=== PATIENT | female | born 1950 | race Caucasian/White ===

== ENCOUNTER 2019-08-11 21:23 | Observation (INO) | payer MEDICARE, SELFPAY ==
--- NOTE | ~2019-08-11 | XR_ITS ---
EXAMINATION: XR chest 2V DATE: 08/11/2019 22:23 INDICATION: Anterior chest pain. TECHNIQUE: PA and lateral views of the chest were obtained. COMPARISON: Chest radiograph dated 02/01/2019 FINDINGS: The lungs are clear with no focal airspace opacities, pulmonary edema, pleural effusion or pneumothor ax. Borderline heart size. Median sternotomy wires, ostial markers and mediastinal surgical clips con sistent with prior coronary artery bypass grafting. Atherosclerotic aorta. Moderate thoracic spondylo sis. IMPRESSION: 1. Borderline heart size. No acute cardiopulmonary disease. Reviewed, dictated and finalized at location A.
--- NOTE | ~2019-08-11 | CT_ITS ---
EXAMINATION: CT abdomen pelvis w con DATE: 08/11/2019 22:50 INDICATION: Upper abdominal pain. TECHNIQUE: Computed tomography (CT) of the abdomen and pelvis was performed with 100 mL Omnipaque-350 intravenous contrast. Automated exposure control and iterative reconstruction technique were employe d. The dose-length product was 395.66 mGy-cm. COMPARISON: 10/29/2018 FINDINGS: Mild atelectasis in the right lower lobe. Borderline heart size. No pericardial or pleural effusion. Liver, gallbladder, spleen, pancreas, bilateral adrenal glands and right kidney are normal. 5 mm left renal cyst. There are few scattered colonic diverticula without adjacent inflammatory change to sugg est diverticulitis. No bowel obstruction. The appendix is not visualized. No pericecal inflammatory c hange to suggest acute appendicitis. Bladder, uterus and bilateral adnexa are unremarkable. There is calcified atherosclerosis of the aorta and many of the other arteries. No free intraperitoneal gas or fluid. No pathologically enlarged abdominal or pelvic lymphadenopathy. Severe lumbar spondylosis. IMPRESSION: 1. No acute intra-abdominal/pelvic process. Reviewed, dictated and finalized at location A.
--- NOTE | 2019-08-11 21:26 | ECG_ITS ---
Measurements Intervals [place] Rate: 68 P: 58 UT: 170 QRS: -14 QRSD: 105 T: 63 QT: 420 QTc: 448 Interpretive Statements SINUS RHYTHM INCOMPLETE RIGHT BUNDLE BRANCH BLOCK ANTEROSEPTAL INFARCT, AGE INDETERMINATE BORDERLINE ST-T WAVE ABNORMALITY- HIGH LATERAL LEADS BASELINE ARTIFACT- I, II, V6 ABNORMAL ECG Electronically Signed On 08-12-2019 6:44:20 CDT by Maco Lo D.O.
[2019-08-11 21:27] VITALS: BP 176/70; PULSE 79; RESP 22; TEMP 37.2; O2SAT 99
[2019-08-11 21:34] VITALS: O2SAT 98
[2019-08-11 21:39] LABS: Basophils Percent Auto 0.5 % (0.2-1.2); Eosinophils Absolute Auto 0.2 K/mm3 (0-0.3); Eosinophils Percent Auto 1.8 % (0-4.4); Hemoglobin 14.4 g/dL (12.0-15.0); Immature Granulocyte Absolute 0.02 K/mm3 (0.00-0.031); Immature Granulocyte Percent A 0.2 % (0-0.5); Lymphocytes Absolute Auto 1.55 K/mm3 (0.9-3.2); Lymphocytes Percent Auto 17.9 % (18.3-44.2); Mean Corpuscular Hemoglobin 31.9 pg (26-34); Mean Corpuscular Volume 88.7 fl (80-100); Mean Platelet Volume 9.8 fl (7.4-10.4); Monocytes Absolute Auto 0.7 K/mm3 (0.1-0.6); Monocytes Percent Auto 8.5 % (2.6-8.5); Neutrophils Absolute Auto 6.2 K/mm3 (1.3-6.7); Neutrophils Percent Auto 71.1 % (45.5-73.1); Platelet Count Result 224 k/mm3 (150-375); Red Blood Count 4.51 M/mm3 (4.2-5.4); Red Cell Distribution Width 12.1 % (11.5-14.5); White Blood Count 8.7 K/mm3 (4.5-10.0)
[2019-08-11 21:49] LABS: Prothrombin Time 12.5 Seconds (11.1-14.7)
[2019-08-11 21:50] LABS: Blood Urea Nitrogen 12 mg/dL (7-17); Calcium 9.5 mg/dL (8.4-10.2); Carbon Dioxide 26 mmol/L (22-30); Chloride 94 mmol/L (98-107); Estimated Glomerular Filt Rate > 60; Glucose 130 mg/dL (65-105); Partial Thromboplastin Time 29.4 SECONDS (22.3-36.8); Potassium 4.1 mmol/L (3.4-5.0); Sodium 129 mmol/L (137-145)
[2019-08-11 22:02] LABS: Troponin I < 0.012 ng/mL (0.000-0.034)
--- NOTE | 2019-08-11 22:15 | PC.NURSE ---
Called lab to add on Hepatic panel and Lipase
[2019-08-11 22:24] LABS: Alanine Aminotransferase 20 U/L (4-35); Albumin Level 4.6 g/dL (3.5-5.1); Alkaline Phosphatase 62 U/L (38-126); Aspartate Amino Transferase 35 U/L (14-36); Bilirubin,Total 0.2 mg/dL (0.2-1.3); Lipase 130 U/L (23-300)
--- NOTE | 2019-08-11 22:42 | PC.NURSE ---
pt refusing nitro at this time, reports pain at a 0/10. edp notified.
[2019-08-11 23:01] VITALS: BP 155/59; PULSE 61; RESP 18; O2SAT 100
--- NOTE | 2019-08-11 23:16 | ED.CHESTPAIN ---
HPI - Chest Pain General Chief Complaint: Chest Pain Stated Complaint: chest pain Time Seen by Provider: 08/11/19 21:46 Source: patient Mode of arrival: ambulatory Limitations: no limitations History of Present Illness HPI narrative: This patient is a 68 year old female with history of CABG, aortic valve replacement and hypertension who presents for evaluation of substernal chest pressure. She states just prior to coming she developed substernal pain. She took tums because she initially thought it was heart burn, but she did not get relief. She reports this pain continued and it began radiating to left lower chest . Her pain currently is not as severe. She has associated nausea and shortness of breath. She states her pain does not radiate to her back. She was seen by Dr. Ayala 2 years ago but she was told she did not need to follow up . MD complaint: chest pain Pertinent past history: CABG Timing of current episode: constant Onset: during rest Pain location: substernal Pain radiation: other (left lower chest) Pain scale (0-10): 5 Quality: heaviness Relieving factors: nothing Exacerbating factors: nothing Risk Factors Coronary artery disease risk factors: hyperlipidemia and hypertension Related Data Home Medications Medication Instructions Recorded Confirmed aspirin 325 mg PO DAILY 08/12/19 08/12/19 hydrochlorothiazide 25 mg PO DAILY 08/12/19 08/12/19 metoprolol succinate 50 mg PO DAILY 08/12/19 08/12/19 potassium chloride 10 meq PO BID 08/12/19 08/12/19 rosuvastatin [Crestor] 20 mg PO DAILY 08/12/19 08/12/19 sertraline 50 mg PO DAILY 08/12/19 08/12/19 vitamin B complex 1 tablet PO DAILY 08/12/19 08/12/19 Allergies Allergy/AdvReac Type Severity Reaction Status Date / Time doxycycline Allergy Intermediate RASH Unverified 08/11/19 21:32 Cephalosporins Allergy Unknown Unknown Verified 08/11/19 21:32 tetracycline Allergy Unknown Unknown Verified 08/11/19 21:32 Review of Systems Review of Systems: All systems reviewed & are unremarkable except as noted in HPI and below Constitutional: Constitutional: Denies chills and Denies fever(s) Cardiovascular: Cardiovascular: Reports chest pain, Denies rapid heart rate and Denies radiating jaw, neck or arm pain Respiratory: Respiratory: Denies cough, Reports dyspnea and Denies wheezing Gastrointestinal: Gastrointestinal: Denies abdominal pain, Denies diarrhea, Reports nausea and Denies vomiting Neurologic: Denies dizziness PMFSH Past Medical History Medical History (Updated 08/12/19 @ 06:49 by Grecia Garcia MD) Hyperlipidemia Hypertension Surgical History Surgical History (Updated 08/12/19 @ 06:45 by Grecia Garcia MD) H/O aortic valve replacement S/P CABG x 1 Family History Family History (Updated 08/12/19 @ 00:57 by Linnette Goss RN) Sibling Cancer Aortic valve replaced Heart failure Father Heart attack Daughter No problems noted. Mother Aortic valve replaced Social History Social History Smoking packs per day: 1 Smoking cigarettes per day: 20.0 Years smoked: 50 Smoking pack-years: 50.00 Smoking status: Current every day smoker Alcohol intake: current Drinks per week: 8 Substance use: never Gender identity (if verbalized by the patient): Female Spiritual care concerns: No Exam Narrative: Exam Narrative: GENERAL: Well-appearing, well-nourished, and in no acute distress. HEAD: Normocephalic, atraumatic EYES: PERRLA and EOMI, conjunctiva clear without discharge THROAT:Mucous membranes moist, Oropharynx normal without erythema, exudate, peritonsillar swelling or fluctuance NECK: Supple, without lymphadenopathy or mass RESPIRATORY: No respiratory distress, Airway patent, Respirations non-labored, Clear to auscultation without rales, rhonchi or wheeze HEART: Regular rate and rhythm. No murmur heard. Normal peripheral pulses. ABDOMEN: Soft,epigastric, nondistended, normal active dg
[2019-08-12] VITALS (7 sets, daily range): BP systolic 110–154; BP diastolic 51–98; PULSE 56–82; RESP 14–19; TEMP 36.3–36.7; O2SAT 99–100; BMI 24.5
--- NOTE | 2019-08-12 01:02 | ADMGEN ---
This patient, Yris Guillermo, was admitted to IMU Room 200-01. Patient/family oriented to hospital policies and general routines including ID bracelet, bed and alarms, visiting hours, pain management, procedures, bathroom and other care routines, personal items, smoking policy, room service/diet, and visiting hours. Valuables list has been completed. Information on how to activate the Rapid Response Team has been discussed. Patient/Family are encouraged to report perceived risks to care and to ask questions if they do not understand what they are told or what they should do.
[2019-08-12 01:25] LABS: Troponin I < 0.012 ng/mL (0.000-0.034)
[2019-08-12 03:56] LABS: Troponin I < 0.012 ng/mL (0.000-0.034)
--- NOTE | 2019-08-12 08:14 | PM.IMHP ---
H&P: HPI History of Present Illness Chief complaint: chest pain, sob Narrative: Date of service: 08/12/2019. Yris Guillermo is a 68 year old female with past medical history of chronic tobacco abuse, CABG with KIMBLE to LAD, bovine aortic valve replacement at [facility] 2004, hypertension, Meniere's disease. She came to the hospital chiefly complaining of pain in the epigastric area radiating up to the chest and to the sides that started after eating dinner. She ate toasted rivioli. Pain was persistent and she stated that when the emergency room physician was pushing on the epigastric was very tender. No aggravating or relieving factors. She usually gets such kind of pain but relieved by Tums but however yesterday was not going away. Denies shortness of breath, lower limb edema, orthopnea, paroxysmal nocturnal dyspnea, dizziness, syncope. Apparently she was seeing Dr. Ayala but he informed her that she does not need follow-up and the last time she saw Dr. Ayala was several years ago. Serum creatinine 0.7, sodium 129, troponins x2 negative. Chest x-ray reviewed myself looks unremarkable. EKG reviewed myself shows sinus rhythm, septal Q-waves. Review of Systems Review of Systems: All systems reviewed & are unremarkable except as noted in HPI and below Constitutional: Constitutional: Denies chills, Denies fatigue, Denies fever(s), Denies headache(s) and Denies snoring Eyes: Eyes: Denies eye discharge and Denies loss of vision ENT: Denies dizziness, Denies headache(s), Denies nasal discharge and Denies sore throat Cardiovascular: Cardiovascular: Reports as per HPI, Reports chest pain, Denies syncope, Denies rapid heart rate, Denies leg edema, Denies dyspnea, Denies dyspnea on exertion, Denies orthopnea and Denies paroxysmal nocturnal dyspnea Respiratory: Respiratory: Denies chest congestion, Denies cough, Denies dyspnea, Denies dyspnea on exertion, Denies snoring and Denies wheezing Gastrointestinal: Gastrointestinal: Reports abdominal pain, Denies diarrhea, Denies nausea and Denies vomiting Genitourinary: Genitourinary: Denies hematuria, Denies urinary frequency, Denies dysuria and Denies flank pain Musculoskeletal: Musculoskeletal: Denies myalgias, Denies arthralgias and Denies joint swelling Neurologic: Denies Abnormal speech present, Denies dizziness, Denies syncope, Denies headache(s), Denies focal weakness and Denies loss of vision Psychiatric: Psychiatric: Denies anxiety and Denies depression Endocrine: Endocrine: Denies cold intolerance, Denies fatigue and Denies heat intolerance Hematologic/Lymphatic: Hematologic/Lymphatic: Denies easy bleeding and Denies easy bruising Allergic/Immunologic: Allergic/Immunologic: Denies urticaria and Denies wheezing PMFSH Past Medical History Medical History Hyperlipidemia Hypertension Surgical History Surgical History H/O aortic valve replacement S/P CABG x 1 Family History Family History Sibling Cancer Aortic valve replaced Heart failure Father Heart attack Daughter No problems noted. Mother Aortic valve replaced Social History Social History Smoking packs per day: 1 Smoking cigarettes per day: 20.0 Years smoked: 50 Smoking pack-years: 50.00 Smoking status: Current every day smoker Alcohol intake: current Drinks per week: 8 Substance use: never Gender identity (if verbalized by the patient): Female Spiritual care concerns: No Meds Home Medications and Allergies Home Medications Medication Instructions Recorded Confirmed Type aspirin 325 mg PO DAILY 08/12/19 08/12/19 History hydrochlorothiazide 25 mg PO DAILY 08/12/19 08/12/19 History metoprolol succinate 50 mg PO DAILY 08/12/19 08/12/19 Sc
--- NOTE | 2019-08-12 08:53 | PM.DS ---
DS: Admitting Diagnosis Admitting Diagnosis Admitting Diagnosis: Chest pain, unspecified DS: Discharge Diagnosis Discharge Diagnosis (1) Chest pain: Code(s): R07.9 - Chest pain, unspecified Status: Acute DS: Summary Time Spent with Patient Time attestation: Total time spent providing and/or coordinating discharge services: 29 minutes. Patient was admitted with chest pain. Troponins negative. EKG shows no ischemic changes but septal Q-waves. She wanted to go home and do the stress test and echocardiogram as an outpatient. She was deemed to be stable to be discharged home. Exam Const: General: cooperative, comfortable, no acute distress, alert and awake Nutritional Appearance: well nourished Orientation/consciousness: patient oriented x3 HENMT: Head: normal to inspection, normocephalic and atraumatic Ears: hearing grossly normal bilaterally General nose exam: Normal external nose present, Normal nares present and no nasal discharge noted Face and sinus: normal facial exam and no erythema Mouth: No drooling and No restricted motion Throat: uvula midline Eyes: General: appearance normal, both eyes and all related structures Alignment and Position: position normal Conjunctivae: conjunctivae normal Sclera: sclerae normal Direct Ophthalmoscopy: No photophobia Neck: Neck: normal visual inspection and no JVD Thyroid: thyroid normal Carotids: no bruits Lymphatic: lymphedema not noted Chest: Chest palpation & inspection: normal inspection of the chest and no tenderness Resp: Effort & Inspection: normal respiratory effort and no nasal flaring Auscultation: clear to auscultation bilaterally, no crackles, no rales and no wheezes Cardio: Jugular venous distension: no JVD Rate: regular rate Rhythm: regular rhythm Heart sounds: S1 normal heart sound present, S2 normal heart sound present, no gallops, no murmurs and no rubs GI: Inspection: non-distended GI Palp: No abdominal tenderness and No Soft to palpation Auscultation: normal bowel sounds Rectal Exam: deferred : General: No no CVA tenderness Back/Spine/Pelvis: Back: No no CVA tenderness Cervical Spine: cervical ROM normal Skin: General skin exam: normal color and rashes and/or lesions noted Neuro: General: patient oriented x3 Cranial nerves: No CN's II-XII intact bilaterally Speech: normal speech Motor exam (neuro): no tremors Extrem: General: normal to inspection and pedal edema present Psych: Appearance: grossly normal and well kempt Speech and movement: Normal speech and movement present Affect: normal affect DS: Data Data Completed and Pending Labs on day of discharge: Labs from last 24 hours 08/12/19 08/12/19 08/11/19 03:23 00:52 21:33 WBC RBC Hgb Hct MCV MCH MCHC RDW Plt Count MPV Immature Gran % (Auto) Neut % (Auto) Lymph % (Auto) Tift % (Auto) Eos % (Auto) Baso % (Auto) Lymph # (Auto) Tift # (Auto) Eos # (Auto) Baso # (Auto) Abs Immat Gran (auto) Absolute Neuts (auto) Absolute Nucleated RBC Nucleated RBC % PT INR APTT Sodium Potassium Chloride Carbon Dioxide BUN Creatinine Estim Creat Clear Calc Estimated GFR Glucose Calcium Total Bilirubin 0.2 Direct Bilirubin 0.0 AST 35 ALT 20 Alkaline Phosphatase 62 Troponin I < 0.012 < 0.012 Total Protein 8.0 Albumin 4.6 Lipase 130 08/11/19 08/11/19 08/11/19 21:33 21:33 21:33 WBC 8.7 RBC 4.51 Hgb 14.4 Hct 40.0 MCV 88.7 MCH 31.9 MCHC 36.0 RDW 12.1 Plt Count 224 MPV 9.8 Immature Gran % (Auto) 0.2 Neut % (Auto) 71.1 Lymph % (Auto) 17.9 L Tift % (Auto) 8.5 Eos % (Auto) 1.8 Baso % (Auto) 0.5 Lymph # (Auto) 1.55 Tift # (Auto) 0.7 H Eos # (Auto) 0.2 Baso # (Auto) 0.0 Abs Immat Gran (auto) 0.02 Absolute Neuts (auto) 6.2 Absolute Nucleated RBC
== END 2019-08-12 10:00 | disposition home or self-care (01) ==
LOC: ANHED 21:46 → ANHIMU 08-12 02:28 → ANHCPC 08-12 08:58 → ANHIMU 08-13 14:56
PROVIDERS: Admitting Provider Internal Medicine Cardiovascular Disease; Emergency Provider General Practice; PCP Family Medicine; Visit Provider Internal Medicine Cardiovascular Disease
DX: R07.9 Chest pain, unspecified (principal); E87.1 Hypo-osmolality and hyponatremia; I10 Essential (primary) hypertension; E78.5 Hyperlipidemia, unspecified; F17.210 Nicotine dependence, cigarettes, uncomplicated; Z95.1 Presence of aortocoronary bypass graft; Z95.2 Presence of prosthetic heart valve
CPT/HCPCS: 36415; 71046; 74177; 80048; 80076; 83690; 84484; 85025; 85610; 85730; 93005; 99285; G0378; Q9967

== ENCOUNTER → 2020-03-26 16:48 | Outpatient (CLI) | payer MEDICARE, SELFPAY ==
--- NOTE | ~2020-03-26 | MM_ITS ---
EXAMINATION: MM screening david BI w erin HISTORY: Screening mammogram TECHNIQUE: Craniocaudal and mediolateral oblique 3-D tomosynthesis images were obtained and synthetic 2-D images were generated. CAD analysis was submitted and interpreted. COMPARISON: 05/10/2010 BREAST PARENCHYMAL COMPOSITION: The breasts are heterogeneously dense, which may obscure small masses . FINDINGS: Scattered benign-appearing calcifications are present. There is no evidence of suspicious m ass, calcification, or architectural distortion to suggest malignancy in either breast. There has bee n no suspicious interval change. IMPRESSION: 1. No mammographic evidence of malignancy. 2. Recommend routine screening mammography in one year. BI-RADS Category 2: Benign finding(s). Reviewed, dictated and finalized at location A. CUTTER
== END ==
PROVIDERS: PCP Family Medicine; Visit Provider Family Medicine
DX: Z12.31 Encounter for screening mammogram for malignant neoplasm of breast (principal)
CPT/HCPCS: 77063; 77067

== ENCOUNTER → 2020-06-05 14:35 | Outpatient (CLI) | payer MEDICARE, SELFPAY ==
--- NOTE | ~2020-06-05 | XR_ITS ---
EXAMINATION: XR shoulder LT min 2V DATE: 06/05/2020 15:09 INDICATION: Left shoulder pain. TECHNIQUE: 4 views of left shoulder were obtained. COMPARISON: None. FINDINGS: Bone alignment is normal. No fracture. There is mild osteoarthritis of glenohumeral joint a nd acromioclavicular joint. Median sternotomy wires and mediastinal surgical clips are seen, likely f rom prior coronary artery bypass grafting. IMPRESSION: 1. Mild polyarticular osteoarthritis. Reviewed, dictated and finalized at location A.
== END ==
PROVIDERS: PCP Family Medicine; Visit Provider Family Medicine
DX: M19.012 Primary osteoarthritis, left shoulder (principal)
CPT/HCPCS: 73030

== ENCOUNTER 2020-07-08 12:37 | Outpatient (CLI) | payer MEDICARE, SELFPAY ==
--- NOTE | ~2020-07-08 | US_ITS ---
EXAMINATION: US carotid duplex BI DATE: 07/08/2020 13:49 INDICATION: Carotid bruit. TECHNIQUE: Grayscale, color Doppler, and pulsed Doppler images of the cervical carotid arteries were obtained. The degree of vessel stenosis is placed in one of the following categories: normal, <50%, 5 0-69%, >=70% but less than near-occlusion, near-occlusion, or total occlusion. Note that percent sten osis relative to normal distal artery lumen diameter is indirectly measured from velocity measurement s as described by Wellington, et al. Radiology 2003; [id number]:340-346. COMPARISON: Ultrasound 06/25/2004 FINDINGS: RIGHT: The right common carotid artery (CCA) peak systolic velocity (PSV) is 85 cm/s. The right internal car otid artery (ICA) PSV is 206 cm/s. The right ICA end-diastolic velocity (EDV) is 69 cm/s. The right I CA/CCA PSV ratio is 2.4. Grayscale and color Doppler images yield an estimate of >=50% diameter reduc tion from plaque in the ICA. There is antegrade flow in the right vertebral artery. LEFT: The left CCA PSV is 61 cm/s. The left ICA PSV is 62 cm/s. The left ICA EDV is 28 cm/s. There is a par vus tardus waveform in left ICA. The left ICA/CCA PSV ratio is 1.0. Grayscale and color Doppler image s yield an estimate of >=50% diameter reduction from plaque in the ICA. The distal left ICA is small in caliber. There is antegrade flow in the left vertebral artery. IMPRESSION: 1. 50-69% stenosis in the right internal carotid artery. 2. Near-occlusion stenosis in the left internal carotid artery. Consider neck CTA. Reviewed, dictated and finalized at location A. IMPRESSION: 1. 50-69% stenosis in the right internal carotid artery. 2. Near-occlusion stenosis in the left internal carotid artery. Consider neck C TA.
== END 2020-07-08 12:38 | disposition home or self-care (01) ==
PROVIDERS: PCP Family Medicine; Visit Provider Family Medicine
DX: I65.23 Occlusion and stenosis of bilateral carotid arteries (principal)
CPT/HCPCS: 93880

== ENCOUNTER → 2020-07-13 15:21 | Outpatient (CLI) | payer MEDICARE, SELFPAY ==
--- NOTE | ~2020-07-13 | CT_ITS ---
EXAMINATION: CTA neck DATE: 07/13/2020 16:10 INDICATION: Near occlusion of left carotid artery. TECHNIQUE: Computed tomographic angiography (CTA) of the neck was performed with 100 mL Omnipaque-350 intravenous contrast. Automated exposure control and iterative reconstruction technique were employe d. The dose-length product was 493.71 mGy-cm. Maximum intensity projection 3D-reconstructions were cr eated by the technologist on a separate workstation. COMPARISON: Ultrasound 07/08/2020 FINDINGS: There are no pathologically enlarged lymph nodes. There is mild stenosis of right common ca rotid artery. There is plaque in the proximal right internal carotid artery. There is 56% stenosis of the proximal right internal carotid artery relative to normal distal artery lumen diameter (NASCET c riteria). There is mild stenosis of left common carotid artery. There is total occlusion of cervical left internal carotid artery. There is moderate stenosis of origin of left external carotid artery. Left vertebral artery has a separate origin from the aortic arch. Left vertebral artery is dominant. There is mild stenosis of left subclavian artery. There is severe cervical spondylosis. IMPRESSION: 1. 56% stenosis of the proximal right internal carotid artery relative to normal distal artery lumen diameter (NASCET criteria). 2. Total occlusion of cervical left internal carotid artery. Reviewed, dictated and finalized at location A. IMPRESSION: 1. 56% stenosis of the proximal right internal carotid artery relative to vikas l distal artery lumen diameter (NASCET criteria). 2. Total occlusion of cervical left internal carotid artery.
[2020-07-13 15:38] LABS: Estimated Glomerular Filt Rate > 60
== END ==
PROVIDERS: Visit Provider Family Medicine
DX: I65.23 Occlusion and stenosis of bilateral carotid arteries (principal)
CPT/HCPCS: 70498; Q9967

== ENCOUNTER → 2021-01-11 16:14 | Outpatient (CLI) | payer MEDICARE, SELFPAY ==
--- NOTE | ~2021-01-11 | XR_ITS ---
XR hand RT min 3V 01/11/2021 16:24 Indication: Right hand pain Procedure: 3 views right hand Comparison: 07/10/2013 Findings: No fracture, subluxation or dislocation. No erosive changes. There is anatomic alignment. N o focal soft tissue abnormality. No significant bone or joint abnormality. There is mild osteoarthrit is of the first MCP joint. Impression: 1: No acute bone or joint abnormality. Reviewed, dictated and finalized at location A. UNICATIONS DIRECTOR Impression: 1: No acute bone or joint abnormality.
== END ==
PROVIDERS: PCP Family Medicine; Visit Provider Family Medicine
DX: M25.541 Pain in joints of right hand (principal)
CPT/HCPCS: 73130

== ENCOUNTER 2021-06-29 11:01 | Outpatient (CLI) | payer MEDICARE, SELFPAY ==
--- NOTE | ~2021-06-29 | US_ITS ---
EXAMINATION: US carotid duplex BI DATE: 06/29/2021 12:25 INDICATION: Carotid occlusion/stenosis TECHNIQUE: Grayscale, color Doppler, and pulsed Doppler images of the cervical carotid arteries were obtained. The degree of vessel stenosis is placed in one of the following categories: normal, <50%, 5 0-69%, >=70% but less than near-occlusion, near-occlusion, or total occlusion. Note that percent sten osis relative to normal distal artery lumen diameter is indirectly measured from velocity measurement s as described by Wellington, et al. Radiology 2003; [id number]:340-346. Notes: Normal: Peak systolic velocity <125 centimeters/sec and no plaque <50%. Peak systolic velocity <125 ( EDV <40; ICA/CCA PSV ratio <2.0; used these factors only a tandem lesions or low cardiac output or co ntralateral disease) 50-69 %: PSV 125-230 (EDV 40-100; ratio 2-4) >= 70% but less than near occlusion: PSV greater than 230 (EDV > 100; ratio> 4.0) Near Occlusion: PSV that is variable; markedly narrowed lumen Occlusion: Absent flow on color/spectral Doppler and no lumen on chavez scale. COMPARISON: None. FINDINGS: RIGHT: The right common carotid artery (CCA) peak systolic velocity (PSV) is 78 cm/s. The right internal car otid artery (ICA) PSV is 255 cm/s. The right ICA end-diastolic velocity (EDV) is 47 cm/s. The right I CA/CCA PSV ratio is 3.3. The external carotid artery (ECA) PSV is 76 cm/s. There is antegrade flow in the right vertebral artery. LEFT: The left CCA PSV is 67 cm/s. There is occlusion of the left internal carotid artery without identifia ble flow. Velocity in the left external carotid artery is 1 86 cm/s. There is antegrade flow in the l eft vertebral artery. IMPRESSION: 1. Greater than or equal to 70% stenosis in the right internal carotid artery by sonographic criteri a. 2. Complete occlusion of the left internal carotid artery. Reviewed, dictated and finalized at location A. IMPRESSION: 1. Greater than or equal to 70% stenosis in the right internal carotid artery by sonographic criteria. 2. Complete occlusion of the left internal carotid artery.
== END 2021-06-29 11:02 | disposition home or self-care (01) ==
PROVIDERS: PCP Family Medicine; Visit Provider Family Medicine
DX: I65.23 Occlusion and stenosis of bilateral carotid arteries (principal)
CPT/HCPCS: 93880

== ENCOUNTER 2022-06-04 03:16 | Inpatient (IN) | payer MEDICARE, SELFPAY ==
[2022-06-04] VITALS (31 sets, daily range): BP systolic 142–195; BP diastolic 30–87; PULSE 59–93; RESP 14–23; TEMP 36.1–36.4; O2SAT 92–99; BMI 24.5
--- NOTE | 2022-06-04 | ECHO_ITS ---
Patient Info Name: Yris Guillermo Age: 71 years : 1950 Gender: Female Ht: 63 in Wt: 138 lbs BSA: 1.68 m2 HR: 61 bpm BP: 155 / 41 mmHg Heart Rhythm: Sinus Rhythm Technical Quality: Good Exam Date: 06/04/2022 2:27 PM Exam Location: [facility] Patient Status: Outpatient Admit Date: 06/04/2022 Staff Ordering Physician: George Spring MD Attending Provider: Conrad Edouard MD Exam Type: CA echo doppler color flow Study Info Complete two-dimensional, color flow and Doppler transthoracic echocardiogram is performed. Summary 1. Complete two-dimensional, color flow and Doppler transthoracic echocardiogram is performed. 2. The left ventricle is of normal size and thickness. Left ventricular function of the lower end of normal, with mild hypokinesis of the distal anterior wall and septum, ejection fraction about 55%. No focal wall motion abnormalities. Diastolic dysfunction is indeterminate. 3. Moderate left atrial enlargement. 4. Thickened mitral valve with regurgitation, not clearly delineated but probably mild to moderate. 5. The aortic valve is not well visualized. Probably moderate to severe aortic valve stenosis with a peak velocity of 313 cm/s, mean gradient of 20 mmHg, and aortic valve area of 0.8 cm2. Probably severe or moderate least severe aortic insufficiency. 6. There is mild tricuspid valve regurgitation. 7. Mild pulmonary hypertension, estimated pulmonary arterial systolic pressure is 42 mmHg. 8. Minimal enlargement of the ascending aorta, 3.4 cm. 9. Normal sinus rhythm. 10. Technically difficult study. Left Ventricle Left ventricular chamber dimension is normal. Left ventricular systolic function is normal, estimated at 55-60%. There is no increased left ventricular wall thickness. Left ventricular septal wall motion is normal. The left ventricular diastolic function is indeterminate. Right Ventricle Right ventricular chamber dimension is normal. Right ventricular systolic function is normal. Left Atria Left atrial chamber dimension is moderately enlarged. Right Atria Right atrial chamber dimension is normal. Aortic Valve The aortic valve is not well visualized. There is no aortic valve sclerosis. The aortic valve is not well visualized. Probably moderate to severe aortic valve stenosis with a peak velocity of 313 cm/s, mean gradient of 20 mmHg, and aortic valve area of 0.8 cm2. Probably severe or moderate least severe aortic insufficiency. There is moderate to severe aortic valve regurgitation. Pulmonic Valve The pulmonic valve is normal. There is no pulmonic valve stenosis. There is no pulmonic regurgitation. Mitral Valve The mitral valve has thickened leaflets. There is no mitral valve stenosis. There is mild to moderate mitral valve regurgitation. Tricuspid Valve The tricuspid valve leaflets are normal. There is no significant tricuspid valve stenosis. There is mild tricuspid valve regurgitation. Mild pulmonary hypertension, estimated pulmonary arterial systolic pressure is 42 mmHg. Pericardium/Pleural The pericardium appears normal. There is no pericardial effusion. Inferior Vena Cava Normal inferior vena cava with >50% collapse upon inspiration consistent with Empty right atrial pressure, 10 mmHg. Aorta The aortic root size at the sinus of Valsalva is normal. The prox ascending aorta size is normal. Left Ventricular Outflow Tract
--- NOTE | ~2022-06-04 | XR_ITS ---
Portable chest x-ray Comparison: 06/07/2022 Clinical History: Shortness of breath Findings: Small bilateral pleural effusions are present. There is mild to moderate pulmonary edema p attern. Cardiomediastinal silhouette is stable. Bones and soft tissues are unremarkable. Impression: Mild to moderate pulmonary edema pattern with small bilateral pleural effusions. Findings are probabl y minimally worsened from prior exam. Reviewed, dictated and finalized at location M. Impression: Mild to moderate pulmonary edema pattern with small bilateral pleural effusions . Findings are probably minimally worsened from prior exam.
--- NOTE | ~2022-06-04 | XR_ITS ---
EXAMINATION: XR chest 2V DATE: 06/04/2022 04:04 INDICATION: Chest pain. Shortness of breath. TECHNIQUE: Frontal and lateral views of the chest were obtained. COMPARISON: Chest 2 views 08/11/2019 FINDINGS: There is a diffuse interstitial pattern, consistent with pulmonary edema. There are small p leural effusions. No pneumothorax. Cardiomegaly is noted. Median sternotomy wires and mediastinal lauren gical clips are seen, likely from prior coronary artery bypass grafting. IMPRESSION: 1. Mild pulmonary edema. 2. Small pleural effusions. 3. Cardiomegaly. Reviewed, dictated and finalized at location E.
--- NOTE | ~2022-06-04 | XR_ITS ---
Portable chest x-ray Comparison: 06/04/2022 Clinical History: Shortness of breath Findings: Small right pleural effusion is present with mild pulmonary edema pattern. Cardiomediasti nal silhouette is stable, status post CABG. Bones and soft tissues are unremarkable. Impression: Mild pulmonary edema pattern with small right pleural effusion. Status post CABG. Reviewed, dictated and finalized at [facility]. Impression: Mild pulmonary edema pattern with small right pleural effusion. Status post CABG.
--- NOTE | ~2022-06-04 | CT_ITS ---
EXAMINATION: CTA chest PE protocol DATE: 06/04/2022 05:59 INDICATION: Dyspnea. TECHNIQUE: Computed tomography angiography (CTA) of the chest was performed with 100 mL Omnipaque-350 intravenous contrast timed to evaluate the pulmonary arteries. Coronal maximum intensity projection 3D-reconstructions were created by the technologist. Automated exposure control and iterative reconst ruction technique were employed. The dose-length product was 181.22 mGy-cm. COMPARISON: CT abdomen and pelvis 08/12/2019 FINDINGS: There is diffuse smooth septal thickening in the lungs associated with groundglass opacitie s, consistent with pulmonary edema. There are small pleural effusions. Cardiomegaly is noted. There a re coronary artery calcifications. There are changes of coronary artery bypass grafting. There is no pulmonary embolus. There is severe thoracic spondylosis. IMPRESSION: 1. No pulmonary embolus. 2. Moderate pulmonary edema. 3. Small pleural effusions. 4. Cardiomegaly. Reviewed, dictated and finalized at location E.
--- NOTE | 2022-06-04 03:19 | ECG_ITS ---
Measurements Intervals [place] Rate: 73 P: 76 ND: 171 QRS: -24 QRSD: 108 T: 83 QT: 386 QTc: 427 Interpretive Statements SINUS RHYTHM POSSIBLE LEFT ATRIAL ENLARGEMENT [-0.1mV P WAVE IN V1/V2] POSSIBLE OLD aNTEROSEPTAL MYOCARDIAL INFARCTION ST DEPRESSION IN V6 SUGGESTIVE OF ISCHEMIA AND NONSPECIFIC CHANGES NOTED ELSEWHERE. COMPARED TO ECG 08/11/2019 21:30:[address] DEPRESSION IN V6 IS MORE PRONOUNCED Electronically Signed On 06-04-2022 22:13:33 CDT by Awa Peterson M.D.
[2022-06-04 04:01] LABS: Basophils Percent Auto 0.4 % (0.2-1.2); Eosinophils Absolute Auto 0.2 K/mm3 (0-0.3); Eosinophils Percent Auto 1.5 % (0-4.4); Hematocrit 36.7 % (37.0-47.0); Hemoglobin 13.1 g/dL (12.0-15.0); Immature Granulocyte Absolute 0.06 K/mm3 (0.00-0.031); Immature Granulocyte Percent A 0.5 % (0-0.5); Lymphocytes Absolute Auto 1.25 K/mm3 (0.9-3.2); Lymphocytes Percent Auto 11.2 % (18.3-44.2); Mean Corpuscular HGB Conc 35.7 g/dl (32-36); Mean Corpuscular Hemoglobin 31.8 pg (26-34); Mean Corpuscular Volume 89.1 fl (80-100); Mean Platelet Volume 10.1 fl (7.4-10.4); Monocytes Absolute Auto 0.7 K/mm3 (0.1-0.6); Monocytes Percent Auto 6.6 % (2.6-8.5); Neutrophils Percent Auto 79.8 % (45.5-73.1); Platelet Count Result 177 k/mm3 (150-375); Red Blood Count 4.12 M/mm3 (4.2-5.4); Red Cell Distribution Width 12.2 % (11.5-14.5); White Blood Count 11.2 K/mm3 (4.5-10.0)
[2022-06-04 04:11] LABS: Alanine Aminotransferase 21 U/L (6-35); Albumin Level 4.2 g/dL (3.5-5.1); Alkaline Phosphatase 57 U/L (38-126); Anion Gap 8 mmol/L (8-16); Aspartate Amino Transferase 29 U/L (14-36); Bilirubin,Total 0.5 mg/dL (0.2-1.3); Blood Urea Nitrogen 18 mg/dL (7-17); Carbon Dioxide 24 mmol/L (22-30); Chloride 96 mmol/L (98-107); Estimated CRCL calculation 61 ml/min; Estimated Glomerular Filt Rate > 60; Glucose 112 mg/dL (65-110); Potassium 4.2 mmol/L (3.4-5.0); Sodium 128 mmol/L (137-145)
[2022-06-04] MEDS: BENZONATATE 100 MG CAPSULE 200 MG PO (04:17)
[2022-06-04 04:23] LABS: Troponin I 0.029 ng/mL (0.000-0.034)
[2022-06-04 04:46] LABS: Influenza A QL RT-PCR Negative (Negative); Influenza B QL RT-PCR Negative (Negative); RSV RNA, RT-PCR Negative (Negative); SARS-CoV-2 RNA PCR Negative
[2022-06-04 05:26] LABS: NT Pro B Type Natriuretic Pept 2280 pg/mL (19.9-100)
--- NOTE | 2022-06-04 05:58 | ED.GENADULT ---
HPI - General Adult General Chief complaint: Shortness of Breath/Dyspnea Stated complaint: SOB Time Seen by Provider: 06/04/22 03:30 History of Present Illness HPI narrative: Patient 71-year-old female who presents emergency department chief complaint of shortness of breath. Patient reports that for the last week having some intermittent shortness of breath. Patient reports this evening she was laying in her bed and had sudden onset of shortness of breath. Patient reports that she also had tightness in her chest when this happened and was concerned that she may have had a heart attack. The patient reports that she has never had a heart attack in the past but does report that she has history of an aortic valve replacement with a porcine valve the patient reports she had stress test and has had a cardiac cath in the past. The patient is currently not on oxygen at home and reports that she was 88 to 90% on room air Patient reports she has had a cough with all this but has been nonproductive. Related Data Home Medications Medication Instructions Recorded Confirmed aspirin 325 mg tablet 325 mg PO DAILY 08/12/19 08/12/19 metoprolol succinate 50 mg 50 mg PO DAILY 08/12/19 08/12/19 tablet,extended release 24 hr potassium chloride 20 mEq 10 meq PO BID 08/12/19 08/12/19 tablet,extended release rosuvastatin 20 mg tablet (Crestor) 20 mg PO DAILY 08/12/19 08/12/19 sertraline 50 mg tablet 50 mg PO DAILY 08/12/19 08/12/19 vitamin B complex 1 tablet PO DAILY 08/12/19 08/12/19 hydrochlorothiazide 12.5 mg tablet 12.5 mg PO DAILY 03/31/22 Allergies Allergy/AdvReac Type Severity Reaction Status Date / Time doxycycline Allergy Intermediate RASH Verified 06/04/22 04:19 Cephalosporins Allergy Unknown Unknown Verified 06/04/22 04:19 tetracycline Allergy Unknown Unknown Verified 06/04/22 04:19 Review of Systems Review of Systems: A 10 system review of systems was completed on the patient and is negative except for what is stated in the HPI. Nursing and ancillary documentation was reviewed. [facility]LY [facility] Past Medical History Medical History (Updated 06/04/22 @ 06:23 by George Felton MD) Hyperlipidemia Hypertension Surgical History Surgical History H/O aortic valve replacement S/P CABG x 1 Family History Family History Sibling Cancer Aortic valve replaced Heart failure Father Heart attack Daughter No problems noted. Mother Aortic valve replaced Social History Social History Smoking packs per day: 1 Smoking cigarettes per day: 20.0 Years smoked: 50 Smoking pack-years: 50.00 Smoking status: Current every day smoker Alcohol intake: current Drinks per week: 8 Substance use: never Gender identity (if verbalized by the patient): Female Spiritual care concerns: No Exam Narrative: GENERAL: Well-appearing, well-nourished, and in no acute distress. HEAD: Normocephalic, atraumatic. EYES: PERRLA and EOMI. ENT: Nares clear, no rhinorrhea or epistaxis. Mucous membranes moist. NECK: Supple. CHEST: Clear to auscultation. No respiratory distress. HEART: Regular rate and rhythm. No murmur heard. Normal peripheral pulses. ABDOMEN: Soft, nontender, nondistended, normal active bowel sounds. EXTREMITIES: Normal range of motion. No edema. SKIN: Warm, dry, no rash. NEURO: No focal deficits. Alert and oriented x3. PSYCH: Normal mood and affect. Course Vital Signs Vital signs: Vital Signs Pulse Rate 74 06/04/22 03:16 Respiratory Rate 23 H 06/04/22 03:16 Blood Pressure 195/42 H 06/04/22 03:16 Pulse Oximetry 95 06/04/22 03:16 Oxygen Delivery Nasal Cannula 06/04/22 03:16 Oxygen Flow Rate 2 06/04/22 03:16 Temperature 36.4 C L 06/04/22 03:25 Pulse Rate 67 06/04/22 05:57 Respiratory
[2022-06-04] MEDS: FUROSEMIDE INJ 40 MG/4 ML VIAL 20 MG IV PUSH (06:05)
--- NOTE | 2022-06-04 09:31 | PC.NURSE ---
This patient, Yris Guillermo, was admitted to IMU Room 206-02. Patient/family oriented to hospital policies and general routines including ID bracelet, bed and alarms, visiting hours, pain management, procedures, bathroom and other care routines, personal items, smoking policy, room service/diet, and visiting hours. Information on how to activate the Rapid Response Team has been discussed. Patient/Family are encouraged to report perceived risks to care and to ask questions if they do not understand what they are told or what they should do.
[2022-06-04] MEDS: FUROSEMIDE INJ 40 MG/4 ML VIAL IV PUSH (10:25)
[2022-06-04 12:01] LABS: Troponin I 0.103 ng/mL (0.000-0.034)
--- NOTE | 2022-06-04 12:44 | PM.IMHP ---
H&P: HPI History of Present Illness Date/Time: 06/04/22 12:44 Chief Complaint: 71yo female with CAD, aortic valve replacement and COPD here for chest pain and SOB. Patient has a history of aortic valve disease requiring replacement. Evaluation showed that she required bypass. She underwent aortic valve replacement with a prosthetic valve and CABG x1 to the LAD in 2004. Since that time, she has been followed by Cardiology with frequent echocardiograms. She has not had recent heart catheterization since 2004 but does have frequent stress test with her last 1 being in 2021 which was negative. Patient has noted over the past 1-2 years with increasing shortness of breath with minimal activity. She smokes half a pack a day but has a history of smoking up to 1.5 packs per day times 60 years. She has been having increasing cough over the past 1-2 weeks and the cough has been off and on. Cough has been nonproductive. She is up-to-date on all her vaccines. She has not sought medical attention for the cough. She has used tussin [id number] for this. Patient does have chronic chest pain related to the chest surgery that she describes as a 'bruised' feeling. 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 When she went to lay down, she did develop chest pain in the lower substernal area that was 3/10 described as someone pushing on my breast bone?. She initially developed coughing with shortness of breath before the onset of the chest pain. She had trouble catching her breath but denies any pleuritic chest pain. No diaphoresis or nausea. No radiation of the pain. This chest pain felt much different than the chest pain she has had chronically. No orthopnea or PND but she does state that she is up at night sometimes coughing. She has nocturia once a night that is no change. No pedal edema. No nausea, vomiting, diarrhea constipation issues. No dysuria or hematuria. She does have headaches associated with not wearing her contact but denies any headaches in the morning. Because of the change in her condition, she presented the emergency room for evaluation. She does have recurrent aortic disease but does not want further aortic surgery. In the ED, BP was 195/42. CTA chest showing moderate pulmonary edema and small pleural effusions. No PE. EKG showing NSR with old anteroseptal NC but no change from prior. Na 128, WBC 11.8 and BNP 2280. Trop up to 0.103. COVID, influenza and RSV were negative. She was given Tessalon and Lasix IV. She was admitted to IMU for further care. Review of Systems Review of Systems: All systems reviewed & are unremarkable except as noted in HPI and below PMFSH Past Medical History Medical History (Updated 06/04/22 @ 13:07 by George Spring MD) Aortic valve disease CAD (coronary artery disease) COPD (chronic obstructive pulmonary disease) Fletcher's thyroiditis Hyperlipidemia Hypertension Meniere disease PAD (peripheral artery disease) with total occlusion of left ICA Surgical History Surgical History (Updated 06/04/22 @ 13:03 by George Spring MD) H/O aortic valve replacement Hx of appendectomy Hx of carpal tunnel repair Hx of cataract extraction S/P CABG x 1 Family History Family History Sibling Cancer Aortic valve replaced Heart failure Father Heart attack Daughter No problems noted. Mother Aortic valve replaced Social History Social History (Updated 06/04/22 @ 13:04 by George Spring MD) Social History: No drug use. Drinks 4-6 alcohol drinks per week. Tobaccos use as mentioned above. She lives with her . She is a full code. She nominates her to be the individual who would make medical decisions for her if she is unable. Smoking packs per day: 0.5 Smoking cigarettes per day: 10.0 Years smoked: 60 Smoking pack-years: 30.00 Smoking s
[2022-06-04 15:50] LABS: Creatinine Urine 30.2 mg/dL
[2022-06-04 15:51] LABS: Sodium Urine Random 43 meq/L
[2022-06-04 16:16] LABS: Sodium 131 mmol/L (137-145)
[2022-06-04] MEDS: METOPROLOL SUCCINATE EXT REL 50 MG TABCR PO (16:27)
[2022-06-04 16:33] LABS: Troponin I 0.092 ng/mL (0.000-0.034)
[2022-06-04 18:15] LABS: Free T4 Free Thyroxine Reflex 1.25 ng/dL (0.78-2.19)
--- NOTE | 2022-06-04 21:17 | PM.CNCAR ---
Assessment and Plan Assessment and plan (1) Acute diastolic CHF (congestive heart failure): Code(s): I50.31 - Acute diastolic (congestive) heart failure Status: Acute Assessment and Plan: Patient presents with acute CHF. Not clear whether this is due to her aortic valve dysfunction or possibly an ACS type of event. --continue IV diuretics --daily BMP (2) Elevated troponin: Code(s): R77.8 - Other specified abnormalities of plasma proteins Status: Acute Assessment and Plan: Mildly elevated troponin noted as well as some ST depression in V6 suggestive myocardial ischemia. --EKG in the morning --further recommendations to follow (3) H/O aortic valve replacement: Code(s): Z95.2 - Presence of prosthetic heart valve Status: Acute Assessment and Plan: Patient has a bioprosthetic valve placed in 2004. Echo suggests significant aortic valve dysfunction with stenosis and regurgitation. --needs further cardiac imaging to assess the aortic valve better --may need aortic valve replacement History of Present Illness History of Present Illness Consult date/time: 06/04/22 21:17 Reason For Visit: CHF, Pulmonary Edema Narrative: Yris Guillermo is 71-year-old female whom I was asked to see at the request of Dr. Spring for my advice and opinion regarding her heart failure in consultation. She is followed by Dr. Dorsey for her history of bioprosthetic aortic valve replacement and CABG with KIMBLE to the Left anterior descending in 2004. From what I gather from the patient, there may be some valve due to radiation and there was some discussion of addressing the valve perhaps with a TAVR at some point. The patient has had progressive BECERRA over the last 2 or 3 years. It has gotten worse recently, particularly in the last week where she has had a lot of shortness of breath, PND orthopnea nocturnal cough. No edema. She also has had some episodes of chest pain off and on, sometimes with walking or going to the grocery store but sometimes at rest. Recently his seems to occur when she is coughing and having shortness of breath. It feels like a punch across the top of her chest or some lower sternal discomfort. She had an episode last week that hurt bad and after 30 minutes she took a nitroglycerin with relief in 5 minutes. She had another episode of chest pain this morning of the lower sternum, different, again relieved with nitroglycerin. She was admitted with congestive heart failure, proBNP of 2300, and troponins up to 0.103. No recent fevers or chills, no rash or skin lesions, no recent dental work. Practices SBE prophylaxis. Echo today showed normal left ventricular size with function at the lower end of normal. It was a poor quality study, technically difficult, but there is suggestion of moderate to severe aortic stenosis and moderate to severe aortic insufficiency. Review of Systems Constitutional: Constitutional: Denies fever(s) Eyes: Eyes: Reports no additional eye complaints ENT: Denies epistaxis Cardiovascular: Cardiovascular: Reports chest pain, Denies pedal edema, Denies leg edema, Denies lightheadedness and Reports dyspnea Respiratory: Respiratory: Reports chest congestion, Reports cough, Reports dyspnea and Reports dyspnea on exertion Gastrointestinal: Gastrointestinal: Denies abdominal pain, Denies hematochezia and Reports nausea Genitourinary: Genitourinary: Denies hematuria Musculoskeletal: Musculoskeletal: Reports no additional musculoskeletal complaints Integumentary/Breasts: Skin/Breast: Reports system reviewed and no additional complaints, except as docu Neurologic: Reports system reviewed and no additional complaints, except as documented, Denies behavioral changes and Denies confusion Psychiatric: Psychiatric: Denies behavioral changes and Denies confusion [facility] Past Medical History Medical History A
[2022-06-04 22:42] LABS: Total Triiodothyronine (T3) 1.09 NG/ML (0.97-1.69)
[2022-06-05] VITALS (16 sets, daily range): BP systolic 140–166; BP diastolic 40–64; PULSE 56–78; RESP 16–20; TEMP 35.9–36.5; O2SAT 94–100
[2022-06-05 05:38] LABS: Basophils Absolute Auto 0.1 K/mm3 (0.0-0.1); Basophils Percent Auto 0.5 % (0.2-1.2); Eosinophils Absolute Auto 0.1 K/mm3 (0-0.3); Eosinophils Percent Auto 1.5 % (0-4.4); Hematocrit 36.4 % (37.0-47.0); Hemoglobin 12.8 g/dL (12.0-15.0); Immature Granulocyte Absolute 0.03 K/mm3 (0.00-0.031); Immature Granulocyte Percent A 0.3 % (0-0.5); Lymphocytes Absolute Auto 1.02 K/mm3 (0.9-3.2); Lymphocytes Percent Auto 10.6 % (18.3-44.2); Mean Corpuscular HGB Conc 35.2 g/dl (32-36); Mean Corpuscular Hemoglobin 32.1 pg (26-34); Mean Corpuscular Volume 91.2 fl (80-100); Mean Platelet Volume 10.3 fl (7.4-10.4); Monocytes Absolute Auto 0.9 K/mm3 (0.1-0.6); Monocytes Percent Auto 9.1 % (2.6-8.5); Neutrophils Absolute Auto 7.5 K/mm3 (1.3-6.7); Platelet Count Result 185 k/mm3 (150-375); Red Blood Count 3.99 M/mm3 (4.2-5.4); Red Cell Distribution Width 12.3 % (11.5-14.5); White Blood Count 9.6 K/mm3 (4.5-10.0)
[2022-06-05 05:53] LABS: Alanine Aminotransferase 21 U/L (6-35); Albumin Level 3.9 g/dL (3.5-5.1); Alkaline Phosphatase 52 U/L (38-126); Anion Gap 3 mmol/L (8-16); Aspartate Amino Transferase 30 U/L (14-36); Bilirubin,Total 0.6 mg/dL (0.2-1.3); Blood Urea Nitrogen 17 mg/dL (7-17); Carbon Dioxide 31 mmol/L (22-30); Chloride 95 mmol/L (98-107); Cholesterol 123 mg/dL (0-200); Estimated CRCL calculation 61 ml/min; Estimated Glomerular Filt Rate > 60; Glucose 104 mg/dL (65-110); HDL Direct 44 mg/dL; Potassium 4.3 mmol/L (3.4-5.0); Sodium 129 mmol/L (137-145); Triglycerides 87 mg/dL (<150)
[2022-06-05 06:04] LABS: LDL Cholesterol Direct 61 mg/dL
--- NOTE | 2022-06-05 08:00 | ECG_ITS ---
Measurements Intervals [place] Rate: 62 P: 59 UT: 188 QRS: -38 QRSD: 116 T: 86 QT: 472 QTc: 482 Interpretive Statements SINUS RHYTHM WITH FREQUENT VENTRICULAR PREMATURE COMPLEXES POSSIBLE LEFT ATRIAL ENLARGEMENT [-0.1mV P WAVE IN V1/V2] MARKED LEFT AXIS DEVIATION [QRS AXIS < -30] ANTEROSEPTAL MYOCARDIAL INFARCTION , PROBABLY RECENT [40+ ms Q WAVE IN V1-V4] COMPARED TO ECG 06/04/2022 03:20:[address] AND T CHANGES ARE MORE PRONOUNCED. Electronically Signed On 06-05-2022 9:26:46 CDT by wAa Peterson M.D.
--- NOTE | 2022-06-05 08:37 | PM.IMPN ---
Progress Note: A&P Assessment and Plan (1) Chest pain: Code(s): R07.9 - Chest pain, unspecified Status: Acute Assessment and Plan: Patient with atypical chest pain that was positional associated with coughing and shortness of breath. Troponin peaked at 0.10. EKG showed normal sinus rhythm with possible old anterior septal OR and ST depression in V6 with nonspecific changes noted elsewhere. She was continued on her aspirin, metoprolol and Crestor. Cardiology was consulted. Repeat EKG showing at the anterior ST and T-wave changes are more pronounced and it was suspected that the anterior septal OR was probably recent. Echocardiogram is ordered. Probably will need ischemia evaluation before discharge. (2) Elevated troponin: Code(s): R77.8 - Other specified abnormalities of plasma proteins Status: Acute Assessment and Plan: As above (3) Congestive heart failure: Code(s): I50.9 - Heart failure, unspecified Status: Acute Assessment and Plan: Patient with shortness of breath and cough. Chest x-ray shows mild pulmonary edema and small pleural effusions. Cardiomegaly noted. CTA shows no pulmonary emboli but otherwise similar findings to the chest x-ray. BNP elevated to 2280. She was started on IV Lasix with symptomatic improvement. No echo report to review but in the cardiology note, it shows that patient has a normal LV size with function at the lower end of normal with suggestion of moderate-severe and moderate-severe AI. Wean oxygen as tolerated. Be mindful not to over diurese since she may be preload dependent. (4) H/O aortic valve replacement: Code(s): Z95.2 - Presence of prosthetic heart valve Status: Acute Assessment and Plan: Patient has a history of a aortic valve replacement. Echocardiogram as mentioned above. Patient is aware that she is in need a repeat aortic valve surgery but is resistant to having open heart surgery. She is agreeable to TAVR. Will defer to Cardiology to see if this is even option for her with the AI. [facility] could help delineate the severity. (5) CAD (coronary artery disease): Code(s): I25.10 - Atherosclerotic heart disease of po[place] coronary artery without angina pectoris Status: Acute Assessment and Plan: Patient has a history of CABG x1 vessel in 2004 with KIMBLE to the LAD. She continues to smoke. She has other risk factors. She did have chest pain with elevated troponins. These findings could be related to CHF exacerbation. Patient however needs left heart catheterization as mentioned above. (6) Hyponatremia: Code(s): E87.1 - Hypo-osmolality and hyponatremia Status: Acute Assessment and Plan: Patient appears to have a chronic hyponatremia. Sodium was 129 a few years ago. Sodium on admission here was 128 and did improved to 131 with diuresis but is back down to 129 today. Hydrochlorothiazide is on hold. She remains on Zoloft at this time. Urine studies would not be helpful given that she is on Lasix. TSH normal. Renal function remains normal. Continue to follow. Check cortisol level (7) Hypertension: Code(s): I10 - Essential (primary) hypertension Status: Acute Assessment and Plan: Patient's blood pressure was reviewed on 06/05 Blood pressure remains reasonably well controlled. Will continue current medications. (8) PAD (peripheral artery disease): Code(s): I73.9 - Peripheral vascular disease, unspecified Status: Acute Assessment and Plan: Patient has a history of left carotid artery occlusion. Continue aggressive medical management. (9) COPD (chronic obstructive pulmonary disease): Code(s): J44.9 - Chronic obstructive pulmonary disease, unspecified Status: Acute Assessment and Plan: No wheezing. She has been having a persistent cough but this may be related to CHF. Symptoms seem to [place]
[2022-06-05] MEDS: SERTRALINE HCL 50 MG TABLET PO (08:58)
[2022-06-05] MEDS: ROSUVASTATIN 10 MG TABLET 20 MG PO (08:58)
[2022-06-05] MEDS: VITAMIN B COMPLEX CAPSULE 1 CAP PO (08:58)
[2022-06-05] MEDS: METOPROLOL SUCCINATE EXT REL 50 MG TABCR PO (08:59)
[2022-06-05] MEDS: ASPIRIN 81 MG CHEWABLE TABLET PO (08:59)
[2022-06-05] MEDS: FUROSEMIDE INJ 40 MG/4 ML VIAL IV PUSH (09:06)
--- NOTE | 2022-06-05 11:51 | PM.PNCARD ---
Progress Note: A&P Assessment and Plan (1) Non-STEMI (non-ST elevated myocardial infarction): Code(s): I21.4 - Non-ST elevation (NSTEMI) myocardial infarction Status: Acute Assessment and Plan: Patient presents with chest pain and a very mild elevation of troponin. EKG has evolved suggesting anterior lateral ischemia/IL. Suspect ACS/NSTEMI. Patient has been stable since admission with no further chest pain. --start heparin --continue aspirin --cardiac catheterization tomorrow (2) Acute diastolic CHF (congestive heart failure): Code(s): I50.31 - Acute diastolic (congestive) heart failure Status: Acute Assessment and Plan: Patient presents with acute CHF. Likely due to ACS/non STEMI, was a lesser contribution of valve disease. --daily BMP --improving, oxygenating well, nearly euvolemic, will DC Lasix due to hyponatremia. (3) H/O aortic valve replacement: Code(s): Z95.2 - Presence of prosthetic heart valve Status: Acute Assessment and Plan: Patient has a bioprosthetic valve placed in 2004. Echo suggests significant aortic valve dysfunction with stenosis and regurgitation. --However, likely not much different than past Echos. No LV enlargement or major LVH/hypertrophy, so valve dysfunction is likely a chronic problem and doesn't need acute intervention. --OPT FU (4) Hyponatremia: Code(s): E87.1 - Hypo-osmolality and hyponatremia Status: Acute Assessment and Plan: Has had in past, due to diuretics. --BMP in a.m. (5) Carotid disease, bilateral: Code(s): I77.9 - Disorder of arteries and arterioles, unspecified Status: Acute Assessment and Plan: H/O total occlusion of the left ICA and moderate stenosis of GOKUL Subjective Date/time seen: FU ACS, acute CHF. Patient admitted 06/04/2022 with chest pain and acute CHF. Troponins were mildly elevated up to 0.13 and proBNP was 2300. Initially unclear how much of this was due to bioprosthetic valve dysfunction versus CAD and ACS although now it appears we are dealing more with a non-STEMI and ACS. 06/05/22 11:51 uneventful night, has had some arthritis pain, trouble sleeping etc. but no chest pain or shortness of breath. O2 off, room air O2 sat 94%. modest diuresis. Telemetry has shown some nonsustained V-tach up to about 6 or 7 beats. EKG today shows sinus rhythm rate 63 with PVCs, but ST T-wave changes anterolaterally suggestive of anterolateral ischemia or recent IL. personally reviewed. Review of Systems Review of Systems: No chest pain or shortness of breath, but achy from arthritis and tired from a poor night's sleep. No nausea. Exam Const: General: cooperative, healthy appearing and comfortable; No confusion Orientation/consciousness: oriented to person, patient oriented x3 and No confusion HENMT: Mouth: Yes moist mucous membranes Eyes: General: appearance normal, both eyes and all related structures Neck: Neck: supple and no JVD Resp: Effort & Inspection: normal respiratory effort Auscultation: rales Other: Rales in right base, few scattered rales in the left base Cardio: Rate: regular rate Rhythm: regular rhythm Heart sounds: Murmur heart sound present Other: 2-3 over 6 systolic and diastolic murmurs at the upper sternal borders GI: Inspection: normal to inspection GI Palp: No abdominal tenderness Skin: General skin exam: normal color and no rashes or lesions noted Neuro: General: oriented to person, patient oriented x3 and No confusion Extrem: Right lower extremity: no edema Left lower extremity: no edema Psych: Appearance: grossly normal Mental Status: mental status grossly normal Objective Data Vital Signs Vital Signs: Vital Signs - 24 hr 06/04/22 12:00 06/04/22 12:00 06/04/22 14:00 Temperature 97.0 F L Pulse Rate 62 85 60 Respiratory Rate 20 Blood Pressure 155/41 H Pulse Oximetry 98 Oxygen Delivery Oxygen Flow Rat
[2022-06-05 12:22] LABS: Basophils Percent Auto 0.4 % (0.2-1.2); Eosinophils Absolute Auto 0.1 K/mm3 (0-0.3); Eosinophils Percent Auto 0.9 % (0-4.4); Hematocrit 38.7 % (37.0-47.0); Hemoglobin 13.6 g/dL (12.0-15.0); Immature Granulocyte Absolute 0.03 K/mm3 (0.00-0.031); Immature Granulocyte Percent A 0.3 % (0-0.5); Lymphocytes Absolute Auto 0.86 K/mm3 (0.9-3.2); Lymphocytes Percent Auto 8.4 % (18.3-44.2); Mean Corpuscular HGB Conc 35.1 g/dl (32-36); Mean Corpuscular Hemoglobin 32.3 pg (26-34); Mean Corpuscular Volume 91.9 fl (80-100); Mean Platelet Volume 10.1 fl (7.4-10.4); Monocytes Absolute Auto 0.7 K/mm3 (0.1-0.6); Monocytes Percent Auto 6.4 % (2.6-8.5); Neutrophils Absolute Auto 8.6 K/mm3 (1.3-6.7); Neutrophils Percent Auto 83.6 % (45.5-73.1); Platelet Count Result 192 k/mm3 (150-375); Red Blood Count 4.21 M/mm3 (4.2-5.4); Red Cell Distribution Width 12.5 % (11.5-14.5); White Blood Count 10.2 K/mm3 (4.5-10.0)
[2022-06-05 12:35] LABS: INR 1.1; Partial Thromboplastin Time 31.9 SECONDS (22.3-36.8); Prothrombin Time 13.8 Seconds (11.1-14.7)
[2022-06-05] MEDS: HEPARIN SOD/D5W 100 UNITS/ML 25,000 UNITS/250 ML BAG 8 UNITS IV CONT (12:51)
[2022-06-05] MEDS: ACETAMINOPHEN 325 MG TABLET 650 MG PO (18:21)
[2022-06-05 19:34] LABS: Partial Thromboplastin Time 54.6 SECONDS (22.3-36.8)
[2022-06-05] MEDS: HEPARIN SODIUM 5,000 UNITS/ML VIAL 4000 UNITS IV PUSH (19:55)
[2022-06-05] MEDS: MELATONIN 3 MG TABLET PO (21:08)
[2022-06-06] VITALS (32 sets, daily range): BP systolic 127–191; BP diastolic 35–48; PULSE 55–72; RESP 13–20; TEMP 36.1–36.4; O2SAT 86–97
[2022-06-06 03:01] LABS: Partial Thromboplastin Time > 200.0 SECONDS (22.3-36.8)
[2022-06-06] MEDS: ACETAMINOPHEN 325 MG TABLET 650 MG PO (03:15)
[2022-06-06] MEDS: TROLAMINE SALICYLATE 10% (*BKC) 113 GM CREAM 1 APPLIC TOPICAL ×2 (03:46→21:58)
[2022-06-06 04:52] LABS: Basophils Percent Auto 0.6 % (0.2-1.2); Eosinophils Absolute Auto 0.2 K/mm3 (0-0.3); Eosinophils Percent Auto 3.3 % (0-4.4); Hematocrit 34.8 % (37.0-47.0); Hemoglobin 12.3 g/dL (12.0-15.0); Immature Granulocyte Absolute 0.03 K/mm3 (0.00-0.031); Immature Granulocyte Percent A 0.5 % (0-0.5); Lymphocytes Absolute Auto 1.25 K/mm3 (0.9-3.2); Lymphocytes Percent Auto 18.9 % (18.3-44.2); Mean Corpuscular HGB Conc 35.3 g/dl (32-36); Mean Corpuscular Hemoglobin 32.1 pg (26-34); Mean Corpuscular Volume 90.9 fl (80-100); Mean Platelet Volume 10.6 fl (7.4-10.4); Monocytes Absolute Auto 0.7 K/mm3 (0.1-0.6); Neutrophils Absolute Auto 4.4 K/mm3 (1.3-6.7); Neutrophils Percent Auto 66.7 % (45.5-73.1); Platelet Count Result 172 k/mm3 (150-375); Red Blood Count 3.83 M/mm3 (4.2-5.4); Red Cell Distribution Width 12.3 % (11.5-14.5); White Blood Count 6.6 K/mm3 (4.5-10.0)
[2022-06-06 05:02] LABS: Albumin Level 3.7 g/dL (3.5-5.1); Anion Gap 3 mmol/L (8-16); Blood Urea Nitrogen 21 mg/dL (7-17); Calcium 8.5 mg/dL (8.4-10.2); Carbon Dioxide 31 mmol/L (22-30); Chloride 92 mmol/L (98-107); Estimated CRCL calculation 53 ml/min; Estimated Glomerular Filt Rate > 60; Glucose 107 mg/dL (65-110); Magnesium 1.7 mg/dL (1.6-2.3); Phosphorus 3.7 mg/dL (2.5-4.5); Potassium 3.6 mmol/L (3.4-5.0); Sodium 126 mmol/L (137-145)
[2022-06-06 05:33] LABS: Cortisol Random 6.46 ug/dL
[2022-06-06] MEDS: VITAMIN B COMPLEX CAPSULE 1 CAP PO (10:14)
[2022-06-06 10:15] LABS: Partial Thromboplastin Time 125.1 SECONDS (22.3-36.8)
[2022-06-06] MEDS: METOPROLOL SUCCINATE EXT REL 50 MG TABCR PO (10:15)
[2022-06-06] MEDS: SERTRALINE HCL 50 MG TABLET PO (10:15)
[2022-06-06] MEDS: ROSUVASTATIN 10 MG TABLET 20 MG PO (10:15)
[2022-06-06] MEDS: ASPIRIN 81 MG CHEWABLE TABLET PO (10:15)
--- NOTE | 2022-06-06 11:51 | PM.IMPN ---
Progress Note: A&P Assessment and Plan (1) Chest pain: Code(s): R07.9 - Chest pain, unspecified Status: Acute Assessment and Plan: Patient with atypical chest pain that was positional associated with coughing and shortness of breath. Troponin peaked at 0.10. EKG showed normal sinus rhythm with possible old anterior septal NV and ST depression in V6 with nonspecific changes noted elsewhere. She was continued on her aspirin, metoprolol and Crestor. Cardiology was consulted. Repeat EKG showing at the anterior ST and T-wave changes are more pronounced and it was suspected that the anterior septal NV was probably recent. Echo showing EF 55% with hypokinesis of the distal anterior wall and septum, mild-mod MR, mod-severe (HANH 0.8), mod-severe AI and mild pHTN. Plan for LHC later today to exclude ischemic CAD and to determine aortic valve severity. (2) Elevated troponin: Code(s): R77.8 - Other specified abnormalities of plasma proteins Status: Acute Assessment and Plan: As above (3) Congestive heart failure: Code(s): I50.9 - Heart failure, unspecified Status: Acute Assessment and Plan: Patient with shortness of breath and cough. Chest x-ray shows mild pulmonary edema and small pleural effusions. Cardiomegaly noted. CTA shows no pulmonary emboli but otherwise similar findings to the chest x-ray. BNP elevated to 2280. She was started on IV Lasix with symptomatic improvement. Echo as mentioned above. Probably Acute/Chronic diastolic CHF. She is off lasix. (4) H/O aortic valve replacement: Code(s): Z95.2 - Presence of prosthetic heart valve Status: Acute Assessment and Plan: Patient has a history of a aortic valve replacement. Echocardiogram as mentioned above. Patient is aware that she is in need a repeat aortic valve surgery but is resistant to having open heart surgery. She is agreeable to TAVR. LHC could help delineate the severity. (5) CAD (coronary artery disease): Code(s): I25.10 - Atherosclerotic heart disease of [place] coronary artery without angina pectoris Status: Acute Assessment and Plan: Patient has a history of CABG x1 vessel in 2004 with KIMBLE to the LAD. She continues to smoke. She has other risk factors with HTN and HLD. She did have chest pain with elevated troponins. These findings could be related to CHF exacerbation. Patient however needs left heart catheterization as mentioned above. (6) Hyponatremia: Code(s): E87.1 - Hypo-osmolality and hyponatremia Status: Acute Assessment and Plan: Patient appears to have a chronic hyponatremia. Sodium was 129 a few years ago. Sodium on admission here was 128 and did improved to 131 with diuresis but is back down to 124 today. Hydrochlorothiazide is on hold. She remains on Zoloft at this time. Urine studies would not be helpful given that she was on Lasix but Lasix stopped so will check urine studies today. Cortisol and TSH normal. Renal function remains normal. Continue to follow. (7) Hypertension: Code(s): I10 - Essential (primary) hypertension Status: Acute Assessment and Plan: Patient's blood pressure was reviewed on 06/06 Blood pressure remains reasonably well controlled. Will continue current medications. (8) PAD (peripheral artery disease): Code(s): I73.9 - Peripheral vascular disease, unspecified Status: Acute Assessment and Plan: Patient has a history of left carotid artery occlusion. Continue aggressive medical management. (9) COPD (chronic obstructive pulmonary disease): Code(s): J44.9 - Chronic obstructive pulmonary disease, unspecified Status: Acute Assessment and Plan: No wheezing. She has been having a persistent cough but this may be related to CHF. Symptoms seem to better with diuresis. Will continue to monitor. She was educated about the benefi
--- NOTE | 2022-06-06 15:12 | WPDCARDPROC ---
Cardiac Cath Procedure Note Date of procedure:: 06/06/22 Performing physician:: Jose Juan Ayala MD Indication:: chest pain/troponin elevation Brief clinical history:: this is a 71-year-old woman with aortic valve disease and coronary disease who underwent aortic valve replacement with a bioprosthesis and KIMBLE to the LAD back in 2004. She enters the hospital a experiencing symptoms of increasing breathlessness as well as some chest pain. There was a very mild troponin elevation prompting recommendation for angiography. Patient's aortic valve bioprosthesis does have significant stenosis as well as Significant regurgitation. Procedure Procedure performed:: coronary angiography internal mammary graft angiography femoral artery angiography Sedation/Medication given:: fentanyl 50 mg Versed 2 mg case start time 2:48 p.m. case end time 3:05 p.m. sedation provided by Serenity Oliver RN, trained observer Access site:: right femoral artery Estimated blood loss:: 30 cc Procedure note:: patient was brought to the cardiac catheterization lab in the postabsorptive state where the right femoral triangle was prepared and draped normal fashion. Anesthesia was 1% lidocaine infiltrated locally. Using the modified Seldinger technique the right femoral artery was punctured and a 5 [place]grin vascular sheath was placed. After this I used a 5 [place] FL4 catheter to engage and inject the left coronary artery I then used a 5 [place] JR4 catheter to engage inject the right coronary artery. Following this the JR4 catheter was advanced into the subclavian artery into the BREA ostium and used the same catheter to inject the left internal mammary graft to the LAD. Cineangiograms angiograms were then reviewed and the case was terminated. Form an angiogram of the femoral artery through the sheath after which I determined that the sheath should be removed with direct manual compression. 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 Findings:: Hemodynamics: Central aortic pressure is 192 over 42 the left ventricle was not entered during this procedure. The pulse pressure is 148 mmHg the left main coronary artery is medium in caliber with mild plaque in the midportion of the left main but no functionally significant disease is seen. The left anterior descending is a mild to moderately calcified vessel it is small to medium in caliber it extends down to and around the apex. There is a high-grade stenosis of 95% in the midportion of the LAD. There is competitive filling seen distal to this. The diagonal branches are small but free of significant disease. The circumflex is a medium caliber artery giving rise to the marginal branches as well as the posterior branches. The circumflex system has minimal luminal irregularities but no flow-limiting lesions are seen. Right coronary artery is very small in caliber and non dominant. It is free of significant disease. Injection of the left internal mammary artery shows it to be a medium caliber BREA. It is free of significant stenosis its anastomosis into the mid LAD is patent and it fills the LAD down to the apex and actually back proximally to the high-grade lesion as well. Conclusion:: 1. Single-vessel coronary artery disease with high-grade stenosis of the mid LAD. 2. Left coronary dominant circulation 3. patent BREA graft to the LAD from operation in 2004 4. very wide pulse typical of chronic severe aortic valve regurgitation in bioprosthetic AVR Jose Juan Ayala MD [facility]
[2022-06-06 16:38] LABS: Activated Clotting Time 161 SEC (74-137)
[2022-06-06 16:38] LABS: Activated Clotting Time 113 SEC (74-137)
[2022-06-06 16:38] LABS: Activated Clotting Time 125 SEC (74-137)
--- NOTE | 2022-06-06 17:45 | SUR.PHASEII ---
2139 Dr. Ayala notified of patient's vital signs and BPs 180s systolic and diastolic BPS in the 30s and 40s (previously systolic readings had not bed that high pre procedure) and patient requiring 2 liters O2 to keep sats above 92% post procedure (on room air pre procedure) as well as patient's cough while laying flat the makes her feel like she could choke. Patient denies pain or dyspnea. No new orders aside from raising HOB per protocol per MD and she has a widened pulse pressure due to her aortic insufficiency that he is unable to treat.
[2022-06-06] MEDS: MAGNESIUM SULF 2 GM/WATER 50ML 2 GM/50 ML BAG IVPB (17:54)
[2022-06-06] MEDS: SODIUM CHLORIDE 0.9% IV 1,000 ML 125 ML IV CONT (17:57)
[2022-06-06 21:06] LABS: Creatinine Urine 39.4 mg/dL
[2022-06-06 21:11] LABS: Sodium Urine Random 15 meq/L
[2022-06-06] MEDS: MELATONIN 3 MG TABLET PO (21:57)
[2022-06-07] VITALS (19 sets, daily range): BP systolic 102–178; BP diastolic 32–58; PULSE 61–90; RESP 18–22; TEMP 35.8–36.6; O2SAT 93–99
[2022-06-07] MEDS: LEVALBUTEROL NEB 1.25 MG/3 ML INHALATION (03:34)
[2022-06-07] MEDS: IPRATROPIUM BR 0.02% INH SOLN 0.5 MG/2.5 ML VIAL INHALATION (03:34)
[2022-06-07 05:03] LABS: Albumin Level 3.8 g/dL (3.5-5.1); Anion Gap 3 mmol/L (8-16); Blood Urea Nitrogen 14 mg/dL (7-17); Calcium 8.4 mg/dL (8.4-10.2); Carbon Dioxide 30 mmol/L (22-30); Chloride 98 mmol/L (98-107); Estimated CRCL calculation 61 ml/min; Estimated Glomerular Filt Rate > 60; Glucose 105 mg/dL (65-110); Phosphorus 3.6 mg/dL (2.5-4.5); Sodium 131 mmol/L (137-145)
[2022-06-07] MEDS: ENOXAPARIN 40 MG/0.4 ML SYRINGE SUB-Q (10:21)
[2022-06-07] MEDS: METOPROLOL SUCCINATE EXT REL 50 MG TABCR PO (10:22)
[2022-06-07] MEDS: SERTRALINE HCL 50 MG TABLET PO (10:23)
[2022-06-07] MEDS: ROSUVASTATIN 10 MG TABLET 20 MG PO (10:23)
[2022-06-07] MEDS: ASPIRIN 81 MG CHEWABLE TABLET PO (10:23)
[2022-06-07] MEDS: VITAMIN B COMPLEX CAPSULE 1 CAP PO (10:23)
--- NOTE | 2022-06-07 11:47 | PM.IMPN ---
Progress Note: A&P Assessment and Plan (1) Congestive heart failure: Code(s): I50.9 - Heart failure, unspecified Status: Acute Assessment and Plan: Patient with shortness of breath and cough. Chest x-ray shows mild pulmonary edema and small pleural effusions. Cardiomegaly noted. CTA shows no pulmonary emboli but otherwise similar findings to the chest x-ray. BNP elevated to 2280. She was started on IV Lasix with symptomatic improvement. Echo as mentioned below. Probably Acute/Chronic diastolic CHF. She was off lasix. Has O2 requirement since LHC. CXR this morning showing pulmonary edema. Resume lasix IV. Change to low dose oral lasix once off O2 and edema better. (2) Chest pain: Code(s): R07.9 - Chest pain, unspecified Status: Acute Assessment and Plan: Patient with atypical chest pain that was positional associated with coughing and shortness of breath. Troponin peaked at 0.10. EKG showed normal sinus rhythm with possible old anterior septal TN and ST depression in V6 with nonspecific changes noted elsewhere. She was continued on her aspirin, metoprolol and Crestor. Cardiology was consulted. Repeat EKG showing at the anterior ST and T-wave changes are more pronounced and it was suspected that the anterior septal TN was probably recent. Echo showing EF 55% with hypokinesis of the distal anterior wall and septum, mild-mod MR, mod-severe (HANH 0.8), mod-severe AI and mild pHTN. LHC showing single vessle CAD with high-grade stenosis mid-LAD with patent BREA graft to the LAD. Continue medcial management. (3) Elevated troponin: Code(s): R77.8 - Other specified abnormalities of plasma proteins Status: Acute Assessment and Plan: As above (4) H/O aortic valve replacement: Code(s): Z95.2 - Presence of prosthetic heart valve Status: Acute Assessment and Plan: Patient has a history of a aortic valve replacement. Echocardiogram as mentioned above. Patient is aware that she is in need a repeat aortic valve surgery but is resistant to having open heart surgery. She is agreeable to TAVR. LHC showing very wide pulse typical of chronic severe AI. Defer to cardiology. (5) CAD (coronary artery disease): Code(s): I25.10 - Atherosclerotic heart disease of [place] coronary artery without angina pectoris Status: Acute Assessment and Plan: Patient has a history of CABG x1 vessel in 2004 with KIMBLE to the LAD. She continues to smoke. She has other risk factors with HTN and HLD. She did have chest pain with elevated troponins. LHC noted above showing no significant coronary disease. Elevated Trop and chest pain felt related to CHF exacerbation. (6) Hyponatremia: Code(s): E87.1 - Hypo-osmolality and hyponatremia Status: Acute Assessment and Plan: Patient appears to have a chronic hyponatremia. Sodium was 129 a few years ago. Sodium on admission here was 128 and did improved to 131 with diuresis but then back down to 124. Hydrochlorothiazide on hold. She remains on Zoloft at this time. Urine sodium 15. Cortisol and TSH normal. Renal function remains normal. na better at 131. Continue to follow. (7) Hypertension: Code(s): I10 - Essential (primary) hypertension Status: Acute Assessment and Plan: Patient's blood pressure was reviewed on 06/07 Blood pressure remains elevated at times with wide pulse pressure. Will continue current medications. (8) PAD (peripheral artery disease): Code(s): I73.9 - Peripheral vascular disease, unspecified Status: Acute Assessment and Plan: Patient has a history of left carotid artery occlusion. Continue aggressive medical management. (9) COPD (chronic obstructive pulmonary disease): Code(s): J44.9 - Chronic obstructive pulmonary disease, unspecified Status: Acute Assessment and Plan: No wheezing. She has been h
[2022-06-07] MEDS: FUROSEMIDE INJ 40 MG/4 ML VIAL IV PUSH ×2 (12:39→16:20)
--- NOTE | 2022-06-07 14:09 | PM.PNCARD ---
Progress Note: A&P Assessment and Plan (1) Non-STEMI (non-ST elevated myocardial infarction): Code(s): I21.4 - Non-ST elevation (NSTEMI) myocardial infarction Status: Acute Assessment and Plan: Patient presents with chest pain and a very mild elevation of troponin. EKG has evolved suggesting anterior lateral ischemia/MT. Suspect ACS/NSTEMI. Patient has been stable since admission with no further chest pain. High grade stenosis of the mid LAD, with patent graft to the LAD Continue ASA, statin Continue risk factor modification for CAD Outpatient follow up with Dr. Dorsey (2) Acute diastolic CHF (congestive heart failure): Code(s): I50.31 - Acute diastolic (congestive) heart failure Status: Acute Assessment and Plan: Patient presents with acute CHF. Likely due to ACS/non STEMI, was a lesser contribution of valve disease. Improved. Looks euvolemic on exam today. Will d/c IV furosemide p.r.n. furosemide on discharge (3) H/O aortic valve replacement: Code(s): Z95.2 - Presence of prosthetic heart valve Status: Acute Assessment and Plan: Patient has a bioprosthetic valve placed in 2004. Echo suggests significant aortic valve dysfunction with stenosis and regurgitation. This was confirmed on cath yesterday, severe AI with very wide pulse pressure indicating chronic AI --However, likely not much different than past Echos. No LV enlargement or major LVH/hypertrophy, so valve dysfunction is likely a chronic problem and doesn't need acute intervention. --OPT f/u with Dr. Dorsey --OK for discharge from a cardiac standpoint (4) Hyponatremia: Code(s): E87.1 - Hypo-osmolality and hyponatremia Status: Acute Assessment and Plan: Has had in past, due to diuretics. --Improving (5) Carotid disease, bilateral: Code(s): I77.9 - Disorder of arteries and arterioles, unspecified Status: Acute Assessment and Plan: H/O total occlusion of the left ICA and moderate stenosis of GOKUL Subjective Date/time seen: 06/07/22 14:09 Cardiology follow up for AI She is feeling well today and has no complaints. Denies chest pain, palpitations, shortness of breath. Has lots of questions about findings from yesterday's cath - I had a long discussion with her re: her aortic valve disease and treatment options moving forward. Review of Systems Neurologic: Denies confusion Psychiatric: Psychiatric: Denies confusion Exam Const: General: cooperative, healthy appearing and comfortable; No confusion Orientation/consciousness: oriented to person, patient oriented x3 and No confusion HENMT: Mouth: Yes moist mucous membranes Eyes: General: appearance normal, both eyes and all related structures Neck: Neck: supple and no JVD Resp: Effort & Inspection: normal respiratory effort Auscultation: clear to auscultation bilaterally Cardio: Rate: regular rate Rhythm: regular rhythm Heart sounds: Murmur heart sound present Other: 2-3/ 6 systolic and diastolic murmurs at the upper sternal borders GI: Inspection: normal to inspection Skin: General skin exam: normal color and no rashes or lesions noted Neuro: General: oriented to person, patient oriented x3 and No confusion Extrem: Right lower extremity: no edema Left lower extremity: no edema Psych: Appearance: grossly normal Mental Status: mental status grossly normal Objective Data Vital Signs Vital Signs: Vital Signs - 24 hr 06/06/22 15:20 06/06/22 15:30 06/06/22 15:45 Temperature 36.3 C L Pulse Rate 57 L 58 L 59 L Respiratory Rate 14 13 16 Blood Pressure 167/46 H 164/38 H 173/40 H Pulse Oximetry 92 92 92 Oxygen Delivery Room Air Room Air Room Air Oxygen Flow Rate 06/06/22 16:10 06/06/22 16:12 06/06/22 16:15 Temperature Pulse Rate 58 L 62 61 Respiratory Rate 20 18 19 Blood Pressure 164/39 H 177/47 H Pulse Oximetry 91 91 95 Oxygen Delivery Nasal Cannula Nasal Cannu
[2022-06-07] MEDS: ACETAMINOPHEN 325 MG TABLET 650 MG PO (20:50)
[2022-06-07] MEDS: MELATONIN 3 MG TABLET PO (20:50)
[2022-06-08] VITALS (11 sets, daily range): BP systolic 127–156; BP diastolic 32–46; PULSE 59–77; RESP 18–20; TEMP 35.7–36.3; O2SAT 94–98
[2022-06-08 05:01] LABS: Anion Gap 3 mmol/L (8-16); Blood Urea Nitrogen 13 mg/dL (7-17); Calcium 8.9 mg/dL (8.4-10.2); Carbon Dioxide 32 mmol/L (22-30); Chloride 97 mmol/L (98-107); Estimated CRCL calculation 53 ml/min; Estimated Glomerular Filt Rate > 60; Glucose 96 mg/dL (65-110); Potassium 4.4 mmol/L (3.4-5.0); Sodium 132 mmol/L (137-145)
--- NOTE | 2022-06-08 08:14 | PM.DS ---
DS: Admitting Diagnosis Discharge Date 06/08/22 Admitting Diagnosis chest pain + sob DS: Discharge Diagnosis Discharge Diagnosis (1) Congestive heart failure: Code(s): I50.9 - Heart failure, unspecified Status: Acute Assessment and Plan: Patient with shortness of breath and cough. Chest x-ray shows mild pulmonary edema and small pleural effusions. Cardiomegaly noted. CTA shows no pulmonary emboli but otherwise similar findings to the chest x-ray. BNP elevated to 2280. She was started on IV Lasix with symptomatic improvement. Echo as mentioned below. Probably Acute/Chronic diastolic CHF. She was off lasix. Has O2 requirement since LHC. CXR this morning showing pulmonary edema. Resume lasix IV. Change to low dose oral lasix once off O2 and edema better. (2) Chest pain: Code(s): R07.9 - Chest pain, unspecified Status: Acute Assessment and Plan: Patient with atypical chest pain that was positional associated with coughing and shortness of breath. Troponin peaked at 0.10. EKG showed normal sinus rhythm with possible old anterior septal MT and ST depression in V6 with nonspecific changes noted elsewhere. She was continued on her aspirin, metoprolol and Crestor. Cardiology was consulted. Repeat EKG showing at the anterior ST and T-wave changes are more pronounced and it was suspected that the anterior septal MT was probably recent. Echo showing EF 55% with hypokinesis of the distal anterior wall and septum, mild-mod MR, mod-severe (HANH 0.8), mod-severe AI and mild pHTN. LHC showing single vessle CAD with high-grade stenosis mid-LAD with patent BREA graft to the LAD. Continue medcial management. (3) Elevated troponin: Code(s): R77.8 - Other specified abnormalities of plasma proteins Status: Acute Assessment and Plan: As above (4) H/O aortic valve replacement: Code(s): Z95.2 - Presence of prosthetic heart valve Status: Acute Assessment and Plan: Patient has a history of a aortic valve replacement. Echocardiogram as mentioned above. Patient is aware that she is in need a repeat aortic valve surgery but is resistant to having open heart surgery. She is agreeable to TAVR. LHC showing very wide pulse typical of chronic severe AI. Defer to cardiology. (5) CAD (coronary artery disease): Code(s): I25.10 - Atherosclerotic heart disease of [place] coronary artery without angina pectoris Status: Acute Assessment and Plan: Patient has a history of CABG x1 vessel in 2004 with KIMBLE to the LAD. She continues to smoke. She has other risk factors with HTN and HLD. She did have chest pain with elevated troponins. LHC noted above showing no significant coronary disease. Elevated Trop and chest pain felt related to CHF exacerbation. (6) Hyponatremia: Code(s): E87.1 - Hypo-osmolality and hyponatremia Status: Acute Assessment and Plan: Patient appears to have a chronic hyponatremia. Sodium was 129 a few years ago. Sodium on admission here was 128 and did improved to 131 with diuresis but then back down to 124. Hydrochlorothiazide on hold. She remains on Zoloft at this time. Urine sodium 15. Cortisol and TSH normal. Renal function remains normal. na better at 131. Continue to follow. (7) Hypertension: Code(s): I10 - Essential (primary) hypertension Status: Acute Assessment and Plan: Patient's blood pressure was reviewed on 06/07 Blood pressure remains elevated at times with wide pulse pressure. Will continue current medications. (8) PAD (peripheral artery disease): Code(s): I73.9 - Peripheral vascular disease, unspecified Status: Acute Assessment and Plan: Patient has a history of left carotid artery occlusion. Continue aggressive medical management. (9) COPD (chronic obstructive pulmonary disease): Code(s): J44.9 - Chronic obstructive pulmonary dise
[2022-06-08] MEDS: ROSUVASTATIN 10 MG TABLET 20 MG PO (09:18)
[2022-06-08] MEDS: ASPIRIN 81 MG CHEWABLE TABLET PO (09:18)
[2022-06-08] MEDS: VITAMIN B COMPLEX CAPSULE 1 CAP PO (09:19)
[2022-06-08] MEDS: SERTRALINE HCL 50 MG TABLET PO (09:19)
[2022-06-08] MEDS: METOPROLOL SUCCINATE EXT REL 50 MG TABCR PO (09:19)
[2022-06-08] MEDS: ENOXAPARIN 40 MG/0.4 ML SYRINGE SUB-Q (09:19)
[2022-06-08] MEDS: FUROSEMIDE INJ 40 MG/4 ML VIAL IV PUSH (09:20)
--- NOTE | 2022-06-08 10:00 | PCCPR ---
Spoke with Yris at bedside. She states they dd her Cardiac cath showed her aortic valve that replaced almost 20 yrs ago needed to be replaced again. She is hopeful to speak with her Dehydrogenation Operator Dr Dorsey more about. She did express interest in our program after her TAVR if that is what she has done.
--- NOTE | 2022-06-08 14:00 | PC.NURSE ---
[facility] flyer was given to patient.
--- NOTE | 2022-06-08 15:34 | PCCCNOTE ---
On 06/08/22, the student, [Vicki Peraza ], provided care and completed [employer] documentation on this patient. I have reviewed the student's documentation and agree with the findings.
== END 2022-06-08 16:30 | disposition home or self-care (01) | DRG 280 ==
LOC: ANHED 06:23 → ANHIMU 08:41
PROVIDERS: Internal Medicine; Internal Medicine Cardiovascular Disease; Specialist; Admitting Provider Internal Medicine; Emergency Provider Emergency Medicine; PCP Family Medicine; Visit Provider Student in an Organized Health Care Education/Training Program
PROC: 4A023N7 Measurement of Cardiac Sampling and Pressure, Left Heart, Percutaneous Approach (ICD-10-PCS; principal; 2022-06-06 14:00)
DX: I21.4 Non-ST elevation (NSTEMI) myocardial infarction (principal); I50.31 Acute diastolic (congestive) heart failure; E87.1 Hypo-osmolality and hyponatremia; I11.0 Hypertensive heart disease with heart failure; I35.2 Nonrheumatic aortic (valve) stenosis with insufficiency; I25.10 Atherosclerotic heart disease of native coronary artery without angina pectoris; I73.9 Peripheral vascular disease, unspecified; J44.9 Chronic obstructive pulmonary disease, unspecified; E06.3 Autoimmune thyroiditis; E78.5 Hyperlipidemia, unspecified; R77.8 Other specified abnormalities of plasma proteins; H81.09 Meniere's disease, unspecified ear; F17.210 Nicotine dependence, cigarettes, uncomplicated; Z20.822 Contact with and (suspected) exposure to COVID-19; Z95.3 Presence of xenogenic heart valve; Z95.1 Presence of aortocoronary bypass graft; Z79.82 Long term (current) use of aspirin
CPT/HCPCS: 36415; 71045; 71046; 71275; 80048; 80053; 80061; 80069; 82533; 82570; 83735; 83880; 84295; 84300; 84439; 84443; 84480; 84484; 85025; 85610; 85730; 87637; 93005; 93306; 93455; 94640; 96374; 99285; A9270; C1887; C1894; G0378; J1644; J1650; J1940; J2250; J3010; J3475; J7030; J7040; Q9967

== ENCOUNTER 2022-06-11 15:26 | Observation (INO) | payer MEDICARE, SELFPAY ==
[2022-06-11] VITALS (11 sets, daily range): BP systolic 149–179; BP diastolic 33–63; PULSE 60–74; RESP 15–22; TEMP 36.4–36.5; O2SAT 94–97; BMI 24.2; BMI 25.4
--- NOTE | ~2022-06-11 | XR_ITS ---
EXAMINATION: XR chest 2V Exam Date/Time: 06/11/2022 15:40 CDT HISTORY: CP, SOB X 2 WKS CHF PULM EDEMA COPD Comparison: 06/08/2022 and 06/04/2022. RESULT: Lines, tubes, and devices: Intact sternotomy wires. Ostial markers. Mediastinal surgical clips. Lungs and pleura: Central and peripheral mid and lower lung reticular opacities. Bilateral costophre faizan angle blunting. Cardiomediastinal silhouette: Stable. Other: No acute osseous or upper abdominal finding. IMPRESSION: Mild interstitial pulmonary edema. Small bilateral effusions. Reviewed, dictated and finalized at location K.
--- NOTE | 2022-06-11 15:32 | ECG_ITS ---
Measurements Intervals [place] Rate: 64 P: 59 NC: 162 QRS: 54 QRSD: 114 T: 81 QT: 433 QTc: 447 Interpretive Statements SINUS RHYTHM SEPTAL MYOCARDIAL INFARCTION , PROBABLY OLD [40+ ms Q WAVE IN V1/V2] ABNORMAL ECG COMPARED TO ECG 06/05/2022 07:53:11 PVCS ARE NO LONGER DEMONSTRATED Electronically Signed On 06-13-2022 6:52:40 CDT by Jose Juan Ayala M.D.
[2022-06-11 16:43] LABS: Basophils Percent Auto 0.4 % (0.2-1.2); Eosinophils Absolute Auto 0.2 K/mm3 (0-0.3); Eosinophils Percent Auto 2.1 % (0-4.4); Hematocrit 34.9 % (37.0-47.0); Hemoglobin 12.1 g/dL (12.0-15.0); Immature Granulocyte Absolute 0.02 K/mm3 (0.00-0.031); Immature Granulocyte Percent A 0.3 % (0-0.5); Lymphocytes Absolute Auto 0.87 K/mm3 (0.9-3.2); Lymphocytes Percent Auto 11.2 % (18.3-44.2); Mean Corpuscular HGB Conc 34.7 g/dl (32-36); Mean Corpuscular Hemoglobin 31.7 pg (26-34); Mean Corpuscular Volume 91.4 fl (80-100); Mean Platelet Volume 10.4 fl (7.4-10.4); Monocytes Absolute Auto 0.7 K/mm3 (0.1-0.6); Platelet Count Result 203 k/mm3 (150-375); Red Blood Count 3.82 M/mm3 (4.2-5.4); Red Cell Distribution Width 12.4 % (11.5-14.5); White Blood Count 7.8 K/mm3 (4.5-10.0)
[2022-06-11 16:52] LABS: Alanine Aminotransferase 22 U/L (6-35); Albumin Level 4.2 g/dL (3.5-5.1); Alkaline Phosphatase 46 U/L (38-126); Anion Gap 6 mmol/L (8-16); Aspartate Amino Transferase 30 U/L (14-36); Bilirubin,Total 0.6 mg/dL (0.2-1.3); Blood Urea Nitrogen 11 mg/dL (7-17); Calcium 9.2 mg/dL (8.4-10.2); Carbon Dioxide 27 mmol/L (22-30); Chloride 99 mmol/L (98-107); Estimated CRCL calculation 53 ml/min; Estimated Glomerular Filt Rate > 60; Glucose 96 mg/dL (65-110); Potassium 3.8 mmol/L (3.4-5.0); Sodium 132 mmol/L (137-145)
[2022-06-11 16:54] LABS: INR 1.2; Partial Thromboplastin Time 31.2 SECONDS (22.3-36.8); Prothrombin Time 14.6 Seconds (11.1-14.7)
[2022-06-11 17:05] LABS: NT Pro B Type Natriuretic Pept 4720 pg/mL (19.9-100); Troponin I 0.031 ng/mL (0.000-0.034)
--- NOTE | 2022-06-11 19:59 | ED.GENADULT ---
HPI - General Adult General Chief complaint: Shortness of Breath/Dyspnea Stated complaint: SHORT OF BREATH Time Seen by Provider: 06/11/22 19:38 History of Present Illness HPI narrative: 68-year-old female presented the emergency department for evaluation of worsening shortness of breath. Patient was just discharged from the hospital on Monday and she had been admitted for a COPD/CHF exacerbation. Patient had been taking hydrochlorothiazide but at time of discharge she was discharged with 20 mg of p.o. Lasix. Patient states when she was discharged home Monday night she felt okay, she states she felt okay and then Monday started to have some worsening shortness of breath. Patient reports twice on Monday night she was having cough and chest pain and did take nitro and this resolved her pain. Patient states she did take an additional nitro today due to pain. at time of examination patient states she does have some exertional shortness of breath that was worsened when she walks to the bathroom but denies any current chest pain. During her last hospital stay patient did have an echo showing EF of 55 with hypokinesis in the distal anterior wall and septum mild-moderate mitral regurgitation and moderate severe atrial stenosis, moderate to severe AI and pulmonary hypertension. Cath showed single-vessel coronary disease with high-grade stenosis of mid LAD with patent BREA graft to the LAD. Patient does have history of artificial valve and is scheduled to have follow-up with cardiology to have a valve replacement. Related Data Home Medications Medication Instructions Recorded Confirmed metoprolol succinate 50 mg 50 mg PO DAILY 08/12/19 06/04/22 tablet,extended release 24 hr rosuvastatin 20 mg tablet (Crestor) 20 mg PO DAILY 08/12/19 06/04/22 sertraline 50 mg tablet 50 mg PO DAILY 08/12/19 06/04/22 vitamin B complex 1 tablet PO DAILY 08/12/19 06/04/22 meclizine 25 mg tablet 25 mg PO PRN PRN Dizziness 06/04/22 06/04/22 melatonin 3 mg tablet 3 mg PO PRN PRN Sleep 06/04/22 06/04/22 tizanidine 2 mg capsule 2 mg PO PRN PRN Pain 06/04/22 06/04/22 Allergies Allergy/AdvReac Type Severity Reaction Status Date / Time Cephalosporins Allergy Severe Rash Verified 04/15/23 09:59 doxycycline Allergy Severe RASH Verified 06/04/22 09:59 sulfamethoxazole Allergy Severe Diarrhea Verified 06/04/22 09:59 tetracycline Allergy Severe Rash Verified 06/04/22 09:59 lisinopril Allergy Mild Abdominal Verified 06/04/22 09:59 Pain trimethoprim Allergy Unknown Unknown Verified 06/04/22 09:59 Review of Systems Review of Systems: All systems reviewed & are unremarkable except as noted in HPI and below PMFSH Past Medical History Medical History (Updated 06/11/22 @ 22:07 by Saeed Sumner MD) Aortic valve disease CAD (coronary artery disease) Carotid disease, bilateral COPD (chronic obstructive pulmonary disease) Fletcher's thyroiditis Hyperlipidemia Hypertension Meniere disease PAD (peripheral artery disease) with total occlusion of left ICA Surgical History Surgical History H/O aortic valve replacement Hx of appendectomy Hx of carpal tunnel repair Hx of cataract extraction S/P CABG x 1 Family History Family History Sibling Cancer Aortic valve replaced Heart failure Father Heart attack Daughter No problems noted. Mother Aortic valve replaced Social History Social History Social History: No drug use. Drinks 4-6 alcohol drinks per week. Tobaccos use as mentioned above. She lives with her . She is a full code. She nominates her to be the individual who would make medical decisions for her if she is unable. Smoking packs per day: 0.5 Smoking cigarettes per day: 10.0 Years smoked: 60 Smoking pack-years: 30.00 Smoking status: C
[2022-06-11] MEDS: FUROSEMIDE INJ 40 MG/4 ML VIAL IV PUSH (20:28)
--- NOTE | 2022-06-11 20:54 | PC.NURSE ---
Patient ambulated to the bathroom and back to her room with an even steady unassisted gait.
--- NOTE | 2022-06-11 21:00 | PC.NURSE ---
Pt refused to get blood pressure reading due to bruising on her right arm. Pt did not want blood pressure taken on the left arm due to IV placement. RN tried to use a smaller cuff around her forearm and the pt said it was too tight and making her fingers tingling and asked to take it off.
[2022-06-11 21:31] LABS: Troponin I 0.035 ng/mL (0.000-0.034)
--- NOTE | 2022-06-11 22:56 | ADMGEN ---
This patient, Yris Guillermo, was admitted to IMU Room 209-01 at 2255. Patient/family oriented to hospital policies and general routines including ID bracelet, bed and alarms, visiting hours, pain management, procedures, bathroom and other care routines, personal items, smoking policy, room service/diet, and visiting hours. Information on how to activate the Rapid Response Team has been discussed. Patient/Family are encouraged to report perceived risks to care and to ask questions if they do not understand what they are told or what they should do.
[2022-06-12] VITALS (13 sets, daily range): BP systolic 115–154; BP diastolic 35–56; PULSE 62–91; RESP 16–18; TEMP 36.2–36.7; O2SAT 94–97
--- NOTE | 2022-06-12 01:29 | PM.IMHP ---
H&P: HPI History of Present Illness Date/Time: 06/12/22 01:29 Chief Complaint: Shortness of breath, chest discomfort Narrative: 71-year-old female with a past medical history of COPD, coronary artery disease, aortic valve replacement in prior 1 vessel CABG who presented to the ER with dyspnea on exertion and chest pain. The patient had just been hospitalized 06/04/2022 for the same symptoms and was treated for pneumonia. She reports that she has had persistent cough since her last hospitalization. However she has not very forthcoming with details regarding her cough, shortness or other symptoms at the time of my evaluation. However the patient was not witnessed to have any significant coughing during my evaluation. Does the majority of the information was obtained from review of past medical records and ER records. The patient had a cardiac catheterization during her last hospitalization which demonstrated single-vessel coronary artery disease with high-grade stenosis of mid LAD with reconstitution of flow and patent internal mammary artery graft to LAD. She has had echocardiogram during hospitalization that demonstrated EF of 55% with hypokinesis of distal anterior wall and septum with [id number] mitral valve regurgitation moderate to severe aortic valve insufficiency and pulmonary hypertension. Patient was treated with IV Lasix 40 mg daily during her last hospitalization and was discharged on Lasix 20 mg daily. Patient denies any abdominal swelling, lower extremity swelling or orthopnea. In the ER she had voiced increased dyspnea on exertion. She is having occasional chest pain on exertion. The patient could not tell me for chest pain was similar to her chest pain with her prior symptoms or not. She could not describe the quality of the chest pain or location for me. The patient reported the ER staff that she felt well the 1st day she was home but then started having symptoms the following day. She denies having any palpitations. The patient denied any reproducible chest pain on examination. She has not had any fevers or chills. The patient was lying supine with the head of the bed and only 15? with no symptoms at the time of my evaluation. Patient had initial troponin in the ER was negative and repeat troponin that was only minimally elevated from prior. The patient reports she did take 1 dose of nitro at home which relieved her chest pain. She has not had a recurrence of her chest pain since arriving to the hospital. Review of Systems Review of Systems: 12 systems were reviewed with pertinent positives and negatives per HPI. Except as documented in the HPI, all other systems were reviewed and are negative. However, patient was less than 4th come pain with responses to review of systems citing that she did not remember specific details since I was waking her up in the senior computer specialist hours. [facility] Past Medical History Medical History (Updated 06/12/22 @ 01:34 by Akila Jean DO) Aortic valve disease CAD (coronary artery disease) Carotid disease, bilateral Chronic hyponatremia COPD (chronic obstructive pulmonary disease) Fletcher's thyroiditis Hyperlipidemia Hypertension Meniere disease PAD (peripheral artery disease) with total occlusion of left ICA Surgical History Surgical History (Updated 06/12/22 @ 08:54 by Akila Jean DO) H/O aortic valve replacement Hx of appendectomy Hx of carpal tunnel repair Hx of cataract extraction S/P CABG x 1 Status post cataract extraction and insertion of intraocular lens of left eye Family History Family History Sibling Cancer Aortic valve replaced Heart failure Father Heart attack Daughter No problems noted. Mother Aortic valve replaced Social History Social History Social History: No drug use. Drinks 4-6 alcohol drinks per week. Tobaccos use as
[2022-06-12 02:58] LABS: Troponin I 0.034 ng/mL (0.000-0.034)
[2022-06-12] MEDS: LEVALBUTEROL NEB 1.25 MG/3 ML 0.63 MG INHALATION ×2 (08:41→13:28)
[2022-06-12] MEDS: ENOXAPARIN 40 MG/0.4 ML SYRINGE SUB-Q (09:44)
[2022-06-12] MEDS: FUROSEMIDE INJ 40 MG/4 ML VIAL IV PUSH (09:45)
[2022-06-12] MEDS: METOPROLOL SUCCINATE EXT REL 50 MG TABCR PO (09:45)
[2022-06-12] MEDS: ROSUVASTATIN 10 MG TABLET 20 MG PO (09:45)
[2022-06-12] MEDS: ASPIRIN 81 MG CHEWABLE TABLET PO (09:45)
[2022-06-12] MEDS: SERTRALINE HCL 50 MG TABLET PO (09:45)
[2022-06-12] MEDS: TIZANIDINE HCL 2 MG TABLET PO (09:46)
--- NOTE | 2022-06-12 12:06 | PM.DS ---
DS: Admitting Diagnosis Discharge Date June 12, 2021 Admitting Diagnosis Diastolic CHF exacerbation, acute on chronic DS: Discharge Diagnosis Discharge Diagnosis (1) Acute diastolic CHF (congestive heart failure): Code(s): I50.31 - Acute diastolic (congestive) heart failure Status: Acute (2) Chest pain: Qualifiers: Chest pain type: unspecified Qualified Code(s): R07.9 - Chest pain, unspecified Code(s): R07.9 - Chest pain, unspecified Status: Acute (3) Uncontrolled hypertension: Code(s): I10 - Essential (primary) hypertension Status: Acute DS: Summary Hospital Course Hospital Course: Admitted for CHF exacerbation, started on IV diuretics and improved significantly. She has a follow-up appoint with her direct response consultant tomorrow. Will increase her dose of diuretic on discharge. No chest pain or any other complaints right now. Time Spent with Patient Time attestation: Total time spent providing and/or coordinating discharge services: Exam Narrative: Weight 65 kg BMI 25.4 Const: Other: No acute distress, well-developed well-nourished HENMT: Other: Head is normocephalic atraumatic, mucous membranes are moist, no oral pharyngeal erythema Eyes: Other: Evidence of left cataract replacement, cataracts still noted in right eye, pupils equal and reactive, no scleral icterus, no conjunctival pallor Neck: Other: No JVD, no lymphadenopathy Chest: Other: No reproducible pain to exam, no crepitus Resp: Other: Decreased breath sounds to bases posteriorly, no increased work of breathing Cardio: Other: Regular rate, regular rhythm, 3/6 systolic murmur throughout the precordium, no JVD GI: Other: Soft, nontender, nondistended, positive bowel sounds Back/Spine/Pelvis: Other: Normal spinal alignment Skin: Other: No jaundice, no pallor Neuro: Other: Alert oriented x3, speech is clear, no facial asymmetry, no localizing neurologic deficits noted on limited exam Extrem: Other: No clubbing, cyanosis or edema Psych: Other: Appropriate mood, flat affect, judgment and insight intact DS: Data Data Completed and Pending Labs on day of discharge: Labs from last 24 hours 06/12/22 06/11/22 06/11/22 02:09 21:02 16:36 WBC RBC Hgb Hct MCV MCH MCHC RDW Plt Count MPV Immature Gran % (Auto) Neut % (Auto) Lymph % (Auto) Pierce % (Auto) Eos % (Auto) Baso % (Auto) Lymph # (Auto) Pierce # (Auto) Eos # (Auto) Baso # (Auto) Abs Immat Gran (auto) Absolute Neuts (auto) Absolute Nucleated RBC Nucleated RBC % PT INR APTT Sodium 132 L Potassium 3.8 Chloride 99 Carbon Dioxide 27 Anion Gap 6 L BUN 11 Creatinine 0.70 Estim Creat Clear Calc 53 Estimated GFR > 60 Glucose 96 Calcium 9.2 Total Bilirubin 0.6 AST 30 ALT 22 Alkaline Phosphatase 46 Troponin I 0.034 0.035 H 0.031 NT-Pro-B Natriuret Pep 4720 H Total Protein 7.0 Albumin 4.2 06/11/22 06/11/22 16:36 16:36 WBC 7.8 RBC 3.82 L Hgb 12.1 Hct 34.9 L MCV 91.4 MCH 31.7 MCHC 34.7 RDW 12.4 Plt Count 203 MPV 10.4 Immature Gran % (Auto) 0.3 Neut % (Auto) 77.0 H Lymph % (Auto) 11.2 L Pierce % (Auto) 9.0 H Eos % (Auto) 2.1 Baso % (Auto) 0.4 Lymph # (Auto) 0.87 L Pierce # (Auto) 0.7 H Eos # (Auto) 0.2 Baso # (Auto) 0.0 Abs Immat Gran (auto) 0.02 Absolute Neuts (auto) 6.0 Absolute Nucleated RBC 0.0 Nucleated RBC % 0.0 PT 14.6 INR 1.2 APTT 31.2 Sodium Potassium Chloride Carbon Dioxide Anion Gap BUN Creatinine Estim Creat Clear Calc Estimated GFR Glucose Calcium Total Bilirubin AST ALT Alkaline Phosphatase Troponin I NT-Pro-B Natriuret Pep Total Protein Albumin Discharge Plan Discharge Attending physician on discharge: Jose Juan Valentino
== END 2022-06-12 14:25 | disposition home or self-care (01) ==
LOC: ANHED 22:07 → ANHIMU 22:29
PROVIDERS: Emergency Medicine; Admitting Provider Internal Medicine; Emergency Provider Emergency Medicine; PCP Family Medicine; Visit Provider Chiropractor
DX: I11.0 Hypertensive heart disease with heart failure (principal); I50.31 Acute diastolic (congestive) heart failure; R07.9 Chest pain, unspecified; R91.8 Other nonspecific abnormal finding of lung field; J44.1 Chronic obstructive pulmonary disease with (acute) exacerbation; I25.10 Atherosclerotic heart disease of native coronary artery without angina pectoris; Z95.1 Presence of aortocoronary bypass graft; E06.3 Autoimmune thyroiditis; E78.5 Hyperlipidemia, unspecified; Z95.2 Presence of prosthetic heart valve; R94.31 Abnormal electrocardiogram [ECG] [EKG]; R79.89 Other specified abnormal findings of blood chemistry; F17.210 Nicotine dependence, cigarettes, uncomplicated; F10.90 Alcohol use, unspecified, uncomplicated; Z79.899 Other long term (current) drug therapy; Z82.49 Family history of ischemic heart disease and other diseases of the circulatory system
CPT/HCPCS: 36415; 71046; 80053; 83880; 84484; 85025; 85610; 85730; 93005; 94640; 96372; 96374; 96376; 99285; A9270; G0378; J1650; J1940

== ENCOUNTER 2022-06-20 14:30 | Outpatient (CLI) | payer MEDICARE, SELFPAY ==
[2022-06-20 15:12] LABS: Anion Gap 7 mmol/L (8-16); Blood Urea Nitrogen 17 mg/dL (7-17); Calcium 9.4 mg/dL (8.4-10.2); Carbon Dioxide 29 mmol/L (22-30); Chloride 97 mmol/L (98-107); Estimated Glomerular Filt Rate > 60; Glucose 106 mg/dL (65-110); Potassium 4.2 mmol/L (3.4-5.0); Sodium 133 mmol/L (137-145)
== END 2022-06-20 14:31 | disposition home or self-care (01) ==
PROVIDERS: PCP Family Medicine; Visit Provider Student in an Organized Health Care Education/Training Program
DX: E87.1 Hypo-osmolality and hyponatremia (principal)
CPT/HCPCS: 36415; 80048

== ENCOUNTER 2022-07-08 21:25 | Emergency (ER) | payer MEDICARE, SELFPAY ==
--- NOTE | ~2022-07-08 | XR_ITS ---
EXAMINATION: XR chest 2V DATE: 07/08/2022 22:05 INDICATION: Chest pain and weakness TECHNIQUE: PA and lateral views of the chest were obtained. COMPARISON: Chest radiograph dated 06/11/[address] dated 06/04/2022 FINDINGS: Again seen are opacities at the bilateral lower lung zones with blunting at the costophrenic angles a nd posterior sulci consistent with small bilateral pleural effusions and associated atelectasis. This is unchanged on the right but has improved on the left. Minimal increased interstitial pattern in th e lower lungs with a few peripheral Denise B-lines at the left lower lung zone consistent with minima l pulmonary edema. No new airspace opacities or pneumothorax. Cardiomegaly. Median sternotomy wires, ostial markers and mediastinal surgical clips consistent with prior coronary artery bypass grafting. Moderate to severe thoracic and upper lumbar spondylosis. IMPRESSION: 1. Small bilateral pleural effusions with associated atelectasis, unchanged on the right with some im provement on the left. 2. Cardiomegaly with minimal pulmonary edema. Reviewed, dictated and finalized at location A. IMPRESSION: 1. Small bilateral pleural effusions with associated atelectasis, unchanged on the right with some improvement on the left. 2. Cardiomegaly with minimal pulmonary edema.
--- NOTE | ~2022-07-08 | CT_ITS ---
EXAMINATION: CTA abdomen pelvis DATE: 07/09/2022 02:15 INDICATION: Epigastric abdominal pain. Occluded celiac trunk. TECHNIQUE: Computed tomographic angiography (CTA) of the abdomen and pelvis was performed with 100 mL Omnipaque-350 intravenous contrast. Automated exposure control and iterative reconstruction techniqu e were employed. The dose-length product was 439.70 mGy-cm. Maximum intensity projection 3D-reconstru ctions of the aorta and other arteries were constructed by the technologist on a separate workstation . COMPARISON: CT abdomen and pelvis 07/08/2022 FINDINGS: The visualized portions of lung bases demonstrate septal thickening, consistent with mild p ulmonary edema. There is mild atelectasis bilaterally. There are small pleural effusions, right worse than left. Cardiomegaly is noted. There are coronary artery calcifications. There are calcifications of aortic valve. There are changes of median sternotomy. There is mild pectus excavatum. The liver, gallbladder, spleen, pancreas, adrenal glands, and right kidney are normal. There is a 4 mm cyst in l eft kidney. There are no dilated loops of bowel. The appendix is not visualized. The endometrial comp beth measures 9 mm in thickness. There is calcified atherosclerosis of the aorta and many of the other arteries. There is severe stenosis of celiac axis and moderate stenosis of superior mesenteric arter y. There are 2 right-sided renal arteries. There is moderate stenosis of the larger of the arteries. There are 2 left renal arteries. There is moderate stenosis of the larger of the arteries. There is n o significant stenosis of inferior mesenteric artery. There is moderate stenosis of the bilateral com mon femoral arteries and proximal superficial femoral arteries. There is severe lumbar spondylosis. IMPRESSION: 1. Mild pulmonary edema. 2. Small pleural effusions. 3. 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 4. Bilateral moderate renal artery stenosis. 5. Peripheral arterial occlusive disease. 6. Endometrial complex thickness of 9 mm. The differential diagnosis includes endometrial hyperplasia , polyp, and carcinoma. Biopsy is recommended. Reviewed, dictated and finalized at location E. IMPRESSION: 1. Mild pulmonary edema. 2. Small pleural effusions. 3. 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 4. Bilateral moderate renal artery stenosis. 5. Peripheral arterial occlusive disease. 6. Endometrial complex thickness of 9 mm. The differential diagnosis includes e ndometrial hyperplasia, polyp, and carcinoma. Biopsy is recommended.
--- NOTE | ~2022-07-08 | CT_ITS ---
EXAMINATION: CT abdomen pelvis w con DATE: 07/08/2022 23:32 INDICATION: Epigastric abdominal pain. Nausea and vomiting. Diarrhea. TECHNIQUE: Computed tomography (CT) of the abdomen and pelvis was performed with 100 mL Omnipaque 350 intravenous contrast. Automated exposure control and iterative reconstruction technique were employe d. The dose-length product was 330.86 mGy-cm. COMPARISON: None. FINDINGS: The visualized portions of the lung bases demonstrate smooth septal thickening, consistent with pulmonary edema. There is mild atelectasis bilaterally. There are small pleural effusions, right worse than left. Cardiomegaly is noted. There are coronary artery calcifications. There are changes of aortic valve replacement. There is pneumobilia in the liver, likely secondary to sphincterotomy. T he gallbladder, spleen, pancreas, adrenal glands, and right kidney are normal. There is a 4 mm cyst i n left kidney. There are no dilated loops of bowel. There is diverticulosis of the colon without evid ence of diverticulitis. The appendix is not visualized. The endometrial complex measures 9 mm in thic kness. There is calcified atherosclerosis of the aorta and many of the other arteries. There is sever e stenosis of celiac axis, moderate stenosis of superior mesenteric artery, moderate stenosis of the largest bilateral renal arteries, moderate stenosis of the bilateral common femoral arteries, and mod erate stenosis of the bilateral proximal superficial femoral arteries. There are no pathologically en larged lymph nodes. There is no free intraperitoneal fluid. There is severe lumbar spondylosis. IMPRESSION: 1. Mild pulmonary edema. 2. Small pleural effusions. 3. Arterial occlusive disease. 4. Endometrial thickness of 9 mm. The differential diagnosis includes endometrial hyperplasia, polyp, and carcinoma. Biopsy is recommended. Reviewed, dictated and finalized at location E. IMPRESSION: 1. Mild pulmonary edema. 2. Small pleural effusions. 3. Arterial occlusive disease. 4. Endometrial thickness of 9 mm. The differential diagnosis includes endometri al hyperplasia, polyp, and carcinoma. Biopsy is recommended.
[2022-07-08 21:24] VITALS: BP 166/33; PULSE 59; RESP 18; TEMP 36.3; O2SAT 96; O2SAT 98
--- NOTE | 2022-07-08 21:32 | PC.NURSE ---
pt states she took 1 dose of nitro after dinner time at about 1800. Pt has a prescription for nitro and states she is waiting to get on the list for a tavern. Pt states she has nausea and vomiting and diarrhea but has not had chest pain since EMS came. EMS stated that pt did not have an complaints of nausea or vomiting but has generalized weakness.
--- NOTE | 2022-07-08 21:34 | ECG_ITS ---
Measurements Intervals [place] Rate: 58 P: 66 LA: 183 QRS: -23 QRSD: 107 T: 104 QT: 446 QTc: 441 Interpretive Statements SINUS BRADYCARDIA ANTEROSEPTAL INFARCT, AGE INDETERMINATE ST-T WAVE ABNORMALITY IN HIGH LATERAL LEADS- CONSIDER ISCHEMIA ABNORMAL ECG COMPARED TO ECG 06/11/2022 16:31:46 SINUS BRADYCARDIA NOW PRESENT ST-T WAVE ABNORMALITY NOW PRESENT Electronically Signed On 07-08-2022 22:19:18 CDT by Maco Lo D.O.
[2022-07-08 21:47] VITALS: BP 153/44; PULSE 61; RESP 11; O2SAT 99
[2022-07-08 22:05] LABS: Basophils Percent Auto 0.3 % (0.2-1.2); Eosinophils Absolute Auto 0.2 K/mm3 (0-0.3); Eosinophils Percent Auto 1.5 % (0-4.4); Hematocrit 34.4 % (37.0-47.0); Hemoglobin 11.8 g/dL (12.0-15.0); Immature Granulocyte Absolute 0.05 K/mm3 (0.00-0.031); Immature Granulocyte Percent A 0.4 % (0-0.5); Lymphocytes Absolute Auto 0.78 K/mm3 (0.9-3.2); Lymphocytes Percent Auto 6.7 % (18.3-44.2); Mean Corpuscular HGB Conc 34.3 g/dl (32-36); Mean Corpuscular Hemoglobin 31.6 pg (26-34); Mean Platelet Volume 10.7 fl (7.4-10.4); Monocytes Absolute Auto 0.6 K/mm3 (0.1-0.6); Monocytes Percent Auto 5.2 % (2.6-8.5); Neutrophils Absolute Auto 10.1 K/mm3 (1.3-6.7); Neutrophils Percent Auto 85.9 % (45.5-73.1); Platelet Count Result 190 k/mm3 (150-375); Red Blood Count 3.74 M/mm3 (4.2-5.4); Red Cell Distribution Width 12.6 % (11.5-14.5); White Blood Count 11.7 K/mm3 (4.5-10.0)
[2022-07-08 22:17] LABS: Prothrombin Time 14.2 Seconds (11.1-14.7)
[2022-07-08 22:18] LABS: Partial Thromboplastin Time 29.8 SECONDS (22.3-36.8)
[2022-07-08 22:27] LABS: Troponin I 0.018 ng/mL (0.000-0.034)
[2022-07-08 22:52] LABS: Alanine Aminotransferase 21 U/L (6-35); Albumin Level 4.1 g/dL (3.5-5.1); Alkaline Phosphatase 43 U/L (38-126); Anion Gap 5 mmol/L (8-16); Aspartate Amino Transferase 35 U/L (14-36); Bilirubin,Total 0.5 mg/dL (0.2-1.3); Blood Urea Nitrogen 19 mg/dL (7-17); Calcium 9.1 mg/dL (8.4-10.2); Carbon Dioxide 29 mmol/L (22-30); Chloride 100 mmol/L (98-107); Estimated CRCL calculation 42 ml/min; Estimated Glomerular Filt Rate > 60; Glucose 104 mg/dL (65-110); Lipase 74 U/L (23-300); Potassium 4.4 mmol/L (3.4-5.0); Sodium 134 mmol/L (137-145)
[2022-07-08 22:55] VITALS: BP 157/49; PULSE 63; RESP 17; O2SAT 96
[2022-07-08 23:02] VITALS: BP 169/40; PULSE 61; RESP 20; O2SAT 97
--- NOTE | 2022-07-08 23:02 | ED.WEAKNESS ---
HPI - Weakness General Chief complaint: Weakness <LUIS M Almodovar Last Filed: 07/09/22 03:42> Stated complaint: generalized weakness <LUIS M Almodovar Last Filed: 07/09/22 03:42> Time Seen by Provider: 07/08/22 22:18 <LUIS M Almodovar Last Filed: 07/09/22 03:42> Source: patient <LUIS M Almodovar Last Filed: 07/09/22 03:42> Mode of arrival: EMS <LUIS M Almodovar Last Filed: 07/09/22 03:42> Limitations: no limitations <LUIS M Almodovar Last Filed: 07/09/22 03:42> History of Present Illness HPI Narrative: Patient is a 71 y/o female who presents to the ED via EMS who presents to the ED with c/o N/V/D. Patient reports she ate dinner around 6:30 PM tonight and began feeling unwell afterwards with a queasy feeling in her stomach. She developed nausea, vomiting, diarrhea around 8 PM. She states she had profuse vomiting and diarrhea. Denied rectal bleeding or melena. Denied hematemesis. She also had pain in her upper abdomen at that time. She began feeling very weak, lightheaded, and had pain in her back. She took a nitroglycerin at home, which resolved her back pain. She did not have any chest pain. EMS was then called. Patient still complains of upper abdominal pain currently. She denies history of similar symptoms. She notes her had the same thing for dinner tonight and has not had any symptoms. Patient denies fever, syncope, cough or cold symptoms, shortness of breath. <LUIS M Almodovar Last Filed: 07/09/22 03:42> Related Data Home medications: Home Medications Medication Instructions Recorded Confirmed vitamin B complex 1 tablet PO DAILY 08/12/19 06/17/22 meclizine 25 mg tablet 25 mg PO PRN PRN Dizziness 06/04/22 07/08/22 melatonin 3 mg tablet 3 mg PO PRN PRN Sleep 06/04/22 07/08/22 tizanidine 2 mg capsule 2 mg PO PRN PRN Pain 06/04/22 07/08/22 hydrochlorothiazide 12.5 mg capsule 12.5 mg PO 07/08/22 rosuvastatin 20 mg tablet 20 mg PO DAILY 07/08/22 07/08/22 <Lorna Ulrich PA-C - Last Filed: 07/09/22 03:42> Allergies/Adverse reactions: Allergies Allergy/AdvReac Type Severity Reaction Status Date / Time Cephalosporins Allergy Severe Rash Verified 07/08/22 21:34 doxycycline Allergy Severe RASH Verified 07/08/22 21:34 sulfamethoxazole Allergy Severe Diarrhea Verified 07/08/22 21:34 tetracycline Allergy Severe Rash Verified 07/08/22 21:34 lisinopril Allergy Mild Abdominal Verified 07/08/22 21:34 Pain trimethoprim Allergy Unknown Unknown Verified 07/08/22 21:34 <Lorna Ulrich PA-C - Last Filed: 07/09/22 03:42> Review of Systems Review of Systems: CONSTITUTIONAL: Denies fever, chills, or sweats. CARDIOVASCULAR: Denies chest pain. RESPIRATORY: Denies cough or dyspnea. GASTROINTESTINAL: See HPI. GENITOURINARY: Denies dysuria or hematuria. SKIN: Denies rash or itching. MUSCULOSKELETAL: See HPI. NEUROLOGIC: See HPI. <Lorna Ulrich PA-C - Last Filed: 07/09/22 03:42> All systems reviewed & are unremarkable except as noted in HPI and below <Lorna Ulrich PA-C - Last Filed: 07/09/22 03:42> [facility] Past Medical History Medical History: Medical History Aortic valve disease Atherosclerosis of aorta CAD (coronary artery disease) Carotid disease, bilateral Chronic hyponatremia Generalized anxiety disorder Hyperlipidemia Hypertension Meniere disease Nicotine dependence, cigarettes, in remission Prediabetes Presence of prosthetic heart valve Pulmonary edema <Lorna Ulrich PA-C - Last Filed: 07/09/22 03:42> Surgical History Surgical History: Surgical History H/O aortic valve replacement Hx of appendectomy Hx of carpal tunnel repair Hx of cataract extraction S/P CABG x 1 Status post cataract extract
--- NOTE | 2022-07-08 23:21 | PC.NURSE ---
Pt ambulated to bathroom and back to exam room with steady gait. States she feels much less weak than she did at home and almost feels back to her normal.
[2022-07-08 23:47] VITALS: BP 155/30; PULSE 61; RESP 23; O2SAT 93
[2022-07-08] MEDS: SODIUM CHLORIDE 0.9% IV 500 ML 999 ML IV CONT (23:55)
[2022-07-08] MEDS: ONDANSETRON INJ 4 MG/2 ML VIAL IV PUSH (23:56)
[2022-07-08] MEDS: PANTOPRAZOLE SODIUM IV 40 MG VIAL IV PUSH (23:56)
[2022-07-09] VITALS (13 sets, daily range): BP systolic 136–174; BP diastolic 27–53; PULSE 62–70; RESP 16–20; O2SAT 91–96
[2022-07-09 01:39] LABS: Troponin I 0.013 ng/mL (0.000-0.034)
[2022-07-09 03:09] LABS: Lactic Acid Reflex 0.9 mmol/L (0.7-2.0)
[2022-07-09] MEDS: ACETAMINOPHEN 500 MG TABLET 1000 MG PO (03:20)
--- NOTE | 2022-07-09 04:01 | PC.NURSE ---
Pt family member asked to go home but requested to call with updates if there are any. Pt verbalized that this was okay to call. Her husbands name is Darinel and the number is [phone].
== END 2022-07-09 06:05 | disposition home or self-care (01) ==
PROVIDERS: Physician Assistant; Emergency Provider Emergency Medicine; PCP Family Medicine
DX: K52.9 Noninfective gastroenteritis and colitis, unspecified (principal); I70.0 Atherosclerosis of aorta; K83.9 Disease of biliary tract, unspecified; I35.9 Nonrheumatic aortic valve disorder, unspecified; I25.10 Atherosclerotic heart disease of native coronary artery without angina pectoris; I10 Essential (primary) hypertension; E87.1 Hypo-osmolality and hyponatremia; E78.5 Hyperlipidemia, unspecified; H81.09 Meniere's disease, unspecified ear; R73.03 Prediabetes; Z95.2 Presence of prosthetic heart valve; Z95.1 Presence of aortocoronary bypass graft; Z98.42 Cataract extraction status, left eye; Z96.1 Presence of intraocular lens; F17.211 Nicotine dependence, cigarettes, in remission; R94.31 Abnormal electrocardiogram [ECG] [EKG]; R00.1 Bradycardia, unspecified; I51.7 Cardiomegaly; J81.1 Chronic pulmonary edema; I77.1 Stricture of artery; I70.1 Atherosclerosis of renal artery; I77.9 Disorder of arteries and arterioles, unspecified; R93.89 Abnormal findings on diagnostic imaging of other specified body structures
CPT/HCPCS: 36415; 71046; 74174; 74177; 80053; 83605; 83690; 84484; 85025; 85610; 85730; 93005; 96361; 96374; 96375; 99284; A9270; C9113; J2405; J7040; Q9967

== ENCOUNTER 2022-08-21 04:57 | Inpatient (IN) | payer MEDICARE, SELFPAY ==
[2022-08-21] VITALS (27 sets, daily range): BP systolic 136–168; BP diastolic 36–52; PULSE 68–90; RESP 17–29; TEMP 36.4–36.9; O2SAT 10–100; BMI 23.4
--- NOTE | ~2022-08-21 | XR_ITS ---
EXAMINATION: XR chest 1V portable INDICATION: Shortness of breath TECHNIQUE: Portable AP chest at 0544 hours COMPARISON: 07/08/2022 FINDINGS: There are small pleural effusions. There is no pneumothorax. There are minimal airspace [place] of the lung bases. Median sternotomy wires and mediastinal surgical clips are seen, likely fro m prior coronary artery bypass grafting. IMPRESSION: 1. Small pleural effusions with bibasilar atelectasis versus pneumonia. Reviewed, dictated and finalized at location A.
--- NOTE | 2022-08-21 05:22 | ECG_ITS ---
Measurements Intervals [place] Rate: 72 P: 73 MS: 150 QRS: -4 QRSD: 114 T: 91 QT: 391 QTc: 429 Interpretive Statements SINUS RHYTHM ATRIAL PREMATURE COMPLEX ANTEROSEPTAL INFARCT, AGE INDETERMINATE BORDERLINE ST-T WAVE ABNORMALITY- HIGH LATERAL LEADS BASELINE ARTIFACT- I, II, III, AVR, AVL, AVF, V1 ABNORMAL ECG COMPARED TO ECG 07/08/2022 21:29:08 SINUS RHYTHM NOW PRESENT Electronically Signed On 08-21-2022 8:53:43 CDT by Maco Lo D.O.
--- NOTE | 2022-08-21 05:30 | ED.GENADULT ---
HPI - General Adult General Chief complaint: Shortness of Breath/Dyspnea Stated complaint: SOB Time Seen by Provider: 08/21/22 05:12 History of Present Illness HPI narrative: this is a 71-year-old female history of COPD and CHF presenting for shortness of breath. Patient states she has had poor respiratory status since May this year. However got acutely worse tonight around 330am. the patient denies fever chills productive cough chest pain or lower extremity edema. Patient takes 40 of Lasix today. She also takes an inhaler twice a day. is still smoking although the patient herself has quit. Patient called EMS because she could not move around the house without feeling short of breath. She was treated for COPD by EMS. she states that her breathing has not improved. Related Data Home Medications Medication Instructions Recorded Confirmed vitamin B complex 1 tablet PO DAILY 08/12/19 06/17/22 meclizine 25 mg tablet 25 mg PO PRN PRN Dizziness 06/04/22 07/08/22 melatonin 3 mg tablet 3 mg PO PRN PRN Sleep 06/04/22 07/08/22 tizanidine 2 mg capsule 2 mg PO PRN PRN Pain 06/04/22 07/08/22 hydrochlorothiazide 12.5 mg capsule 12.5 mg PO 07/08/22 rosuvastatin 20 mg tablet 20 mg PO DAILY 07/08/22 07/08/22 Allergies Allergy/AdvReac Type Severity Reaction Status Date / Time Cephalosporins Allergy Severe Rash Verified 07/08/22 21:34 doxycycline Allergy Severe RASH Verified 07/08/22 21:34 sulfamethoxazole Allergy Severe Diarrhea Verified 07/08/22 21:34 tetracycline Allergy Severe Rash Verified 07/08/22 21:34 lisinopril Allergy Mild Abdominal Verified 07/08/22 21:34 Pain trimethoprim Allergy Unknown Unknown Verified 07/08/22 21:34 [facility] Past Medical History Medical History Aortic valve disease Atherosclerosis of aorta CAD (coronary artery disease) Carotid disease, bilateral Chronic hyponatremia Generalized anxiety disorder Hyperlipidemia Hypertension Meniere disease Nicotine dependence, cigarettes, in remission Prediabetes Presence of prosthetic heart valve Pulmonary edema Surgical History Surgical History H/O aortic valve replacement Hx of appendectomy Hx of carpal tunnel repair Hx of cataract extraction S/P CABG x 1 Status post cataract extraction and insertion of intraocular lens of left eye Family History Family History Sibling Cancer Aortic valve replaced Heart failure Father Heart attack Daughter No problems noted. Mother Aortic valve replaced Social History Social History Social History: No drug use. Drinks 4-6 alcohol drinks per week. Tobaccos use as mentioned above. She lives with her . She is a full code. She nominates her to be the individual who would make medical decisions for her if she is unable. Smoking packs per day: 0.5 Smoking cigarettes per day: 10.0 Years smoked: 60 Smoking pack-years: 30.00 Smoking status: Former smoker Tobacco type: cigarettes Second hand tobacco smoke exposure: Yes Smoking end date: 06/03/22 Alcohol intake: current Drinks per week: 8 Substance use: never Substance use type: does not use Lack of Transportation: No Lack of Food: Never True Current Housing: I Have Housing Concerned About Future Housing: No Difficulty Paying Gas/Electric Bills: No Difficulty Paying for Meds: No Currently Unemployed: No Education: Associate Degree Difficulty w/ Childcare or Family Care: No Living arrangements: with family Occupation/Education: retired Gender identity (if verbalized by the patient): Female Sexual Orientation (if Verbalized by the Patient): Straight or Heterosexual Spiritual care concerns: No Exam Narrative: APPEARANCE: 3-4 word dyspnea, Head: atraumatic.
[2022-08-21] MEDS: FUROSEMIDE INJ 40 MG/4 ML VIAL IV PUSH ×2 (05:38→17:07)
[2022-08-21 05:42] LABS: Basophils Percent Auto 0.5 % (0.2-1.2); Eosinophils Absolute Auto 0.1 K/mm3 (0-0.3); Eosinophils Percent Auto 1.1 % (0-4.4); Hematocrit 29.6 % (37.0-47.0); Hemoglobin 10.2 g/dL (12.0-15.0); Immature Granulocyte Absolute 0.04 K/mm3 (0.00-0.031); Immature Granulocyte Percent A 0.5 % (0-0.5); Lymphocytes Absolute Auto 0.59 K/mm3 (0.9-3.2); Lymphocytes Percent Auto 6.8 % (18.3-44.2); Mean Corpuscular HGB Conc 34.5 g/dl (32-36); Mean Corpuscular Hemoglobin 30.6 pg (26-34); Mean Corpuscular Volume 88.9 fl (80-100); Mean Platelet Volume 9.6 fl (7.4-10.4); Monocytes Absolute Auto 0.7 K/mm3 (0.1-0.6); Monocytes Percent Auto 7.8 % (2.6-8.5); Neutrophils Absolute Auto 7.3 K/mm3 (1.3-6.7); Neutrophils Percent Auto 83.3 % (45.5-73.1); Platelet Count Result 239 k/mm3 (150-375); Red Blood Count 3.33 M/mm3 (4.2-5.4); Red Cell Distribution Width 12.3 % (11.5-14.5); White Blood Count 8.7 K/mm3 (4.5-10.0)
[2022-08-21 05:51] LABS: Alanine Aminotransferase 22 U/L (6-35); Albumin Level 3.9 g/dL (3.5-5.1); Alkaline Phosphatase 54 U/L (38-126); Anion Gap 9 mmol/L (8-16); Aspartate Amino Transferase 29 U/L (14-36); Bilirubin,Total 0.6 mg/dL (0.2-1.3); Blood Urea Nitrogen 12 mg/dL (7-17); Calcium 9.1 mg/dL (8.4-10.2); Carbon Dioxide 23 mmol/L (22-30); Chloride 98 mmol/L (98-107); Estimated CRCL calculation 61 ml/min; Estimated Glomerular Filt Rate > 60; Glucose 128 mg/dL (65-110); Magnesium 1.8 mg/dL (1.6-2.3); Phosphorus 3.4 mg/dL (2.5-4.5); Potassium 3.9 mmol/L (3.4-5.0); Sodium 130 mmol/L (137-145)
[2022-08-21 06:01] LABS: INR 1.1; NT Pro B Type Natriuretic Pept 11000 pg/mL (19.9-100); Prothrombin Time 14.6 Seconds (11.1-14.7); Troponin I 0.024 ng/mL (0.000-0.034)
[2022-08-21 06:02] LABS: Alveolar/Arterial O2 Gradient 56.7 mmHg; Fractional Inspired Oxygen 21 %; HCO3 ABG 20.1 mEq/l (22.0-26.0); Oxygen Content ABG 14.8 %vol (16.0-22.0); Oxygen Saturation ABG 93.7 % (95.0-100.0); Oxyhemoglobin 90.9 % THb (90.0-100.0); PCO2 ABG 26.6 mmHg (35.0-45.0); PO2 ABG 61.2 mmHg (80.0-100.0); PO2 FiO2 Ratio Arterial Blood 2.91 %; Total Hemoglobin 11.6 g/dL (12.0-18.0); pH ABG 7.496 (7.350-7.450)
[2022-08-21 06:04] LABS: Device ROOM AIR; Modified Allen's Test Pass; Site Drawn RIGHT RADIAL
--- NOTE | 2022-08-21 07:58 | ADMGEN ---
This patient, Yris Guillermo, was admitted to Medical Room 255-01. Patient/family oriented to hospital policies and general routines including ID bracelet, bed and alarms, visiting hours, pain management, procedures, bathroom and other care routines, personal items, smoking policy, room service/diet, and visiting hours. Information on how to activate the Rapid Response Team has been discussed. Patient/Family are encouraged to report perceived risks to care and to ask questions if they do not understand what they are told or what they should do.
[2022-08-21 09:01] LABS: Troponin I 0.024 ng/mL (0.000-0.034)
--- NOTE | 2022-08-21 13:30 | PM.IMHP ---
H&P: HPI History of Present Illness Date/Time: 08/21/22 7830 Chief Complaint: Shortness of breath Narrative: patient is 71-year-old female with a past medical history of COPD, CHF, hypertension, aortic valve replacement, CAD, carotid disease who presented to the ED with complaints of shortness of breath. Patient stated that she has been having shortness of breath since May when she was in another hospital for fluid on her heart. She was doing okay and she stated that she has some days are good and some days rib bad. However the last couple days she has been more and more dyspneic with inability to catch her breath. She does have a cough. She stated that her cough is productive sometimes with a brown speckled sputum. Most dimer shortness of breath this with activity however she has not been able to lay flat or on her left side. She stated that she can be up doing stuff all day cleaning the house and when she was laid down that is when she starts coughing she sits back up to relieve the coughing however the cough changes and she begins to the have a different cough and her breathing gets worse. At that point she states that she gets intense pressure in her chest and described as an elephant on the chest that resolved with nitro. She stated that that has all been worked up since she has been coming here in May. As these are same exact symptoms she had in May. She did state that the chest pain or pressure is in the middle and goes back to the middle of her back and her shoulders. She denies any swelling and stated that she needs to have a TAVR done for new aortic valve again as hers is 18 years old. She denies any nausea, vomiting, diarrhea, constipation, sweats, fever, chills, urinary dysfunction including urgency, frequency, pain or burning. 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 BNP was significant for 11,000, troponins x3 are negative at 0.020, 0.024, 0.024, ABG shows pH 7.496, CO2 26.6, O2 61.2, HCO3 20.1, O2 saturation 93.7, indicating a partially compensated respiratory alkalosis mixed with metabolic acidosis. She is unable to complete sentences, tripoding, and has increased accessory muscle use. She is unable to lay flat. She was given some lasix in the ED. She is supposed to get a CTA of the head and neck on in order to get her TAVR preformed. Patient is being admitted to the hospitalist service under observation Review of Systems Review of Systems: 12 systems reviewed and are negative unless mentioned the [facility] Past Medical History Medical History Aortic valve disease Atherosclerosis of aorta CAD (coronary artery disease) Carotid disease, bilateral Chronic hyponatremia Generalized anxiety disorder Hyperlipidemia Hypertension Meniere disease Nicotine dependence, cigarettes, in remission Prediabetes Presence of prosthetic heart valve Pulmonary edema Surgical History Surgical History H/O aortic valve replacement Hx of appendectomy Hx of carpal tunnel repair Hx of cataract extraction S/P CABG x 1 Status post cataract extraction and insertion of intraocular lens of left eye Family History Family History Sibling Cancer Aortic valve replaced Heart failure Father Heart attack Daughter No problems noted. Mother Aortic valve replaced Social History Social History (Updated 08/21/22 @ 15:00 by ARAVIND Griffith) Social History: patient is her Darinel Guillermo who will be her surrogate if she is unable to make decisions. she has no kids or any pets. She did state that she has about 8 drinks a week if not more which she stated was vodka with lemon [place] soda. She did stop smoking, However stated her is like a chimney. She stopped smoking in May. Smoking packs per
[2022-08-21] MEDS: MAGNESIUM SULF 2 GM/WATER 50ML 2 GM/50 ML BAG IVPB (17:01)
[2022-08-21] MEDS: METOPROLOL SUCCINATE EXT REL 50 MG TABCR PO (17:04)
[2022-08-21] MEDS: SERTRALINE HCL 50 MG TABLET PO (17:04)
[2022-08-21] MEDS: VITAMIN B COMPLEX CAPSULE 1 CAP PO (17:06)
[2022-08-21] MEDS: ASPIRIN 81 MG CHEWABLE TABLET PO (17:06)
[2022-08-21] MEDS: ROSUVASTATIN 10 MG TABLET 20 MG PO (17:06)
[2022-08-21] MEDS: ACETAMINOPHEN 500 MG TABLET 1000 MG PO (19:47)
[2022-08-21] MEDS: MELATONIN 3 MG TABLET PO (19:47)
[2022-08-21] MEDS: FLUTICASONE/UMECLIDIN/VILANTER 100-62.5-25 MCG ELLIPTA 2 PUFF INHALATION (20:43)
[2022-08-22] VITALS (12 sets, daily range): BP systolic 139–149; BP diastolic 46–50; PULSE 61–88; RESP 16–20; TEMP 36.4–36.9; O2SAT 93–98
[2022-08-22 05:37] LABS: Basophils Percent Auto 0.1 % (0.2-1.2); Hematocrit 28.8 % (37.0-47.0); Hemoglobin 9.5 g/dL (12.0-15.0); Immature Granulocyte Absolute 0.04 K/mm3 (0.00-0.031); Immature Granulocyte Percent A 0.5 % (0-0.5); Lymphocytes Absolute Auto 0.65 K/mm3 (0.9-3.2); Lymphocytes Percent Auto 7.9 % (18.3-44.2); Mean Corpuscular Hemoglobin 29.5 pg (26-34); Mean Corpuscular Volume 89.4 fl (80-100); Mean Platelet Volume 9.8 fl (7.4-10.4); Monocytes Absolute Auto 0.6 K/mm3 (0.1-0.6); Monocytes Percent Auto 7.2 % (2.6-8.5); Neutrophils Percent Auto 84.3 % (45.5-73.1); Platelet Count Result 267 k/mm3 (150-375); Red Blood Count 3.22 M/mm3 (4.2-5.4); Red Cell Distribution Width 12.3 % (11.5-14.5); White Blood Count 8.3 K/mm3 (4.5-10.0)
[2022-08-22 05:47] LABS: Alanine Aminotransferase 24 U/L (6-35); Albumin Level 3.4 g/dL (3.5-5.1); Alkaline Phosphatase 46 U/L (38-126); Anion Gap 7 mmol/L (8-16); Aspartate Amino Transferase 32 U/L (14-36); Bilirubin,Total 0.3 mg/dL (0.2-1.3); Blood Urea Nitrogen 25 mg/dL (7-17); Carbon Dioxide 28 mmol/L (22-30); Chloride 95 mmol/L (98-107); Estimated CRCL calculation 47 ml/min; Estimated Glomerular Filt Rate > 60; Glucose 115 mg/dL (65-110); Magnesium 2.2 mg/dL (1.6-2.3); Potassium 4.3 mmol/L (3.4-5.0); Sodium 130 mmol/L (137-145)
[2022-08-22] MEDS: FUROSEMIDE INJ 40 MG/4 ML VIAL IV PUSH ×2 (06:35→16:55)
[2022-08-22] MEDS: ALBUTEROL SULFATE NEB 2.5 MG/3 ML INH INHALATION (06:36)
[2022-08-22 06:57] LABS: CRP 6.5 mg/dL (<1.0); Cholesterol 109 mg/dL (0-200); HDL Direct 31 mg/dL; Triglycerides 92 mg/dL (<150)
[2022-08-22 07:04] LABS: LDL Cholesterol Direct 57 mg/dL
[2022-08-22 07:12] LABS: Procalcitonin 0.1 ng/mL
--- NOTE | 2022-08-22 08:00 | PM.IMPN ---
Progress Note: A&P Assessment and Plan (1) CHF (congestive heart failure): Qualifiers: Heart failure chronicity: acute on chronic Heart failure type: diastolic Qualified Code(s): I50.33 - Acute on chronic diastolic (congestive) heart failure Code(s): I50.9 - Heart failure, unspecified Status: Acute Assessment and Plan: presented with shortness of breath with exertion inability to lay flat uncontrolled cough echo from May of 2022 showed EF of 55% with an indeterminate diastolic dysfunction and severe to moderate aortic insufficiency Cardiac Cath showed severe aortic valve regurg from 06/06/22 chest x-ray shows small pleural effusion with atelectasis versus pneumonia appears to be acute on chronic diastolic [place] [address] continue home metoprolol 50 mg p.o. daily, rosuvastatin 20 mg at night Lasix IV b.i.d. 40 mg continued for 2 more doses Increase PO lasix to 40mg PO BID for now Educate about daily weights trend urine output strict I&Os daily weights continue telemetry trend sodium (130 today) as she does have a history of hyponatremia Cardiology consulted (2) Respiratory failure: Qualifiers: Chronicity: acute Respiratory failure complication: hypoxia Qualified Code(s): J96.01 - Acute respiratory failure with hypoxia Code(s): J96.90 - Respiratory failure, unspecified, unspecified whether with hypoxia or hypercapnia Status: Acute Assessment and Plan: saturations noted to be in the high 80s upon arrival presented with respiratory distress with labored breathing, tripoding, inability to complete sentences ABG shows partially compensated respiratory alkalosis secondary to metabolic acidosis supplemental O2 to maintain saturations greater than 88% most likely related to CHF exacerbation possibly COPD weaned to room air (3) COPD (chronic obstructive pulmonary disease): Qualifiers: COPD type: emphysema Emphysema type: unspecified Qualified Code(s): J43.9 - Emphysema, unspecified Code(s): J44.9 - Chronic obstructive pulmonary disease, unspecified Status: Acute Assessment and Plan: chronic and stable denies any sputum changes or quality changes neb treatments for now supplemental oxygen wean to maintain saturations greater than 88% sputum culture ordered Wonder if this is more COPD as well CRP is elevated Start steroids Continue levaquin IS and PEP therapy ordered (4) Hyperlipidemia: Qualifiers: Hyperlipidemia type: mixed hyperlipidemia Qualified Code(s): E78.2 - Mixed hyperlipidemia Code(s): E78.5 - Hyperlipidemia, unspecified Status: Acute Assessment and Plan: continue rosuvastatin 20 mg daily lipid panel Cholesterol 109, LDL 57, HDL 31, Triglycerides 92 Stable continue current treatment (5) Hypertension: Qualifiers: Hypertension type: primary hypertension Qualified Code(s): I10 - Essential (primary) hypertension Code(s): I10 - Essential (primary) hypertension Status: Acute Assessment and Plan: current blood pressure 139/50 continue metoprolol Lasix trend blood pressure adjust therapy as indicated (6) Community acquired pneumonia: Qualifiers: Laterality: unspecified laterality Qualified Code(s): J18.9 - Pneumonia, unspecified organism Code(s): J18.9 - Pneumonia, unspecified organism Status: Acute Assessment and Plan: Chest xray indicates PNA vs Atelectasis Add levaquin for now sputum culture ordered WBC stable at 8.3 CRP 6.5 Procal 0.1 Trend labs Neb treatment supplemental oxygen as indicated Time Spent With Patient Time: 43 minutes Time with patient: Greater than 35 minutes Subjective Date/time seen: 08/22/22 0800
--- NOTE | 2022-08-22 08:00 | P.PNIM_ITS ---
Progress Note: A&P Assessment and Plan (1) CHF (congestive heart failure): Qualifiers: Heart failure chronicity: acute on chronic Heart failure type: diastolic Qualified Code(s): I50.33 - Acute on chronic diastolic (congestive) heart failure Code(s): I50.9 - Heart failure, unspecified Status: Acute Assessment and Plan: * presented with shortness of breath with exertion inability to lay flat uncontrolled cough * echo from May of 2022 showed EF of 55% with an indeterminate diastolic dysfunction and severe to moderate aortic insufficiency * Cardiac Cath showed severe aortic valve regurg from 06/06/22 * chest x-ray shows small pleural effusion with atelectasis versus pneumonia * appears to be acute on chronic diastolic heart failure in exacerbation * [place] [address] * continue home metoprolol 50 mg p.o. daily, rosuvastatin 20 mg at night * Lasix IV b.i.d. 40 mg continued for 2 more doses * Increase PO lasix to 40mg PO BID for now * Educate about daily weights * trend urine output * strict I&Os * daily weights * continue telemetry * trend sodium (130 today) as she does have a history of hyponatremia * Cardiology consulted (2) Respiratory failure: Qualifiers: Chronicity: acute Respiratory failure complication: hypoxia Qualified Code(s): J96.01 - Acute respiratory failure with hypoxia Code(s): J96.90 - Respiratory failure, unspecified, unspecified whether with hypoxia or hypercapnia Status: Acute Assessment and Plan: * saturations noted to be in the high 80s upon arrival * presented with respiratory distress with labored breathing, tripoding, clark bility to complete sentences * ABG shows partially compensated respiratory alkalosis secondary to metabolic acidosis * supplemental O2 to maintain saturations greater than 88% * most likely related to CHF exacerbation possibly COPD * weaned to room air (3) COPD (chronic obstructive pulmonary disease): Qualifiers: COPD type: emphysema Emphysema type: unspecified Qualified Code(s): J43.9 - Emphysema, unspecified Code(s): J44.9 - Chronic obstructive pulmonary disease, unspecified Status: Acute Assessment and Plan: * chronic and stable * denies any sputum changes or quality changes * neb treatments for now * supplemental oxygen wean to maintain saturations greater than 88% * sputum culture ordered * Wonder if this is more COPD as well CRP is elevated * Start steroids * Continue levaquin * IS and PEP therapy ordered (4) Hyperlipidemia: Qualifiers: Hyperlipidemia type: mixed hyperlipidemia Qualified Code(s): E78.2 - Mixed hyperlipidemia Code(s): E78.5 - Hyperlipidemia, unspecified Status: Acute Assessment and Plan: * continue rosuvastatin 20 mg daily * lipid panel Cholesterol 109, LDL 57, HDL 31, Triglycerides 92 * Stable continue current treatment (5) Hypertension: Qualifiers: Hypertension type: primary hypertension Qualified Code(s): I10 - Essential (primary) hypertension Code(s): I10 - Essential (primary) hypertension Status: Acute Assessment and Plan: * current blood pressure 139/50 * continue metoprolol Lasix * trend blood pressure * adjust therapy as indicated (6) Community acquired pneumonia: Qualifiers: Laterality: un
[2022-08-22] MEDS: FLUTICASONE/UMECLIDIN/VILANTER 100-62.5-25 MCG ELLIPTA 2 PUFF INHALATION (08:05)
[2022-08-22] MEDS: ASPIRIN 81 MG CHEWABLE TABLET PO (08:46)
[2022-08-22] MEDS: METOPROLOL SUCCINATE EXT REL 50 MG TABCR PO (08:46)
[2022-08-22] MEDS: levoFLOXacin 750 MG TABLET PO (08:47)
[2022-08-22] MEDS: ENOXAPARIN 40 MG/0.4 ML SYRINGE SUB-Q (08:47)
[2022-08-22] MEDS: SERTRALINE HCL 50 MG TABLET PO (08:47)
[2022-08-22] MEDS: VITAMIN B COMPLEX CAPSULE 1 CAP PO (08:47)
[2022-08-22] MEDS: methylPREDNISolone SOD SUCC 40 MG VIAL IV PUSH ×2 (11:34→21:07)
--- NOTE | 2022-08-22 12:33 | PCCCNOTE ---
On 08/22/22, the student, [Vicki Peraza ], provided care and completed [facility] documentation on this patient. I have reviewed the student's documentation and agree with the findings.
--- NOTE | 2022-08-22 15:14 | PM.CNCAR ---
Assessment and Plan Assessment and plan (1) Acute heart failure with preserved ejection fraction (HFpEF): Code(s): I50.31 - Acute diastolic (congestive) heart failure Status: Acute Assessment and Plan: Patient clinically appears to be in mildly decompensated acute on chronic heart failure with preserved ejection fraction. However, her symptoms are out of proportion to physical exam, stable oxygen saturation on room air and chest x-ray. This is very likely related to significantly symptomatic severe aortic regurgitation with moderate to severe prosthetic valve aortic stenosis. While her proBNP is greater than 11,000 and is higher than her last admission chest x-ray reveals minimal airspace opacities with small pleural effusions. Pneumonia cannot be excluded per radiology interpretation and as such she was started on methylprednisolone and levofloxacin per hospitalist service. Continue to diurese for heart failure symptoms with Lasix 40 mg IV twice daily. Accurate input and output, daily weight. Monitor volume status closely. Monitor renal function electrolytes very closely. We will cautiously diurese her and observe tolerance and response to therapy. Further recommendations follow. Continue telemetry. We also discussed at great length the likelihood she may require transfer to [facility] particular if her symptoms are not responsive to therapy. This is a very complicated clinical situation with advanced symptomatology in which the ultimate therapy is aortic valve replacement as her symptoms are predominantly related to aortic valve pathology. I spent 86 minutes in the care of this patient prior to, during and after my interview and examination with her including examination, discussion with the patient, discussion with colleagues, review electronic medical record, outside medical records, pertinent imaging, chart review, medical decision-making, and documentation. (2) Severe aortic regurgitation: Code(s): I35.1 - Nonrheumatic aortic (valve) insufficiency Status: Acute Assessment and Plan: Patient has documentation of severe prosthetic valve aortic regurgitation. I suspect a big portion of her symptoms pertaining to this and prosthetic valve stenosis. With regards to symptomatic management surgical replacement of the valve is the primary goal which is not available at this institution. With regards to medical therapy monitors limited data in this regard khari inhibitors, angiotensin receptor blockers, and beta-blockers a reasonable considerations for afterload reduction to potentially improve or stabilize symptoms. As her systolic blood pressures generally greater than 140 mm Hg and she is highly symptomatic, I will introduce losartan 25 mg daily and observe tolerance. We would need to be cautious not to precipitously dropped her blood pressure given prosthetic valve aortic stenosis as well. We need to monitor closely and her renal function. (3) Prosthetic aortic valve stenosis: Code(s): T82.857A - Stenosis of other cardiac prosthetic devices, implants and grafts, initial encounter Status: Acute Assessment and Plan: As above, documentation of moderate to possibly severe prosthetic aortic valve stenosis. There is nothing that can be done at this institution. However she is being considered actively and has been seen recently by a cardiothoracic surgery with regards to the best approach with regards open surgical redo aortic valve replacement or TAVR. This is very complicated physiology and a difficult decision to which the most appropriate management strategy is being currently debated. (4) CAD (coronary artery disease): Qualifiers: Associated angina: with other forms of angina Coronary Disease-Associated Artery/Lesion type: [place] artery [place] vs. transplanted heart: [place] heart Qualified Code(s): I25.118 - Atherosclerotic heart disease of [place] coronary artery with other fo
[2022-08-22] MEDS: ACETAMINOPHEN 500 MG TABLET 1000 MG PO ×2 (16:54→21:08)
[2022-08-22] MEDS: ROSUVASTATIN 10 MG TABLET 20 MG PO (16:54)
[2022-08-22] MEDS: MELATONIN 3 MG TABLET PO (21:09)
[2022-08-23] VITALS (13 sets, daily range): BP systolic 140–143; BP diastolic 41–62; PULSE 60–90; RESP 16–20; TEMP 36.2–36.6; O2SAT 94–98
[2022-08-23] MEDS: HYDROcodone/acetaminophen (*CRX) 5-325 MG TABLET 1 TAB PO ×2 (01:52→07:19)
[2022-08-23 06:06] LABS: Basophils Percent Auto 0.1 % (0.2-1.2); Hematocrit 29.8 % (37.0-47.0); Immature Granulocyte Absolute 0.06 K/mm3 (0.00-0.031); Immature Granulocyte Percent A 0.7 % (0-0.5); Lymphocytes Absolute Auto 0.38 K/mm3 (0.9-3.2); Lymphocytes Percent Auto 4.2 % (18.3-44.2); Mean Corpuscular HGB Conc 33.6 g/dl (32-36); Mean Corpuscular Volume 89.5 fl (80-100); Monocytes Absolute Auto 0.1 K/mm3 (0.1-0.6); Monocytes Percent Auto 1.4 % (2.6-8.5); Neutrophils Absolute Auto 8.5 K/mm3 (1.3-6.7); Neutrophils Percent Auto 93.6 % (45.5-73.1); Platelet Count Result 296 k/mm3 (150-375); Red Blood Count 3.33 M/mm3 (4.2-5.4); Red Cell Distribution Width 12.5 % (11.5-14.5)
[2022-08-23 06:16] LABS: Alanine Aminotransferase 27 U/L (6-35); Albumin Level 3.8 g/dL (3.5-5.1); Alkaline Phosphatase 50 U/L (38-126); Anion Gap 9 mmol/L (8-16); Aspartate Amino Transferase 33 U/L (14-36); Bilirubin,Total 0.4 mg/dL (0.2-1.3); Blood Urea Nitrogen 29 mg/dL (7-17); Calcium 9.1 mg/dL (8.4-10.2); Carbon Dioxide 25 mmol/L (22-30); Chloride 93 mmol/L (98-107); Estimated CRCL calculation 47 ml/min; Estimated Glomerular Filt Rate > 60; Glucose 152 mg/dL (65-110); Magnesium 1.9 mg/dL (1.6-2.3); Potassium 4.3 mmol/L (3.4-5.0); Sodium 127 mmol/L (137-145)
[2022-08-23 07:32] LABS: NT Pro B Type Natriuretic Pept 13700 pg/mL (19.9-100)
[2022-08-23] MEDS: FLUTICASONE/UMECLIDIN/VILANTER 100-62.5-25 MCG ELLIPTA 2 PUFF INHALATION ×2 (07:36→20:04)
[2022-08-23] MEDS: LOSARTAN POTASSIUM 25 MG TABLET PO (08:53)
[2022-08-23] MEDS: ENOXAPARIN 40 MG/0.4 ML SYRINGE SUB-Q (08:53)
[2022-08-23] MEDS: VITAMIN B COMPLEX CAPSULE 1 CAP PO (08:53)
[2022-08-23] MEDS: ASPIRIN 81 MG CHEWABLE TABLET PO (08:53)
[2022-08-23] MEDS: FUROSEMIDE INJ 40 MG/4 ML VIAL IV PUSH (08:53)
[2022-08-23] MEDS: SERTRALINE HCL 50 MG TABLET PO (08:53)
[2022-08-23] MEDS: METOPROLOL SUCCINATE EXT REL 50 MG TABCR PO (08:53)
[2022-08-23] MEDS: methylPREDNISolone SOD SUCC 40 MG VIAL IV PUSH (08:53)
--- NOTE | 2022-08-23 09:05 | PM.PNCARD ---
Progress Note: A&P Assessment and Plan (1) Acute heart failure with preserved ejection fraction (HFpEF): Code(s): I50.31 - Acute diastolic (congestive) heart failure Status: Acute Assessment and Plan: Patient clinically appears to be in mildly decompensated acute on chronic heart failure with preserved ejection fraction. However, her symptoms are out of proportion to physical exam, stable oxygen saturation on room air and chest x-ray. This is very likely related to significantly symptomatic severe aortic regurgitation with moderate to severe prosthetic valve aortic stenosis. I would recommend discontinuing the methylprednisolone and Levaquin as I am not convinced she has pneumonia. This is likely all related to her valvular heart disease. Continue IV furosemide 40 mg daily. (2) Severe aortic regurgitation: Code(s): I35.1 - Nonrheumatic aortic (valve) insufficiency Status: Acute Assessment and Plan: Patient has documentation of severe prosthetic valve aortic regurgitation. I suspect a big portion of her symptoms pertaining to this and prosthetic valve stenosis. With regards to symptomatic management surgical replacement of the valve is the primary goal which is not available at this institution. With regards to medical therapy monitors limited data in this regard khari inhibitors, angiotensin receptor blockers, and beta-blockers a reasonable considerations for afterload reduction to potentially improve or stabilize symptoms. Continue beta-odell and ARB. (3) Prosthetic aortic valve stenosis: Qualifiers: Encounter type: subsequent encounter Qualified Code(s): T82.857D - Stenosis of other cardiac prosthetic devices, implants and grafts, subsequent encounter Code(s): T82.857A - Stenosis of other cardiac prosthetic devices, implants and grafts, initial encounter Status: Acute Assessment and Plan: As above, documentation of moderate to possibly severe prosthetic aortic valve stenosis. There is nothing that can be done at this institution. However she is being considered actively and has been seen recently by a cardiothoracic surgery with regards to the best approach with regards open surgical redo aortic valve replacement or TAVR. This is very complicated physiology and a difficult decision to which the most appropriate management strategy is being currently debated. (4) CAD (coronary artery disease): Qualifiers: Coronary Disease-Associated Artery/Lesion type: [place] artery [place] vs. transplanted heart: [place] heart Associated angina: with other forms of angina Qualified Code(s): I25.118 - Atherosclerotic heart disease of [place] coronary artery with other forms of angina pectoris Code(s): I25.10 - Atherosclerotic heart disease of [place] coronary artery without angina pectoris Status: Acute Assessment and Plan: History of KIMBLE to LAD. Recent [facility] 05/2022 95% mid LAD stenosis proximal to LAD anastomosis but without obstructive disease elsewhere. She has ruled out for myocardial infarction with negative serial enzymes. She has recurrent frequent chest pain partially improved with sublingual nitroglycerin which is most likely a consequence of her prosthetic valve aortic stenosis and severe aortic regurgitation and cardiac demand as opposed to angina related to obstructive CAD. Continue aspirin 81 mg daily, Toprol XL 50 mg daily, rosuvastatin 20 mg at bedtime. Continue aggressive atherosclerotic risk reduction. No indication for repeat ischemic evaluation. (5) Hypertension: Qualifiers: Hypertension type: primary hypertension Qualified Code(s): I10 - Essential (primary) hypertension Code(s): I10 - Essential (primary) hypertension Status: Acute Assessment and Plan: BP elevated but stable at present. Continue Toprol XL 50 mg daily. She has an intolerance to lisinopril. Continue losartan 25 mg daily for additional afterl
--- NOTE | 2022-08-23 11:10 | PM.CNNEP ---
Assessment and Plan Assessment and plan (1) Hyponatremia: Code(s): E87.1 - Hypo-osmolality and hyponatremia Status: Acute Assessment and Plan: chronic issue runs ~ 128 - 134mmol/L has worsened in the past with IV diuretic use (as noted by previous hospitalizations - as low as 126mmol/L) risk factors for low sodium: lung disease/COPD questionable pneumonia SSRI use CHF diuretic use seems reasonable to decreased IV diuretic to qday follow trend of repeat sodium levels (2) Acute heart failure with preserved ejection fraction (HFpEF): Code(s): I50.31 - Acute diastolic (congestive) heart failure Status: Acute Assessment and Plan: as noted on admission Cardiology assessment noted: felt that her valvular heart disease is more to blame... follow daily weights, I/Os, and respiratory status continue current therapy (3) Hypertension: Qualifiers: Hypertension type: primary hypertension Qualified Code(s): I10 - Essential (primary) hypertension Code(s): I10 - Essential (primary) hypertension Status: Acute Assessment and Plan: better control at this time ongoing medication adjustments as noted follow trend of hemodynamics (4) COPD (chronic obstructive pulmonary disease): Qualifiers: COPD type: emphysema Emphysema type: unspecified Qualified Code(s): J43.9 - Emphysema, unspecified Code(s): J44.9 - Chronic obstructive pulmonary disease, unspecified Status: Chronic Assessment and Plan: relatively stable continue home meds/inhalers follow respiratory status I will continue to follow the patient with you while in she remains hospitalized and make further recommendations as needed. Thank you for allowing me to participate in the care of this patient. History of Present Illness Reason for Consult Consult date: 08/23/22 Reason for consult: hyponatremia Chief Complaint Chief complaint: chf History of Present Illness Narrative: The patient is a 71-year-old female with a past medical history as outlined below presented to [facility] Emergency room with complaints of shortness of breath. The patient reports that she has had on and off issues that shortness of breath since May/June of this year. She has had numerous hospitalizations related to this symptom associated with congestive heart failure. She reports that the last few days prior to her presentation she has had more more shortness of breath/dyspnea to the point where she is nable to catch her breath. Her shortness of breath has been associated with productive cough and she relates that her shortness of breath is worse with exertion and lying flat. She also has known significant /severe valvular heart disease prosthetic aortic valve stenosis and aortic regurgitation. No reported symptoms nausea, vomiting, diarrhea, constipation, diaphoresis fevers, chills, lightheadedness, or palpitations. She eventually presented to the emergency room for further assessment. Workup and evaluation [place] [address], negative troponins, and clear evidence respiratory distress with accessory muscle use. It was felt that her shortness of breath was an acute CHF exacerbation and she was given IV diuretics with subsequent admission to hospital for further evaluation therapy. Since her admission, her respiratory status seems to have improved with current interventions. She has been maintained on IV diuretic therapy and institute on antibiotics and steroids due to concerns for possible pneumonia and a COPD exacerbation as well. She has been seen in consultation by Cardiology who feel that a great majority of her symptoms are probably related more so to her valvular heart disease as already mentioned above. Renal consultation was requested due to her hyponatremia. For review of her records, the patient has had some degree of
--- NOTE | 2022-08-23 12:00 | P.PNIM_ITS ---
Progress Note: A&P Assessment and Plan (1) Acute heart failure with preserved ejection fraction (HFpEF): Code(s): I50.31 - Acute diastolic (congestive) heart failure Status: Acute Assessment and Plan: * presented with shortness of breath with exertion inability to lay flat uncontrolled cough * echo from May of 2022 showed EF of 55% with an indeterminate diastolic dysfunction and severe to moderate aortic insufficiency * Cardiac Cath showed severe aortic valve regurg from 06/06/22 * chest x-ray shows small pleural effusion with atelectasis versus pneumonia * appears to be acute on chronic diastolic heart failure in exacerbation * [place] [address], worse at 13,700 * continue home metoprolol 50 mg p.o. daily, rosuvastatin 20 mg at night * Lasix IV b.i.d. 40 mg, change to daily with onset of hyponatremia * Educate about daily weights * Losartan started per cardiology * trend urine output * strict I&Os * daily weights * continue telemetry * trend sodium (127 today) as she does have a history of hyponatremia * Cardiology consulted (2) Hyponatremia: Code(s): E87.1 - Hypo-osmolality and hyponatremia Status: Inactive Assessment and Plan: * Known history of hyponatremia * Currently sodium is 127 * Was 130 at time of admission * Consult nephrology for support * continue diuresis, however, decrease to daily * Urine labs * trend labs (3) Severe aortic regurgitation: Code(s): I35.1 - Nonrheumatic aortic (valve) insufficiency Status: Acute Assessment and Plan: * See above * Will need New valve soon * Most likely the cause for her symptoms * cardiology following (4) Prosthetic aortic valve stenosis: Qualifiers: Encounter type: subsequent encounter Qualified Code(s): T82.857D - Stenosis of other cardiac prosthetic devices, implants and grafts, subsequent encounter Code(s): T82.857A - Stenosis of other cardiac prosthetic devices, implants and grafts, initial encounter Status: Acute Assessment and Plan: * See above (5) COPD (chronic obstructive pulmonary disease): Qualifiers: COPD type: emphysema Emphysema type: unspecified Qualified Code(s): J43.9 - Emphysema, unspecified Code(s): J44.9 - Chronic obstructive pulmonary disease, unspecified Status: Acute Assessment and Plan: * chronic and stable * denies any sputum changes or quality changes * neb treatments for now * supplemental oxygen wean to maintain saturations greater than 88% * sputum culture ordered * Wonder if this is more COPD as well CRP is elevated * Stop the steroids and levaquin with the etiology appearing to be more cardiac in nature * IS and PEP therapy ordered (6) Community acquired pneumonia: Qualifiers: Laterality: unspecified laterality Qualified Code(s): J18.9 - Pneumonia, unspecified organism Code(s): J18.9 - Pneumonia, unspecified organism Status: Acute Assessment and Plan: * Chest xray indicates PNA vs Atelectasis * Discontinue levaquin since it seems to be more cardiac related * sputum culture ordered * WBC stable at 9.0 * CRP 6.5 * Procal 0.1 * Trend labs * Neb treatment * supplemental oxygen as indicated * Not high on the differential as procal is negative, WBC stable (7)
--- NOTE | 2022-08-23 12:00 | PM.IMPN ---
Progress Note: A&P Assessment and Plan (1) Acute heart failure with preserved ejection fraction (HFpEF): Code(s): I50.31 - Acute diastolic (congestive) heart failure Status: Acute Assessment and Plan: presented with shortness of breath with exertion inability to lay flat uncontrolled cough echo from May of 2022 showed EF of 55% with an indeterminate diastolic dysfunction and severe to moderate aortic insufficiency Cardiac Cath showed severe aortic valve regurg from 06/06/22 chest x-ray shows small pleural effusion with atelectasis versus pneumonia appears to be acute on chronic diastolic heart [place] [address], worse at 13,700 continue home metoprolol 50 mg p.o. daily, rosuvastatin 20 mg at night Lasix IV b.i.d. 40 mg, change to daily with onset of hyponatremia Educate about daily weights Losartan started per cardiology trend urine output strict I&Os daily weights continue telemetry trend sodium (127 today) as she does have a history of hyponatremia Cardiology consulted (2) Hyponatremia: Code(s): E87.1 - Hypo-osmolality and hyponatremia Status: Inactive Assessment and Plan: Known history of hyponatremia Currently sodium is 127 Was 130 at time of admission Consult nephrology for support continue diuresis, however, decrease to daily Urine labs trend labs (3) Severe aortic regurgitation: Code(s): I35.1 - Nonrheumatic aortic (valve) insufficiency Status: Acute Assessment and Plan: See above Will need New valve soon Most likely the cause for her symptoms cardiology following (4) Prosthetic aortic valve stenosis: Qualifiers: Encounter type: subsequent encounter Qualified Code(s): T82.857D - Stenosis of other cardiac prosthetic devices, implants and grafts, subsequent encounter Code(s): T82.857A - Stenosis of other cardiac prosthetic devices, implants and grafts, initial encounter Status: Acute Assessment and Plan: See above (5) COPD (chronic obstructive pulmonary disease): Qualifiers: COPD type: emphysema Emphysema type: unspecified Qualified Code(s): J43.9 - Emphysema, unspecified Code(s): J44.9 - Chronic obstructive pulmonary disease, unspecified Status: Acute Assessment and Plan: chronic and stable denies any sputum changes or quality changes neb treatments for now supplemental oxygen wean to maintain saturations greater than 88% sputum culture ordered Wonder if this is more COPD as well CRP is elevated Stop the steroids and levaquin with the etiology appearing to be more cardiac in nature IS and PEP therapy ordered (6) Community acquired pneumonia: Qualifiers: Laterality: unspecified laterality Qualified Code(s): J18.9 - Pneumonia, unspecified organism Code(s): J18.9 - Pneumonia, unspecified organism Status: Acute Assessment and Plan: Chest xray indicates PNA vs Atelectasis Discontinue levaquin since it seems to be more cardiac related sputum culture ordered WBC stable at 9.0 CRP 6.5 Procal 0.1 Trend labs Neb treatment supplemental oxygen as indicated Not high on the differential as procal is negative, WBC stable (7) Respiratory failure: Qualifiers: Chronicity: acute Respiratory failure complication: hypoxia Qualified Code(s): J96.01 - Acute respiratory failure with hypoxia Code(s): J96.90 - Respiratory failure, unspecified, unspecified whether with hypoxia or hypercapnia Status: Acute Assessment and Plan: saturations noted to be in the high 80s upon arrival presented with respiratory distress with labored breathing, tripoding, inability to complete sentences ABG shows partially compensated respiratory alkalosis secondary to metabolic acidos
[2022-08-23 14:07] LABS: Creatinine Urine 20.5 mg/dL; Urea Random Urine 263 MG/DL
[2022-08-23 14:12] LABS: Sodium Urine Random 9 meq/L
[2022-08-23] MEDS: ROSUVASTATIN 10 MG TABLET 20 MG PO (17:10)
--- NOTE | 2022-08-23 18:29 | PC.NURSE ---
Pt can be off bed alarm per hospitalist
[2022-08-23] MEDS: LORazepam (*CRX) 0.5 MG TABLET PO (22:55)
[2022-08-24] VITALS (14 sets, daily range): BP systolic 137–164; BP diastolic 44–55; PULSE 56–70; RESP 16–20; TEMP 36.1–36.5; O2SAT 95–99
[2022-08-24 05:03] LABS: Basophils Percent Auto 0.1 % (0.2-1.2); Eosinophils Percent Auto 0.1 % (0-4.4); Hematocrit 29.5 % (37.0-47.0); Hemoglobin 9.8 g/dL (12.0-15.0); Immature Granulocyte Absolute 0.05 K/mm3 (0.00-0.031); Immature Granulocyte Percent A 0.5 % (0-0.5); Lymphocytes Absolute Auto 1.13 K/mm3 (0.9-3.2); Lymphocytes Percent Auto 11.1 % (18.3-44.2); Mean Corpuscular HGB Conc 33.2 g/dl (32-36); Mean Corpuscular Hemoglobin 29.9 pg (26-34); Mean Corpuscular Volume 89.9 fl (80-100); Mean Platelet Volume 9.6 fl (7.4-10.4); Monocytes Absolute Auto 0.8 K/mm3 (0.1-0.6); Neutrophils Absolute Auto 8.2 K/mm3 (1.3-6.7); Neutrophils Percent Auto 80.2 % (45.5-73.1); Platelet Count Result 288 k/mm3 (150-375); Red Blood Count 3.28 M/mm3 (4.2-5.4); Red Cell Distribution Width 12.7 % (11.5-14.5); White Blood Count 10.2 K/mm3 (4.5-10.0)
[2022-08-24 05:17] LABS: Alanine Aminotransferase 25 U/L (6-35); Albumin Level 3.3 g/dL (3.5-5.1); Alkaline Phosphatase 41 U/L (38-126); Anion Gap 5 mmol/L (8-16); Aspartate Amino Transferase 28 U/L (14-36); Bilirubin,Total 0.3 mg/dL (0.2-1.3); Blood Urea Nitrogen 34 mg/dL (7-17); Calcium 9.1 mg/dL (8.4-10.2); Carbon Dioxide 32 mmol/L (22-30); Chloride 92 mmol/L (98-107); Estimated CRCL calculation 42 ml/min; Estimated Glomerular Filt Rate > 60; Glucose 102 mg/dL (65-110); Potassium 4.5 mmol/L (3.4-5.0); Sodium 129 mmol/L (137-145)
[2022-08-24] MEDS: VITAMIN B COMPLEX CAPSULE 1 CAP PO (08:49)
[2022-08-24] MEDS: SERTRALINE HCL 50 MG TABLET PO (08:49)
[2022-08-24] MEDS: LOSARTAN POTASSIUM 25 MG TABLET PO (08:50)
[2022-08-24] MEDS: ASPIRIN 81 MG CHEWABLE TABLET PO (08:50)
[2022-08-24] MEDS: ENOXAPARIN 40 MG/0.4 ML SYRINGE SUB-Q (08:50)
[2022-08-24] MEDS: FUROSEMIDE INJ 40 MG/4 ML VIAL IV PUSH (08:50)
[2022-08-24] MEDS: METOPROLOL SUCCINATE EXT REL 50 MG TABCR PO (08:50)
[2022-08-24] MEDS: ACETAMINOPHEN 500 MG TABLET 1000 MG PO (08:52)
[2022-08-24] MEDS: FLUTICASONE/UMECLIDIN/VILANTER 100-62.5-25 MCG ELLIPTA 2 PUFF INHALATION ×3 (09:27→20:36)
--- NOTE | 2022-08-24 12:30 | P.PNIM_ITS ---
Progress Note: A&P Assessment and Plan (1) Acute heart failure with preserved ejection fraction (HFpEF): Code(s): I50.31 - Acute diastolic (congestive) heart failure Status: Acute Assessment and Plan: Presented with shortness of breath with exertion inability to lay flat uncontrolled cough. Echo from May of 2022 showed EF of 55% with an indeterminate diastolic dysfunction and severe to moderate aortic insufficiency. Cardiac Cath showed severe aortic valve regurg from 06/06/22. * chest x-ray shows small pleural effusion with atelectasis versus pneumonia * appears to be acute on chronic diastolic heart failure in exacerbation * [place] [address], worse at 13,700 * continue home metoprolol 50 mg p.o. daily, rosuvastatin 20 mg at night * Lasix IV b.i.d. 40 mg, change to daily with onset of hyponatremia * Losartan started per cardiology * trend urine output, strict I&Os, daily weights, continue telemetry * trend sodium (129 today) as she does have a history of hyponatremia * Cardiology consulted and appreciate recommendations. (2) Hyponatremia: Code(s): E87.1 - Hypo-osmolality and hyponatremia Status: Chronic Assessment and Plan: * Known history of hyponatremia * Currently sodium is 129 * Consult nephrology for support * continue diuresis, however, decrease to daily * Urine labs, trend Daily labs (3) Severe aortic regurgitation: Code(s): I35.1 - Nonrheumatic aortic (valve) insufficiency Status: Chronic Assessment and Plan: * See above * Will need New valve soon * Most likely the cause for her symptoms * cardiology following (4) Prosthetic aortic valve stenosis: Qualifiers: Encounter type: subsequent encounter Qualified Code(s): T82.857D - Stenosis of other cardiac prosthetic devices, implants and grafts, subsequent encounter Code(s): T82.857A - Stenosis of other cardiac prosthetic devices, implants and grafts, initial encounter Status: Chronic Assessment and Plan: * See above (5) COPD (chronic obstructive pulmonary disease): Qualifiers: COPD type: emphysema Emphysema type: unspecified Qualified Code(s): J43.9 - Emphysema, unspecified Code(s): J44.9 - Chronic obstructive pulmonary disease, unspecified Status: Chronic Assessment and Plan: * chronic and stable * denies any sputum changes or quality changes * neb treatments for now * Patient no longer requiring supplemental oxygen * sputum culture ordered * Stop the steroids and levaquin with the etiology appearing to be more cardiac in nature * IS and PEP therapy ordered (6) Community acquired pneumonia: Qualifiers: Laterality: unspecified laterality Qualified Code(s): J18.9 - Pneumonia, unspecified organism Code(s): J18.9 - Pneumonia, unspecified organism Status: Ruled-out Assessment and Plan: * Chest xray indicates PNA vs Atelectasis * Discontinue levaquin since it seems to be more cardiac related * sputum culture ordered * WBC stable at 9.0 * CRP 6.5 * Procal 0.1 * Trend labs * Neb treatment * supplemental oxygen as indicated * Not high on the differential as procal is negative, WBC stable (7) Respiratory failure: Qualifiers: Chronicity: acute Respiratory failure complication: hypoxia Qualified Code(s): J9
--- NOTE | 2022-08-24 12:30 | PM.IMPN ---
Progress Note: A&P Assessment and Plan (1) Acute heart failure with preserved ejection fraction (HFpEF): Code(s): I50.31 - Acute diastolic (congestive) heart failure Status: Acute Assessment and Plan: Presented with shortness of breath with exertion inability to lay flat uncontrolled cough. Echo from May of 2022 showed EF of 55% with an indeterminate diastolic dysfunction and severe to moderate aortic insufficiency. Cardiac Cath showed severe aortic valve regurg from 06/06/22. chest x-ray shows small pleural effusion with atelectasis versus pneumonia appears to be acute on chronic diastolic heart [place] [address], worse at 13,700 continue home metoprolol 50 mg p.o. daily, rosuvastatin 20 mg at night Lasix IV b.i.d. 40 mg, change to daily with onset of hyponatremia Losartan started per cardiology trend urine output, strict I&Os, daily weights, continue telemetry trend sodium (129 today) as she does have a history of hyponatremia Cardiology consulted and appreciate recommendations. (2) Hyponatremia: Code(s): E87.1 - Hypo-osmolality and hyponatremia Status: Chronic Assessment and Plan: Known history of hyponatremia Currently sodium is 129 Consult nephrology for support continue diuresis, however, decrease to daily Urine labs, trend Daily labs (3) Severe aortic regurgitation: Code(s): I35.1 - Nonrheumatic aortic (valve) insufficiency Status: Chronic Assessment and Plan: See above Will need New valve soon Most likely the cause for her symptoms cardiology following (4) Prosthetic aortic valve stenosis: Qualifiers: Encounter type: subsequent encounter Qualified Code(s): T82.857D - Stenosis of other cardiac prosthetic devices, implants and grafts, subsequent encounter Code(s): T82.857A - Stenosis of other cardiac prosthetic devices, implants and grafts, initial encounter Status: Chronic Assessment and Plan: See above (5) COPD (chronic obstructive pulmonary disease): Qualifiers: COPD type: emphysema Emphysema type: unspecified Qualified Code(s): J43.9 - Emphysema, unspecified Code(s): J44.9 - Chronic obstructive pulmonary disease, unspecified Status: Chronic Assessment and Plan: chronic and stable denies any sputum changes or quality changes neb treatments for now Patient no longer requiring supplemental oxygen sputum culture ordered Stop the steroids and levaquin with the etiology appearing to be more cardiac in nature IS and PEP therapy ordered (6) Community acquired pneumonia: Qualifiers: Laterality: unspecified laterality Qualified Code(s): J18.9 - Pneumonia, unspecified organism Code(s): J18.9 - Pneumonia, unspecified organism Status: Ruled-out Assessment and Plan: Chest xray indicates PNA vs Atelectasis Discontinue levaquin since it seems to be more cardiac related sputum culture ordered WBC stable at 9.0 CRP 6.5 Procal 0.1 Trend labs Neb treatment supplemental oxygen as indicated Not high on the differential as procal is negative, WBC stable (7) Respiratory failure: Qualifiers: Chronicity: acute Respiratory failure complication: hypoxia Qualified Code(s): J96.01 - Acute respiratory failure with hypoxia Code(s): J96.90 - Respiratory failure, unspecified, unspecified whether with hypoxia or hypercapnia Status: Resolved Assessment and Plan: saturations noted to be in the high 80s upon arrival presented with respiratory distress with labored breathing, tripoding, inability to complete sentences ABG shows partially compensated respiratory alkalosis secondary to metabolic acidosis supplemental O2 to maintain saturations greater than 88% most likely related to CHF e
--- NOTE | 2022-08-24 13:38 | PM.PNNEP ---
Progress Note: A&P Assessment and Plan (1) Hyponatremia: Code(s): E87.1 - Hypo-osmolality and hyponatremia Status: Chronic Assessment and Plan: chronic issue runs ~ 128 - 134mmol/L has worsened in the past with IV diuretic use (as noted by previous hospitalizations - as low as 126mmol/L) risk factors for low sodium: lung disease/COPD questionable pneumonia SSRI use CHF diuretic use sodium better today (appears to be better tolerating qday dosing of IV lasix) follow trend of repeat sodium levels (2) Acute heart failure with preserved ejection fraction (HFpEF): Code(s): I50.31 - Acute diastolic (congestive) heart failure Status: Acute Assessment and Plan: as noted on admission Cardiology assessment noted: felt that her valvular heart disease is more to blame... follow daily weights, I/Os, and respiratory status continue current therapy (3) Hypertension: Qualifiers: Hypertension type: primary hypertension Qualified Code(s): I10 - Essential (primary) hypertension Code(s): I10 - Essential (primary) hypertension Status: Chronic Assessment and Plan: better control at this time ongoing medication adjustments as noted follow trend of hemodynamics (4) COPD (chronic obstructive pulmonary disease): Qualifiers: COPD type: emphysema Emphysema type: unspecified Qualified Code(s): J43.9 - Emphysema, unspecified Code(s): J44.9 - Chronic obstructive pulmonary disease, unspecified Status: Chronic Assessment and Plan: relatively stable continue home meds/inhalers follow respiratory status Will continue to follow. Subjective Date/time seen: 08/24/22 13:38 Interval history: Follow-up for hyponatremia. Sodium appears to slowly improving on with reduced frequency of IV diuretics; breathing/respiratory status has improved as well -- able to ambulate and lay flat in bed without any significant shortness of breath; no other issues/events overnight or earlier this AM. Exam Narrative: General: WD/WN female in NAD Heart: normal S1 and S2; no rub Lungs: clear to auscultation Abdomen: soft, nontender, nondistended, positive bowel sounds Extremities: no cyanosis or clubbing; no edema Skin: warm and dry Objective Data Vital Signs Vital Signs: Vital Signs Temp Pulse Resp BP Pulse Ox O2 Del Method FiO2 08/24/22 12:00 62 08/24/22 09:30 96 Room Air 08/24/22 09:29 62 20 08/24/22 08:50 70 08/24/22 08:00 64 08/24/22 07:37 97.2 F L 69 20 139/55 L 99 08/24/22 04:54 97.7 F 69 16 164/44 H 97 08/24/22 04:00 56 L 08/24/22 00:00 57 L 08/23/22 20:00 60 08/23/22 22:56 97 Room Air 21 08/23/22 21:08 97.8 F 64 16 140/41 L 98 08/23/22 20:00 Room Air 08/23/22 20:20 90 20 08/23/22 16:00 69 Intake/Output Intake/Output: Intake & Output 08/21/22 08/22/22 08/23/22 08/24/22 23:59 23:59 23:59 23:59 Intake Total 1200 2460 1690 1250 Output Total 2 551 Balance 1200 2458 1139 1250 Meds/Results Medications: Active Medications Generic Name Dose Route Start Last Admin Trade Name Freq PRN Reason Stop Dose Admin Acetaminophen 1,000 mg 08/21/22 13:59 08/24/22 08:52 Acetaminophen 500 Mg Tablet PO 1,000 mg Q4H PRN Administration Mild Pain (1-3) or Fever Hydrocodone Bitart/Acetaminophen 1 tab 08/21/22 13:59 08/23/22 07:19 Hydrocodone/Acetaminophen (*Crx) 5-325 Mg Tablet PO 1 tab Q4H PRN Administration Moderate Pain (4-10) Aspirin 81 mg 08/21/22 16:00 08/24/22 08:50 Aspirin 81 Mg Chewable Tablet PO 81 mg DAILY@0800 CROW Administration Enoxaparin Sodium 40 mg 08/22/22 09:00 08/24/22 08:50 Enoxaparin 40 Mg/0.4 Ml Syringe SUB-Q 40 mg DAILY CROW Administration Fluticasone/Umeclidinium/Vilanterol 2 puff 08/21/22 20:0
--- NOTE | 2022-08-24 13:38 | P.PNNP_ITS ---
Progress Note: A&P Assessment and Plan (1) Hyponatremia: Code(s): E87.1 - Hypo-osmolality and hyponatremia Status: Chronic Assessment and Plan: * chronic issue * runs ~ 128 - 134mmol/L * has worsened in the past with IV diuretic use (as noted by previous hospitalizations - as low as 126mmol/L) * risk factors for low sodium: * lung disease/COPD * questionable pneumonia * SSRI use * CHF * diuretic use * sodium better today (appears to be better tolerating qday dosing of IV lasix) * follow trend of repeat sodium levels (2) Acute heart failure with preserved ejection fraction (HFpEF): Code(s): I50.31 - Acute diastolic (congestive) heart failure Status: Acute Assessment and Plan: * as noted on admission * Cardiology assessment noted: * felt that her valvular heart disease is more to blame... * follow daily weights, I/Os, and respiratory status * continue current therapy (3) Hypertension: Qualifiers: Hypertension type: primary hypertension Qualified Code(s): I10 - Essential (primary) hypertension Code(s): I10 - Essential (primary) hypertension Status: Chronic Assessment and Plan: * better control at this time * ongoing medication adjustments as noted * follow trend of hemodynamics (4) COPD (chronic obstructive pulmonary disease): Qualifiers: COPD type: emphysema Emphysema type: unspecified Qualified Code(s): J43.9 - Emphysema, unspecified Code(s): J44.9 - Chronic obstructive pulmonary disease, unspecified Status: Chronic Assessment and Plan: * relatively stable * continue home meds/inhalers * follow respiratory status Will continue to follow. Subjective Date/time seen: 08/24/22 13:38 Interval history: Follow-up for hyponatremia. Sodium appears to slowly improving on with reduced frequency of IV diuretics; breathing/respiratory status has improved as well -- able to ambulate and lay flat in bed without any significant shortness of breath; no other issues/events overnight or earlier this AM. Exam Narrative: General: WD/WN female in NAD Heart: normal S1 and S2; no rub Lungs: clear to auscultation Abdomen: soft, nontender, nondistended, positive bowel sounds Extremities: no cyanosis or clubbing; no edema Skin: warm and dry Objective Data Vital Signs Vital Signs: Vital Signs Temp Pulse Resp BP Pulse Ox O2 Del Method FiO2 08/24/22 12:00 62 08/24/22 09:30 96 Room Air 08/24/22 09:29 62 20 08/24/22 08:50 70 08/24/22 08:00 64 08/24/22 07:37 97.2 F L 69 20 139/55 L 99 08/24/22 04:54 97.7 F 69 16 164/44 H 97 08/24/22 04:00 56 L 08/24/22 00:00 57 L 08/23/22 20:00 60 08/23/22 22:56 97 Room Air 21 08/23/22 21:08 97.8 F 64 16 140/41 L 98 08/23/22 20:00 Room Air 08/23/22 20:20 90 20 08/23/22 16:00 69 Intake/Output Intake/Output: Intake & Output 08/21/22 08/22/22 08/23/22 08/24/22 23:59 23:59 23:59 23:59 Intake Total 1200 2460 1690 1250 Output Total 2 551 Balance 1200 2458 1139 1250 Meds/Results Medi
[2022-08-24] MEDS: PANTOPRAZOLE 40 MG TABLET PO ×2 (14:49→20:50)
--- NOTE | 2022-08-24 15:11 | PCCCNOTE ---
On 08/24/22, the student, [Ade Scott], provided care and completed [facility] documentation on this patient. I have reviewed the student's documentation and agree with the findings.
--- NOTE | 2022-08-24 16:30 | PM.PNCARD ---
Progress Note: A&P Assessment and Plan (1) Acute heart failure with preserved ejection fraction (HFpEF): Code(s): I50.31 - Acute diastolic (congestive) heart failure Status: Acute Assessment and Plan: Patient clinically appears to be in mildly decompensated acute on chronic heart failure with preserved ejection fraction. However, her symptoms are out of proportion to physical exam, stable oxygen saturation on room air and chest x-ray. This is very likely related to significantly symptomatic severe aortic regurgitation with moderate to severe prosthetic valve aortic stenosis. I would recommend discontinuing the methylprednisolone and Levaquin as I am not convinced she has pneumonia. This is likely all related to her valvular heart disease. -Continue diuresis. Of note, IV furosemide 40 mg reduce to daily due to hyponatremia. May transition to oral Lasix 60 mg p.o. in a.m. if sodium electrolytes stable with renal function. Monitor sodium level in a.m. with BMP. Recommendation to follow. BUN increasing suggestive pre renal azotemia. Need to transition to oral Lasix and deescalate to avoid acute renal insufficiency as discussed. (2) Severe aortic regurgitation: Code(s): I35.1 - Nonrheumatic aortic (valve) insufficiency Status: Chronic Assessment and Plan: Patient has documentation of severe prosthetic valve aortic regurgitation. I suspect a big portion of her symptoms pertaining to this and prosthetic valve stenosis. With regards to symptomatic management surgical replacement of the valve is the primary goal which is not available at this institution. With regards to medical therapy monitors limited data in this regard khari inhibitors, angiotensin receptor blockers, and beta-blockers a reasonable considerations for afterload reduction to potentially improve or stabilize symptoms. Continue Toprol XL 50 mg daily and losartan 25 mg daily. We discussed the above at length once again today. TAVR meeting tomorrow. Clinically redo AVR sounds like that was durable option. We discussed relative risks benefits with TAVR versus open redo aortic valve and the relative risks with regards to complication from scar tissue with open AVR and the technical features which would make 1 approach less favorable than the other. Fragments of follow after TAVR reading conclusions. Explained patient will very likely need to be discharged home feeling similar to how she is now which is notably improved but still limiting. I do not feel transfer to outside hospital is going to be indicated this episode of care. Unless, an expedited treatment plan needs to be established moving forward. (3) Prosthetic aortic valve stenosis: Qualifiers: Encounter type: subsequent encounter Qualified Code(s): T82.857D - Stenosis of other cardiac prosthetic devices, implants and grafts, subsequent encounter Code(s): T82.857A - Stenosis of other cardiac prosthetic devices, implants and grafts, initial encounter Status: Chronic Assessment and Plan: As above, documentation of moderate to possibly severe prosthetic aortic valve stenosis. There is nothing that can be done at this institution. However she is being considered actively and has been seen recently by a cardiothoracic surgery with regards to the best approach with regards open surgical redo aortic valve replacement or TAVR. This is very complicated physiology and a difficult decision to which the most appropriate management strategy is being currently debated. (4) CAD (coronary artery disease): Qualifiers: Coronary Disease-Associated Artery/Lesion type: [place] artery [place] vs. transplanted heart: [place] heart Associated angina: with other forms of angina Qualified Code(s): I25.118 - Atherosclerotic heart disease of [place] coronary artery with other forms of angina pectoris Code(s): I25.10 - Atherosclerotic heart disease of [place] coronary artery witho
[2022-08-24] MEDS: ROSUVASTATIN 10 MG TABLET 20 MG PO (16:48)
[2022-08-24] MEDS: HYDROcodone/acetaminophen (*CRX) 5-325 MG TABLET 1 TAB PO (20:50)
[2022-08-25] VITALS (10 sets, daily range): BP systolic 123–154; BP diastolic 34–47; PULSE 57–72; RESP 16–19; TEMP 36.2–36.4; O2SAT 96–99
[2022-08-25 04:57] LABS: Hematocrit 33.4 % (37.0-47.0); Hemoglobin 11.4 g/dL (12.0-15.0); Mean Corpuscular HGB Conc 34.1 g/dl (32-36); Mean Corpuscular Hemoglobin 30.5 pg (26-34); Mean Corpuscular Volume 89.3 fl (80-100); Mean Platelet Volume 9.2 fl (7.4-10.4); Platelet Count Result 303 k/mm3 (150-375); Red Blood Count 3.74 M/mm3 (4.2-5.4); Red Cell Distribution Width 12.7 % (11.5-14.5); White Blood Count 10.2 K/mm3 (4.5-10.0)
[2022-08-25 05:16] LABS: Alanine Aminotransferase 27 U/L (6-35); Albumin Level 3.7 g/dL (3.5-5.1); Alkaline Phosphatase 47 U/L (38-126); Anion Gap 7 mmol/L (8-16); Aspartate Amino Transferase 33 U/L (14-36); Bilirubin,Total 0.5 mg/dL (0.2-1.3); Blood Urea Nitrogen 29 mg/dL (7-17); CRP 3.3 mg/dL (<1.0); Calcium 9.2 mg/dL (8.4-10.2); Carbon Dioxide 32 mmol/L (22-30); Chloride 93 mmol/L (98-107); Estimated CRCL calculation 42 ml/min; Estimated Glomerular Filt Rate > 60; Glucose 92 mg/dL (65-110); Potassium 4.4 mmol/L (3.4-5.0); Sodium 132 mmol/L (137-145)
[2022-08-25 05:21] LABS: NT Pro B Type Natriuretic Pept 11000 pg/mL (19.9-100)
[2022-08-25] MEDS: FLUTICASONE/UMECLIDIN/VILANTER 100-62.5-25 MCG ELLIPTA 2 PUFF INHALATION (08:12)
[2022-08-25] MEDS: ENOXAPARIN 40 MG/0.4 ML SYRINGE SUB-Q (08:55)
[2022-08-25] MEDS: ASPIRIN 81 MG CHEWABLE TABLET PO (08:55)
[2022-08-25] MEDS: FUROSEMIDE 20 MG TABLET 60 MG PO (08:56)
[2022-08-25] MEDS: VITAMIN B COMPLEX CAPSULE 1 CAP PO (08:56)
[2022-08-25] MEDS: PANTOPRAZOLE 40 MG TABLET PO ×2 (08:56→20:38)
[2022-08-25] MEDS: SERTRALINE HCL 50 MG TABLET PO (08:56)
[2022-08-25] MEDS: LOSARTAN POTASSIUM 25 MG TABLET PO (08:56)
[2022-08-25] MEDS: METOPROLOL SUCCINATE EXT REL 50 MG TABCR PO (08:56)
--- NOTE | 2022-08-25 13:24 | P.PNIM_ITS ---
Progress Note: A&P Assessment and Plan (1) Acute heart failure with preserved ejection fraction (HFpEF): Code(s): I50.31 - Acute diastolic (congestive) heart failure Status: Acute Assessment and Plan: Presented with shortness of breath with exertion inability to lay flat uncontrolled cough. Echo from May of 2022 showed EF of 55% with an indeterminate diastolic dysfunction and severe to moderate aortic insufficiency. Cardiac Cath showed severe aortic valve regurg from 06/06/22. * Chest x-ray shows small pleural effusion with atelectasis versus pneumonia * Appears to be acute on chronic diastolic heart failure in exacerbation * [place] [address] on admission * Continue home metoprolol 50 mg p.o. daily, rosuvastatin 20 mg at night' * Lasix deescalated to 60 mg daily per cardiology request * Losartan started per cardiology * Trend urine output, strict I&Os, daily weights, continue telemetry * Trend sodium (132 today) as she does have a history of hyponatremia * Cardiology consulted and appreciate recommendations. (2) Hyponatremia: Code(s): E87.1 - Hypo-osmolality and hyponatremia Status: Chronic Assessment and Plan: * Known history of hyponatremia * Currently sodium is 132 * Consult nephrology for support * continue diuresis, however, decrease to daily * Urine labs, trend Daily labs (3) Severe aortic regurgitation: Code(s): I35.1 - Nonrheumatic aortic (valve) insufficiency Status: Chronic Assessment and Plan: * See above * Will need New valve soon * Most likely the cause for her symptoms * cardiology following (4) Prosthetic aortic valve stenosis: Qualifiers: Encounter type: subsequent encounter Qualified Code(s): T82.857D - Stenosis of other cardiac prosthetic devices, implants and grafts, subsequent encounter Code(s): T82.857A - Stenosis of other cardiac prosthetic devices, implants and grafts, initial encounter Status: Chronic Assessment and Plan: * See above (5) COPD (chronic obstructive pulmonary disease): Qualifiers: COPD type: emphysema Emphysema type: unspecified Qualified Code(s): J43.9 - Emphysema, unspecified Code(s): J44.9 - Chronic obstructive pulmonary disease, unspecified Status: Chronic Assessment and Plan: * chronic and stable * denies any sputum changes or quality changes * neb treatments for now * Patient no longer requiring supplemental oxygen * sputum culture negative * Stop the steroids and Levaquin with the etiology appearing to be more cardiac in nature * IS and PEP therapy ordered (6) Community acquired pneumonia: Qualifiers: Laterality: unspecified laterality Qualified Code(s): J18.9 - Pneumonia, unspecified organism Code(s): J18.9 - Pneumonia, unspecified organism Status: Ruled-out Assessment and Plan: * Chest xray indicates PNA vs Atelectasis * Discontinue levaquin since it seems to be more cardiac related * sputum culture ordered * WBC stable at 9.0 * CRP 6.5 * Procal 0.1 * Trend labs * Neb treatment * supplemental oxygen as indicated * Not high on the differential as procal is negative, WBC stable (7) Respiratory failure: Qualifiers: Chronicity: acute Respiratory failure complication: hypoxia Qualified Code(s): J96.01 - Acute
--- NOTE | 2022-08-25 13:24 | PM.IMPN ---
Progress Note: A&P Assessment and Plan (1) Acute heart failure with preserved ejection fraction (HFpEF): Code(s): I50.31 - Acute diastolic (congestive) heart failure Status: Acute Assessment and Plan: Presented with shortness of breath with exertion inability to lay flat uncontrolled cough. Echo from May of 2022 showed EF of 55% with an indeterminate diastolic dysfunction and severe to moderate aortic insufficiency. Cardiac Cath showed severe aortic valve regurg from 06/06/22. Chest x-ray shows small pleural effusion with atelectasis versus pneumonia Appears to be acute on chronic diastolic heart [place] [address] on admission Continue home metoprolol 50 mg p.o. daily, rosuvastatin 20 mg at night' Lasix deescalated to 60 mg daily per cardiology request Losartan started per cardiology Trend urine output, strict I&Os, daily weights, continue telemetry Trend sodium (132 today) as she does have a history of hyponatremia Cardiology consulted and appreciate recommendations. (2) Hyponatremia: Code(s): E87.1 - Hypo-osmolality and hyponatremia Status: Chronic Assessment and Plan: Known history of hyponatremia Currently sodium is 132 Consult nephrology for support continue diuresis, however, decrease to daily Urine labs, trend Daily labs (3) Severe aortic regurgitation: Code(s): I35.1 - Nonrheumatic aortic (valve) insufficiency Status: Chronic Assessment and Plan: See above Will need New valve soon Most likely the cause for her symptoms cardiology following (4) Prosthetic aortic valve stenosis: Qualifiers: Encounter type: subsequent encounter Qualified Code(s): T82.857D - Stenosis of other cardiac prosthetic devices, implants and grafts, subsequent encounter Code(s): T82.857A - Stenosis of other cardiac prosthetic devices, implants and grafts, initial encounter Status: Chronic Assessment and Plan: See above (5) COPD (chronic obstructive pulmonary disease): Qualifiers: COPD type: emphysema Emphysema type: unspecified Qualified Code(s): J43.9 - Emphysema, unspecified Code(s): J44.9 - Chronic obstructive pulmonary disease, unspecified Status: Chronic Assessment and Plan: chronic and stable denies any sputum changes or quality changes neb treatments for now Patient no longer requiring supplemental oxygen sputum culture negative Stop the steroids and Levaquin with the etiology appearing to be more cardiac in nature IS and PEP therapy ordered (6) Community acquired pneumonia: Qualifiers: Laterality: unspecified laterality Qualified Code(s): J18.9 - Pneumonia, unspecified organism Code(s): J18.9 - Pneumonia, unspecified organism Status: Ruled-out Assessment and Plan: Chest xray indicates PNA vs Atelectasis Discontinue levaquin since it seems to be more cardiac related sputum culture ordered WBC stable at 9.0 CRP 6.5 Procal 0.1 Trend labs Neb treatment supplemental oxygen as indicated Not high on the differential as procal is negative, WBC stable (7) Respiratory failure: Qualifiers: Chronicity: acute Respiratory failure complication: hypoxia Qualified Code(s): J96.01 - Acute respiratory failure with hypoxia Code(s): J96.90 - Respiratory failure, unspecified, unspecified whether with hypoxia or hypercapnia Status: Resolved Assessment and Plan: saturations noted to be in the high 80s upon arrival presented with respiratory distress with labored breathing, tripoding, inability to complete sentences ABG shows partially compensated respiratory alkalosis secondary to metabolic acidosis supplemental O2 to maintain saturations greater than 88% most likely related to CHF exacerbation
--- NOTE | 2022-08-25 14:10 | P.PNNP_ITS ---
Progress Note: A&P Assessment and Plan (1) Hyponatremia: Code(s): E87.1 - Hypo-osmolality and hyponatremia Status: Chronic Assessment and Plan: * chronic issue * runs ~ 128 - 134mmol/L * has worsened in the past with IV diuretic use (as noted by previous hospitalizations - as low as 126mmol/L) * risk factors for low sodium: * lung disease/COPD * questionable pneumonia * SSRI use * CHF * diuretic use * sodium continues to improve * follow trend of repeat sodium levels (2) Acute heart failure with preserved ejection fraction (HFpEF): Code(s): I50.31 - Acute diastolic (congestive) heart failure Status: Acute Assessment and Plan: * as noted on admission * Cardiology assessment noted: * felt that her valvular heart disease is more to blame... * follow daily weights, I/Os, and respiratory status * continue current therapy (3) Hypertension: Qualifiers: Hypertension type: primary hypertension Qualified Code(s): I10 - Essential (primary) hypertension Code(s): I10 - Essential (primary) hypertension Status: Chronic Assessment and Plan: * better control at this time * ongoing medication adjustments as noted * follow trend of hemodynamics (4) COPD (chronic obstructive pulmonary disease): Qualifiers: COPD type: emphysema Emphysema type: unspecified Qualified Code(s): J43.9 - Emphysema, unspecified Code(s): J44.9 - Chronic obstructive pulmonary disease, unspecified Status: Chronic Assessment and Plan: * relatively stable * continue home meds/inhalers * follow respiratory status Will continue to follow. Subjective Date/time seen: 08/25/22 14:10 Interval history: Follow-up for hyponatremia. Breathing/respiratory status better overall -- still has some orthopnea and dyspnea with exertion but reports she has a chronic component with these symptoms; transitioned to oral diuretic therapy although documented I/Os are not accurate; sodium level continue to improve as noted. Exam Narrative: General: WD/WN female in NAD Heart: normal S1 and S2; no rub Lungs: clear to auscultation Abdomen: soft, nontender, nondistended, positive bowel sounds Extremities: no cyanosis or clubbing; no edema Skin: warm and intact Objective Data Vital Signs Vital Signs: Vital Signs Temp Pulse Resp BP Pulse Ox O2 Del Method FiO2 08/25/22 14:00 97.6 F 61 17 123/42 L 99 08/25/22 08:56 63 08/25/22 05:04 97.1 F L 67 16 154/34 H 96 08/25/22 04:00 60 08/25/22 00:00 57 L 08/24/22 20:00 60 17 95 Room Air 21 08/24/22 20:00 60 08/24/22 20:30 60 95 Room Air 08/24/22 19:10 97 F L 60 17 142/48 H 99 Intake/Output Intake/Output: Intake & Output 08/22/22 08/23/22 08/24/22 08/25/22 23:59 23:59 23:59 23:59 Intake Total 2460 1690 1490 1010 Output Total 2 551 Balance 2458 1139 1490 1010 Meds/Results Medications: Active Medications Generic Name Dose Route Start Last Admin Trade Name Freq PRN Reason Stop Dose Admin Acetaminophen 1,000 mg 08/21/22 13:59 08/24/22 08:52
--- NOTE | 2022-08-25 14:10 | PM.PNNEP ---
Progress Note: A&P Assessment and Plan (1) Hyponatremia: Code(s): E87.1 - Hypo-osmolality and hyponatremia Status: Chronic Assessment and Plan: chronic issue runs ~ 128 - 134mmol/L has worsened in the past with IV diuretic use (as noted by previous hospitalizations - as low as 126mmol/L) risk factors for low sodium: lung disease/COPD questionable pneumonia SSRI use CHF diuretic use sodium continues to improve follow trend of repeat sodium levels (2) Acute heart failure with preserved ejection fraction (HFpEF): Code(s): I50.31 - Acute diastolic (congestive) heart failure Status: Acute Assessment and Plan: as noted on admission Cardiology assessment noted: felt that her valvular heart disease is more to blame... follow daily weights, I/Os, and respiratory status continue current therapy (3) Hypertension: Qualifiers: Hypertension type: primary hypertension Qualified Code(s): I10 - Essential (primary) hypertension Code(s): I10 - Essential (primary) hypertension Status: Chronic Assessment and Plan: better control at this time ongoing medication adjustments as noted follow trend of hemodynamics (4) COPD (chronic obstructive pulmonary disease): Qualifiers: COPD type: emphysema Emphysema type: unspecified Qualified Code(s): J43.9 - Emphysema, unspecified Code(s): J44.9 - Chronic obstructive pulmonary disease, unspecified Status: Chronic Assessment and Plan: relatively stable continue home meds/inhalers follow respiratory status Will continue to follow. Subjective Date/time seen: 08/25/22 14:10 Interval history: Follow-up for hyponatremia. Breathing/respiratory status better overall -- still has some orthopnea and dyspnea with exertion but reports she has a chronic component with these symptoms; transitioned to oral diuretic therapy although documented I/Os are not accurate; sodium level continue to improve as noted. Exam Narrative: General: WD/WN female in NAD Heart: normal S1 and S2; no rub Lungs: clear to auscultation Abdomen: soft, nontender, nondistended, positive bowel sounds Extremities: no cyanosis or clubbing; no edema Skin: warm and intact Objective Data Vital Signs Vital Signs: Vital Signs Temp Pulse Resp BP Pulse Ox O2 Del Method FiO2 08/25/22 14:00 97.6 F 61 17 123/42 L 99 08/25/22 08:56 63 08/25/22 05:04 97.1 F L 67 16 154/34 H 96 08/25/22 04:00 60 08/25/22 00:00 57 L 08/24/22 20:00 60 17 95 Room Air 21 08/24/22 20:00 60 08/24/22 20:30 60 95 Room Air 08/24/22 19:10 97 F L 60 17 142/48 H 99 Intake/Output Intake/Output: Intake & Output 08/22/22 08/23/22 08/24/22 08/25/22 23:59 23:59 23:59 23:59 Intake Total 2460 1690 1490 1010 Output Total 2 551 Balance 2458 1139 1490 1010 Meds/Results Medications: Active Medications Generic Name Dose Route Start Last Admin Trade Name Freq PRN Reason Stop Dose Admin Acetaminophen 1,000 mg 08/21/22 13:59 08/24/22 08:52 Acetaminophen 500 Mg Tablet PO 1,000 mg Q4H PRN Administration Mild Pain (1-3) or Fever Hydrocodone Bitart/Acetaminophen 1 tab 08/21/22 13:59 08/24/22 20:50 Hydrocodone/Acetaminophen (*Crx) 5-325 Mg Tablet PO 1 tab Q4H PRN Administration Moderate Pain (4-10) Aspirin 81 mg 08/21/22 16:00 08/25/22 08:55 Aspirin 81 Mg Chewable Tablet PO 81 mg DAILY@0800 CROW Administration Enoxaparin Sodium 40 mg 08/22/22 09:00 08/25/22 08:55 Enoxaparin 40 Mg/0.4 Ml Syringe SUB-Q 40 mg DAILY CROW Administration Fluticasone/Umeclidinium/Vilanterol 2 puff 08/21/22 20:00 08/25/22 08:12 Fluticasone/Umeclidin/Vilanter 100-62.5-25 Mcg Ellipta INHALATION 2 puff Q12HRT CROW Administration Furosemide 60 mg 08/25/22 09:00 08/25/22 08:56 Furosemide 20 M
--- NOTE | 2022-08-25 15:22 | PM.PNCARD ---
Progress Note: A&P Assessment and Plan (1) Acute heart failure with preserved ejection fraction (HFpEF): Code(s): I50.31 - Acute diastolic (congestive) heart failure Status: Acute Assessment and Plan: Patient clinically appears to be in mildly decompensated acute on chronic heart failure with preserved ejection fraction. -Continue diuresis. Transitioned to p.o. furosemide today and she reports feeling like she is urinating more than on the IV lasix, however, no urine output documented for today so charted I&O likely inaccurate. Hyponatremia improving. Will monitor for another 24 hours on p.o. lasix and if she remains stable she is to be discharged tomorrow with plans for redo AVR at [facility] next week which has already been arranged. (2) Severe aortic regurgitation: Code(s): I35.1 - Nonrheumatic aortic (valve) insufficiency Status: Chronic Assessment and Plan: Patient has documentation of severe prosthetic valve aortic regurgitation. TAVR team at [facility] has opted to pursue open redo AVR which is scheduled for next week. Likely will discharge home tomorrow if stable on p.o. furosemide and she will return to [facility] next week for planned operation. Continue Toprol XL 50 mg daily and losartan 25 mg daily. (3) Prosthetic aortic valve stenosis: Qualifiers: Encounter type: subsequent encounter Qualified Code(s): T82.857D - Stenosis of other cardiac prosthetic devices, implants and grafts, subsequent encounter Code(s): T82.857A - Stenosis of other cardiac prosthetic devices, implants and grafts, initial encounter Status: Chronic Assessment and Plan: As above, documentation of moderate to possibly severe prosthetic aortic valve stenosis. (4) CAD (coronary artery disease): Qualifiers: Coronary Disease-Associated Artery/Lesion type: [place] artery [place] vs. transplanted heart: [place] heart Associated angina: with other forms of angina Qualified Code(s): I25.118 - Atherosclerotic heart disease of [place] coronary artery with other forms of angina pectoris Code(s): I25.10 - Atherosclerotic heart disease of [place] coronary artery without angina pectoris Status: Acute Assessment and Plan: History of KIMBLE to LAD. Recent [facility] 05/2022 95% mid LAD stenosis proximal to LAD anastomosis but without obstructive disease elsewhere. She has ruled out for myocardial infarction with negative serial enzymes. She has recurrent frequent chest pain partially improved with sublingual nitroglycerin which is most likely a consequence of her prosthetic valve aortic stenosis and severe aortic regurgitation and cardiac demand as opposed to angina related to obstructive CAD. Continue aspirin 81 mg daily, Toprol XL 50 mg daily, rosuvastatin 20 mg at bedtime. Continue aggressive atherosclerotic risk reduction. No indication for repeat ischemic evaluation. (5) Hypertension: Qualifiers: Hypertension type: primary hypertension Qualified Code(s): I10 - Essential (primary) hypertension Code(s): I10 - Essential (primary) hypertension Status: Chronic Assessment and Plan: BP elevated but stable at present. Continue Toprol XL 50 mg daily. She has an intolerance to lisinopril. Continue losartan 25 mg daily for additional afterload reduction. Her blood pressure is tolerating losartan 25 mg daily. Electrolytes stable as well potassium normal. 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 Patient per stable on room air. She has been started on methylprednisolone and antibiotics for possibility of pneumonia which I feel is questionable. Defer management to primary service. (7) Anemi
[2022-08-25] MEDS: ROSUVASTATIN 10 MG TABLET 20 MG PO (17:34)
[2022-08-25] MEDS: HYDROcodone/acetaminophen (*CRX) 5-325 MG TABLET 1 TAB PO (19:32)
[2022-08-25 19:53] LABS: Osmolality, Urine 166 mOsm/kg (50-1200)
[2022-08-25] MEDS: TIZANIDINE HCL 2 MG TABLET PO (20:38)
[2022-08-26] VITALS (15 sets, daily range): BP systolic 115–138; BP diastolic 36–56; PULSE 54–81; RESP 16–19; TEMP 36.3–36.8; O2SAT 91–99
[2022-08-26] MEDS: ACETAMINOPHEN 500 MG TABLET 1000 MG PO (02:05)
--- NOTE | 2022-08-26 02:15 | PC.NURSE ---
patient has been c/o right hip pain since evening. causing difficulty ambulating. moves right leg without difficulty in bed. denies injury, states it just started while ambulating in room.
[2022-08-26 05:06] LABS: Basophils Percent Auto 0.2 % (0.2-1.2); Eosinophils Absolute Auto 0.1 K/mm3 (0-0.3); Eosinophils Percent Auto 1.1 % (0-4.4); Hematocrit 30.1 % (37.0-47.0); Hemoglobin 10.2 g/dL (12.0-15.0); Immature Granulocyte Absolute 0.05 K/mm3 (0.00-0.031); Immature Granulocyte Percent A 0.5 % (0-0.5); Lymphocytes Absolute Auto 0.56 K/mm3 (0.9-3.2); Lymphocytes Percent Auto 5.6 % (18.3-44.2); Mean Corpuscular HGB Conc 33.9 g/dl (32-36); Mean Corpuscular Hemoglobin 30.1 pg (26-34); Mean Corpuscular Volume 88.8 fl (80-100); Mean Platelet Volume 9.5 fl (7.4-10.4); Monocytes Absolute Auto 0.8 K/mm3 (0.1-0.6); Neutrophils Absolute Auto 8.5 K/mm3 (1.3-6.7); Neutrophils Percent Auto 84.6 % (45.5-73.1); Platelet Count Result 269 k/mm3 (150-375); Red Blood Count 3.39 M/mm3 (4.2-5.4); Red Cell Distribution Width 12.6 % (11.5-14.5)
[2022-08-26 05:21] LABS: Alanine Aminotransferase 22 U/L (6-35); Albumin Level 3.2 g/dL (3.5-5.1); Alkaline Phosphatase 45 U/L (38-126); Anion Gap 4 mmol/L (8-16); Aspartate Amino Transferase 28 U/L (14-36); Bilirubin,Total 0.5 mg/dL (0.2-1.3); Blood Urea Nitrogen 23 mg/dL (7-17); Calcium 8.7 mg/dL (8.4-10.2); Carbon Dioxide 29 mmol/L (22-30); Chloride 93 mmol/L (98-107); Estimated CRCL calculation 42 ml/min; Estimated Glomerular Filt Rate > 60; Glucose 111 mg/dL (65-110); Sodium 126 mmol/L (137-145)
[2022-08-26 05:24] LABS: NT Pro B Type Natriuretic Pept 8980 pg/mL (19.9-100)
[2022-08-26] MEDS: ONDANSETRON INJ 4 MG/2 ML VIAL IV PUSH (05:30)
[2022-08-26] MEDS: HYDROcodone/acetaminophen (*CRX) 5-325 MG TABLET 1 TAB PO ×2 (05:51→20:53)
[2022-08-26] MEDS: TIZANIDINE HCL 2 MG TABLET PO ×2 (06:39→20:50)
[2022-08-26] MEDS: FLUTICASONE/UMECLIDIN/VILANTER 100-62.5-25 MCG ELLIPTA 2 PUFF INHALATION ×2 (07:10→20:41)
--- NOTE | 2022-08-26 09:36 | PM.PNCARD ---
Progress Note: A&P Assessment and Plan (1) Acute heart failure with preserved ejection fraction (HFpEF): Code(s): I50.31 - Acute diastolic (congestive) heart failure Status: Acute Assessment and Plan: Patient clinically appears to be in mildly decompensated acute on chronic heart failure with preserved ejection fraction. Transitioned to p.o. furosemide yesterday, but she is hyponatremic today so her furosemide is being held. She is stable from a cardiac perspective today. Plan is to transfer patient to [facility] for medical management prior to her AVR next week. Spoke with Cardiology and CTS at [facility] they are aware of patient transfer. (2) Severe aortic regurgitation: Code(s): I35.1 - Nonrheumatic aortic (valve) insufficiency Status: Chronic Assessment and Plan: Patient has documentation of severe prosthetic valve aortic regurgitation. TAVR team at [facility] has opted to pursue open redo AVR, as above planning for transfer to [facility]. Continue Toprol XL 50 mg daily and losartan 25 mg daily. (3) Prosthetic aortic valve stenosis: Qualifiers: Encounter type: subsequent encounter Qualified Code(s): T82.857D - Stenosis of other cardiac prosthetic devices, implants and grafts, subsequent encounter Code(s): T82.857A - Stenosis of other cardiac prosthetic devices, implants and grafts, initial encounter Status: Chronic Assessment and Plan: As above, documentation of moderate to possibly severe prosthetic aortic valve stenosis. (4) CAD (coronary artery disease): Qualifiers: Associated angina: with other forms of angina Coronary Disease-Associated Artery/Lesion type: [place] artery [place] vs. transplanted heart: [place] heart Qualified Code(s): I25.118 - Atherosclerotic heart disease of [place] coronary artery with other forms of angina pectoris Code(s): I25.10 - Atherosclerotic heart disease of [place] coronary artery without angina pectoris Status: Acute Assessment and Plan: History of KIMBLE to LAD. Recent [facility] 05/2022 95% mid LAD stenosis proximal to LAD anastomosis but without obstructive disease elsewhere. She has ruled out for myocardial infarction with negative serial enzymes. She has recurrent frequent chest pain partially improved with sublingual nitroglycerin which is most likely a consequence of her prosthetic valve aortic stenosis and severe aortic regurgitation and cardiac demand as opposed to angina related to obstructive CAD. Continue aspirin 81 mg daily, Toprol XL 50 mg daily, rosuvastatin 20 mg at bedtime. Continue aggressive atherosclerotic risk reduction. No indication for repeat ischemic evaluation. (5) Hypertension: Qualifiers: Hypertension type: primary hypertension Qualified Code(s): I10 - Essential (primary) hypertension Code(s): I10 - Essential (primary) hypertension Status: Chronic Assessment and Plan: BP elevated but stable at present. Continue Toprol XL 50 mg daily. She has an intolerance to lisinopril. Continue losartan 25 mg daily for additional afterload reduction. Her blood pressure is tolerating losartan 25 mg daily. 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 Patient stable on room air. (7) Anemia: Code(s): D64.9 - Anemia, unspecified Status: Acute Assessment and Plan: Patient has had slow decline in her H&H. No evidence for bleeding. Continue to follow H&H closely. Subjective Date/time seen: 08/26/22 09:36 Cardiology follow up for , CHF Interval history: Developed significant back and hip pain overnight. Somewhat lethargic because of receiving [place] earlier this morning. She
[2022-08-26] MEDS: VITAMIN B COMPLEX CAPSULE 1 CAP PO (11:31)
[2022-08-26] MEDS: LOSARTAN POTASSIUM 25 MG TABLET PO (11:31)
[2022-08-26] MEDS: FUROSEMIDE 20 MG TABLET 60 MG PO (11:31)
[2022-08-26] MEDS: ASPIRIN 81 MG CHEWABLE TABLET PO (11:32)
[2022-08-26] MEDS: PANTOPRAZOLE 40 MG TABLET PO ×2 (11:32→20:50)
[2022-08-26] MEDS: ENOXAPARIN 40 MG/0.4 ML SYRINGE SUB-Q (11:32)
[2022-08-26] MEDS: SERTRALINE HCL 50 MG TABLET PO (11:32)
[2022-08-26] MEDS: LIDOCAINE 5% PATCH 1 PATCH TRANSDERM (12:34)
[2022-08-26] MEDS: METOPROLOL SUCCINATE EXT REL 50 MG TABCR PO (12:35)
[2022-08-26 12:36] LABS: Anion Gap 4 mmol/L (8-16); Blood Urea Nitrogen 22 mg/dL (7-17); Calcium 8.7 mg/dL (8.4-10.2); Carbon Dioxide 32 mmol/L (22-30); Chloride 90 mmol/L (98-107); Estimated CRCL calculation 42 ml/min; Estimated Glomerular Filt Rate > 60; Glucose 129 mg/dL (65-110); Potassium 4.4 mmol/L (3.4-5.0); Sodium 126 mmol/L (137-145)
--- NOTE | 2022-08-26 12:48 | PM.PNNEP ---
Progress Note: A&P Assessment and Plan (1) Hyponatremia: Code(s): E87.1 - Hypo-osmolality and hyponatremia Status: Chronic Assessment and Plan: chronic issue runs ~ 128 - 134mmol/L has worsened in the past with IV diuretic use (as noted by previous hospitalizations - as low as 126mmol/L) risk factors for low sodium: lung disease/COPD questionable pneumonia SSRI use CHF diuretic use sodium a bit worse today -- possibly due to recent acute pain issues?? follow trend of repeat sodium levels (2) Acute heart failure with preserved ejection fraction (HFpEF): Code(s): I50.31 - Acute diastolic (congestive) heart failure Status: Acute Assessment and Plan: as noted on admission Cardiology assessment noted: felt that her valvular heart disease is more to blame... follow daily weights, I/Os, and respiratory status continue current therapy (3) Hypertension: Qualifiers: Hypertension type: primary hypertension Qualified Code(s): I10 - Essential (primary) hypertension Code(s): I10 - Essential (primary) hypertension Status: Chronic Assessment and Plan: better control at this time ongoing medication adjustments as noted follow trend of hemodynamics (4) COPD (chronic obstructive pulmonary disease): Qualifiers: COPD type: emphysema Emphysema type: unspecified Qualified Code(s): J43.9 - Emphysema, unspecified Code(s): J44.9 - Chronic obstructive pulmonary disease, unspecified Status: Chronic Assessment and Plan: relatively stable continue home meds/inhalers follow respiratory status Will continue to follow. Subjective Date/time seen: 08/26/22 12:48 Interval history: Follow-up for hyponatremia. Breathing seems to be relatively stable but her acute complaint related to severe back pain/discomfort; no clear cause for her back pain noted but muscle relaxers and tylenol have not helped with this issue; sodium dropped acutely as well down to 126mmol/L (yesterday, sodium was 132mmol/L). Exam Narrative: General: WD/WN female in moderate discomfort (secondary to back pain) Heart: normal S1 and S2; no rub Lungs: clear to auscultation Abdomen: soft, nontender, nondistended, positive bowel sounds Extremities: no cyanosis or clubbing; no edema Skin: no rasn Objective Data Vital Signs Vital Signs: Vital Signs Temp Pulse Resp BP Pulse Ox O2 Del Method 08/26/22 12:04 59 L Room Air 08/26/22 08:00 56 L 08/26/22 09:06 Room Air 08/26/22 09:01 54 L 115/53 L 08/26/22 07:10 81 18 08/26/22 07:10 81 18 95 Room Air 08/26/22 05:11 97.4 F L 54 L 19 133/36 L 97 08/26/22 04:00 55 L 08/26/22 00:00 54 L 08/25/22 20:00 Room Air 08/25/22 20:00 65 08/25/22 19:23 97.3 F L 64 19 132/47 L 97 Intake/Output Intake/Output: Intake & Output 08/23/22 08/24/22 08/25/22 08/26/22 23:59 23:59 23:59 23:59 Intake Total 1690 1490 1620 1090 Output Total 551 300 Balance 1139 1490 1620 790 Meds/Results Medications: Active Medications Generic Name Dose Route Start Last Admin Trade Name Freq PRN Reason Stop Dose Admin Acetaminophen 1,000 mg 08/21/22 13:59 08/26/22 02:05 Acetaminophen 500 Mg Tablet PO 1,000 mg Q4H PRN Administration Mild Pain (1-3) or Fever Hydrocodone Bitart/Acetaminophen 1 tab 08/21/22 13:59 08/26/22 05:51 Hydrocodone/Acetaminophen (*Crx) 5-325 Mg Tablet PO 1 tab Q4H PRN Administration Moderate Pain (4-10) Aspirin 81 mg 08/21/22 16:00 08/26/22 11:32 Aspirin 81 Mg Chewable Tablet PO 81 mg DAILY@0800 CROW Administration Enoxaparin Sodium 40 mg 08/22/22 09:00 08/26/22 11:32 Enoxaparin 40 Mg/0.4 Ml Syringe SUB-Q 40 mg DAILY CROW Administration Fluticasone/Umeclidinium/Vilanterol 2 puff 08/21/22 20:00 08/26/22 07:10 Fluticasone/Umecli
--- NOTE | 2022-08-26 12:48 | P.PNNP_ITS ---
Progress Note: A&P Assessment and Plan (1) Hyponatremia: Code(s): E87.1 - Hypo-osmolality and hyponatremia Status: Chronic Assessment and Plan: * chronic issue * runs ~ 128 - 134mmol/L * has worsened in the past with IV diuretic use (as noted by previous hospitalizations - as low as 126mmol/L) * risk factors for low sodium: * lung disease/COPD * questionable pneumonia * SSRI use * CHF * diuretic use * sodium a bit worse today -- possibly due to recent acute pain issues?? * follow trend of repeat sodium levels (2) Acute heart failure with preserved ejection fraction (HFpEF): Code(s): I50.31 - Acute diastolic (congestive) heart failure Status: Acute Assessment and Plan: * as noted on admission * Cardiology assessment noted: * felt that her valvular heart disease is more to blame... * follow daily weights, I/Os, and respiratory status * continue current therapy (3) Hypertension: Qualifiers: Hypertension type: primary hypertension Qualified Code(s): I10 - Essential (primary) hypertension Code(s): I10 - Essential (primary) hypertension Status: Chronic Assessment and Plan: * better control at this time * ongoing medication adjustments as noted * follow trend of hemodynamics (4) COPD (chronic obstructive pulmonary disease): Qualifiers: COPD type: emphysema Emphysema type: unspecified Qualified Code(s): J43.9 - Emphysema, unspecified Code(s): J44.9 - Chronic obstructive pulmonary disease, unspecified Status: Chronic Assessment and Plan: * relatively stable * continue home meds/inhalers * follow respiratory status Will continue to follow. Subjective Date/time seen: 08/26/22 12:48 Interval history: Follow-up for hyponatremia. Breathing seems to be relatively stable but her acute complaint related to severe back pain/discomfort; no clear cause for her back pain noted but muscle relaxers and tylenol have not helped with this issue; sodium dropped acutely as well down to 126mmol/L (yesterday, sodium was 132mmol/L). Exam Narrative: General: WD/WN female in moderate discomfort (secondary to back pain) Heart: normal S1 and S2; no rub Lungs: clear to auscultation Abdomen: soft, nontender, nondistended, positive bowel sounds Extremities: no cyanosis or clubbing; no edema Skin: no rasn Objective Data Vital Signs Vital Signs: Vital Signs Temp Pulse Resp BP Pulse Ox O2 Del Method 08/26/22 12:04 59 L Room Air 08/26/22 08:00 56 L 08/26/22 09:06 Room Air 08/26/22 09:01 54 L 115/53 L 08/26/22 07:10 81 18 08/26/22 07:10 81 18 95 Room Air 08/26/22 05:11 97.4 F L 54 L 19 133/36 L 97 08/26/22 04:00 55 L 08/26/22 00:00 54 L 08/25/22 20:00 Room Air 08/25/22 20:00 65 08/25/22 19:23 97.3 F L 64 19 132/47 L 97 Intake/Output Intake/Output: Intake & Output 08/23/22 08/24/22 08/25/22 08/26/22 23:59 23:59 23:59 23:59 Intake Total 1690 1490 1620 1090 Output Total 551 300 Balance 1139 1490 1620 790 Meds/Results Medications: Active Medications
--- NOTE | 2022-08-26 13:34 | P.PNIM_ITS ---
Progress Note: A&P Assessment and Plan (1) Acute heart failure with preserved ejection fraction (HFpEF): Code(s): I50.31 - Acute diastolic (congestive) heart failure Status: Acute Assessment and Plan: Presented with shortness of breath with exertion inability to lay flat uncontrolled cough. Echo from May of 2022 showed EF of 55% with an indeterminate diastolic dysfunction and severe to moderate aortic insufficiency. Cardiac Cath showed severe aortic valve regurg from 06/06/22. * Chest x-ray shows small pleural effusion with atelectasis versus pneumonia * Appears to be acute on chronic diastolic heart failure in exacerbation * [place] [address] on admission * Continue home metoprolol 50 mg p.o. daily, rosuvastatin 20 mg at night * Losartan started per cardiology * Trend urine output, strict I&Os, daily weights, continue telemetry * Trend sodium (126 today) as she does have a history of hyponatremia * Cardiology consulted and appreciate recommendations. * Lasix on hold due to low sodium. Discussed with cardiology and they believe patient should be transferred due to on going hyponatremia and being unable to walk up her stairs into her home. I have initiated the call to the transfer center at [facility]. Awaiting to hear back from them in regards to if she will be accepted or not. She is scheduled for AVR on 08/30/2022. (2) Hyponatremia: Code(s): E87.1 - Hypo-osmolality and hyponatremia Status: Chronic Assessment and Plan: * Known history of hyponatremia * Currently sodium is 126 * Consult nephrology for support * continue diuresis, however, decrease to daily * Urine labs, trend daily labs (3) Severe aortic regurgitation: Code(s): I35.1 - Nonrheumatic aortic (valve) insufficiency Status: Chronic Assessment and Plan: * See above * Will need New valve soon * Most likely the cause for her symptoms * cardiology following (4) Prosthetic aortic valve stenosis: Qualifiers: Encounter type: subsequent encounter Qualified Code(s): T82.857D - Stenosis of other cardiac prosthetic devices, implants and grafts, subsequent encounter Code(s): T82.857A - Stenosis of other cardiac prosthetic devices, implants and grafts, initial encounter Status: Chronic Assessment and Plan: * See above (5) COPD (chronic obstructive pulmonary disease): Qualifiers: COPD type: emphysema Emphysema type: unspecified Qualified Code(s): J43.9 - Emphysema, unspecified Code(s): J44.9 - Chronic obstructive pulmonary disease, unspecified Status: Chronic Assessment and Plan: * chronic and stable * denies any sputum changes or quality changes * neb treatments for now * Patient no longer requiring supplemental oxygen * sputum culture negative * Stop the steroids and Levaquin with the etiology appearing to be more cardiac in nature * IS and PEP therapy ordered (6) Community acquired pneumonia: Qualifiers: Laterality: unspecified laterality Qualified Code(s): J18.9 - Pneumonia, unspecified organism Code(s): J18.9 - Pneumonia, unspecified organism Status: Ruled-out Assessment and Plan: * Chest xray indicates PNA vs Atelectasis * Discontinue levaquin since it seems to be more cardiac related * sputum culture ordered * WBC stable at 9.0 * CRP 6.5 * Procal
--- NOTE | 2022-08-26 13:34 | PM.IMPN ---
Progress Note: A&P Assessment and Plan (1) Acute heart failure with preserved ejection fraction (HFpEF): Code(s): I50.31 - Acute diastolic (congestive) heart failure Status: Acute Assessment and Plan: Presented with shortness of breath with exertion inability to lay flat uncontrolled cough. Echo from May of 2022 showed EF of 55% with an indeterminate diastolic dysfunction and severe to moderate aortic insufficiency. Cardiac Cath showed severe aortic valve regurg from 06/06/22. Chest x-ray shows small pleural effusion with atelectasis versus pneumonia Appears to be acute on chronic diastolic heart [place] [address] on admission Continue home metoprolol 50 mg p.o. daily, rosuvastatin 20 mg at night Losartan started per cardiology Trend urine output, strict I&Os, daily weights, continue telemetry Trend sodium (126 today) as she does have a history of hyponatremia Cardiology consulted and appreciate recommendations. Lasix on hold due to low sodium. Discussed with cardiology and they believe patient should be transferred due to on going hyponatremia and being unable to walk up her stairs into her home. I have initiated the call to the transfer center at [facility]. Awaiting to hear back from them in regards to if she will be accepted or not. She is scheduled for AVR on 08/30/2022. (2) Hyponatremia: Code(s): E87.1 - Hypo-osmolality and hyponatremia Status: Chronic Assessment and Plan: Known history of hyponatremia Currently sodium is 126 Consult nephrology for support continue diuresis, however, decrease to daily Urine labs, trend daily labs (3) Severe aortic regurgitation: Code(s): I35.1 - Nonrheumatic aortic (valve) insufficiency Status: Chronic Assessment and Plan: See above Will need New valve soon Most likely the cause for her symptoms cardiology following (4) Prosthetic aortic valve stenosis: Qualifiers: Encounter type: subsequent encounter Qualified Code(s): T82.857D - Stenosis of other cardiac prosthetic devices, implants and grafts, subsequent encounter Code(s): T82.857A - Stenosis of other cardiac prosthetic devices, implants and grafts, initial encounter Status: Chronic Assessment and Plan: See above (5) COPD (chronic obstructive pulmonary disease): Qualifiers: COPD type: emphysema Emphysema type: unspecified Qualified Code(s): J43.9 - Emphysema, unspecified Code(s): J44.9 - Chronic obstructive pulmonary disease, unspecified Status: Chronic Assessment and Plan: chronic and stable denies any sputum changes or quality changes neb treatments for now Patient no longer requiring supplemental oxygen sputum culture negative Stop the steroids and Levaquin with the etiology appearing to be more cardiac in nature IS and PEP therapy ordered (6) Community acquired pneumonia: Qualifiers: Laterality: unspecified laterality Qualified Code(s): J18.9 - Pneumonia, unspecified organism Code(s): J18.9 - Pneumonia, unspecified organism Status: Ruled-out Assessment and Plan: Chest xray indicates PNA vs Atelectasis Discontinue levaquin since it seems to be more cardiac related sputum culture ordered WBC stable at 9.0 CRP 6.5 Procal 0.1 Trend labs Neb treatment supplemental oxygen as indicated Not high on the differential as procal is negative, WBC stable (7) Respiratory failure: Qualifiers: Chronicity: acute Respiratory failure complication: hypoxia Qualified Code(s): J96.01 - Acute respiratory failure with hypoxia Code(s): J96.90 - Respiratory failure, unspecified, unspecified whether with hypoxia or hypercapnia Status: Resolved Assessment and Plan: saturations noted to
--- NOTE | 2022-08-26 13:56 | PCCCNOTE ---
On 08/26/22, the student, [Vicki Peraza ], provided care and completed [facility] documentation on this patient. I have reviewed the student's documentation and agree with the findings.
[2022-08-26] MEDS: ROSUVASTATIN 10 MG TABLET 20 MG PO (18:00)
[2022-08-27] VITALS: PULSE 51
--- NOTE | 2022-08-27 01:05 | PC.NURSE ---
08/27/22 @ 0050: PT DC'D PER EMS [facility] TO TRANSFER TO [facility]. REPORT CALLED TO NARCISO NORIEGA. PT TO BE UNDER CARE OF DR. JIANG. HARD COPY OF PT RECORD AND IMAGING DISCS AND EMS TRANSFER PAPERS COMPLETE AND SENT WITH PT.
--- NOTE | 2022-08-27 09:14 | P.TS_ITS ---
Transfer Discharge Sum: Prov Provider Date of admission: 08/22/22 14:54 Primary care physician: Nic Reyes MD Admitting clinician: Akila Jean DO Consults: 08/22/22 Consult to Physician Routine Comment: Spoke to 7.3.23 @1451--/us Consulting Provider: Julio Erwin calliope player/MD group to consult: she would prefer to see Sunita if he is here and available Reason for consultation: CHF, patient request Has provider been notified: Yes 08/23/22 Consult to Physician Routine Comment: spoke with Dr. Green at 0756 Consulting Provider: Karine Green Reason for consultation: hyponatremia in light of needing diruesis Has provider been notified: Yes Attending physician on discharge: Lisa Huber Discharging clinician: Donna Campbell Anticipated date of transfer: 08/26/22 Receiving physician/facility: Hospitalist team at [facility] DS: Admitting Diagnosis Discharge Date 08/27/22 Admitting Diagnosis CHF exacerbation DS: Discharge Diagnosis Discharge Diagnosis (1) Acute heart failure with preserved ejection fraction (HFpEF): Code(s): I50.31 - Acute diastolic (congestive) heart failure Status: Acute Assessment and Plan: Presented with shortness of breath with exertion inability to lay flat uncontrolled cough. Echo from May of 2022 showed EF of 55% with an indeterminate diastolic dysfunction and severe to moderate aortic insufficiency. Cardiac Cath showed severe aortic valve regurg from 06/06/22. * Chest x-ray shows small pleural effusion with atelectasis versus pneumonia * Appears to be acute on chronic diastolic heart failure in exacerbation * [place] [address] on admission * Continue home metoprolol 50 mg p.o. daily, rosuvastatin 20 mg at night * Losartan started per cardiology * Trend urine output, strict I&Os, daily weights, continue telemetry * Trend sodium (126 today) as she does have a history of hyponatremia * Cardiology consulted and appreciate recommendations. * Lasix on hold due to low sodium. Discussed with cardiology and they believe patient should be transferred due to on going hyponatremia and being unable to walk up her stairs into her home. [facility] has accepted patient for transfer. She is scheduled for AVR on 08/30/2022. (2) Hyponatremia: Code(s): E87.1 - Hypo-osmolality and hyponatremia Status: Chronic Assessment and Plan: * Known history of hyponatremia * Currently sodium is 126 * Consult nephrology for support * continue diuresis, however, decrease to daily * Urine labs, trend daily labs (3) Severe aortic regurgitation: Code(s): I35.1 - Nonrheumatic aortic (valve) insufficiency Status: Chronic Assessment and Plan: * See above * Will need New valve soon * Most likely the cause for her symptoms * cardiology following (4) Prosthetic aortic valve stenosis: Qualifiers: Encounter type: subsequent encounter Qualified Code(s): T82.857D - Stenosis of other cardiac prosthetic devices, implants and grafts, subsequent encounter Code(s): T82.857A - Stenosis of other cardiac prosthetic devices, implants and grafts, initial encounter Status: Chronic Assessment and Plan: * See above (5) COPD (chronic obstructive pulmonary disea
--- NOTE | 2022-08-27 09:14 | PM.TDS ---
Transfer Discharge Sum: Prov Provider Date of admission: 08/22/22 14:54 Primary care physician: Nic Reyes MD Admitting clinician: Akila Jena DO Consults: 08/22/22 Consult to Physician Routine Comment: Spoke to 7.3.23 @1451--/us Consulting Provider: Julio Erwin trailer park manager/MD group to consult: she would prefer to see Sunita if he is here and available Reason for consultation: CHF, patient request Has provider been notified: Yes 08/23/22 Consult to Physician Routine Comment: spoke with Dr. Green at 0756 Consulting Provider: Karine Green Reason for consultation: hyponatremia in light of needing diruesis Has provider been notified: Yes Attending physician on discharge: Lisa Huber Discharging clinician: Donna Campbell Anticipated date of transfer: 08/26/22 Receiving physician/facility: Hospitalist team at [facility] DS: Admitting Diagnosis Discharge Date 08/27/22 Admitting Diagnosis CHF exacerbation DS: Discharge Diagnosis Discharge Diagnosis (1) Acute heart failure with preserved ejection fraction (HFpEF): Code(s): I50.31 - Acute diastolic (congestive) heart failure Status: Acute Assessment and Plan: Presented with shortness of breath with exertion inability to lay flat uncontrolled cough. Echo from May of 2022 showed EF of 55% with an indeterminate diastolic dysfunction and severe to moderate aortic insufficiency. Cardiac Cath showed severe aortic valve regurg from 06/06/22. Chest x-ray shows small pleural effusion with atelectasis versus pneumonia Appears to be acute on chronic diastolic [place] [address] [place] admission Continue home metoprolol 50 mg p.o. daily, rosuvastatin 20 mg at night Losartan started per cardiology Trend urine output, strict I&Os, daily weights, continue telemetry Trend sodium (126 today) as she does have a history of hyponatremia Cardiology consulted and appreciate recommendations. Lasix on hold due to low sodium. Discussed with cardiology and they believe patient should be transferred due to on going hyponatremia and being unable to walk up her stairs into her home. [facility] has accepted patient for transfer. She is scheduled for AVR on 08/30/2022. (2) Hyponatremia: Code(s): E87.1 - Hypo-osmolality and hyponatremia Status: Chronic Assessment and Plan: Known history of hyponatremia Currently sodium is 126 Consult nephrology for support continue diuresis, however, decrease to daily Urine labs, trend daily labs (3) Severe aortic regurgitation: Code(s): I35.1 - Nonrheumatic aortic (valve) insufficiency Status: Chronic Assessment and Plan: See above Will need New valve soon Most likely the cause for her symptoms cardiology following (4) Prosthetic aortic valve stenosis: Qualifiers: Encounter type: subsequent encounter Qualified Code(s): T82.857D - Stenosis of other cardiac prosthetic devices, implants and grafts, subsequent encounter Code(s): T82.857A - Stenosis of other cardiac prosthetic devices, implants and grafts, initial encounter Status: Chronic Assessment and Plan: See above (5) COPD (chronic obstructive pulmonary disease): Qualifiers: COPD type: emphysema Emphysema type: unspecified Qualified Code(s): J43.9 - Emphysema, unspecified Code(s): J44.9 - Chronic obstructive pulmonary disease, unspecified Status: Chronic Assessment and Plan: chronic and stable denies any sputum changes or quality changes neb treatments for now Patient no longer requiring supplemental oxygen sputum culture negative Stop the steroids and Levaquin with the etiology appearing to be more cardiac in nature IS and PEP therapy ordered (6) Community acquired p
== END 2022-08-27 00:50 | disposition short-term general hospital (02) | DRG 291 ==
LOC: ANHED 06:20 → ANH2MED 07:06
PROVIDERS: Nurse Practitioner; Admitting Provider Internal Medicine; Emergency Provider Emergency Medicine; PCP Family Medicine; Visit Provider Internal Medicine Critical Care Medicine
DX: I11.0 Hypertensive heart disease with heart failure (principal); I50.33 Acute on chronic diastolic (congestive) heart failure; J96.01 Acute respiratory failure with hypoxia; E87.1 Hypo-osmolality and hyponatremia; T82.857A Stenosis of other cardiac prosthetic devices, implants and grafts, initial encounter; M54.9 Dorsalgia, unspecified; D64.9 Anemia, unspecified; E78.5 Hyperlipidemia, unspecified; F41.1 Generalized anxiety disorder; H81.09 Meniere's disease, unspecified ear; I35.1 Nonrheumatic aortic (valve) insufficiency; I25.118 Atherosclerotic heart disease of native coronary artery with other forms of angina pectoris; J43.9 Emphysema, unspecified; Z95.4 Presence of other heart-valve replacement; Z95.1 Presence of aortocoronary bypass graft; Z98.42 Cataract extraction status, left eye; Z96.1 Presence of intraocular lens; Z79.82 Long term (current) use of aspirin; Z87.891 Personal history of nicotine dependence
CPT/HCPCS: 36415; 36600; 71045; 80048; 80053; 80061; 82570; 82805; 83735; 83880; 83935; 84100; 84145; 84300; 84484; 84540; 85025; 85027; 85610; 86140; 87070; 87205; 93005; 94640; 94667; 96365; 96372; 96375; 96376; 99285; A9270; G0378; J1650; J1940; J2405; J2920; J3475

== ENCOUNTER 2023-06-21 14:27 | Outpatient (CLI) | payer MEDICARE, SELFPAY ==
--- NOTE | ~2023-06-21 | CT_ITS ---
EXAMINATION: CT lumbar spine wo con DATE: 06/21/2023 14:53 INDICATION: Low back pain. Right-sided sciatica. TECHNIQUE: Computed tomography (CT) of the lumbar spine was performed without intravenous contrast. A utomated exposure control and iterative reconstruction technique were employed. The dose-length produ ct was 529.69 mGy-cm. COMPARISON: None FINDINGS: There is calcified atherosclerosis of the aorta and many of the other arteries. There is 3 mm retrolisthesis of L1 on L2 and L2 on L3. There is 6 mm anterolisthesis of L4 on L5. Vertebral body heights are normal. There is severely decreased disc height at L1-L2 and L2-L3, moderately decreased disc height at L3-L4, and severely decreased disc height at L4-L5 and L5-S1. The following disc leve ls are specifically discussed: L1-L2: The disc is bulging. There is mild bilateral facet joint osteoarthritis. There is mild bilater al neural foraminal stenosis. There is mild central canal stenosis. L2-L3: The disc is bulging. There is severe bilateral facet joint osteoarthritis. There is mild right and moderate left neural foraminal stenosis. There is mild central canal stenosis. L3-L4: The disc is bulging. There is mild right and severe left facet joint osteoarthritis. There is moderate right and mild left neural foraminal stenosis. There is mild central canal stenosis. L4-L5: The disc is bulging. There is severe bilateral facet joint osteoarthritis. There is moderate b ilateral neural foraminal stenosis. There is moderate central canal stenosis. L5-S1: The disc is bulging. There is severe bilateral facet joint osteoarthritis. There is moderate b ilateral neural foraminal stenosis. There is mild central canal stenosis. IMPRESSION: 1. Severe lumbar spondylosis. Reviewed, dictated and finalized at location A.
--- NOTE | ~2023-06-21 | CT_ITS ---
EXAMINATION: CT cervical spine wo con DATE: 06/21/2023 14:53 INDICATION: Other spondylosis with radiculopathy, cervical. TECHNIQUE: Computed tomography (CT) of the cervical spine was performed without intravenous contrast. Automated exposure control and iterative reconstruction technique were employed. The dose-length pro duct was 167.40 mGy-cm. COMPARISON: None FINDINGS: There is mild scarring at the lung apices. There is mild emphysema. There is 6 degrees dext rocurvature of cervical spine. There is 2 mm anterolisthesis of C3 on C4 and C4 on C5. There is mild chronic anterior wedging of T1 vertebral body. There is mildly decreased disc height at C4-C5, severe ly decreased disc height at C5-C6, moderately decreased disc height at C6-C7, and mildly decreased di sc height at C7-T1. The following disc levels are specifically discussed: C2-C3: There is mild bilateral uncovertebral joint osteoarthritis. There is severe bilateral facet luh int osteoarthritis. There is mild left neural foraminal stenosis. There is no central canal stenosis. C3-C4: There is mild left uncovertebral joint osteoarthritis. There is severe bilateral facet joint o steoarthritis. There is moderate left neural foraminal stenosis. There is mild central canal stenosis . C4-C5: There is mild bilateral uncovertebral joint osteoarthritis. There is severe bilateral facet luh int osteoarthritis. There is moderate left neural foraminal stenosis. There is mild central canal dory nosis. C5-C6: There is severe bilateral uncovertebral joint osteoarthritis. There is severe bilateral facet joint osteoarthritis. There is mild bilateral neural foraminal stenosis. There is mild central canal stenosis. C6-C7: There is severe bilateral uncovertebral joint osteoarthritis. There is severe bilateral facet joint osteoarthritis. There is mild bilateral neural foraminal stenosis. There is mild central canal stenosis. C7-T1: There is no uncovertebral joint osteoarthritis. There is severe bilateral facet joint osteoart hritis. There is mild right neural foraminal stenosis. There is no central canal stenosis. IMPRESSION: 1. Severe cervical spondylosis. Reviewed, dictated and finalized at location A.
== END 2023-06-21 14:28 ==
PROVIDERS: PCP Family Medicine; Visit Provider Family Medicine
DX: M47.22 Other spondylosis with radiculopathy, cervical region (principal); M54.31 Sciatica, right side; M47.896 Other spondylosis, lumbar region
CPT/HCPCS: 72125; 72131

== ENCOUNTER 2023-06-29 16:20 | Outpatient (CLI) | payer MEDICARE, SELFPAY ==
--- NOTE | ~2023-06-29 | XR_ITS ---
EXAMINATION: XR pelvis min 3V DATE: 06/29/2023 16:52 INDICATION: Sacroiliitis TECHNIQUE: An anteroposterior and left and right oblique views of the pelvis were obtained. COMPARISON: None. FINDINGS: Alignment is normal. No fracture. Mild osteoarthritis at the bilateral hip and sacroiliac joints. No erosions at the sacroiliac joints to suggest inflammatory sacroiliitis. Severe lower lumbar spondylos is. Atherosclerotic calcific lesion along the bilateral iliac and femoral arteries. IMPRESSION: 1. Mild bilateral hip and sacroiliac osteoarthritis. 2. Severe lower lumbar spondylosis. Reviewed, dictated and finalized at location A.
== END 2023-06-29 16:21 ==
LOC: MICIMG 16:22
PROVIDERS: PCP Physical Medicine & Rehabilitation Pain Medicine; Visit Provider Physical Medicine & Rehabilitation Pain Medicine
DX: M46.1 Sacroiliitis, not elsewhere classified (principal); M47.896 Other spondylosis, lumbar region; M53.3 Sacrococcygeal disorders, not elsewhere classified
CPT/HCPCS: 72190

== ENCOUNTER 2023-11-28 16:09 | Observation (INO) | payer MEDICARE, SELFPAY ==
[2023-11-28] VITALS (13 sets, daily range): BP systolic 130–171; BP diastolic 51–79; PULSE 66–85; RESP 16–26; TEMP 36.8–37.2; O2SAT 91–100
--- NOTE | 2023-11-28 16:26 | ED.ALLEREA ---
HPI - Allergic Reaction General Chief complaint: Allergic Reaction Stated complaint: CP Time Seen by Provider: 11/28/23 16:21 History of Present Illness HPI narrative: Pt presents with swelling of tongue and tightness in chest. Pt went to dentist but had no injections or meds there. Pt did take dose of amoxil prior to cleaning but has taken before. Pt is not on any PHOEBE inhibitors. Pt denies CP. Pt has no CAD history. Related Data Home Medications Medication Instructions Recorded Confirmed vitamin B complex 1 tablet PO DAILY 08/12/19 06/15/23 melatonin 3 mg tablet 3 mg PO PRN PRN Sleep 06/04/22 06/15/23 tramadol 50 mg tablet 50 mg PO Q6H PRN pain 06/15/23 06/15/23 Allergies Allergy/AdvReac Type Severity Reaction Status Date / Time Cephalosporins Allergy Severe Rash Verified 11/28/23 16:23 doxycycline Allergy Severe RASH Verified 11/28/23 16:23 sulfamethoxazole Allergy Severe Diarrhea Verified 11/28/23 16:23 tetracycline Allergy Severe Rash Verified 11/28/23 16:23 lisinopril Allergy Mild Abdominal Verified 11/28/23 16:23 Pain trimethoprim Allergy Unknown Unknown Verified 11/28/23 16:23 Review of Systems Review of Systems: All systems reviewed & are unremarkable except as noted in HPI and below PMFSH Past Medical History Medical History (Updated 11/28/23 @ 17:39 by Libertad Harris, GIANNI) Atherosclerosis of aorta Carotid disease, bilateral Chronic hyponatremia Congestive heart failure Generalized anxiety disorder History of DVT (deep vein thrombosis) Hyperlipidemia Hypertension Nicotine dependence, cigarettes, in remission Peripheral arterial occlusive disease Prediabetes Presence of prosthetic heart valve Pulmonary edema Surgical History Surgical History H/O aortic valve replacement Hx of appendectomy Hx of carpal tunnel repair Hx of cataract extraction S/P CABG x 1 Status post cataract extraction and insertion of intraocular lens of left eye Family History Family History Sibling Cancer Aortic valve replaced Heart failure Father Heart attack Daughter No problems noted. Mother Aortic valve replaced Social History Social History Social History: patient is her Darinel Guillermo who will be her surrogate if she is unable to make decisions. she has no kids or any pets. She did state that she has about 8 drinks a week if not more which she stated was vodka with lemon [place] soda. She did stop smoking, However stated her is like a chimney. She stopped smoking in May. Smoking packs per day: 0.5 Smoking cigarettes per day: 10.0 Years smoked: 60 Smoking pack-years: 30.00 Smoking status: Former smoker Second hand tobacco smoke exposure: Yes Alcohol intake: current Drinks per week: 7 Substance use: never Substance use type: does not use Lack of Transportation: No Lack of Food: Never True Current Housing: I Have Housing Concerned About Future Housing: No Difficulty Paying Gas/Electric Bills: No Difficulty Paying for Meds: No Currently Unemployed: No Education: Associate Degree Difficulty w/ Childcare or Family Care: No Living arrangements: with family Additional living arrangements comments: Occupation/Education: retired 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
[2023-11-28] MEDS: EPINEPHrine HCL INJ 1 MG/ML AMPUL 0.3 MG SUB-Q (16:28)
[2023-11-28] MEDS: methylPREDNISolone SOD SUCC 125 MG VIAL IV PUSH (16:31)
[2023-11-28] MEDS: FAMOTIDINE 20 MG/2 ML VIAL IV PUSH (16:31)
--- NOTE | 2023-11-28 17:37 | PM.IMHP ---
H&P: HPI History of Present Illness Date/Time: 11/28/23 17:37 Chief Complaint: angioedema Narrative: 73-year-old female past medical history of mechanical aortic valve presents the hospital with angioedema. She states that she was going to have a dental procedure done today gave her amoxicillin. Patient states that she had 2 g amoxicillin about an hour before her dental procedure. She states that on her way to the dentist she started feeling weird and difficulty swallowing. At the dentist office she states that she lost control of her bowels, her tongue was swelling and complains shortness of breath symptom was called. EMS gave her 50 of IV Benadryl. In the emergency room she received epinephrine, Solu-Medrol and Pepcid with resolution of symptoms. Patient will be monitored overnight for airway reassessment. Patient states that she has previously had amoxicillin with no signs of allergic reaction. Review of Systems Constitutional: Constitutional: Reports no additional constitutional complaints Eyes: Eyes: Reports no additional eye complaints ENT: Reports nasal congestion and Reports nasal discharge Cardiovascular: Cardiovascular: Reports no additional cardiovascular complaints Respiratory: Respiratory: Reports no additional respiratory complaints Gastrointestinal: Gastrointestinal: Reports diarrhea Comments: During acute allergic reaction Genitourinary: Genitourinary: Reports no additional female genitourinary complaints Musculoskeletal: Musculoskeletal: Reports no additional musculoskeletal complaints Integumentary/Breasts: Skin/Breast: Reports system reviewed and no additional complaints, except as docu Neurologic: Reports system reviewed and no additional complaints, except as documented Psychiatric: Psychiatric: Reports no additional psychiatric complaints [facility] Past Medical History Medical History (Updated 11/28/23 @ 17:39 by Libertad Harris APRN) Atherosclerosis of aorta Carotid disease, bilateral Chronic hyponatremia Congestive heart failure Generalized anxiety disorder History of DVT (deep vein thrombosis) Hyperlipidemia Hypertension Nicotine dependence, cigarettes, in remission Peripheral arterial occlusive disease Prediabetes Presence of prosthetic heart valve Pulmonary edema Surgical History Surgical History H/O aortic valve replacement Hx of appendectomy Hx of carpal tunnel repair Hx of cataract extraction S/P CABG x 1 Status post cataract extraction and insertion of intraocular lens of left eye Family History Family History (Updated 11/28/23 @ 19:20 by Becca Gant RN) Sibling Heart failure Aortic valve replaced Cancer Father Heart attack Daughter No problems noted. Mother Aortic valve replaced Sibling Cancer Sibling Cancer Social History Social History Social History: patient is her Darinel Guillermo who will be her surrogate if she is unable to make decisions. she has no kids or any pets. She did state that she has about 8 drinks a week if not more which she stated was vodka with lemon [place] soda. She did stop smoking, However stated her is like a chimney. She stopped smoking in May. Smoking packs per day: 0.5 Smoking cigarettes per day: 10.0 Years smoked: 60 Smoking pack-years: 30.00 Smoking status: Former smoker Second hand tobacco smoke exposure: Yes Alcohol intake: current Drinks per week: 7 Substance use: never Substance use type: does not use Do You Feel Safe in your Home?: Yes Lack of Transportation: No Lack of Food: Never True Current Housing: I Have Housing Concerned About Future Housing: No Difficulty Paying Gas/Electric Bills: No Difficulty Paying for Meds: No Currently Unemployed: No Education: Associate Degree Difficulty w/ Childcare or Family Care: No Cassie
--- NOTE | 2023-11-28 18:00 | PC.NURSE ---
Per pt request, pt given wash cloths and sanitary items to perform lolita care independently.
[2023-11-28 18:50] LABS: Basophils Percent Auto 0.1 % (0.2-1.2); Eosinophils Absolute Auto 0.1 K/mm3 (0-0.3); Eosinophils Percent Auto 0.9 % (0-4.4); Hematocrit 42.2 % (37.0-47.0); Hemoglobin 14.1 g/dL (12.0-15.0); Immature Granulocyte Absolute 0.03 K/mm3 (0.00-0.031); Immature Granulocyte Percent A 0.4 % (0-0.5); Lymphocytes Absolute Auto 1.24 K/mm3 (0.9-3.2); Mean Corpuscular HGB Conc 33.4 g/dl (32-36); Mean Corpuscular Hemoglobin 31.3 pg (26-34); Mean Corpuscular Volume 93.8 fl (80-100); Mean Platelet Volume 10.8 fl (7.4-10.4); Monocytes Absolute Auto 0.5 K/mm3 (0.1-0.6); Monocytes Percent Auto 6.5 % (2.6-8.5); Neutrophils Absolute Auto 5.9 K/mm3 (1.3-6.7); Neutrophils Percent Auto 76.1 % (45.5-73.1); Platelet Count Result 236 k/mm3 (150-375); Red Cell Distribution Width 12.9 % (11.5-14.5); White Blood Count 7.7 K/mm3 (4.5-10.0)
--- NOTE | 2023-11-28 19:00 | ADMGEN ---
This patient, Yris Guillermo, was admitted to IMU Room 209-01. Patient/family oriented to hospital policies and general routines including ID bracelet, bed and alarms, visiting hours, pain management, procedures, bathroom and other care routines, personal items, smoking policy, room service/diet, and visiting hours. Information on how to activate the Rapid Response Team has been discussed. Patient/Family are encouraged to report perceived risks to care and to ask questions if they do not understand what they are told or what they should do.
[2023-11-28 19:03] LABS: Alanine Aminotransferase 20 U/L (6-35); Albumin Level 4.5 g/dL (3.5-5.1); Alkaline Phosphatase 59 U/L (38-126); Anion Gap 15 mmol/L (4-12); Aspartate Amino Transferase 35 U/L (14-36); Bilirubin,Total 0.5 mg/dL (0.2-1.3); Blood Urea Nitrogen 15 mg/dL (7-17); Calcium 8.8 mg/dL (8.4-10.2); Carbon Dioxide 21 mmol/L (22-30); Chloride 100 mmol/L (98-107); Estimated Glomerular Filt Rate > 60; Glucose 135 mg/dL (65-110); Potassium 3.2 mmol/L (3.4-5.0); Sodium 136 mmol/L (137-145)
[2023-11-28] MEDS: METOPROLOL TARTRATE 25 MG TABLET PO (21:41)
[2023-11-28] MEDS: TIZANIDINE HCL 1 MG TABLET PO (21:41)
[2023-11-28] MEDS: POTASSIUM CHLORIDE 20 MEQ ER TABLET PO (21:41)
[2023-11-29] VITALS (7 sets, daily range): BP systolic 123–136; BP diastolic 43–49; PULSE 60–71; RESP 16; TEMP 36.6–36.7; O2SAT 98–99
[2023-11-29] MEDS: ROSUVASTATIN 20 MG TABLET PO (05:53)
[2023-11-29] MEDS: POTASSIUM CHLORIDE 10 MEQ ER TABLET PO (09:10)
[2023-11-29] MEDS: METOPROLOL TARTRATE 25 MG TABLET PO (09:10)
[2023-11-29] MEDS: ASPIRIN 81 MG CHEWABLE TABLET PO (09:10)
[2023-11-29] MEDS: SERTRALINE HCL 50 MG TABLET PO (09:10)
[2023-11-29] MEDS: VITAMIN B COMPLEX CAPSULE 1 CAP PO (09:10)
[2023-11-29] MEDS: ENOXAPARIN 40 MG/0.4 ML SYRINGE SUB-Q (09:11)
[2023-11-29] MEDS: FUROSEMIDE 20 MG TABLET PO (09:11)
[2023-11-29] MEDS: ARTIFICIAL TEARS OPHTH SOLN 15 ML BOTTLE 1 DROP EACH EYE (09:13)
[2023-11-29] MEDS: POTASSIUM CHLORIDE 20 MEQ ER TABLET 40 MEQ PO (10:21)
--- NOTE | 2023-11-29 15:46 | PM.DS ---
DS: Admitting Diagnosis Discharge Date 11/29/23 Admitting Diagnosis Angioedema/anaphylaxis DS: Discharge Diagnosis Discharge Diagnosis (1) Angioedema: Qualifiers: Encounter type: initial encounter Qualified Code(s): T78.3XXA - Angioneurotic edema, initial encounter Code(s): T78.3XXA - Angioneurotic edema, initial encounter Status: Acute Plan Disposition: Patient discharged home DS: Summary Hospital Course Reason for hospitalization: Angioedema/anaphylaxis Hospital Course: Patient was a 73-year-old female who was admitted observation after and flexes with in to edema following the ingestion of amoxicillin while at the dentist's office. Patient was initially given methylprednisone IV, Benadryl an epi IM with complete resolution of symptoms angioedema improved patient was able to tolerate oral intake and had no respiratory complications and was protecting her airway. She was kept overnight for close observation concerns at discharge patient was discharged with EpiPen needed. Patient discharged Status at Discharge Functional status at discharge: independent ambulation Overall status at discharge: patient is back to baseline Time Spent with Patient Time attestation: Total time spent providing and/or coordinating discharge services: Time spent: Greater than 30 minutes Exam Narrative: Physical Exam: GENERAL: Alert and oriented x 3. No acute distress. EYES: EOMI. No scleral icterus. PERRLA. HEENT: Moist mucous membranes. LUNGS: Clear to auscultation bilaterally. No accessory muscle use. CARDIOVASCULAR: Regular rate and rhythm. No murmur. No JVD. S1-S2 ABDOMEN: Soft, non tenderness and non-distended. No palpable masses. EXTREMITIES: No edema. Non-tender SKIN: No rashes or lesions. Skin warm, dry. NEUROLOGIC: No focal neurological deficits. CN II-XII grossly intact PSYCHIATRIC: Appropriate mood and affect. Good judgement and insight. No visual or auditory hallucinations. No suicidal or homicidal ideation. DS: Data Data Completed and Pending Labs on day of discharge: Labs from last 24 hours 11/28/23 18:41 WBC 7.7 RBC 4.50 Hgb 14.1 D Hct 42.2 MCV 93.8 MCH 31.3 MCHC 33.4 RDW 12.9 Plt Count 236 MPV 10.8 H Immature Gran % (Auto) 0.4 Neut % (Auto) 76.1 H Lymph % (Auto) 16.0 L Woodson % (Auto) 6.5 Eos % (Auto) 0.9 Baso % (Auto) 0.1 L Lymph # (Auto) 1.24 [place] # (Auto) 0.5 Eos # (Auto) 0.1 Baso # (Auto) 0.0 Abs Immat Gran (auto) 0.03 Absolute Neuts (auto) 5.9 Absolute Nucleated RBC 0.000 Nucleated RBC % 0.0 Sodium 136 L Potassium 3.2 L Chloride 100 Carbon Dioxide 21 L Anion Gap 15 H BUN 15 D Creatinine 0.80 Estim Creat Clear Calc Not Reportable Estimated GFR > 60 Glucose 135 H Calcium 8.8 Total Bilirubin 0.5 AST 35 ALT 20 Alkaline Phosphatase 59 Total Protein 8.0 Albumin 4.5 Discharge Plan Discharge Attending physician on discharge: George Spring Consulting providers: Libertad Harris Discharging Clinician: Dina Goss Anticipated Discharge Date/Time: 11/29/23 10:10 Patient Disposition: Home, Self-Care Activity: may shower, unlimited and as tolerated Diet: as tolerated Discharge Instructions: You are being discharged following and episode of Angioedema secondary to anaphylaxis from amoxicillin. I Encourage you to inform all pharmacies and dentist used of new allergen. I did prescribe a epi pen in case of any further emergent anaphylaxis episodes. Please review the information attached regarding angioedema/anaphylaxis Please seek medical attention if symptoms return Patient Instructions: Antibiotic Form, Enoxaparin (By injection), Epinephrine (By injection), Heart Failure (DC), Anaphylaxis (DC), Pain Management (DC), Antibiotic Medication Allergy (DC), Angioedema (GEN) Patient Language: [place] Stand Alone Forms: General Discharge Information Follow-up/
== END 2023-11-29 11:28 | disposition home or self-care (01) ==
LOC: ANHED 17:30 → ANHIMU 19:28
PROVIDERS: Nurse Practitioner Gerontology; Admitting Provider General Practice; Emergency Provider Emergency Medicine; PCP Family Medicine; Visit Provider Nurse Practitioner Family
DX: T78.3XXA Angioneurotic edema, initial encounter (principal); T36.0X5A Adverse effect of penicillins, initial encounter; I11.0 Hypertensive heart disease with heart failure; I50.9 Heart failure, unspecified; J43.9 Emphysema, unspecified; F41.1 Generalized anxiety disorder; E78.5 Hyperlipidemia, unspecified; I73.9 Peripheral vascular disease, unspecified; Z87.891 Personal history of nicotine dependence; Z95.1 Presence of aortocoronary bypass graft; Z95.2 Presence of prosthetic heart valve; Z96.1 Presence of intraocular lens; Z98.42 Cataract extraction status, left eye; Z86.718 Personal history of other venous thrombosis and embolism; Z79.82 Long term (current) use of aspirin; Z79.891 Long term (current) use of opiate analgesic
CPT/HCPCS: 36415; 80053; 85025; 96372; 96374; 96375; 99285; A9270; G0378; J0171; J1650; J2919

== ENCOUNTER 2025-02-02 12:54 | Emergency (ER) | payer MEDICARE, SELFPAY ==
--- NOTE | ~2025-02-02 | XR_ITS ---
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 Findings: There is a displaced fracture of the distal radius with intra-articular extension. There is a nondisplaced fracture of the ulnar styloid process suspected. No significant degenerative changes. Soft tissues unremarkable. Impression: Fractures detailed above Reviewed, dictated and finalized at location P. 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
--- NOTE | ~2025-02-02 | XR_ITS ---
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 Findings: Nondisplaced fracture of the styloid process. Comminuted impacted fracture of the distal radius with intra-articular extension. No significant degenerative changes. Soft tissue swelling. Impression: Fractures detailed above Reviewed, dictated and finalized at location P. [employer] Impression: Fractures detailed above
[2025-02-02 12:57] VITALS: BP 156/62; PULSE 68; RESP 20; TEMP 36.4; O2SAT 100
[2025-02-02] MEDS: HYDROcodone/acetaminophen (*CRX) 5-325 MG TABLET 1 TAB PO (13:56)
--- NOTE | 2025-02-02 14:25 | ED.UPPEXIN ---
HPI - Extremity Injury (Upper) General Chief Complaint: Extremity Injury, Upper Stated Complaint: L WRIST PAIN S/P FALL Time Seen by Provider: 02/02/25 13:14 History of Present Illness HPI narrative: Patient was exercising on the treadmill when her waist belt gave way, she then fell and landed on her left wrist, with pain to her wrist. Related Data Home Medications ?Medication ?Instructions ?Recorded ?Confirmed ?Last Taken ?Type vitamin B complex 1 tablet PO DAILY 08/12/19 01/10/25 11/28/23 08:00 History acetaminophen 500 mg tablet 500 mg PO Q6H PRN arthritic pain 11/28/23 01/10/25 Unknown History tizanidine 2 mg tablet 1 mg PO HS 11/28/23 01/10/25 11/27/23 21:00 History Allergies Allergy/AdvReac Type Severity Reaction Status Date / Time amoxicillin Allergy Severe Anaphylaxis Verified 02/02/25 12:54 Cephalosporins Allergy Severe Rash Verified 02/02/25 12:54 doxycycline Allergy Severe RASH Verified 02/02/25 12:54 sulfamethoxazole Allergy Severe Diarrhea Verified 02/02/25 12:54 tetracycline Allergy Severe Rash Verified 02/02/25 12:54 lisinopril Allergy Mild Abdominal Verified 02/02/25 12:54 Pain trimethoprim Allergy Unknown Unknown Verified 02/02/25 12:54 Review of Systems Review of Systems: All systems reviewed & are unremarkable except as noted in HPI and below PMFSH Past Medical History Medical History History of DVT (deep vein thrombosis) Peripheral arterial occlusive disease Prediabetes Atherosclerosis of aorta Presence of prosthetic heart valve Generalized anxiety disorder Nicotine dependence, cigarettes, in remission Chronic hyponatremia Carotid disease, bilateral Pulmonary edema Congestive heart failure Hyperlipidemia Hypertension Surgical History Surgical History Status post cataract extraction and insertion of intraocular lens of left eye Hx of appendectomy Hx of carpal tunnel repair Hx of cataract extraction H/O aortic valve replacement S/P CABG x 1 Family History Family History Sibling Heart failure Aortic valve replaced Cancer Father Heart attack Daughter No problems noted. Mother Aortic valve replaced Sibling Cancer Sibling Cancer Social History Social History (Updated 01/10/25 @ 13:30 by GELY Molina Social History: patient is her Darinel Guillermo who will be her surrogate if she is unable to make decisions. she has no kids or any pets. She did state that she has about 8 drinks a week if not more which she stated was vodka with lemon [place] soda. She did stop smoking, However stated her is like a chimney. She stopped smoking in May. Smoking packs per day: 0.5 Smoking cigarettes per day: 10.0 Years smoked: 60 Smoking pack-years: 30.00 Smoking status: Former smoker Second hand tobacco smoke exposure: Yes Alcohol intake: current Drinks per week: 7 Substance use: never Substance use type: does not use Lack of Transportation: No Lack of Food: Never True Current Housing: I Have Housing Concerned About Future Housing: No Difficulty Paying Gas/Electric Bills: No Difficulty Paying for Meds: No Currently Unemployed: No Education: Associate Degree Difficulty w/ Childcare or Family Care: No Living arrangements: with family Additional living arrangements comments: Occupation/Education: retired 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 HEAD: Normal with no signs of head trauma. EYES: EOMI, conjunctiva normal ENT: Hearing grossly intact LUNGS: Nonlabored breathing. HEART: Regular rate and rhythm, normal regular radial pulse, good cap refill ABD: Soft, nontender to palpation EXT: Tenderness and swelling to the right wrist SKIN: No rashes or lesions. NEURO: Alert. No gross focal sensory or strength deficits. PSYCH: Normal affect Course Vital Signs Vital signs: Vital Signs Temperature 97.6 F 02/02/25 12:57 Pulse Rate 68 02/02/25 12:57 Respiratory Rate 20 02/02/25 12:57 Blood Pressure 156/62 H 02/02/25 12:57 Pulse Oximetry 100 02/02/25 12:57 Oxygen Delivery Room Air 02/02/25 12:57 Temperature 97.6 F 02/02/25 12:57 Pulse Rate 68 02/02/25 12:57 Respiratory Rate 20 02/02/25 12:57 Blood Pressure 156/62 H 02/02/25 12:57 Pulse Oximetry 100 02/02/25 12:57 Oxygen Delivery Room Air 02/02/25 12:57 Procedures Orthopedic Splinting/Casting Injury #1: Splinting/Casting Date: 02/02/25 Splinting/Casting Time: 14:30 Side: left Upper Extremity Injury Location: wrist Upper Extremity Immobilizer: sugar tong splint Splint: customized in ED Pre-Procedure Neuro Vascular Exam: normal Post-Procedure Neuro Vascular Exam: normal MDM MDM Narrative Medical decision making narrative: Patient presents here after fall off a treadmill, landing on outstretched hand, with pain to her left wrist; she also had some pain to her right shoulder but that is chronic and she still is using it without issues. Neurovascularly intact, there is some tenderness and swelling to the right wrist, x-rays on my independent interpretation does show distal radius and ulnar fractures. Discussed with orthopedist who will see her in the clinic tomorrow, discussed with patient, splint placed, return precautions provided. Differential Diagnosis Differential Diagnosis: Fracture, strain Imaging Data Radiologist's impression: ITS Impressions Forearm X-Ray 02/02/25 14:15 Impression: Fractures detailed above Wrist X-Ray 02/02/25 14:16 Impression: Fractures detailed above Discharge Plan Discharge Clinical Impression: Fracture of wrist Patient Disposition: Home Condition: Stable Instructions: Wrist Fracture in Adults (ED) Additional Instructions: Please follow-up with orthopedic surgeon tomorrow, keep your arm in the splint, come back to the ER for any further issues. Patient Language: [place] Citizen Prescriptions: New acetaminophen [Tylenol Extra Strength] 500 mg tablet 1,000 mg PO Q6H PRN (Reason: pain) Qty: 50 0RF hydrocodone-acetaminophen 5-325 mg tablet 1 tablet PO Q8H PRN (Reason: pain) Qty: 10 0RF No Action furosemide 20 mg tablet 20 mg PO DAILY Qty: 100 1RF potassium chloride 10 mEq tablet,ER particles/crystals 10 meq PO BID Qty: 200 1RF metoprolol tartrate 25 mg tablet 25 mg PO BID Qty: 200 1RF rosuvastatin 40 mg tablet 40 mg PO DAILY Qty: 90 1RF sertraline 50 mg tablet 50 mg PO DAILY Qty: 100 1RF vitamin B complex Tablet 1 tablet PO DAILY aspirin [Children's Aspirin] 81 mg Tablet,Chewable 81 mg PO DAILY@0800 30 Days Qty: 30 0RF tizanidine 2 mg tablet 1 mg PO HS acetaminophen 500 mg Tablet 500 mg PO Q6H PRN (Reason: arthritic pain) epinephrine 0.3 mg/0.3 mL auto-injector 0.3 mg IM ONCE Qty: 2 0RF Rx Instructions: as a single dose; may repeat once Follow-up/Referrals: Nic Reyes MD [Primary Care Provider, Family Practice] Bebeto Pete MD [Physician, Orthopedics] - 1 Day
== END 2025-02-02 14:25 | disposition home or self-care (01) ==
PROVIDERS: Emergency Provider Emergency Medicine; PCP Family Medicine
DX: S52.572A Other intraarticular fracture of lower end of left radius, initial encounter for closed fracture (principal); S52.615A Nondisplaced fracture of left ulna styloid process, initial encounter for closed fracture; I70.0 Atherosclerosis of aorta; I50.9 Heart failure, unspecified; I11.0 Hypertensive heart disease with heart failure; I77.9 Disorder of arteries and arterioles, unspecified; E87.1 Hypo-osmolality and hyponatremia; E78.5 Hyperlipidemia, unspecified; R73.03 Prediabetes; F41.1 Generalized anxiety disorder; Z95.2 Presence of prosthetic heart valve; Z95.1 Presence of aortocoronary bypass graft; Z86.718 Personal history of other venous thrombosis and embolism; Z87.891 Personal history of nicotine dependence; Z98.42 Cataract extraction status, left eye; Z96.1 Presence of intraocular lens; Z98.41 Cataract extraction status, right eye; W17.89XA Other fall from one level to another, initial encounter; Y93.A1 Activity, exercise machines primarily for cardiorespiratory conditioning
CPT/HCPCS: 29125; 73090; 73100; 99284; A9270

== ENCOUNTER 2025-02-04 14:18 | Emergency (ER) | payer MEDICARE, SELFPAY ==
[2025-02-04 14:19] VITALS: BP 132/62; PULSE 65; RESP 16; TEMP 36.6; O2SAT 97
--- NOTE | 2025-02-04 15:23 | ED_ITS ---
HPI - Extremity Problem General Chief complaint: Extremity Problem,Nontraumatic Stated complaint: needs ring cut off Time Seen by Provider: 02/04/25 14:31 History of Present Illness HPI Narrative: Patient had a wrist fracture, he saw the orthopedist, by then her hand had swollen and her wedding ring was stuck, tried multiple times to remove and was told to come to our ER for ring removal. Related Data Home Medications ?Medication ?Instructions ?Recorded ?Confirmed ?Last Taken ?Type vitamin B complex 1 tablet PO DAILY 08/12/19 1 03/12/24 11/28/23 08:00 History acetaminophen 500 mg tablet 500 mg PO Q6H PRN arthriti c pain 11/28/23 01/10/25 Unknown History tizanidine 2 mg tablet 1 mg PO HS 11/28/23 01/10/25 11/27/23 21:00 History Allergies Allergy/AdvReac Type Severity Reaction Status Date / Time amoxicillin Allergy Severe Anaphylaxis Verified 02/04/25 14:18 Cephalosporins Allergy Severe Rash Verified 02/04/25 14:18 doxycycline Allergy Severe RASH Verified 02/04/25 14:18 sulfamethoxazole Allergy Severe Diarrhea Verified 02/04/25 14:18 tetracycline Allergy Severe Rash Verified 02/04/25 14:18 lisinopril Allergy Mild Abdominal Verified 02/04/25 14:18 Pain trimethoprim Allergy Unknown Unknown Verified 02/04/25 14:18 Review of Systems Review of Systems: All systems reviewed & are unremarkable except as noted in HPI and below PMFSH Past Medical History Medical History History of DVT (deep vein thrombosis) Peripheral arterial occlusive disease Prediabetes Atherosclerosis of aorta Presence of prosthetic heart valve Generalized anxiety disorder Nicotine dependence, cigarettes, in remission Chronic hyponatremia Carotid disease, bilateral Pulmonary edema Congestive heart failure Hyperlipidemia Hypertension Surgical History Surgical History Status post cataract extraction and insertion of intraocular lens of left eye Hx of appendectomy Hx of carpal tunnel repair Hx of cataract extraction H/O aortic valve replacement S/P CABG x 1 Family History Family History Sibling Heart failure Aortic valve replaced Cancer Father Heart attack Daughter No problems noted. Mother Aortic valve replaced Sibling Cancer Sibling Cancer Social History Social History (Updated 01/10/25 @ 13:30 by Sadaf Oliver MA) Social History: patient is her Darinel Guillermo who will be her surrogate if she is unable to make decisions. she has no kids or any pets. She did state that she has about 8 drinks a week if not more which she stated was vodka with lemon [place] soda. She did stop smoking, However stated her is like a chimney. She stopped smoking in May. Smoking packs per day: 0.5 Smoking cigarettes per day: 10.0 Years smoked: 60 Smoking pack-years: 30.00 Smoking status: Former smoker Second hand tobacco smoke exposure: Yes Alcohol intake: current Drinks per week: 7 Substance use: never Substance use type: does not use Lack of Transportation: No Lack of Food: Never True Current Housing: I Have Housing Concerned About Future Housing: No Difficulty Paying Gas/Electric Bills: No Difficulty Paying for Meds: No Currently Unemployed: No Education: Associate Degree Difficulty w/ Childcare or Family Care: No Living arrangements: with family Additional living arrangements comments: Occupation/Education: retired 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 HEAD: Normal with no signs of head trauma. EYES: EOMI, conjunctiva normal ENT: Hearing grossly intact LUNGS: Nonlabored breathing. HEART: Regular rate and rhythm ABD: Soft, nontender to palpation EXT: Left arm in splint, left ring finger slightly swollen, ring in place which is twist double but not able to go over the knuckle SKIN: No rashes or lesions. NEURO: Alert. No gross focal sensory or strength deficits. PSYCH: Normal affect Course Vital Signs Vital signs: Vital Signs Temperature 98 F 02/04/25 14:19 Pulse Rate 65 02/04/25 14:19 Respiratory Rate 16 02/04/25 14:19 Blood Pressure 132/62 02/04/25 14:19 Pulse Oximetry 97 02/04/25 14:19 Oxygen Delivery Room Air 02/04/25 14:19 Temperature 98 F 02/04/25 14:19 Pulse Rate 65 02/04/25 14:19 Respiratory Rate 16 02/04/25 14:19 Blood Pressure 132/62 02/04/25 14:19 Pulse Oximetry 97 02/04/25 14:19 Oxygen Delivery Room Air 02/04/25 14:19 Procedures Other Procedure Procedure 1: Other Procedure: Ring removal Left wedding ring stuck on left ring finger. Verbal consent obtained from patient, initial attempt with removal by raptor is unsuccessful. Ring guard placed, ring cutter drill with carbide used to gently cut through ring, ring removed successfully. Patient to follow-up with ortho MDM MDM Narrative Medical decision making narrative: Patient with swollen left ring finger, unable to remove ring with other methods including string method. Ring cutter successfully used to remove her ring. Patient to follow-up with ortho Differential Diagnosis Differential Diagnosis: Finger injury Discharge Plan Discharge Clinical Impression: External constriction of left ring finger Patient Disposition: Home Condition: Stable Additional Instructions: Please continue to follow-up with orthopedic doctor, you can always return to the ER for any further issues. Patient Language: Monegasque Prescriptions: No Action furosemide 20 mg tablet 20 mg PO DAILY Qty: 100 1RF potassium chloride 10 mEq tablet,ER particles/crystals 10 meq PO BID Qty: 200 1RF metoprolol tartrate 25 mg tablet 25 mg PO BID Qty: 200 1RF rosuvastatin 40 mg tablet 40 mg PO DAILY Qty: 90 1RF sertraline 50 mg tablet 50 mg PO DAILY Qty: 100 1RF vitamin B complex Tablet 1 tablet PO DAILY aspirin [Children's Aspirin] 81 mg Tablet,Chewable 81 mg PO DAILY@0800 30 Days Qty: 30 0RF acetaminophen [Tylenol Extra Strength] 500 mg tablet 1,000 mg PO Q6H PRN (Reason: pain) Qty: 50 0RF hydrocodone-acetaminophen 5-325 mg tablet 1 tablet PO Q8H PRN (Reason: pain) Qty: 10 0RF tizanidine 2 mg tablet 1 mg PO HS acetaminophen 500 mg Tablet 500 mg PO Q6H PRN (Reason: arthritic pain) epinephrine 0.3 mg/0.3 mL auto-injector 0.3 mg IM ONCE Qty: 2 0RF Rx Instructions: as a single dose; may repeat once Follow-up/Referrals: Nic Reyes MD [Primary Care Provider, Family Practice]
--- OUTSIDE RECORDS SUMMARY | 2025-02-04 16:49 | XMS_ITS | Clinical Summary ---
Author Organization [facility] [place] [address] Address [address] [place] [address] Care Team Providers Care Equipment Validation Specialist Name Role Phone Nic Reyes MD Primary Care Provider [phone] Regina Wood MD Unavailable [phone] Sosa Dorsey MD Unavailable [phone] Allergies Active Allergy Reactions Criticality Noted Date Comments Amoxicillin Anaphylaxis High 09/23/2024 Amoxicillin-Pot Clavulanate Anaphylaxis High 025 Cefprozil Rash Medium Doxycycline Rash Medium Lisinopril Nausea only Low 08/27/2022 Abdominal pain Sulfamethoxazole Diarrhea Low Tetracycline Rash Medium 12/23/2024 Trimethoprim Unknown Medications meclizine (ANTIVERT) 25 mg tablet Take 1 tablet (25 mg total) by mouth daily as needed for dizziness Active aspirin 81 mg enteric coated tabletIndications :Hx of CABG Take 1 tablet (81 mg total) by mouth daily 90 tablet 3 10/11/19 23 Active metoprolol tartrate (LOPRESSOR) 25 mg immediate release tabletIndications :Hx of CABG Take 1 tablet (25 mg total) by mouth 2 (two) times a day 180 tablet 3 10/11/19 23 Active potassium chloride ER (KLOR-CON) 10 mEq CR tabletIndications :S/P aortic valve replacement with bioprosthetic valve Take 1 tablet/capsule (10 mEq total) by mouth 2 (two) times a day 180 tablet 3 10/11/19 23 Active sertraline (Zoloft) 50 mg tabletIndications :Depression, unspecified depression type Take 1 tablet (50 mg total) by mouth daily 90 tablet 3 10/11/19 23 Active furosemide (LASIX) 20 mg tablet Take 1 tablet (20 mg total) by mouth daily Active vitamin b complex tablet Take 1 tablet by mouth daily Active TIZANIDINE-IRRITA NT CNTR IRRT2 MISC Take 0.5 mg by mouth as needed Active rosuvastatin (CRESTOR) 40 mg tablet Take 1 tablet (40 mg total) by mouth nightly 06/26/19 25 Active ibuprofen 200 mg tab/cap Take 2 tablet/capsule (400 mg total) by mouth every 6 (six) hours as needed for pain Active levocetirizine (XYZAL) 5 mg tablet Take 1 tablet (5 mg total) by mouth as needed for allergies Active EPINEPHrine 1 mg/mL (1 mL) injection Inject under the skin as needed for anaphylaxis As needed Active methylPREDNISolon e (MEDROL DOSEPACK) 4 mg Dosepack Take as directed on package 1 packet 01/03/20 25 025 Active Problems Problem Noted Date Diagnosed Date Carotid stenosis, right 12/02/2024 Assessment & Plan (12/05/2024 12:30 PM CDT): Asymptomatic severe right ICA stenosis, now greater than 80% associated with tortuosity and dense calcific plaque, discussed TCAR versus CEA, given the tortuosity and calcific plaque I think she would be better served with a CEA. Risks benefits alternatives were discussed risks including bleeding, infection, nerve injury, stroke, need further surgery. She wished proceed. PAF (paroxysmal atrial fibrillation) 03/25/2024 Atherosclerosis of [place] ar candice of both lower extremities with intermittent claudication 05/04/2023 Assessment & Plan (11/13/2024 1:47 PM CDT): Stable claudication. Continue ASA statin therapy. Follow up in 6-12 months repeat noninvasives testing. Assessment & Plan (05/13/2024 3:35 PM CDT): Impression: Patient has stable non disabling claudication to bilateral lower extremities. Lower extremity arterial Doppler reveals monophasic waveforms to bilateral lower extremities with ABIs of 0.52 and 0.76. Plan: No surgical interventions indicated at this time. -patient to follow-up in 6 months for re-evaluation with repeat lower extremity arterial Doppler. Encouraged patient makes sooner appointment if he develops worsening symptoms of claudication, ischemic rest pain or nonhealing ulcerations to her lower extremity. Assessment & Plan (05/04/2023 4:52 PM CDT): Patient with stable intermittent claudication to her bilateral lower extremities. She would like to avoid any surgical or procedural intervention as well as medications at this time. Will continue exercise regimen, have patient follow-up in 3 months with repeat bilateral lower extremity Doppler. Chronic deep vein thrombosis (DVT) of left upper extremity 11/16/2022 Recurrent major depression 10/10/2022 Cardiac pacemaker in situ 09/13/2022 Overview (09/13/2022): [employer] Assurity Dual Pacemaker. Dx; SSS, Afib, Bradycardia. DOI 09/13/2022- Shuddhadeb. Zac. Vilas remote. Hyponatremia 08/31/2022 Depression 08/27/2022 Thrombophlebitis 07/14/2022 Chronic diastolic heart failure 06/13/2022 HLD (hyperlipidemia) 07/01/2021 Assessment & Plan (12/05/2024 12:30 PM CDT): Stable continue Crestor Assessment & Plan (11/13/2024 1:47 PM CDT): Stable continue Crestor Assessment & Plan (05/13/2024 3:37 PM CDT): Impression: Chronic and stable. Plan: Continue rosuvastatin Assessment & Plan (11/16/2023 11:44 AM CDT): Stable continue Crestor Assessment & Plan (01/28/2022 10:54 AM LICENSED MASS REAL ESTATE APPRAISER): Impression: Chronic hyperlipidemia, controlled with statin therapy. Plan: Continue statin therapy his primary care provider. Bilateral carotid artery stenosis 07/01/2021 Assessment & Plan (01/02/2025 10:14 AM LICENSED MASS REAL ESTATE APPRAISER): Impression: Patient is status post right carotid endarterectomy with patch angioplasty on 12/31/2024. Patient was concerned of worsening edema to her neck. On exam, patient has a hematoma to the surgical incision of the right side of the neck. She denies any difficulty breathing. Patient does report throat tightness. As her exam continued, patient became flushed in the face and began complaining numbness to her lips and nose. Plan: Discussed with the patient throat tightness is likely associated with irritation for the ET tube from the procedure. Discussed with the patient of a hematoma and this will resolve however to continue to monitor if hematoma worsens and reports difficulty breathing. - Recommend patient to present to the ED for further evaluation of an allergic reaction. Unlikely associated with her carotid surgery. Assessment & Plan (11/13/2024 1:47 PM CDT): Progression of her right carotid disease on duplex with a chronic left ICA occlusion. Continue risk factor modification with ASA statin therapy and good blood pressure control. CTA head and neck ordered for further evaluation. Assessment & Plan (05/13/2024 3:36 PM CDT): Impression: Patient has a known left internal carotid artery occlusion. Patient has stable elevated velocities, greater than 70% stenosis to the right ICA. She remains asymptomatic. Plan: Patient plan of care discussed with Dr. Star Perez. No surgical interventions indicated at this time. -Recommend patient to follow-up in 6 months for re-evaluation with a carotid duplex. Assessment & Plan (11/16/2023 11:44 AM CDT): Chronic left ICA. Right ICA with severe greater than 70% stenosis, less than 80%. We will need continued ongoing surveillance with risk factor modification including 81 mg ASA statin therapy and good blood pressure control. Follow up in 6 months for repeat evaluation. Assessment & Plan (05/04/2023 4:52 PM CDT): Stable right carotid artery stenosis, chronic left carotid artery occlusion. Patient remains asymptomatic. Follow-up in 3 months with repeat bilateral carotid duplex Assessment & Plan (01/28/2022 10:53 AM LICENSED MASS REAL ESTATE APPRAISER): Impression: Patient has known left internal carotid occlusion and moderate internal carotid artery stenosis to the right side with less than 79% in diameter. Patient remains asymptomatic. Plan: Continue ongoing risk factor modifications. Patient to follow-up in 6 months for re-evaluation with repeat carotid duplex. Tobacco abuse counseling 12/07/2020 Assessment & Plan (01/28/2022 10:57 AM LICENSED MASS REAL ESTATE APPRAISER): Impression: Patient is a current everyday smoker, smoking 1 pack daily. Plan: Discussed with the patient greater than 3 minutes about the importance of smoking cessation and its health benefits to the cardiovascular system. Patient reports that it is hard to quit when her is a smoker as well. She has tried many times in the past. Different treatment modalities discussed with the patient. Will defer patient to primary care provider for further management. Coronary artery disease invo lving [place] coronary artery of [place] heart without angina pectoris 03/09/2020 S/P aortic valve replacement with bioprosthetic valve 09/02/2019 Hx of CABG 09/02/2019 Primary hypertension 09/02/2019 Assessment & Plan (12/05/2024 12:30 PM CDT): Stable continue metoprolol Assessment & Plan (05/13/2024 3:37 PM CDT): Impression: Chronic and stable. Plan: Continue Lasix, and metoprolol. Assessment & Plan (11/16/2023 11:44 AM CDT): Stable continue metoprolol Assessment & Plan (01/28/2022 10:54 AM LICENSED MASS REAL ESTATE APPRAISER): Impression: Chronic hypertension, controlled medications. Blood pressure stable. Plan: Continue blood pressure management as per primary care provider. Chronic obstructive pulmonary disease Resolved Problems Problem Noted Date Diagnosed Date Resolved Date PVD (peripheral vascular disease) 11/16/2023 03/25/2024 Assessment & Plan (11/16/2023 11:45 AM CDT): Left ANIYAH consistent with mild occlusive disease. Right ANIYAH consistent with moderate occlusive disease waveforms suggestive of inflow disease. Overall not life- limiting at this time. Continue risk factor modification as above. Repeat evaluation in 6 months Bradycardia 09/12/2022 09/25/2023 Sick sinus syndrome 09/12/2022 09/24/19 Encounter for follow-up for aortic valve replacement 08/27/2022 09/25/2023 Stenosis involving cardiovascular device 08/27/2022 03/25/2024 Congestive heart failure (CHF) 08/27/2022 03/25/2024 Other chest pain 09/02/2019 09/25/2023 Nonrheumatic aortic valve stenosis 09/02/2019 09/25/2023 Encounters Date Type Department Care Team Description 01/20/2025 1:00 PM LICENSED MASS REAL ESTATE APPRAISER Office Visit [facility] Medical [facility] Vascular and Vein Surgery [address] [place] [phone] Dulce Husain PA Carotid stenosis, right (Primary Dx) 01/20/2025 Orders Only [facility] Vascular and Vein Surgery [address] [place] [phone] Marci Perez MD Bilateral carotid artery stenosis (Primary Dx); Aftercare following surgery of the circulatory system 01/02/2025 11:06 AM LICENSED MASS REAL ESTATE APPRAISER - 01/02/2025 1:31 PM LICENSED MASS REAL ESTATE APPRAISER Emergency [address] [phone] Leonardo Fisher MD Allergic reaction, initial encounter (Primary Dx) Discharge Disposition: Discharge to home or self care 01/02/2025 9:30 AM LICENSED M[place] REAL ESTATE APPRAISER Office Visit [facility] Vascular and Vein Surgery [address] [place] [phone] Valerie Waters NP Bilateral carotid artery stenosis (Primary Dx) 12/31/2024 10:41 AM LICENSED MASS REAL ESTATE APPRAISER Anesthesia Event [facility] Main OR [address] [place] [phone] Dina Bruner MD Taylor-White, Carlotta A., NP 12/31/2024 10:00 AM LICENSED MASS REAL ESTATE APPRAISER - 12/31/2024 12:42 PM LICENSED M[place] REAL ESTATE APPRAISER Surgery [facility] Main OR [address] [place] [address] Marci Perez MD RIGHT CAROTID ENDARTERECTOMY 12/31/2024 7:56 AM LICENSED MASS REAL ESTATE APPRAISER - 01/01/2025 11:18 AM LICENSED MASS REAL ESTATE APPRAISER Hospital Encounter [facility] [address] [place] [phone] Marci Perez MD Carotid stenosis, right Discharge Disposition: Discharge to home or self care 12/24/2024 9:00 AM LICENSED MASS REAL ESTATE APPRAISER Ancillary Procedure [facility] Cardiology [address] [facility] [address] [place] [phone] Cardiac pacemaker in situ (Primary Dx); Sick sinus syndrome (HCC); Bradycardia; Atrial fibrillation, unspecified type (HCC) 12/23/2024 1:00 PM LICENSED MASS REAL ESTATE APPRAISER Pre-Admission Testing [facility] PreAdmission Testing [address] [place] [address] Carotid stenosis, right; Preop examination 12/06/2024 Orders Only [facility] PreAdmission Testing [address] [place] [address] Halima Miramontes RN 12/02/2024 2:45 PM CDT Office Visit [facility] Vascular and Vein Surgery [address] [phone] Marci Perez MD Carotid stenosis, right (Primary Dx); Mixed hyperlipidemia; Primary hypertension 12/02/[address] [facility] Medical [facility] Vascular and Vein Surgery [address] [phone] Kelsey Morel, RN 11/25/2024 11:54 AM CDT - 11/25/2024 11:59 PM CDT Hospital Encounter [facility] [address] [place] [address] Bilateral carotid artery stenosis Discharge Disposition: Discharge to home or self care 11/11/2024 1:45 PM CDT Office Visit [facility] Medical Group Vascular and Vein Surgery [address] [facility] [address] [place] [address] Marci Perez MD Bilateral carotid artery stenosis (Primary Dx); Mixed hyperlipidemia; Atherosclerosis of [place] artery of both lower extremities with intermittent claudication 11/11/2024 11:04 AM CDT - 11/11/2024 11:59 PM CDT Hospital Encounter [facility] Medical Office Building [address] [place] [address] [address] [place] [address] Bilateral carotid artery stenosis Discharge Disposition: Discharge to home or self care 11/11/2024 11:00 AM CDT - 11/11/2024 11:59 PM CDT Hospital Encounter [facility] Medical Office Building [address] [place] [address] Atherosclerosis of [place] artery of both lower extremities with intermittent claudication Discharge Disposition: Discharge to home or self care 11/11/2024 Orders Only [facility] Vascular and Vein Surgery [address] [place] [address] [address] [place] [address] Marci Perez MD Atherosclerosis of [place] artery of both lower extremities with intermittent claudication (Primary Dx); Bilateral carotid artery stenosis from Last 3 Months Immunizations Immunization Administration Dates Next Due Influenza, Quadrivalent, Split, Intramuscular ,12/29/2017 Pneumococcal Conjugate PCV 13 11/18/2016 Pneumococcal Polysaccharide PPV23 07/04/2018 Surgical History Surgery Date Site/Laterality Comments AORTIC VALVE REPLACEMENT N/A 2004 & 2022 CARDIAC PACEMAKER PLACEMENT 02/20/2022 - 02/19/2023 Left LEFT UPPER CHEST CARPAL TUNNEL RELEASE 02/21/2016 - 02/19/2017 Right VCARPAL AND CUBITAL RELEASE EYE SURGERY 02/20/1999 - 02/20/2000 Left CRYOGENIC FOR RETINOPATHY TUBAL LIGATION 02/20/1978 - 02/19/1979 N/A APPENDECTOMY 02/21/1976 - 02/19/1977 N/A CORONARY ARTERY BYPASS GRAFT 02/21/2004 - 02/19/2005 N/A X 1 GRAFT Medical History Medical History Date Comments Chronic obstructive pulmonary disease COPD Coronary artery disease Hypertension CHF (congestive heart failure) ([facility]) 2022 Irritable bowel syndrome Peptic ulceration 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 Fletcher's thyroiditis 2015 Arthritis GENERALIZED Cataract RIGHT Meniere's disease 2000 History of transfusion 1976 WHEN HAD APPENDECTOMY Blood clot in arm (HCC) 2022 BLOOD CL OT IN LEFT ARM AFTER VALVE SURGERY Family History Medical History Relation Name Comments Arrhythmia Brother 7 1 Arrhythmias; Ca use of : Arrhythmias Coronary artery disease Brother 8 2 Bethany nary Artery Disease; Cause of : Coronary Artery Disease Valvular heart disease Brother 9 3 Valvu lar Heart Disease; Cause of : Valvular Heart Disease Liver cancer Brother 10 4 Liver Cancer; C ause of : Liver Cancer Liver cancer Brother 11 5 Liver Cancer; C ause of : Liver Cancer Arrhythmia Brother 12 6 Arrhythmias; Coronary artery disease Father 2 Bethany nary Artery Disease; Cause of : Coronary Artery Disease Coronary artery disease Mother 2 Bethany nary Artery Disease; Cause of : Coronary Artery Disease Relation Name Status Comments Brother 1 1 (Age 56) Brother 2 2 (Age 48) Brother 3 3 (Age 49) Brother 4 4 (Age 35) Brother 5 5 (Age 60) Brother 6 6 Alive Brother 7 1 Brother 8 2 Brother 9 3 Brother 10 4 Brother 11 5 Brother 12 6 Father 1 (Age 58) Father 2 Mother 1 (Age 63) Mother 2 Social History Tobacco Use Types Packs/Day Years Used Date Smoking Tobacco: Former Cigarettes 0.5 60 0 06/03/1962 - 06/03/2022 Smokeless Tobacco: Never Tobacco Cessation:Counseling Given: Not Answered Comments:Smoking History Packs/day: 0 Packs Alcohol Use Standard Drinks/Week Comments Yes 2 (1 standard drink = 0.6 oz pur e alcohol) OASIS D0700: Social Isolation Answer Da te Recorded Frequency of experiencing loneliness or isolatio n Never 10/06/2022 OASIS A1250: Transportation Answer Date Recorded Lack of Transportation (Medical) No 10/06/2022 Lack of Transportation (Non-Medical) No 10/06/2022 Patient Unable or Declines to Respond No 10/06/2022 OASIS B1300: Health Literacy Answer Lamberto e Recorded Frequency of needing help to read materials from doctor or pharmacy Never 10/06/2022 Overall Financial Resource Strain (CARDIA) Answe r Date Recorded How hard is it for you to pa y for the very basics like food, housing, medical care, and heating? Not hard at all 08/30/2022 PRAPARE - Transportation Answer Date Re corded In the past 12 months, has l ack of transportation kept you from medical appointments or from getting medications? No 08/20 In the past 12 months, has l ack of transportation kept you from meetings, work, or from getting things needed for daily living? No 08/30/2022 Housing Stability Vital Sign Answer Lamberto e Recorded In the last 12 months, was t here a time when you were not able to pay the mortgage or rent on time? No 08/30/2022 In the last 12 months, how many places have you lived? 1 08/30/2022 In the last 12 months, was t here a time when you did not have a steady place to sleep or slept in a jail (including now)? No 08/30/2022 Social Connection and Isolation Panel Answer Date Recorded In a typical week, how many times do you talk on the phone with family, friends, or neighbors? More than three times a week 01/01/2025 How often do you get togethe r with friends or relatives? More than three times a week 01/01/2025 How often do you attend chur ch or mosque services? Never 01/01/2025 Do you belong to any clubs o r organizations such as alevism groups, unions, fraternal or athletic groups, or school groups? No 01/01/2025 How often do you attend meet ings of the clubs or organizations you belong to? Never 01/01/2025 Are you , , di vorced, , never , or living with a partner? 01/01/2025 AUDIT-C Answer Date Recorded Q1: How often do you have a drink containing alc ohol? 2-3 times a week 12/31/2024 Q2: How many drinks containi ng alcohol do you have on a typical day when you are drinking? 1 or 2 12/31/2024 Frequency of Binge Drinking Not on file 12/21 Overall Financial Resource Strain (CARDIA) Answe r Date Recorded How hard is it for you to pa y for the very basics like food, housing, medical care, and heating? Not hard at all 01/01/2025 Hunger Vital Sign Answer Date Recorded Within the past 12 months, y ou worried that your food would run out before you got the money to buy more. Never true 01/02/20 25 Within the past 12 months, t he food you bought just didn't last and you didn't have money to get more. Never true 01/01/2025 PRAPARE - Transportation Answer Date Re corded In the past 12 months, has l ack of transportation kept you from medical appointments or from getting medications? No 12/21 In the past 12 months, has l ack of transportation kept you from meetings, work, or from getting things needed for daily living? No 01/01/2025 Housing Stability Vital Sign Answer Lamberto e Recorded In the last 12 months, was t here a time when you were not able to pay the mortgage or rent on time? No 01/01/2025 In the past 12 months, how m any times have you moved where you were living? 0 01/01/2025 At any time in the past 12 m the [facility] institute, were you homeless or living in a jail (including now)? No 01/01/2025 [facility] Utilities Answer Date Recorded In the past 12 months has th e electric, gas, oil, or water company threatened to shut off services in your home? No 01/01/2025 Personal Safety Answer Date Recorded Have you ever been in or are you currently in a harmful physical or emotional relationship or is someone making you feel afraid or unsafe? Denies 01/02/2025 Comments No Sex and Gender Information Value Date Recorded Sex Assigned at Not on file Legal Sex Female 1:59 AM LICENSED M[employer] REAL ESTATE APPRAISER Gender Identity Not on file Sexual Orientation Not on file Last Filed Vital Signs Vital Sign Reading Time Taken Comments Blood Pressure 126/70 01/20/2025 1:11 PM LICENSED M[employer] REAL ESTATE APPRAISER Pulse 70 01/20/2025 1:11 PM LICENSED M[employer] REAL ESTATE APPRAISER Temperature 36.6 C (97.9 F) 01/02/2025 9:40 AM LICENSED MASS REAL ESTATE APPRAISER Respiratory Rate 20 01/02/2025 1:30 PM LICENSED MASS REAL ESTATE APPRAISER Oxygen Saturation 100% 01/02/2025 1:30 PM LICENSED MASS REAL ESTATE APPRAISER Inhaled Oxygen Concentration - - Weight 64.4 kg (142 lb) 01/20/2025 1:11 PM LICENSED MASS REAL ESTATE APPRAISER Height 162.6 cm (5' 4) 01/20/2025 1:11 PM LICENSED MASS REAL ESTATE APPRAISER Body Mass Index 24.37 01/20/2025 1:11 PM LICENSED MASS REAL ESTATE APPRAISER Plan of Treatment Health Maintenance Due Date Last Done Comments Breast Cancer Screening-Mammogram 1950 Colon Cancer Screening-Colonoscopy 1950 Depression Screening 1950 Hepatitis C Screening 1950 Osteoporosis Screening-Bone Density Scan 1950 DTaP/Tdap/Td Vaccine (1 - Tdap) 10/26/1962 Hepatitis B Screening 10/26/1969 Lung Cancer Screening 10/26/2001 Zoster Vaccine (1 of 2) 10/26/2001 Well Visit 65+ 10/26/2016 Influenza Vaccine (#1) 2024 01/01/2019, 2017 Fall Risk Assessment 01/01/2026 01/01/2025 Pneumococcal vaccine 65+ Completed 07/04/2018, 10/22 Medical Devices Implanted Type Area High Pressure Cleaner Device Identifier Shelf Expiration Date Model / Serial / Lot [employer] Tendril Sts 6fr 52cm Is-1 Connector Active Fixation Bipolar Soft /52 - [id number] - [id number] Implanted:Qty: 1 on 09/13/2022 by Regina Wood MD at [facility] Lead N/A: Ventricle [employer] [id number] 07/20/2025 2088TC/5 2 / [id number] / [employer] Tendril Sts 6fr 46cm Is-1 Connector Bipolar Active Fixation /46 - [id number] - [id number] Implanted:Qty: 1 on 09/13/2022 by Regina Wood MD at [facility] Lead N/A: Atria [employer] [id number] 06/19/2025 2088TC/4 6 / [id number] / Description:A LEAD [employer] Assurity Mri [id number] Chamber Is-1 Connector Thk6mm Pacemaker [id number] - [id number] - [id number] Implanted:Qty: 1 on 09/13/2022 by Regina Wood MD at [facility] Pacemaker Left: Chest [employer] [id number] 02/20/2024 [id number] / [id number] / [employer] Inspiris Resilia Aortic Valve 21mm [id number] - [id number] - [id number] Implanted:Qty: 1 on 09/05/2022 by Regina Wood MD at [facility] N/A: Heart [employer] 02/07/2026 [id number] / [id number] / [employer] Patch Vascuguard 0.88cm [id number] - [id number] Implanted:Qty: 1 on 12/31/2024 by Marci Perez MD at [facility] Right: Carotid [employer] [id number] 04/16/2026 [id number] / / [id number] Procedures Procedure Name Priority Date/Time Associated Diagnosis Comments EGFR STAT 01/02/2025 9:46 AM LICENSED [employer] REAL [employer] APPRAISER DIFFERENTIAL AUTO STAT 01/02/2025 9:4 6 AM LICENSED M[place] REAL E[employer] APPRAISER COMPREHENSIVE METABOLIC PANEL STAT 01/02/2025 9:46 AM LICENSED MASS REAL ESTATE APPRAISER CBC WITH AUTO DIFFERENTIAL STAT 01/02/2025 9:46 AM LICENSED M[employer] REAL ESTATE APPRAISER EGFR Routine 01/01/2025 4:46 AM LICENSED MASS REAL ESTATE APPRAISER DIFFERENTIAL AUTO Routine 01/01/2025 4:4 6 AM LICENSED M[employer] REAL ESTATE APPRAISER BASIC METABOLIC PANEL Routine 01/01/2025 4:46 AM LICENSED M[employer] REAL ESTATE APPRAISER CBC WITH AUTO DIFFERENTIAL Routine 01/01/2025 4:46 AM LICENSED M[employer] REAL ESTATE APPRAISER US CAROTID DUPLEX UNILATERAL RIGHT IP Routine 12/31/2024 3:10 PM LICENSED MASS REAL ESTATE APPRAISER Carotid stenosis, right VASCULAR SURGERY PROCEDURE Routine 12/31/2024 1:22 PM LICENSED MASS REAL ESTATE APPRAISER Carotid stenosis, right AL AN PROCEDURE PLACEHOLDER Routine 12/31/2024 11:13 AM LICENSED MASS REAL ESTATE APPRAISER AL AN PROCEDURE PLACEHOLDER Routine 12/31/2024 11:05 AM LICENSED MASS REAL ESTATE APPRAISER AL AN ELECTIVE ENDOTRACHEAL AIRWAY Routine 12/31/2024 11:05 AM LICENSED MASS REAL ESTATE APPRAISER B ABO / RH CONFIRMATION TESTING STAT 12/31/2024 9:40 AM LICENSED MASS REAL ESTATE APPRAISER DEVICE CHECK - REMOTE Routine 12/24/2024 10:09 AM LICENSED MASS REAL ESTATE APPRAISER Sick sinus syndrome (HCC) Bradycardia Atrial fibrillation, unspecified type (HCC) EGFR Routine 12/23/2024 1:24 PM LICENSED MASS REAL ESTATE APPRAISER Carotid stenosis, right DIFFERENTIAL AUTO Routine 12/23/2024 1:2 4 PM LICENSED MASS REAL ESTATE APPRAISER Carotid stenosis, right ANTIBODY SCREEN Routine 12/23/2024 1:24 PM LICENSED MASS REAL ESTATE APPRAISER Carotid stenosis, right ABO/RH Routine 12/23/2024 1:24 PM LICENSED MASS REAL ESTATE APPRAISER Carotid stenosis, right BASIC METABOLIC PANEL Routine 12/23/2024 1:24 PM LICENSED MASS REAL ESTATE APPRAISER Carotid stenosis, right CBC WITH AUTO DIFFERENTIAL Routine 12/23/2024 1:24 PM LICENSED MASS REAL ESTATE APPRAISER Carotid stenosis, right PROTIME-INR Routine 12/23/2024 1:24 PM LICENSED MASS REAL ESTATE APPRAISER Carotid stenosis, right APTT Routine 12/23/2024 1:24 PM LICENSED MASS REAL ESTATE APPRAISER Carotid stenosis, right TYPE AND SCREEN 14 DAY Routine 12/23/2024 1:24 PM LICENSED MASS REAL ESTATE APPRAISER Carotid stenosis, right ECG 12-LEAD Routine 12/23/2024 1:16 PM LICENSED MASS REAL ESTATE APPRAISER Preop examination CTA HEAD NECK W WO CONTRAST Schedule Routine, Read Routine (OP Routine) 11/25/2024 12:03 PM CDT Bilateral carotid artery stenosis US CAROTIDS DUPLEX BILATERAL Schedule Routine, Read Routine (OP Routine) 11/11/2024 12:04 PM CDT Bilateral carotid artery stenosis US ARTERIAL DOPPLER LOWER EXTREMITY BILATERAL Schedule Routine, Read Routine (OP Routine) 11/11/2024 12:04 PM CDT Atherosclerosis of [place] artery of both lower extremities with intermittent claudication from Last 3 Months Results * eGFR (01/02/2025 9:46 AM LICENSED MASS REAL ESTATE APPRAISER) Pathologist [facility] eGFR 64 >=60 mL/min/1. 73 m2 Comment: Interpretive Data Reference Interval Normal >/= 90 mL/min/1.73m2 Mildly decreased* 60 - 89 mL/min/1.73m2 Mildly to moderately decreased 45 - 59 mL/min/1.73m2 Moderately to severely decreased 30 - 44 mL/min/1.73m2 Severely decreased 15 - 29 mL/min/1.73m2 Kidney Failure < 15 mL/min/1.73m2 *Relative to young adult level Estimated glomerular filtration rate is determined by the 2020 CKD-EPI equation recommended by the National Kidney Foundation (A Unifying Approach to GFR Estimation: Recommendations of the NKF-ASK Task Force on Reassessing the Inclusion of Race in Diagnosing Kidney Disease, JASN 2020). The CKD-EPI equation should not be used for patients with unstable renal function and has not been validated in children and those over 70. Current interpretive data was last reviewed 2020. Blood 01/02/2025 9:46 AM LICENSED MASS REAL ESTATE APPRAISER 01/02/2025 9:53 AM LICENSED MASS REAL ESTATE APPRAISER us Babs OCHOA LAB BLOOD ORDERABLES Final Resu lt JANAGETACHEW [address] [facility] Department of Laboratories [place], [place] [id number] * Differential, auto (01/02/2025 9:46 AM LICENSED MASS REAL ESTATE APPRAISER) Pathologist [facility] Neutrophil abs 5.04 1.50 - 6.50 K/cumm Imm gran abs 0.02 0.00 - 0.10 K/cumm [facility] Lymphocyte abs 1.20 0.80 - 3.30 K/cumm [facility] Monocyte abs 0.74 0.20 - 0.80 K/cumm [facility] Eosinophil abs 0.11 0.00 - 0.50 K/cumm [facility] Basophil abs 0.03 0.00 - 0.10 K/cumm [facility] Neutrophil pct 70.6 % [facility] Comment: Interpretive Data Percent cell count reference ranges are not reported, since discordance with absolute values may lead to misinterpretation of CBC data. Current Interpretive Data was last revised on 2017. Imm gran pct 0.3 % [facility] Comment: Interpretive Data Percent cell count reference ranges are not reported, since discordance with absolute values may lead to misinterpretation of CBC data. Current Interpretive Data was last revised on 2017. Lymphocyte pct 16.8 % [facility] Comment: Interpretive Data Percent cell count reference ranges are not reported, since discordance with absolute values may lead to misinterpretation of CBC data. Current Interpretive Data was last revised on 2017. Monocyte pct 10.4 % [facility] Comment: Interpretive Data Percent cell count reference ranges are not reported, since discordance with absolute values may lead to misinterpretation of CBC data. Current Interpretive Data was last revised on 2017. Eosinophil pct 1.5 % [facility] Comment: Interpretive Data Percent cell count reference ranges are not reported, since discordance with absolute values may lead to misinterpretation of CBC data. Current Interpretive Data was last revised on 2017. Basophil pct 0.4 % [facility] Comment: Interpretive Data Percent cell count reference ranges are not reported, since discordance with absolute values may lead to misinterpretation of CBC data. Current Interpretive Data was last revised on 2017. Blood 01/02/2025 9:46 AM LICENSED MASS REAL ESTATE APPRAISER 01/02/2025 9:53 AM LICENSED MASS REAL ESTATE APPRAISER us Babs OCHOA LAB BLOOD ORDERABLES Final Resu lt [facility] [address] [facility] [place] [address] * (ABNORMAL) CBC with auto differential (01/02/2025 9:46 AM LICENSED MASS REAL ESTATE APPRAISER) WBC 7.14 3.80 - 9.90 K/cumm Hgb 10.4(L) 11.9 - 15.5 g/dL [facility] Hct 31.9(L) 35.6 - 45.5 % [facility] Plt 180 150 - 400 K/cumm [facility] MPV 10.1 9.1 - 12.3 fL [facility] RBC 3.46(L) 3.90 - 5.20 M/cumm [facility] MCV 92.2 81.3 - 96.4 fL [facility] MCH 30.1 27.1 - 33.3 pg [facility] MCHC 32.6 32.3 - 35.7 g/dL [facility] RDW CV 13.4 11.1 - 14.9 % [facility] RDW SD 44.6 35.7 - 48.1 fL [facility] NRBC abs 0.00 0.00 - 0.01 K/cumm [facility] Blood 01/02/2025 9:46 AM LICENSED MASS REAL ESTATE APPRAISER 01/02/2025 9:53 AM LICENSED MASS REAL ESTATE APPRAISER Babs OCHOA LAB BLOOD ORDERABLES Final Resu lt [facility] [address] [facility] [place] [address] * Comprehensive metabolic panel (01/02/2025 9:46 AM LICENSED MASS REAL ESTATE APPRAISER) Sodium 140 135 - 145 mmol/L Potassium, pl 4.0 3.3 - 4.9 mmol/L [facility] Chloride 101 97 - 110 mmol/L [facility] CO2 28 22 - 32 mmol/L [facility] Anion gap 11 2 - 15 mmol/L [facility] BUN 13 6 - 25 mg/dL [facility] Creatinine 0.94 0.60 - 1.10 mg/dL [facility] Glucose 97 70 - 199 mg/dL [facility] Comment: Interpretive Data Fasting glucose >/= 126 mg/dl is diagnostic for diabetes. Fasting is defined as no caloric intake for at least 8 hours. Fasting glucose between 100 mg/dl to 125 mg/dl is diagnostic of prediabetes. In a patient with classic symptoms of hyperglycemia or hyperglycemic crisis, a random glucose >/= 200 mg/dl is diagnostic for diabetes. In the absence of unequivocal hyperglycemia, results should be confirmed by repeat testing. The classification and Diagnosis of Diabetes Diabetes Care 2021; 46: S19-S40. Current interpretive data was last revised 2022. Calcium 9.4 8.5 - 10.3 mg/dL [facility] Bilirubin, total 0.3 0.1 - 1.2 mg/dL [facility] Protein, pl 6.9 6.5 - 8.5 g/dL [facility] Albumin 4.1 3.5 - 5.0 g/dL [facility] Alk phos 57 40 - 130 Units/L [facility] ALT 17 7 - 45 Units/L [facility] AST 30 10 - 45 Units/L [facility] Blood 01/02/2025 9:46 AM LICENSED MASS REAL ESTATE APPRAISER 01/02/2025 9:53 AM LICENSED MASS REAL ESTATE APPRAISER Babs OCHOA LAB BLOOD ORDERABLES Final Resu lt [facility] [address] [facility] Department [place] [address] * eGFR (01/01/2025 4:46 AM LICENSED MASS REAL ESTATE APPRAISER) eGFR 84 >=60 mL/min/1. 73 m2 Comment: Interpretive Data Reference Interval Normal >/= 90 mL/min/1.73m2 Mildly decreased* 60 - 89 mL/min/1.73m2 Mildly to moderately decreased 45 - 59 mL/min/1.73m2 Moderately to severely decreased 30 - 44 mL/min/1.73m2 Severely decreased 15 - 29 mL/min/1.73m2 Kidney Failure < 15 mL/min/1.73m2 *Relative to young adult level Estimated glomerular filtration rate is determined by the 2020 CKD-EPI equation recommended by the National Kidney Foundation (A Unifying Approach to GFR Estimation: Recommendations of the NKF-ASK Task Force on Reassessing the Inclusion of Race in Diagnosing Kidney Disease, JASN 2020). The CKD-EPI equation should not be used for patients with unstable renal function and has not been validated in children and those over 70. Current interpretive data was last reviewed 2020. Blood 01/01/2025 4:46 AM LICENSED MASS REAL ESTATE APPRAISER 01/01/2025 4:57 AM LICENSED MASS REAL ESTATE APPRAISER us Marci Perez MD LAB BLOOD ORDERABLES Final Resul t [facility] [address] [facility] Department [place] [address] * (ABNORMAL) Differential, auto (01/01/2025 4:46 AM LICENSED MASS REAL ESTATE APPRAISER) Neutrophil abs 6.99(H) 1.50 - 6.50 K/cumm Imm gran abs 0.03 0.00 - 0.10 K/cumm [facility] Lymphocyte abs 0.62(L) 0.80 - 3.30 K/cumm [facility] Monocyte abs 0.39 0.20 - 0.80 K/cumm [facility] Eosinophil abs 0.00 0.00 - 0.50 K/cumm [facility] Basophil abs 0.01 0.00 - 0.10 K/cumm [facility] Neutrophil pct 86.9 % [facility] Comment: Interpretive Data Percent cell count reference ranges are not reported, since discordance with absolute values may lead to misinterpretation of CBC data. Current Interpretive Data was last revised on 2017. Imm gran pct 0.4 % [facility] Comment: Interpretive Data Percent cell count reference ranges are not reported, since discordance with absolute values may lead to misinterpretation of CBC data. Current Interpretive Data was last revised on 2017. Lymphocyte pct 7.7 % [facility] Comment: Interpretive Data Percent cell count reference ranges are not reported, since discordance with absolute values may lead to misinterpretation of CBC data. Current Interpretive Data was last revised on 2017. Monocyte pct 4.9 % [facility] Comment: Interpretive Data Percent cell count reference ranges are not reported, since discordance with absolute values may lead to misinterpretation of CBC data. Current Interpretive Data was last revised on 2017. Eosinophil pct 0.0 % [facility] Comment: Interpretive Data Percent cell count reference ranges are not reported, since discordance with absolute values may lead to misinterpretation of CBC data. Current Interpretive Data was last revised on 2017. Basophil pct 0.1 % [facility] Comment: Interpretive Data Percent cell count reference ranges are not reported, since discordance with absolute values may lead to misinterpretation of CBC data. Current Interpretive Data was last revised on 2017. Blood 01/01/2025 4:46 AM LICENSED MASS REAL ESTATE APPRAISER 01/01/2025 4:57 AM LICENSED MASS REAL ESTATE APPRAISER Marci Perez MD LAB BLOOD ORDERABLES Final Resul t Performing Organization Address City/[facility]/ZIP Co de Phone Number PASCUAL [address] [place] [address] * (ABNORMAL) CBC with auto differential (01/01/2025 4:46 AM LICENSED MASS REAL ESTATE APPRAISER) WBC 8.04 3.80 - 9.90 K/cumm Hgb 9.6(L) 11.9 - 15.5 g/dL [facility] Hct 29.0(L) 35.6 - 45.5 % [facility] Plt 144(L) 150 - 400 K/cumm [facility] MPV 10.1 9.1 - 12.3 fL [facility] RBC 3.18(L) 3.90 - 5.20 M/cumm [facility] MCV 91.2 81.3 - 96.4 fL [facility] MCH 30.2 27.1 - 33.3 pg [facility] MCHC 33.1 32.3 - 35.7 g/dL [facility] RDW CV 13.0 11.1 - 14.9 % [facility] RDW SD 42.9 35.7 - 48.1 fL [facility] NRBC abs 0.00 0.00 - 0.01 K/cumm [facility] Blood 01/01/2025 4:46 AM LICENSED MASS REAL ESTATE APPRAISER 01/01/2025 4:57 AM LICENSED MASS REAL ESTATE APPRAISER Marci Perez MD LAB BLOOD ORDERABLES Final Resul t Performing Organization Address City/[facility]/ZIP Co de Phone Number PASCUAL [address] [place] [address] * Basic metabolic panel (01/01/2025 4:46 AM LICENSED MASS REAL ESTATE APPRAISER) Pathologist [facility] Sodium 137 135 - 145 mmol/L Potassium, pl 4.3 3.3 - 4.9 mmol/L [facility] Chloride 104 97 - 110 mmol/L [facility] CO2 25 22 - 32 mmol/L [facility] Anion gap 8 2 - 15 mmol/L [facility] BUN 9 6 - 25 mg/dL [facility] Creatinine 0.75 0.60 - 1.10 mg/dL [facility] Glucose 116 70 - 199 mg/dL [facility] Comment: Interpretive Data Fasting glucose >/= 126 mg/dl is diagnostic for diabetes. Fasting is defined as no caloric intake for at least 8 hours. Fasting glucose between 100 mg/dl to 125 mg/dl is diagnostic of prediabetes. In a patient with classic symptoms of hyperglycemia or hyperglycemic crisis, a random glucose >/= 200 mg/dl is diagnostic for diabetes. In the absence of unequivocal hyperglycemia, results should be confirmed by repeat testing. The classification and Diagnosis of Diabetes Diabetes Care 202; 46: S19-S40. Current interpretive data was last revised 2022. Calcium 8.9 8.5 - 10.3 mg/dL [facility] Blood 01/01/2025 4:46 AM LICENSED MASS REAL ESTATE APPRAISER 01/01/2025 4:57 AM LICENSED MASS REAL ESTATE APPRAISER Marci Perez MD LAB BLOOD ORDERABLES Final Resul t [facility] [address] [facility] [place] [address] * US Carotid Duplex Unilateral Right (12/31/2024 3:10 PM LICENSED MASS REAL ESTATE APPRAISER) Anatomical Region Laterality Modality Vascular Right Ultrasound 12/31/2024 12:2 3 PM LICENSED MASS REAL ESTATE APPRAISER Narrative 01/02/2025 9:04 AM LICENSED MASS REAL ESTATE APPRAISER Carotid Duplex Ultrasound Report Patient Name: YRIS SOTOMAYORBud : 1950 (74y 2m) Study Date: 12/31/2024 12:23:05 PM Sex: F Branch Mechanic: BROOKLYN MATT Location: [id number] Ref Provider: MARCI PEREZ Quality: Adequate Order Provider: MARCI PEREZ PROCEDURES: Carotid Report: Carotid duplex examination of the extracranial arteries was performed using 2D, color and spectral Doppler in an intra-operative setting. INDICATIONS: I65.21 Occlusion and stenosis of right carotid artery. HISTORY: Right carotid endarterectomy 12/31/24. COMPARISONS: The previous exam was completed on 11/11/24. Compared to prior the velocities in the right ICA are now normal, S/P Rt CEA. MEASUREMENTS: Right Value RT Distal CCA PSV 45 cm/sec RT Distal CCA EDV 6 cm/sec Rt Bulb PSV 60 cm/sec Rt Bulb EDV 12 cm/sec RT Prox ICA PSV 78 cm/sec RT Prox ICA EDV 10 cm/sec RT Distal ICA PSV 137 cm/sec RT Distal ICA EDV 32 cm/sec RT ECA Prx PSV 44 cm/sec RT ICA/CCA 1.70 ratio FINDINGS: Rt Common Carotid Artery: The plaque in the right CCA appears to be heterogeneous and smooth. Rt Internal Carotid Artery: Duplex imaging of the right internal carotid artery is within normal limits without evidence of atherosclerotic disease. Rt External Carotid Artery: The right external carotid artery is patent without evidence of atherosclerotic plaque. Comments: The right ICA is widely patent without evidence of intimal flaps. CONCLUSIONS: 1. Successful endarterectomy of the right internal carotid artery. No evidence of free flaps. ATTESTATION: I have reviewed and interpreted the pertinent images and measurements of this study. I attest to the conclusions in the final report that is provided above. Electronically Signed By: Marci Perez MD 01/02/2025 9:03:16 AM LICENSED MASS REAL ESTATE APPRAISER Procedure Note Marci Perez MD - 01/02/2025 Carotid Duplex Ultrasound Report Patient Name: YRIS SOTOMAYOR B : 1950 (74y 2m) Study Date: 12/31/2024 12:23:05 PM Sex: F Branch Mechanic: BROOK[place] MATT Location: [id number] Ref Provider: MARCI PEREZ Quality: Adequate Order Provider: MARCI PEREZ PROCEDURES: Carotid Report: Carotid duplex examination of the extracranial arterieswas performed using 2D, color and spectral Doppler in an intra-operative setting. INDICATIONS: I65.21 Occlusion and stenosis of right carotid artery. HISTORY: Right carotid endarterectomy 12/31/24. COMPARISONS: The previous exam was completed on 11/11/24. Compared to prior thevelocities in the right ICA are now normal, S/P Rt CEA. MEASUREMENTS: Right Value RT Distal CCA PSV 45 cm/sec RT Distal CCA EDV 6 cm/sec Rt Bulb PSV 60 cm/sec Rt Bulb EDV 12 cm/sec RT Prox ICA PSV 78 cm/sec RT Prox ICA EDV 10 cm/sec RT Distal ICA PSV 137 cm/sec RT Distal ICA EDV 32 cm/sec RT ECA Prx PSV 44 cm/sec RT ICA/CCA 1.70 ratio FINDINGS: Rt Common Carotid Artery: The plaque in the right CCA appears to beheterogeneous and smooth. Rt Internal Carotid Artery: Duplex imaging of the right internal carotidartery is within normal limits without evidence of atherosclerotic disease. Rt External Carotid Artery: The right external carotid artery is patentwithout evidence of atherosclerotic plaque. Comments: The right ICA is widely patent without evidence of intimalflaps. CONCLUSIONS: 1. Successful endarterectomy of the right internal carotid artery. Noevidence of free flaps. ATTESTATION: I have reviewed and interpreted the pertinent images and measurements ofthis study. I attest to the conclusions in the final report that is provided above. Electronically Signed By: Marci Perez MD 01/02/2025 9:03:16 AM LICENSED MASS REAL ESTATE APPRAISER Marci Perez MD [facility] US PROCEDURES Final Result * ENDARTERECTOMY - CAROTID (12/31/2024 1:22 PM LICENSED MASS REAL ESTATE APPRAISER) Anatomical Region Laterality Modality X-Ray Angiograph y Narrative 12/31/2024 3:23 PM LICENSED MASS REAL ESTATE APPRAISER Please see OpNote for result. Marci Perez MD CV CARDIAC CATH PROCEDURES Final Result * AL AN PROCEDURE PLACEHOLDER (12/31/2024 11:13 AM LICENSED MASS REAL ESTATE APPRAISER) Narrative Valerie Araujo CRNA - 12/31/2024 11:13 AM LICENSED MASS REAL ESTATE APPRAISER Valerie Araujo CRNA 12/31/2024 11:17 AM Arterial Line Patient location: other (OR) Indication: continuous blood pressure monitoring and blood sampling needed Staff: Placed by: FARM LOAN REPRESENTATIVE: Valerie Araujo CRNA Procedure prep: Prep solution: chlorhexadine/alcohol Prep: provider hat/mask and sterile gloves Skin infiltrated with lidocaine 1%: yes Arterial line: Catheter size: 22 gauge Catheter length: 1 and 1/4 inch Catheter type: wire-guided catheter Seldinger technique: yes Laterality: left Site: radial artery Line secured: Tegaderm and tape Results: good waveform and good blood return Number of attempts: 2 Assessment: Events: patient tolerated procedure well with no complications Additional comments: Attempted x 2 by Mack CHARLES Dina Justice MD ANESTHESIA ORDERABLES Final Re sult * AL AN ELECTIVE ENDOTRACHEAL AIRWAY, AL AN PROCEDURE PLACEHOLDER (12/31/2024 11:05 AM LICENSED MASS REAL ESTATE APPRAISER) Narrative Valerie Araujo CRNA - 12/31/2024 11:05 AM LICENSED MASS REAL ESTATE APPRAISER Valerie Araujo CRNA 12/31/2024 11:11 AM Airway Patient location: OR Urgency: elective Date/time: 12/31/2024 10:48 AM Indications for airway management: anesthesia Difficult airway: no Staff: Placed by: Anesthesiologist: Dina Justice MD FARM LOAN REPRESENTATIVE: Valerie Araujo CRNA Emergent airway documentation: Risks and benefits discussed: yes Consent obtained: yes Consent given by: patient Airway prep: Preoxygenated: yes Patient position: sniffing Mask difficulty assessment: 2 - vent by mask + OA or adjuvant Spontaneous ventilation during airway: absent Sedation level during airway: deep Final airway details: Final airway type: endotracheal airway Tube type: ETT ETT size: 7.0 mm Cuffed: yes Technique used for successful ETT placement: direct laryngoscopy Devices/Methods used in placement: intubating stylet Insertion site: oral Blade type: Jeffrey Blade size: 3 Cormack-Lehane (direct): grade I - full view of glottis Cuff volume: 8 mL Cuff inflated with: air ETT to teeth: 21 cm Placement verified by: auscultation and CO2 detection Airway secured with: other ([place]om tape) Number of attempts: 1 Planned trial extubation: yes Additional comments: Placed by Mack CHARLES Dina Justice MD ANESTHESIA ORDERABLES Final Re sult * ABO / Rh Confirmation Testing (12/31/2024 9:40 AM LICENSED MASS REAL ESTATE APPRAISER) ABO/Rh Confirmation B Negative [facility] Blood 12/31/2024 9:40 AM LICENSED MASS REAL ESTATE APPRAISER 12/31/2024 9:46 AM LICENSED MASS REAL ESTATE APPRAISER Marci Perez MD LAB BLOOD ORDERABLES Final Resul t [facility] [address] [facility] Department of Laboratories [place], [place] [id number] [facility] * DEVICE CHECK - REMOTE (12/24/2024 10:09 AM LICENSED MASS REAL ESTATE APPRAISER) Anatomical Region Laterality Modality Other Narrative 01/10/2025 3:07 PM LICENSED MASS REAL ESTATE APPRAISER [employer]urity Dual Pacemaker. Dx; SSS, Afib, Bradycardia. DOI 09/13/2022-Shuddhadeb. SenVaughn. Ramu remote. Routine DDD Pacemaker Remote. Transmission attached. Battery status: 3.02 V , 9.0-9.8 years remaining battery life to [place]. Stable lead impedances, pacing and sensing thresholds. Presenting rhythm: /VS AP-30%, [employer]-< 1% No AT/AF episodes noted. 3 Ventricular high rate episodes detected, IEGM demonstrates 2 episodes of NSVT lasting 2 seconds, and 1 episode of atrial tachycardia with RVR at a rate of between 130 and 150 bpm for 2 seconds. Medications: ASA 81 mg See scanned report. Office pacemaker follow up: 03/26/25 [place] remote f/u 6 months. Woody Mcleod RN Sosa Dorsey MD CV CARDIAC SERVICES PROCEDURES Final Result * eGFR (12/23/2024 1:24 PM LICENSED MASS REAL ESTATE APPRAISER) eGFR 66 >=60 mL/min/1. 73 m2 Comment: Interpretive Data Reference Interval Normal >/= 90 mL/min/1.73m2 Mildly decreased* 60 - 89 mL/min/1.73m2 Mildly to moderately decreased 45 - 59 mL/min/1.73m2 Moderately to severely decreased 30 - 44 mL/min/1.73m2 Severely decreased 15 - 29 mL/min/1.73m2 Kidney Failure < 15 mL/min/1.73m2 *Relative to young adult level Estimated glomerular filtration rate is determined by the 2020 CKD-EPI equation recommended by the National Kidney Foundation (A Unifying Approach to GFR Estimation: Recommendations of the NKF-ASK Task Force on Reassessing the Inclusion of Race in Diagnosing Kidney Disease, JASN 2020). The CKD-EPI equation should not be used for patients with unstable renal function and has not been validated in children and those over 70. Current interpretive data was last reviewed 2020. Blood 12/23/2024 1:24 PM LICENSED MASS REAL ESTATE APPRAISER 12/23/2024 1:28 PM LICENSED MASS REAL ESTATE APPRAISER us Marci Perez MD LAB BLOOD ORDERABLES Final Resul t [facility] [address] [facility] [place] [address] * Differential, auto (12/23/2024 1:24 PM LICENSED MASS REAL ESTATE APPRAISER) Neutrophil abs 4.97 1.50 - 6.50 K/cumm Imm gran abs 0.01 0.00 - 0.10 K/cumm [facility] Lymphocyte abs 1.14 0.80 - 3.30 K/cumm [facility] Monocyte abs 0.60 0.20 - 0.80 K/cumm [facility] Eosinophil abs 0.16 0.00 - 0.50 K/cumm [facility] Basophil abs 0.04 0.00 - 0.10 K/cumm [facility] Neutrophil pct 71.8 % [facility] Comment: Interpretive Data Percent cell count reference ranges are not reported, since discordance with absolute values may lead to misinterpretation of CBC data. Current Interpretive Data was last revised on 2017. Imm gran pct 0.1 % [facility] Comment: Interpretive Data Percent cell count reference ranges are not reported, since discordance with absolute values may lead to misinterpretation of CBC data. Current Interpretive Data was last revised on 2017. Lymphocyte pct 16.5 % [facility] Comment: Interpretive Data Percent cell count reference ranges are not reported, since discordance with absolute values may lead to misinterpretation of CBC data. Current Interpretive Data was last revised on 2017. Monocyte pct 8.7 % [facility] Comment: Interpretive Data Percent cell count reference ranges are not reported, since discordance with absolute values may lead to misinterpretation of CBC data. Current Interpretive Data was last revised on 2017. Eosinophil pct 2.3 % [facility] Comment: Interpretive Data Percent cell count reference ranges are not reported, since discordance with absolute values may lead to misinterpretation of CBC data. Current Interpretive Data was last revised on 2017. Basophil pct 0.6 % [facility] Comment: Interpretive Data Percent cell count reference ranges are not reported, since discordance with absolute values may lead to misinterpretation of CBC data. Current Interpretive Data was last revised on 2017. Blood 12/23/2024 1:24 PM LICENSED MASS REAL ESTATE APPRAISER 12/23/2024 1:28 PM LICENSED MASS REAL ESTATE APPRAISER Marci Perez MD LAB BLOOD ORDERABLES Final Resul t Performing Organization Address City/[facility] Co de Phone Number [address] [place] [address] * CBC with auto differential (12/23/2024 1:24 PM LICENSED MASS REAL ESTATE APPRAISER) Pathologist [facility] WBC 6.92 3.80 - 9.90 K/cumm Hgb 13.0 11.9 - 15.5 g/dL [facility] Hct 39.0 35.6 - 45.5 % [facility] Plt 158 150 - 400 K/cumm [facility] MPV 10.1 9.1 - 12.3 fL [facility] RBC 4.36 3.90 - 5.20 M/cumm [facility] MCV 89.4 81.3 - 96.4 fL [facility] MCH 29.8 27.1 - 33.3 pg [facility] MCHC 33.3 32.3 - 35.7 g/dL [facility] RDW CV 12.9 11.1 - 14.9 % [facility] RDW SD 42.0 35.7 - 48.1 fL [facility] NRBC abs 0.00 0.00 - 0.01 K/cumm [facility] Blood 12/23/2024 1:24 PM LICENSED MASS REAL ESTATE APPRAISER 12/23/2024 1:28 PM LICENSED MASS REAL ESTATE APPRAISER Marci Perez MD LAB BLOOD ORDERABLES Final Resul t Performing Organization Address City/[facility] Co de Phone Number [address] [place] [address] * ABO/Rh (12/23/2024 1:24 PM LICENSED MASS [employer]STATE APPRAISER) Pathologist [facility] ABO/Rh B Negative Blood 12/23/2024 1:24 PM LICENSED MASS REAL ESTATE APPRAISER 12/23/2024 1:28 PM LICENSED MASS REAL ESTATE APPRAISER Narrative [facility] - 12/23/2024 2:06 PM LICENSED MASS REAL ESTATE APPRAISER Is this test being ordered in advance for a procedure?->Yes Expected date of procedure:->12/17/24 Has the patient been transfused in the past 3 months?->No Has the patient been in the past 3 months?->No Result [place] [facility] Marci Perez MD LAB BLOOD BANK TEST ORDERABLES F inal Result Performing Organization Address [facility] de Phone Number [address] [address] * aPTT (12/23/2024 1:24 PM LICENSED MASS [employer] APPRAISER) aPTT 29 22 - 37 sec Comment: Interpretive data aPTT test has not been evaluated for monitoring heparin therapy. The anti-Xa is the preferred test. Current interpretive data was last revised on 2019. Blood 12/23/2024 1:24 PM LICENSED MASS REAL ESTATE APPRAISER 12/23/2024 1:28 PM LICENSED MASS REAL ESTATE APPRAISER Result [place] [facility] Marci Perez MD LAB BLOOD ORDERABLES Final Resul t Performing Organization Address [facility] de Phone Number [address] [address] * Protime-INR (12/23/2024 1:24 PM LICENSED MASS REAL ESTATE APPRAISER) PT 13.00 12.00 - 14.60 sec INR 0.97 0.90 - 1.20 [facility] Comment: Interpretive data Oral anticoagulant therapeutic ranges: Venous thromboembolism prophylaxis or treatment: 2.0-3.0 CARDIOLOGY Standard range: 2.0-3.0 High-intensity range: 2.5-3.5 Refer to indication-specific guidelines for appropriate target ranges for prosthetic heart valve replacement. Current interpretive data was last revised on 2019. Blood 12/23/2024 1:24 PM LICENSED MASS REAL ESTATE APPRAISER 12/23/2024 1:28 PM LICENSED MASS REAL ESTATE APPRAISER Marci Perez MD LAB BLOOD ORDERABLES Final Resul t Performing Organization Address [facility] de Phone Number [address] [address] * Antibody screen (12/23/2024 1:24 PM LICENSED MASS REAL ESTATE APPRAISER) [facility] [place], indirect, Gel Interpretation Negative ABSC Blood 12/23/2024 1:24 PM LICENSED MASS REAL ESTATE APPRAISER 12/23/2024 1:28 PM LICENSED MASS REAL ESTATE APPRAISER Narrative [facility] - 12/23/2024 2:06 PM LICENSED MASS REAL ESTATE APPRAISER Is this test being ordered in advance for a procedure?->Yes Expected date of procedure:->12/17/24 Has the patient been transfused in the past 3 months?->No Has the patient been in the past 3 months?->No Marci Perez MD LAB BLOOD BANK TEST ORDERABLES F inal Result Performing Organization Address [facility] de Phone Number [address] [address] * Basic metabolic panel (12/23/2024 1:24 PM LICENSED MASS REAL ESTATE APPRAISER) [facility] Sodium 137 135 - 145 mmol/L Potassium, pl 4.4 3.3 - 4.9 mmol/L [facility] Chloride 100 97 - 110 mmol/L [facility] CO2 29 22 - 32 mmol/L [facility] Anion gap 8 2 - 15 mmol/L [facility] BUN 16 6 - 25 mg/dL [facility] Creatinine 0.92 0.60 - 1.10 mg/dL [facility] Glucose 93 70 - 199 mg/dL [facility] Comment: Interpretive Data Fasting glucose >/= 126 mg/dl is diagnostic for diabetes. Fasting is defined as no caloric intake for at least 8 hours. Fasting glucose between 100 mg/dl to 125 mg/dl is diagnostic of prediabetes. In a patient with classic symptoms of hyperglycemia or hyperglycemic crisis, a random glucose >/= 200 mg/dl is diagnostic for diabetes. In the absence of unequivocal hyperglycemia, results should be confirmed by repeat testing. The classification and Diagnosis of Diabetes Diabetes Care 2021; 46: S19-S40. Current interpretive data was last revised 2022. Calcium 9.7 8.5 - 10.3 mg/dL [facility] Blood 12/23/2024 1:24 PM LICENSED MASS REAL ESTATE APPRAISER 12/23/2024 1:28 PM LICENSED MASS REAL ESTATE APPRAISER Marci Perez MD LAB BLOOD ORDERABLES Final Resul t Performing Organization Address [facility] de Phone Number [facility] [address] [facility] [place] [address] * ECG 12 lead (12/23/2024 1:16 PM LICENSED MASS REAL ESTATE APPRAISER) Ventricular Rate EKG/Min 60 BPM [facility] Atrial Rate 60 BPM [facility] AL-Interval (MSEC) 154 ms [facility] QRS-Interval (MSEC) 96 ms [facility] QT-Interval (MSEC) 448 ms [facility] QTc 448 ms [facility] R [place] 1 degrees [facility] T [place] 69 degrees [facility] Diagnosis Atrial-paced rhythm Septal infarct Old No previous ECGs available Confirmed by SULTAN HELTON M.D. ([id number]) on 12/23/2024 10:45:12 PM [facility] 12/23/2024 1:16 PM LICENSED MASS REAL ESTATE APPRAISER 12/23/2024 10:45 PM LICENSED MASS REAL ESTATE APPRAISER Gladys San PRESETTER OPERATOR ECG ORDERABLES Charmaine l Result Performing Organization Address [facility] de Phone Number [facility] * CTA Head Neck W WO Contrast (11/25/2024 12:03 PM CDT) Anatomical Region Laterality Modality Head and Neck N/A Computed Tomogra phy 11/25/2024 2:35 PM CDT Narrative 11/25/2024 3:01 PM CDT EXAM DESCRIPTION: CTA HEAD NECK W WO CONTRAST REASON FOR STUDY: Atherosclerosis w/ claudication Atherosclerosis w/ claudication Dx: Bilateral carotid artery stenosis I65.23 (ICD-10-CM) TECHNIQUE: Axial images were first obtained through the brain without contrast. Axial dynamic scanning technique with dynamic contrast enhancement through the intracranial and extracranial carotid and vertebral arteries. Multiplanar reconstruction. All stenosis measurements are based on NASCET criteria. 3D MIP images rendered on scanning unit and reviewed at time of interpretation. Automated exposure control was used as a dose optimization technique for this examination. CONTRAST TYPE/DOSE: 100mL of IOVERSOL 350 MG IODINE/ML INTRAVENOUS SYRINGE injected via intravenous COMPARISON: No comparison. FINDINGS: BRAIN CEREBRUM: No acute hemorrhage or infarct. Incidental tiny coarse calcification of the lateral frontal region. WHITE MATTER: Patchy low density of white matter in periventricular and subcortical white matter. Focal infarct of white matter adjacent to the frontal horn right lateral ventricle. 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 Possible tiny right inferior cerebellar infarct. EXTRA-AXIAL SPACES: No fluid collections. No masses. ORBITS: No significant abnormality. CALVARIUM: No fracture. SINUSES/MASTOIDS: No fluid or mucosal thickening. OTHER: No other significant abnormality. INTRACRANIAL VESSELS [place]: Occlusion of the left distal cervical-skull base and supraclinoid ICA. Reconstitution of the left A1 and left M1 M2 vessels by cross-filling through anterior communicating artery segment. Coarse calcification of the right cavernous ICA but no high-grade stenosis. The proximal intracranial anterior middle and posterior cerebral arteries appear normal however there may be a few distal M3 M4-A3 A4 focal narrowings. No definable aneurysm.. POSTERIOR CIRCULATION: The distal vertebral arteries are patent as is the basilar artery. No aneurysm. BRAIN: No gross enhancing lesions as visualized. CAROTID CTA RIGHT CAROTIDS: There is coarse calcific plaque throughout the right common carotid artery. Long segment coarse calcific plaque throughout the distal common carotid artery and carotid bulb and proximal ICA. There is severe stenosis of the proximal internal carotid artery with residual lumen estimated at 1.2 mm. Compared to a measured distal internal carotid artery diameter 5.7 mm, this corresponds to roughly 79 %. Also noted is a roughly 70% stenosis of the distal common carotid artery.More distally, the right internal carotid artery has a normal caliber through skull base. LEFT CAROTIDS: The left common carotid artery is occluded at the bifurcation. LEFT VERTEBRAL: Patent. No significant stenosis. No dissection. RIGHT VERTEBRAL: The distal right vertebral artery and cervical vertebral artery are patent however there is irregular opacification of the lumen of the distal V3-V4 vertebral artery suggesting significant arteriosclerotic plaque. AORTIC ARCH: Normal three-vessel origin. Bilateral subclavian arteries are patent. No dissection. NECK SOFT TISSUE: No mass, adenopathy. No thyroid nodule greater than 1 cm. INCLUDED LUNGS: Calcified granuloma. No definable focal consolidation. OTHER: No other significant finding. IMPRESSION: BRAIN: No acute abnormalities. Patchy areas of low density of white matter probably chronic microvascular related. Comparison with any prior studies may be beneficial to assess stability. INTRACRANIAL CTA: 1. Occlusion of the left distal cervical-skull base and supraclinoid ICA with reconstitution of the left A1 and M1 M2 vessels by cross-filling through anterior communicating artery segment. 2. Possible focal narrowings of the distal M3 M4-A3 A4 segments of the anterior cerebral arteries. CAROTID CTA: 1. Occlusion of the left common carotid artery at the bifurcation. 2. Severe stenosis of the proximal right internal carotid artery estimated at roughly 79%. 3. Severe stenosis of the distal right common carotid artery estimated at roughly 70%. 4. Irregular opacification of the distal right vertebral artery suggesting significant arteriosclerotic plaque. THIS IS AN ELECTRONICALLY VERIFIED FINAL REPORT 11/25/2024 3:01 PM - Electronically signed by Cecy Taylor M.D. T: Report ID: [id number] Reading Location: [id number] Procedure Note Marine Taylor MD - 11/25/2024 EXAM DESCRIPTION: CTA HEAD NECK W WO CONTRAST REASON FOR STUDY: Atherosclerosis w/ claudication Atherosclerosis w/ claudication Dx: Bilateral carotid artery [id number] (ICD-10-CM) TECHNIQUE: Axial images were first obtained through the brain without contrast. Axial dynamic scanning technique with dynamic contrast enhancement throughthe intracranial and extracranial carotid and vertebral arteries. Multiplanar reconstruction. All stenosis measurements are based on NASCET criteria. 3D MIP images rendered on scanning unit and reviewed at time of interpretation. Automated exposure control was used as a dose optimization technique forthis examination. CONTRAST TYPE/DOSE: 100mL of IOVERSOL 350 MG IODINE/ML INTRAVENOUSSYRINGE injected via intravenous COMPARISON: No comparison. FINDINGS: BRAIN CEREBRUM: No acute hemorrhage or infarct. Incidental tiny coarse calcification of the lateral frontal region. WHITE MATTER: Patchy low density of white matter in periventricular and subcortical white matter. Focal infarct of white matter adjacent to the frontal horn right lateral ventricle. 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 Possible tiny right inferior cerebellar infarct. EXTRA-AXIAL SPACES: No fluid collections. No masses. ORBITS: No significant abnormality. CALVARIUM: No fracture. SINUSES/MASTOIDS: No fluid or mucosal thickening. OTHER: No other significant abnormality. INTRACRANIAL VESSELS [place] OF [place]: Occlusion of the left distal cervical-skull base and supraclinoid ICA. Reconstitution of the left A1 and left M1 M2 vessels by cross-filling through anterior communicating artery segment. Coarse calcification of the right cavernous ICA but no high-grade stenosis. The proximal intracranial anterior middle and posterior cerebral arteriesappear normal however there may be a few distal M3 M4-A3 A4 focal narrowings. No definable aneurysm.. POSTERIOR CIRCULATION: The distal vertebral arteries are patent as isthe basilar artery. No aneurysm. BRAIN: No gross enhancing lesions as visualized. CAROTID CTA RIGHT CAROTIDS: There is coarse calcific plaque throughout the rightcommon carotid artery. Long segment coarse calcific plaque throughout the distal common carotid artery and carotid bulb and proximal ICA. There is severe stenosis of the proximal internal carotid artery with residual lumenestimated at 1.2 mm. Compared to a measured distal internal carotid artery diameter5.7 mm, this corresponds to roughly 79 %. Also noted is a roughly 70% stenosisof the distal common carotid artery.More distally, the right internal carotid artery has a normal caliber through skull base. LEFT CAROTIDS: The left common carotid artery is occluded at the bifurcation. LEFT VERTEBRAL: Patent. No significant stenosis. No dissection. RIGHT VERTEBRAL: The distal right vertebral artery and cervicalvertebral artery are patent however there is irregular opacification of the lumen ofthe distal V3-V4 vertebral artery suggesting significant arterioscleroticplaque. AORTIC ARCH: Normal three-vessel origin. Bilateral subclavian arteriesare patent. No dissection. NECK SOFT TISSUE: No mass, adenopathy. No thyroid nodule greater than 1cm. INCLUDED LUNGS: Calcified granuloma. No definable focal consolidation. OTHER: No other significant finding. IMPRESSION: BRAIN: No acute abnormalities. Patchy areas of low density of white matterprobably chronic microvascular related. Comparison with any prior studies may be beneficial to assess stability. INTRACRANIAL CTA: 1. Occlusion of the left distal cervical-skull base and supraclinoid ICA with reconstitution of the left A1 and M1 M2 vessels by cross-fillingthrough anterior communicating artery segment. 2. Possible focal narrowings of the distal M3 M4-A3 A4 segments of the anterior cerebral arteries. CAROTID CTA: 1. Occlusion of the left common carotid artery at the bifurcation. 2. Severe stenosis of the proximal right internal carotid arteryestimated at roughly 79%. 3. Severe stenosis of the distal right common carotid artery estimatedat roughly 70%. 4. Irregular opacification of the distal right vertebral arterysuggesting significant arteriosclerotic plaque. THIS IS AN ELECTRONICALLY VERIFIED FINAL REPORT 11/25/2024 3:01 PM - Electronically signed by Cecy Taylor M.D. LC T: Report ID: [id number] Reading Location: [id number] Marci Perez MD IMG CT PROCEDURES Final Result * US Carotids Duplex Bilateral (11/11/2024 12:04 PM CDT) Anatomical Region Laterality Modality Vascular Bilateral Ultrasound 11/11/2024 11:1 8 AM CDT Narrative 11/11/2024 1:36 PM CDT Carotid Duplex Ultrasound Report Patient Name: YRIS SOTOMAYOR B : 1950 (74y ) Study Date: 11/11/2024 11:18:12 AM Sex: F Branch Mechanic: Dina Ren RDMS,T Ref Provider: MARCI PEREZ Quality: Adequate Order Provider: MARCI PEREZ PROCEDURES: Carotid Report: Carotid duplex examination of the extracranial arteries was performed using 2D, color and spectral Doppler. Blood Pressure: Right: 146 mmHg. Left: 146 mmHg. INDICATIONS: I65.23 Occlusion and stenosis of bilateral carotid arteries. COMPARISONS: The previous exam was completed on 05/13/2024. Previous carotid reported >70% on the right and occluded on the left ICA. MEASUREMENTS: Right Value Left Value RT Prox CCA PSV 96 cm/sec LT Prox CCA PSV 50 cm/sec RT Prox CCA EDV 21 cm/sec LT Prox CCA EDV 0 cm/sec RT Distal CCA PSV 85 cm/sec LT Distal CCA PSV 19 cm/sec RT Distal CCA EDV 20 cm/sec LT Distal CCA EDV 4 cm/sec RT Prox ICA PSV 124 cm/sec LT Prox ICA PSV 0 cm/sec RT Prox ICA EDV 38 cm/sec LT Prox ICA EDV 0 cm/sec RT Mid ICA PSV 359 cm/sec LT Mid ICA PSV 0 cm/sec RT Mid ICA EDV 101 cm/sec LT Mid ICA EDV 0 cm/sec RT Distal ICA PSV 131 cm/sec LT Distal ICA PSV 0 cm/sec RT Distal ICA EDV 47 cm/sec LT Distal ICA EDV 0 cm/sec RT ECA Prx PSV 126 cm/sec LT ECA Prx PSV 246 cm/sec RT ICA/CCA 4.22 ratio Lt Vert PSV 95 cm/sec Rt Vert PSV 44 cm/sec FINDINGS: Rt Common Carotid Artery: The plaque in the right CCA appears to be heterogeneous. Atherosclerotic changes of the right common carotid artery with no hemodynamically significant Doppler findings. Rt Internal Carotid Artery: The plaque in the right internal carotid artery appears to be heterogeneous and irregular. Significant atherosclerotic changes of the right internal carotid artery with elevated peak systolic velocity and end diastolic velocity, as above. >70% stenosis. Rt External Carotid Artery: Patent right external carotid artery with evidence of atherosclerotic disease present. Rt Vertebral Artery: The right vertebral artery is patent with antegrade flow. Lt Common Carotid Artery: The plaque in the left CCA appears to be heterogeneous and irregular. Lt Internal Carotid Artery: No evidence of color filling and absent Doppler signals within the left internal carotid artery. Significant atherosclerotic disease present on 2D imaging. Lt External Carotid Artery: Patent left external carotid artery with evidence of atherosclerotic disease present. Lt Vertebral Artery: The left vertebral artery is patent with antegrade flow. CONCLUSIONS: 1. The right internal carotid artery disease is consistent with severe, greater than 70% stenosis. 2. The left internal carotid artery disease is consistent with a severe obstruction or complete occlusion. 3. Normal, antegrade flow is noted in bilateral vertebral arteries. ATTESTATION: I have reviewed and interpreted the pertinent images and measurements of this study. I attest to the conclusions in the final report that is provided above. Electronically Signed By: Dinh Perez MD 11/11/2024 1:25:34 PM CDT Procedure Note Dinh Perez MD - 11/11/2024 Carotid Duplex Ultrasound Report Patient Name: YRIS SOTOMAYOR B : 1950 (74y ) Study Date: 11/11/2024 11:18:12 AM Sex: F Branch Mechanic: Dina Ren RDMS,RVT Ref Provider: MARCI PEREZ Quality: Adequate Order Provider: MARCI PEREZ PROCEDURES: Carotid Report: Carotid duplex examination of the extracranial arterieswas performed using 2D, color and spectral Doppler. Blood Pressure: Right: 146 mmHg. Left: 146 mmHg. INDICATIONS: I65.23 Occlusion and stenosis of bilateral carotid arteries. COMPARISONS: The previous exam was completed on 05/13/2024. Previous carotid reported>70% on the right and occluded on the left ICA. MEASUREMENTS: Right Value Left Value RT Prox CCA PSV 96 cm/sec LT Prox CCA PSV 50 cm/sec RT Prox CCA EDV 21 cm/sec LT Prox CCA EDV 0 cm/sec RT Distal CCA PSV 85 cm/sec LT Distal CCA PSV 19 cm/sec RT Distal CCA EDV 20 cm/sec LT Distal CCA EDV 4 cm/sec RT Prox ICA PSV 124 cm/sec LT Prox ICA PSV 0 cm/sec RT Prox ICA EDV 38 cm/sec LT Prox ICA EDV 0 cm/sec RT Mid ICA PSV 359 cm/sec LT Mid ICA PSV 0 cm/sec RT Mid ICA EDV 101 cm/sec LT Mid ICA EDV 0 cm/sec RT Distal ICA PSV 131 cm/sec LT Distal ICA PSV 0 cm/sec RT Distal ICA EDV 47 cm/sec LT Distal ICA EDV 0 cm/sec RT ECA Prx PSV 126 cm/sec LT ECA Prx PSV 246 cm/sec RT ICA/CCA 4.22 ratio Lt Vert PSV 95 cm/sec Rt Vert PSV 44 cm/sec FINDINGS: Rt Common Carotid Artery: The plaque in the right CCA appears to beheterogeneous. Atherosclerotic changes of the right common carotid artery with nohemodynamically significant Doppler findings. Rt Internal Carotid Artery: The plaque in the right internal carotidartery appears to be heterogeneous and irregular. Significant atherosclerotic changes of theright internal carotid artery with elevated peak systolic velocity and end diastolicvelocity, as above. >70% stenosis. Rt External Carotid Artery: Patent right external carotid artery withevidence of atherosclerotic disease present. Rt Vertebral Artery: The right vertebral artery is patent with antegradeflow. Lt Common Carotid Artery: The plaque in the left CCA appears to beheterogeneous and irregular. Lt Internal Carotid Artery: No evidence of color filling and absentDoppler signals within the left internal carotid artery. Significant atheroscleroticdisease present on 2D imaging. Lt External Carotid Artery: Patent left external carotid artery withevidence of atherosclerotic disease present. Lt Vertebral Artery: The left vertebral artery is patent with antegradeflow. CONCLUSIONS: 1. The right internal carotid artery disease is consistent with severe,greater than 70% stenosis. 2. The left internal carotid artery disease is consistent with a severeobstruction or complete occlusion. 3. Normal, antegrade flow is noted in bilateral vertebral arteries. ATTESTATION: I have reviewed and interpreted the pertinent images and measurements ofthis study. I attest to the conclusions in the final report that is provided above. Electronically Signed By: Dinh Perez MD 11/11/2024 1:25:34 PM CDT Marci Perez MD IM US PROCEDURES Final Result * US Arterial Doppler Lower Extremity Bilateral (11/11/2024 12:04 PM CDT) Anatomical Region Laterality Modality Vascular Bilateral Ultrasound 11/11/2024 11:1 8 AM CDT Narrative 11/11/2024 1:36 PM CDT Lower Extremity Arterial Doppler Report Patient Name: YRIS SOTOMAYOR B : 1950 Study Date: 11/11/2024 11:18:00 AM Sex: F Branch Mechanic: Dina Ren RDMS,RVT Ref Provider: MARCI PEREZ Quality: Adequate Order Provider: MARCI PEREZ PROCEDURES: Arterial Report: Bilateral lower extremity arterial Doppler exam at rest. INDICATIONS: I70.213 Atherosclerosis of [place] arteries of extremities with intermittent claudication, bilateral legs. COMPARISONS: The previous exam was completed on 05/13/2024. Previous ANIYAH: RT PT .52, DP .52, 1st digit .42 and LT PT .76, DP .58, 1st digit .52. MEASUREMENTS: Right Value Left Value Rt Brachial Pressure 146 mmHg Lt Brachial Pressure 146 mmHg Rt DIVISION HEAD Pressure 72 mmHg Lt DIVISION HEAD Pressure 94 mmHg Rt DPA Pressure 54 mmHg Lt DPA Pressure 83 mmHg Rt 1st Digit Pressure 25 mmHg Lt 1st Digit Pressure 56 mmHg Rt PT ANIYAH Resting 0.49 Lt PT ANIYAH Resting 0.64 Rt DP ANIYAH Resting 0.37 Lt DP ANIYAH Resting 0.57 Rt Digit 1/Arm Index 0.17 Lt Digit 1/Arm Index 0.38 FINDINGS: Comments: Patient refused any other cuffs except at the ankle due to pain. CONCLUSIONS: 1. Ankle-brachial index of <0.5 is consistent with severe arterial disease in the right lower extremity. 2. Ankle-brachial index of 0.5-0.8 is consistent with claudication and a moderate occlusive arterial disease in the left lower extremity. 3. Right toe pressure is poor for wound healing (an absolute toe pressure = or < 40mmHg may be indicative of poor wound healing potential and /or rest pain). 4. There is evidence of right leg arterial insufficiency at the level of aorta- iliac, common femoral (inflow) arteries and femoral-popliteal arteries. 5. There is evidence of left leg arterial insufficiency at the level of aorta- iliac, common femoral (inflow) arteries and femoral-popliteal arteries. ATTESTATION: I have reviewed and interpreted the pertinent images and measurements of this study. I attest to the conclusions in the final report that is provided above. Electronically Signed By: Dinh Perez MD 11/11/2024 1:27:24 PM CDT Procedure Note Dinh Perez MD - 11/11/2024 Lower Extremity Arterial Doppler Report Patient Name: YRIS SOTOMAYOR B : 1950 Study Date: 11/11/2024 11:18:00 AM Sex: F Branch Mechanic: Dina Ren RDMS,RVT Ref Provider: MARCI PEREZ Quality: Adequate Order Provider: MARCI PEREZ PROCEDURES: Arterial Report: Bilateral lower extremity arterial Doppler exam at rest. INDICATIONS: I70.213 Atherosclerosis of [place] arteries of extremities withintermittent claudication, bilateral legs. COMPARISONS: The previous exam was completed on 05/13/2024. Previous ANIYAH: RT PT .52, DP.52, 1st digit .42 and LT PT .76, DP .58, 1st digit .52. MEASUREMENTS: Right Value Left Value Rt Brachial Pressure 146 mmHg Lt Brachial Pressure 146 mmHg Rt DIVISION HEAD Pressure 72 mmHg Lt DIVISION HEAD Pressure 94 mmHg Rt DPA Pressure 54 mmHg Lt DPA Pressure 83 mmHg Rt 1st Digit Pressure 25 mmHg Lt 1st Digit Pressure 56 mmHg Rt PT ANIYAH Resting 0.49 Lt PT ANIYAH Resting 0.64 Rt DP ANIYAH Resting 0.37 Lt DP ANIYAH Resting 0.57 Rt Digit 1/Arm Index 0.17 Lt Digit 1/Arm Index 0.38 FINDINGS: Comments: Patient refused any other cuffs except at the ankle due to pain. CONCLUSIONS: 1. Ankle-brachial index of <0.5 is consistent with severe arterial diseasein the right lower extremity. 2. Ankle-brachial index of 0.5-0.8 is consistent with claudication and amoderate occlusive arterial disease in the left lower extremity. 3. Right toe pressure is poor for wound healing (an absolute toe pressure= or < 40mmHg may be indicative of poor wound healing potential and /or rest pain). 4. There is evidence of right leg arterial insufficiency at the level ofaorta- iliac, common femoral (inflow) arteries and femoral-popliteal arteries. 5. There is evidence of left leg arterial insufficiency at the level ofaorta- iliac, common femoral (inflow) arteries and femoral-popliteal arteries. ATTESTATION: I have reviewed and interpreted the pertinent images and measurements ofthis study. I attest to the conclusions in the final report that is provided above. Electronically Signed By: Dinh Perez MD 11/11/2024 1:27:24 PM CDT Marci Perez MD IM US PROCEDURES Final Result from Last 3 Months Insurance [id number] UHC MEDICARE ADVANTAGE [facility] MEDICARE ADVANTAGE Advance Directives For more information, please contact: [phone] * Full Code (Latest Code Status on File) Date Activated Date Inactivated Comments 12/31/2024 3:00 PM 01/01/2025 3:23 PM * Full Code Date Activated Date Inactivated Comments 09/05/2022 3:01 PM 09/15/2022 7:53 PM * Full Code Date Activated Date Inactivated Comments 08/27/2022 4:07 AM 09/05/2022 3:01 PM Care Teams Equipment Validation Specialist Relationship Specialty Start Date End Date Nic Reyes MD [address] [place] [address] PCP - General 12/16/13 Regina Wood MD [address] [place] [address] Surgeon Cardiothoracic Surgery 09/15/22 Sosa Dorsey MD [facility]ESSICA [facility]TE[facility] [id number] [place] [id number] Consulting Physician Interventional Cardiology 09/15/22
--- OUTSIDE RECORDS SUMMARY | 2025-02-04 16:49 | XMS_ITS | Clinical Summary ---
Author Organization [facility] Address [address] [place] [address] Care Team Providers Care Ultimate Hoops Trainer Name Role Phone Unavailable Primary Care Provider Unavailabl e Source Comments [facility] [employer],non-owned Affiliates and Associated Physician Practices is amultiple site organization consisting of ambulatory clinics and hospital sitesin [place], [place], [place]. This disclosure is being madepursuant to the Care Everywhere program and may not contain all information available regarding this patient. 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 Gender Identity Not on file Sexual Orientation Not on file Plan of Treatment Health Maintenance Due Date Last Done Comments BONE DENSITY TESTING 1950 COLOGUARD (AGES 45-75) - COL ON CA SCREENING 1950 COLON MONITORING 1950 COLONOSCOPY - COLON CA SCREENING 1950 CT COLONOGRAPHY - COLON CA SCREENING 1950 Colorectal Cancer Screening 1950 FIT - COLON CA SCREENING 1950 FLEX SIG - COLON CA SCREENING 1950 LIPID TESTING 1950 MAMMOGRAM 1950 HEPATITIS C SCREENING 10/22/1969 DTAP/TDAP/TD VACCINES (1 - Tdap) 10/26/1970 PNEUMOCOCCAL VACCINE 50+ (1 of 1 - PCV) 10/26/2001 ZOSTER VACCINE (1 of 2) 10/26/2001 DEPRESSION SCREENING 02/21/2024 COVID-19 VACCINE (1 - 2024-2 6 season) 2024 INFLUENZA VACCINE (#1) 2024 Respiratory Syncytial Virus (RSV) Vaccine Pt: or over 60 yrs (1 - 1-dose 75+ series) 10/26/2026 HEPATITIS B VACCINE Aged Out No longe r eligible based on patient's age to complete this topic HIB VACCINE Aged Out No longer eligi ble based on patient's age to complete this topic HPV VACCINE Aged Out No longer eligi ble based on patient's age to complete this topic MENINGOCOCCAL (Group B) VACC INE SHARED DECISION-MAKING Aged Out No longer eligibl e based on patient's age to complete this topic MENINGOCOCCAL GROUPS A/C/Y/W VACCINE Aged Out No longer eligible b ased on patient's age to complete this topic
--- OUTSIDE RECORDS SUMMARY | 2025-02-04 16:49 | XMS_ITS | Clinical Summary ---
Author Organization [facility] Address [address] [place] [id number] Care Team Providers Care Auto Body Detailer Name Role Phone Unavailable Primary Care Provider Unavailabl e Social History Tobacco Use Types Packs/Day Years Used Date Smoking Tobacco: Never Assessed Comments Unknown Sex and Gender Information Value Date Recorded Sex Assigned at Not on file Legal Sex Female 8:14 PM CDT Gender Identity Not on file Sexual Orientation Not on file Plan of Treatment Health Maintenance Due Date Last Done Comments Colorectal Cancer Screening Colonoscopy (10 Years) 1950 Hepatitis C 10/26/1969 DTaP, Tdap and Td Vaccines ( 1 - Tdap) 10/26/1970 Mammogram Screening 1991 Pneumococcal Vaccine: 50+ Ye ars (1 of 1 - PCV) 10/26/2001 Zoster Vaccines (1 of 2) 10/26/2001 Dexa Scan (General) 10/26/2016 COVID-19 Vaccine (2024-2 6 season) 2024 Influenza Adult (#1) 2024 RSV Immunization or 60+ Years (1 - 1-dose 75+ series) 10/26/2026 Hepatitis A Vaccines Aged Out No long er eligible based on patient's age to complete this topic Meningococcal B Vaccine Aged Out No l onger eligible based on patient's age to complete this topic Meningococcal Vaccine Aged Out No merlyn vic eligible based on patient's age to complete this topic RSV Immunizations Under 20 Months Aged Out No longer eligible based on patient's age to complete this topic
--- OUTSIDE RECORDS SUMMARY | 2025-02-04 17:46 | XMS_ITS | Clinical Summary ---
Author Organization [facility] Address [address] [place] [id number] Care Team Providers Care Hand Stoner Name Role Phone Unavailable Primary Care Provider [...]
--- OUTSIDE RECORDS SUMMARY | 2025-02-04 17:46 | XMS_ITS | Clinical Summary ---
Author Organization [facility] [address] Address [address] [place] [address] Care Team Providers Care Peg Driver Name Role Phone Nic Reyes MD Primary Care Provider [phone] Regina Wood MD Unavailable [phone] Sosa Dorsey MD Unavailable [phone] Allergies Active Allergy Reactions Criticality Noted Date [...] PAF (paroxysmal atrial fibrillation) 03/25/2024 Atherosclerosis of [place] ar candice of both lower extremities with [...] SSS, Afib, Bradycardia. DOI 09/13/2022- Shuddhadeb. Zac. [place] remote. Hyponatremia 08/31/2022 Depression 08/27/2022 Thrombophlebitis 07/14/2022 [...] Crestor Assessment & Plan (01/28/2022 10:54 AM SLUBBER HAND): Impression: Chronic hyperlipidemia, controlled with statin therapy. Plan: Continue statin therapy his primary care provider. Bilateral carotid artery stenosis 07/01/2021 Assessment & Plan (01/02/2025 10:14 AM SLUBBER HAND): Impression: Patient is status post right carotid [...] duplex Assessment & Plan (01/28/2022 10:53 AM SLUBBER HAND): Impression: Patient has known left internal carotid occlusion and moderate internal carotid artery stenosis to the right side with less than 79% in diameter. Patient remains asymptomatic. Plan: Continue ongoing risk factor modifications. Patient to follow-up in 6 months for re-evaluation with repeat carotid duplex. Tobacco abuse counseling 12/07/2020 Assessment & Plan (01/28/2022 10:57 AM SLUBBER HAND): Impression: Patient is a current everyday smoker, [...] further management. Coronary artery disease invo lving [place] coronary artery of [place] heart without angina pectoris 03/09/2020 S/P aortic valve replacement with bioprosthetic valve 09/02/2019 Hx of CABG 09/02/2019 Primary hypertension 09/02/2019 Assessment & Plan (12/05/2024 12:30 PM CDT): Stable continue metoprolol Assessment & Plan (05/13/2024 3:37 PM CDT): Impression: Chronic and stable. Plan: Continue Lasix, and metoprolol. Assessment & Plan (11/16/2023 11:44 AM CDT): Stable continue metoprolol Assessment & Plan (01/28/2022 10:54 AM SLUBBER HAND): Impression: Chronic hypertension, controlled medications. Blood pressure [...] Department Care Team Description 01/20/2025 1:00 PM SLUBBER HAND Office Visit [facility] Medical [facility] Vascular and Vein Surgery [address] [place] [phone] Dulce Husain PA Carotid stenosis, right (Primary Dx) 01/20/2025 Orders Only [facility] Vascular and Vein Surgery [address] [place] [phone] Marci Perez MD Bilateral carotid artery stenosis (Primary Dx); Aftercare following surgery of the circulatory system 01/02/2025 11:06 AM SLUBBER HAND - 01/02/2025 1:31 PM SLUBBER HAND Emergency [address] [address] Leonardo Fisher MD Allergic reaction, initial encounter (Primary Dx) Discharge Disposition: Discharge to home or self care 01/02/2025 9:30 AM SLUBBER HAND Office Visit [facility] Vascular and Vein Surgery [address] [place] [phone] Valerie Waters NP Bilateral carotid artery stenosis (Primary Dx) 12/31/2024 10:41 AM SLUBBER HAND Anesthesia Event [facility] Main OR [address] [place] [address] Dina Bruner MD Taylor-White, Carlotta A., NP 12/31/2024 10:00 AM SLUBBER HAND - 12/31/2024 12:42 PM SLUBBER HAND Surgery [facility] Main OR [address] [place] [address] Marci Perez MD RIGHT CAROTID ENDARTERECTOMY 12/31/2024 7:56 AM SLUBBER HAND - 01/01/2025 11:18 AM SLUBBER HAND Hospital Encounter [facility] [address] [place] [address] Marci Perez MD Carotid stenosis, right Discharge Disposition: Discharge to home or self care 12/24/2024 9:00 AM SLUBBER HAND Ancillary Procedure [facility] Cardiology [address] [facility] [address] [place] [phone] Cardiac pacemaker in situ (Primary Dx); Sick sinus syndrome (HCC); Bradycardia; Atrial fibrillation, unspecified type (HCC) 12/23/2024 1:00 PM SLUBBER HAND Pre-Admission Testing [facility] PreAdmission Testing [address] [place] [address] Carotid stenosis, right; Preop examination 12/06/2024 Orders Only [facility] PreAdmission Testing [address] [place] [address] Halima Miramontes RN 12/02/2024 2:45 PM CDT Office Visit [facility] Vascular and Vein Surgery [address] [phone] Marci Perez MD Carotid stenosis, right (Primary Dx); Mixed hyperlipidemia; Primary hypertension 12/02/2024 Documentation [facility] Medical [facility] Vascular and Vein Surgery [address] [phone] Kelsey Morel, RN 11/25/2024 11:54 AM CDT - 11/25/2024 11:59 PM CDT Hospital Encounter [facility] [address] [place] [address] Bilateral carotid artery stenosis Discharge Disposition: Discharge to home or self care 11/11/2024 1:45 PM CDT Office Visit [facility] Group Vascular and Vein Surgery [address] [facility] [address] [place] [address] Marci Perez MD Bilateral carotid artery stenosis (Primary Dx); Mixed hyperlipidemia; Atherosclerosis of [place] artery of both lower extremities with intermittent claudication 11/11/2024 11:04 AM CDT - 11/11/2024 11:59 PM CDT Hospital Encounter [facility] Medical Office Building [address] [place] [address] [address] [place] [address] Bilateral carotid artery stenosis Discharge Disposition: Discharge to home or self care 11/11/2024 11:00 AM CDT - 11/11/2024 11:59 PM CDT Hospital Encounter [facility] Medical Office Building [address] [place] [address] Atherosclerosis of [place] artery of both lower extremities with intermittent claudication Discharge Disposition: Discharge to home or self care 11/11/2024 Orders Only [facility] Vascular and Vein Surgery [address] [place] [address] [address] [place] [address] Marci Perez MD Atherosclerosis of [place] artery of both lower extremities with intermittent [...] artery disease Hypertension CHF (congestive heart failure) ([facility]) 2022 Irritable bowel syndrome Peptic ulceration SENSITIVE [...] place to sleep or slept in a mcc (including now)? No 08/30/2022 Social Connection and Isolation Panel Answer Date Recorded In a typical week, how many times do you talk on the phone with family, friends, or neighbors? More than three times a week 01/01/2025 How often do you get togethe r with friends or relatives? More than three times a week 01/01/2025 How often do you attend chur ch or hindu services? Never 01/01/2025 Do you belong to any clubs o r organizations such as roman catholic groups, unions, fraternal or athletic groups, or [...] any time in the past 12 m [facility], were you homeless or living in a mcc (including now)? No 01/01/2025 [facility] Utilities Answer Date Recorded In the past [...] on file Legal Sex Female 1:59 AM SLUBBER HAND Gender Identity Not on file Sexual Orientation Not on file Last Filed Vital Signs Vital Sign Reading Time Taken Comments Blood Pressure 126/70 01/20/2025 1:11 PM SLUBBER HAND Pulse 70 01/20/2025 1:11 PM SLUBBER HAND Temperature 36.6 C (97.9 F) 01/02/2025 9:40 AM SLUBBER HAND Respiratory Rate 20 01/02/2025 1:30 PM SLUBBER HAND Oxygen Saturation 100% 01/02/2025 1:30 PM SLUBBER HAND Inhaled Oxygen Concentration - - Weight 64.4 kg (142 lb) 01/20/2025 1:11 PM SLUBBER HAND Height 162.6 cm (5' 4) 01/20/2025 1:11 PM SLUBBER HAND Body Mass Index 24.37 01/20/2025 1:11 PM SLUBBER HAND Plan of Treatment Health Maintenance Due Date [...] 07/04/2018, 10/22 Medical Devices Implanted Type Area Front Desk Supervisor Device Identifier Shelf Expiration Date Model / Serial / Lot [employer] Tendril Sts 6fr 52cm Is-1 Connector Active Fixation Bipolar Soft /52 - [id number] - [id number] Implanted:Qty: 1 on 09/13/2022 by Regina Wood MD at [facility] Lead N/A: Ventricle [employer] [id number] 07/20/2025 2088TC/5 2 / [id number] / [employer] Tendril Sts 6fr 46cm Is-1 Connector Bipolar Active Fixation /46 - [id number] - [id number] Implanted:Qty: 1 on 09/13/2022 by Regina Wood MD at [facility] Lead N/A: Atria [employer] [id number] 06/19/2025 2088TC/4 6 / [id number] / Description:A LEAD [employer] Assurity Mri [id number] Chamber Is-1 Connector Thk6mm Pacemaker [id number] - [id number] - [id number] Implanted:Qty: 1 on 09/13/2022 by Regina Wood MD at [facility] Pacemaker Left: Chest [employer] [id number] 02/20/2024 [id number] / [id number] / [employer] Inspiris Resilia Aortic Valve 21mm [id number] - [id number] - [id number] Implanted:Qty: 1 on 09/05/2022 by Regina Wood MD at [facility] N/A: Heart [employer] 02/07/2026 [id number] / [id number] / [employer] Patch Vascuguard 0.88cm [id number] - [id number] Implanted:Qty: 1 on 12/31/2024 by Marci Perez MD at [facility] Right: Carotid [employer] [id number] 04/16/2026 [id number] / [id number] Procedures Procedure Name Priority Date/Time Associated Diagnosis Comments EGFR STAT 01/02/2025 9:46 AM SLUBBER HAND DIFFERENTIAL AUTO STAT 01/02/2025 9:4 6 AM SLUBBER HAND COMPREHENSIVE METABOLIC PANEL STAT 01/02/2025 9:46 AM SLUBBER HAND CBC WITH AUTO DIFFERENTIAL STAT 01/02/2025 9:46 AM SLUBBER HAND EGFR Routine 01/01/2025 4:46 AM SLUBBER HAND DIFFERENTIAL AUTO Routine 01/01/2025 4:4 6 AM SLUBBER HAND BASIC METABOLIC PANEL Routine 01/01/2025 4:46 AM SLUBBER HAND CBC WITH AUTO DIFFERENTIAL Routine 01/01/2025 4:46 AM SLUBBER HAND US CAROTID DUPLEX UNILATERAL RIGHT IP Routine 12/31/2024 3:10 PM SLUBBER HAND Carotid stenosis, right VASCULAR SURGERY PROCEDURE Routine 12/31/2024 1:22 PM SLUBBER HAND Carotid stenosis, right MA AN PROCEDURE PLACEHOLDER Routine 12/31/2024 11:13 AM SLUBBER HAND MA AN PROCEDURE PLACEHOLDER Routine 12/31/2024 11:05 AM SLUBBER HAND MA AN ELECTIVE ENDOTRACHEAL AIRWAY Routine 12/31/2024 11:05 AM SLUBBER HAND B ABO / RH CONFIRMATION TESTING STAT 12/31/2024 9:40 AM SLUBBER HAND DEVICE CHECK - REMOTE Routine 12/24/2024 10:09 AM SLUBBER HAND Sick sinus syndrome (HCC) Bradycardia Atrial fibrillation, unspecified type (HCC) EGFR Routine 12/23/2024 1:24 PM SLUBBER HAND Carotid stenosis, right DIFFERENTIAL AUTO Routine 12/23/2024 1:2 4 PM SLUBBER HAND Carotid stenosis, right ANTIBODY SCREEN Routine 12/23/2024 1:24 PM SLUBBER HAND Carotid stenosis, right ABO/RH Routine 12/23/2024 1:24 PM SLUBBER HAND Carotid stenosis, right BASIC METABOLIC PANEL Routine 12/23/2024 1:24 PM SLUBBER HAND Carotid stenosis, right CBC WITH AUTO DIFFERENTIAL Routine 12/23/2024 1:24 PM SLUBBER HAND Carotid stenosis, right PROTIME-INR Routine 12/23/2024 1:24 PM SLUBBER HAND Carotid stenosis, right APTT Routine 12/23/2024 1:24 PM SLUBBER HAND Carotid stenosis, right TYPE AND SCREEN 14 DAY Routine 12/23/2024 1:24 PM SLUBBER HAND Carotid stenosis, right ECG 12-LEAD Routine 12/23/2024 1:16 PM SLUBBER HAND Preop examination CTA HEAD NECK W WO CONTRAST Schedule Routine, Read Routine (OP Routine) 11/25/2024 12:03 PM CDT Bilateral carotid artery stenosis US CAROTIDS DUPLEX BILATERAL Schedule Routine, Read Routine (OP Routine) 11/11/2024 12:04 PM CDT Bilateral carotid artery stenosis US ARTERIAL DOPPLER LOWER EXTREMITY BILATERAL Schedule Routine, Read Routine (OP Routine) 11/11/2024 12:04 PM CDT Atherosclerosis of [place] artery of both lower extremities with intermittent claudication from Last 3 Months Results * eGFR (01/02/2025 9:46 AM SLUBBER HAND) Pathologist [facility] [...] last reviewed 2020. Blood 01/02/2025 9:46 AM SLUBBER HAND 01/02/2025 9:53 AM SLUBBER HAND us Babs OCHOA LAB BLOOD ORDERABLES Final Resu lt [facility] [address] [facility] Department of Laboratories [place], [place] [id number] * Differential, auto (01/02/2025 9:46 AM SLUBBER HAND) Pathologist [facility] Neutrophil abs 5.04 1.50 - 6.50 K/cumm Imm gran abs 0.02 0.00 - 0.10 K/cumm [facility] Lymphocyte abs 1.20 0.80 - 3.30 K/cumm [facility] Monocyte abs 0.74 0.20 - 0.80 K/cumm [facility] Eosinophil abs 0.11 0.00 - 0.50 K/cumm [facility] Basophil abs 0.03 0.00 - 0.10 K/cumm [facility] Neutrophil pct 70.6 % [facility] Comment: Interpretive Data Percent cell count reference ranges are not reported, since discordance with absolute values may lead to misinterpretation of CBC data. Current Interpretive Data was last revised on 2017. Imm gran pct 0.3 % [facility] Comment: Interpretive Data Percent cell count reference ranges are not reported, since discordance with absolute values may lead to misinterpretation of CBC data. Current Interpretive Data was last revised on 2017. Lymphocyte pct 16.8 % [facility] Comment: Interpretive Data Percent cell count reference ranges are not reported, since discordance with absolute values may lead to misinterpretation of CBC data. Current Interpretive Data was last revised on 2017. Monocyte pct 10.4 % [facility] Comment: Interpretive Data Percent cell count reference ranges are not reported, since discordance with absolute values may lead to misinterpretation of CBC data. Current Interpretive Data was last revised on 2017. Eosinophil pct 1.5 % [facility] Comment: Interpretive Data Percent cell count reference ranges are not reported, since discordance with absolute values may lead to misinterpretation of CBC data. Current Interpretive Data was last revised on 2017. Basophil pct 0.4 % [facility] Comment: Interpretive Data Percent cell count reference ranges are not reported, since discordance with absolute values may lead to misinterpretation of CBC data. Current Interpretive Data was last revised on 2017. Blood 01/02/2025 9:46 AM SLUBBER HAND 01/02/2025 9:53 AM SLUBBER HAND us Babs OCHOA LAB BLOOD ORDERABLES Final [facility] lt [facility] [address] [facility] Department [place] [address] * (ABNORMAL) CBC with auto differential (01/02/2025 9:46 AM SLUBBER HAND) WBC 7.14 3.80 - 9.90 K/cumm Hgb 10.4(L) 11.9 - 15.5 g/dL [facility] Hct 31.9(L) 35.6 - 45.5 % [facility] Plt 180 150 - 400 K/cumm [facility] MPV 10.1 9.1 - 12.3 fL [facility] RBC 3.46(L) 3.90 - 5.20 M/cumm [facility] MCV 92.2 81.3 - 96.4 fL [facility] MCH 30.1 27.1 - 33.3 pg [facility] MCHC 32.6 32.3 - 35.7 g/dL [facility] RDW CV 13.4 11.1 - 14.9 % [facility] RDW SD 44.6 35.7 - 48.1 fL [facility] NRBC abs 0.00 0.00 - 0.01 K/cumm [facility] Blood 01/02/2025 9:46 AM SLUBBER HAND 01/02/2025 9:53 AM SLUBBER HAND Babs OCHOA LAB BLOOD ORDERABLES Final Resu lt [facility] [address] [facility] Department [place] [address] * Comprehensive metabolic panel (01/02/2025 9:46 AM SLUBBER HAND) Sodium 140 135 - 145 mmol/L Potassium, pl 4.0 3.3 - 4.9 mmol/L [facility] Chloride 101 97 - 110 mmol/L [facility] CO2 28 22 - 32 mmol/L [facility] Anion gap 11 2 - 15 mmol/L [facility] BUN 13 6 - 25 mg/dL [facility] Creatinine 0.94 0.60 - 1.10 mg/dL [facility] Glucose 97 70 - 199 mg/dL [facility] Comment: Interpretive Data Fasting glucose >/= 126 [...] 2022. Calcium 9.4 8.5 - 10.3 mg/dL [facility] Bilirubin, total 0.3 0.1 - 1.2 mg/dL [facility] Protein, pl 6.9 6.5 - 8.5 g/dL [facility] Albumin 4.1 3.5 - 5.0 g/dL [facility] Alk phos 57 40 - 130 Units/L [facility] ALT 17 7 - 45 Units/L [facility] AST 30 10 - 45 Units/L [facility] Blood 01/02/2025 9:46 AM SLUBBER HAND 01/02/2025 9:53 AM SLUBBER HAND Babs OCHOA LAB BLOOD ORDERABLES Final Resu lt [facility] [address] [facility] Department [place] [address] * eGFR (01/01/2025 4:46 AM SLUBBER HAND) eGFR 84 >=60 mL/min/1. 73 m2 Comment: [...] last reviewed 2020. Blood 01/01/2025 4:46 AM SLUBBER HAND 01/01/2025 4:57 AM SLUBBER HAND us Marci Perez MD LAB BLOOD ORDERABLES Final Resul t [facility] [address] [facility] Department [place] [address] * (ABNORMAL) Differential, auto (01/01/2025 4:46 AM SLUBBER HAND) Neutrophil abs 6.99(H) 1.50 - 6.50 K/cumm Imm gran abs 0.03 0.00 - 0.10 K/cumm [facility] Lymphocyte abs 0.62(L) 0.80 - 3.30 K/cumm [facility] Monocyte abs 0.39 0.20 - 0.80 K/cumm [facility] Eosinophil abs 0.00 0.00 - 0.50 K/cumm [facility] Basophil abs 0.01 0.00 - 0.10 K/cumm [facility] Neutrophil pct 86.9 % [facility] Comment: Interpretive Data Percent cell count reference ranges are not reported, since discordance with absolute values may lead to misinterpretation of CBC data. Current Interpretive Data was last revised on 2017. Imm gran pct 0.4 % [facility] Comment: Interpretive Data Percent cell count reference ranges are not reported, since discordance with absolute values may lead to misinterpretation of CBC data. Current Interpretive Data was last revised on 2017. Lymphocyte pct 7.7 % [facility] Comment: Interpretive Data Percent cell count reference ranges are not reported, since discordance with absolute values may lead to misinterpretation of CBC data. Current Interpretive Data was last revised on 2017. Monocyte pct 4.9 % [facility] Comment: Interpretive Data Percent cell count reference ranges are not reported, since discordance with absolute values may lead to misinterpretation of CBC data. Current Interpretive Data was last revised on 2017. Eosinophil pct 0.0 % [facility] Comment: Interpretive Data Percent cell count reference ranges are not reported, since discordance with absolute values may lead to misinterpretation of CBC data. Current Interpretive Data was last revised on 2017. Basophil pct 0.1 % [facility] Comment: Interpretive Data Percent cell count reference ranges are not reported, since discordance with absolute values may lead to misinterpretation of CBC data. Current Interpretive Data was last revised on 2017. Blood 01/01/2025 4:46 AM SLUBBER HAND 01/01/2025 4:57 AM SLUBBER HAND Marci Perez MD LAB BLOOD ORDERABLES Final Resul t Performing Organization Address City/[facility]/ZIP Co de Phone Number PASCU[facility] [address] [place] [address] * (ABNORMAL) CBC with auto differential (01/01/2025 4:46 AM SLUBBER HAND) WBC 8.04 3.80 - 9.90 K/cumm Hgb 9.6(L) 11.9 - 15.5 g/dL [facility] Hct 29.0(L) 35.6 - 45.5 % [facility] Plt 144(L) 150 - 400 K/cumm [facility] MPV 10.1 9.1 - 12.3 fL [facility] RBC 3.18(L) 3.90 - 5.20 M/cumm [facility] MCV 91.2 81.3 - 96.4 fL [facility] MCH 30.2 27.1 - 33.3 pg [facility] MCHC 33.1 32.3 - 35.7 g/dL [facility] RDW CV 13.0 11.1 - 14.9 % [facility] RDW SD 42.9 35.7 - 48.1 fL [facility] NRBC abs 0.00 0.00 - 0.01 K/cumm [facility] Blood 01/01/2025 4:46 AM SLUBBER HAND 01/01/2025 4:57 AM SLUBBER HAND Marci Perez MD LAB BLOOD ORDERABLES Final Resul t Performing Organization Address City/[facility]/ZIP Co de Phone Number PASCUAL [address] [place] [address] * Basic metabolic panel (01/01/2025 4:46 AM SLUBBER HAND) Pathologist [facility] Sodium 137 135 - 145 mmol/L Potassium, pl 4.3 3.3 - 4.9 mmol/L [facility] Chloride 104 97 - 110 mmol/L [facility] CO2 25 22 - 32 mmol/L [facility] Anion gap 8 2 - 15 mmol/L [facility] BUN 9 6 - 25 mg/dL [facility] Creatinine 0.75 0.60 - 1.10 mg/dL [facility] Glucose 116 70 - 199 mg/dL [facility] Comment: Interpretive Data Fasting glucose >/= 126 [...] 2022. Calcium 8.9 8.5 - 10.3 mg/dL [facility] Blood 01/01/2025 4:46 AM SLUBBER HAND 01/01/2025 4:57 AM SLUBBER HAND Marci Perez MD LAB BLOOD ORDERABLES Final Resul t [facility] [address] [facility] Department [place] [address] * US Carotid Duplex Unilateral Right (12/31/2024 3:10 PM SLUBBER HAND) Anatomical Region Laterality Modality Vascular Right Ultrasound 12/31/2024 12:2 3 PM SLUBBER HAND Narrative 01/02/2025 9:04 AM SLUBBER HAND Carotid Duplex Ultrasound Report Patient Name: YRIS SOTOMAYORBud : 1950 (74y 2m) Study Date: 12/31/2024 12:23:05 PM Sex: F [employer]ble Furnace Tender: BROOKLYN MATT Location: [address] Ref Provider: MARCI PEREZ Quality: Adequate Order [...] By: Marci Perez MD 01/02/2025 9:03:16 AM SLUBBER HAND Procedure Note Marci Perez MD - 01/02/2025 Carotid Duplex Ultrasound Report Patient Name: YRIS SOTOMAYOR B : 1950 (74y 2m) Study Date: 12/31/2024 12:23:05 PM Sex: F [employer] Furnace Tender: BROOKLYN MATT Location: [address] Ref Provider: MARCI PEREZ Quality: Adequate Order [...] By: Marci Perez MD 01/02/2025 9:03:16 AM SLUBBER HAND Marci Perez MD [facility] [place]ED[place] Final Result * ENDARTERECTOMY - CAROTID (12/31/2024 1:22 PM SLUBBER HAND) Anatomical Region Laterality Modality X-Ray Angiograph y Narrative 12/31/2024 3:23 PM SLUBBER HAND Please see OpNote for result. Marci Perez MD CV CARDIAC CATH PROCEDURES Final Result * MA AN PROCEDURE PLACEHOLDER (12/31/2024 11:13 AM SLUBBER HAND) Narrative Valerie Araujo CRNA - 12/31/2024 11:13 AM SLUBBER HAND Valerie Araujo CRNA 12/31/2024 11:17 AM Arterial Line Patient location: other (OR) Indication: continuous blood pressure monitoring and blood sampling needed Staff: Placed by: MAGNETIC DOCTOR: Valerie Araujo CRNA Procedure prep: Prep solution: [...] MD ANESTHESIA ORDERABLES Final Re sult * MA AN ELECTIVE ENDOTRACHEAL AIRWAY, MA AN PROCEDURE PLACEHOLDER (12/31/2024 11:05 AM SLUBBER HAND) Narrative Valerie Araujo CRNA - 12/31/2024 11:05 AM SLUBBER HAND Valerie Araujo CRNA 12/31/2024 11:11 AM Airway Patient location: OR Urgency: elective Date/time: 12/31/2024 10:48 AM Indications for airway management: anesthesia Difficult airway: no Staff: Placed by: Anesthesiologist: Dina Justice MD MAGNETIC DOCTOR: Valerie Araujo CRNA Emergent airway documentation: Risks [...] and CO2 detection Airway secured with: other (Kenvil tape) Number of attempts: 1 Planned trial extubation: yes Additional comments: Placed by Mack CHARLES Dina Justice MD ANESTHESIA ORDERABLES Final Re sult * ABO / Rh Confirmation Testing (12/31/2024 9:40 AM SLUBBER HAND) ABO/Rh Confirmation B Negative [facility] Blood 12/31/2024 9:40 AM SLUBBER HAND 12/31/2024 9:46 AM SLUBBER HAND Marci Perez MD LAB BLOOD ORDERABLES Final Resul t [facility] [address] [facility] Department of Laboratories [place], [place] [id number] [facility] * DEVICE CHECK - REMOTE (12/24/2024 10:09 AM SLUBBER HAND) Anatomical Region Laterality Modality Other Narrative 01/10/2025 3:07 PM SLUBBER HAND [employer] Dual Pacemaker. Dx; SSS, Afib, Bradycardia. DOI 09/13/2022-Shuddhadeb. SenVaughn. Ramu remote. Routine DDD Pacemaker Remote. Transmission attached. Battery status: 3.02 V , 9.0-9.8 years remaining battery life to [place]. Stable lead impedances, pacing and sensing thresholds. Presenting rhythm: /VS AP-30%, SHAREPOINT MANAGER-< 1% No AT/AF episodes noted. 3 Ventricular high rate episodes detected, IEGM demonstrates 2 episodes of NSVT lasting 2 seconds, and 1 episode of atrial tachycardia with RVR at a rate of between 130 and 150 bpm for 2 seconds. Medications: ASA 81 mg See scanned report. Office pacemaker follow up: 03/26/25 [place] remote f/u 6 months. Woody Mcleod RN Sosa Dorsey MD CV CARDIAC SERVICES PROCEDURES Final Result * eGFR (12/23/2024 1:24 PM SLUBBER HAND) eGFR 66 >=60 mL/min/1. 73 m2 Comment: [...] last reviewed 2020. Blood 12/23/2024 1:24 PM SLUBBER HAND 12/23/2024 1:28 PM SLUBBER HAND us Marci Perez MD LAB BLOOD ORDERABLES Final Resul t [facility] [address] [facility] Department [place] [address] * Differential, auto (12/23/2024 1:24 PM SLUBBER HAND) Neutrophil abs 4.97 1.50 - 6.50 K/cumm Imm gran abs 0.01 0.00 - 0.10 K/cumm [facility] Lymphocyte abs 1.14 0.80 - 3.30 K/cumm [facility] Monocyte abs 0.60 0.20 - 0.80 K/cumm [facility] Eosinophil abs 0.16 0.00 - 0.50 K/cumm [facility] Basophil abs 0.04 0.00 - 0.10 K/cumm [facility] Neutrophil pct 71.8 % [facility] Comment: Interpretive Data Percent cell count reference ranges are not reported, since discordance with absolute values may lead to misinterpretation of CBC data. Current Interpretive Data was last revised on 2017. Imm gran pct 0.1 % [facility] Comment: Interpretive Data Percent cell count reference ranges are not reported, since discordance with absolute values may lead to misinterpretation of CBC data. Current Interpretive Data was last revised on 2017. Lymphocyte pct 16.5 % [facility] Comment: Interpretive Data Percent cell count reference ranges are not reported, since discordance with absolute values may lead to misinterpretation of CBC data. Current Interpretive Data was last revised on 2017. Monocyte pct 8.7 % [facility] Comment: Interpretive Data Percent cell count reference ranges are not reported, since discordance with absolute values may lead to misinterpretation of CBC data. Current Interpretive Data was last revised on 2017. Eosinophil pct 2.3 % [facility] Comment: Interpretive Data Percent cell count reference ranges are not reported, since discordance with absolute values may lead to misinterpretation of CBC data. Current Interpretive Data was last revised on 2017. Basophil pct 0.6 % [facility] Comment: Interpretive Data Percent cell count reference ranges are not reported, since discordance with absolute values may lead to misinterpretation of CBC data. Current Interpretive Data was last revised on 2017. Blood 12/23/2024 1:24 PM SLUBBER HAND 12/23/2024 1:28 PM [facility]UBBER HAND Marci Perez MD LAB BLOOD ORDERABLES Final Resul t Performing Organization Address City/[facility] Co de Phone Number [address] [place] [address] * CBC with auto differential (12/23/2024 1:24 PM SLUBBER HAND) Pathologist [facility] WBC 6.92 3.80 - 9.90 K/cumm Hgb 13.0 11.9 - 15.5 g/dL [facility] Hct 39.0 35.6 - 45.5 % [facility] Plt 158 150 - 400 K/cumm [facility] MPV 10.1 9.1 - 12.3 fL [facility] RBC 4.36 3.90 - 5.20 M/cumm [facility] MCV 89.4 81.3 - 96.4 fL [facility] MCH 29.8 27.1 - 33.3 pg [facility] MCHC 33.3 32.3 - 35.7 g/dL [facility] RDW CV 12.9 11.1 - 14.9 % [facility] RDW SD 42.0 35.7 - 48.1 fL [facility] NRBC abs 0.00 0.00 - 0.01 K/cumm [facility] Blood 12/23/2024 1:24 PM [facility]ER HAND 12/23/2024 1:28 PM SLUBBER HAND Marci Perez MD LAB BLOOD ORDERABLES Final Resul t Performing Organization Address City/[facility] Co de Phone Number [address] [place] [address] * ABO/Rh (12/23/2024 1:24 PM SLUBBER HAND) Pathologist [facility] ABO/Rh B Negative Blood 12/23/2024 1:24 PM SLUBBER HAND 12/23/2024 1:28 PM SLUBBER HAND Narrative [facility] - 12/23/2024 2:06 PM SLUBBER HAND Is this test being ordered in advance for a procedure?->Yes Expected date of procedure:->12/17/24 Has the patient been transfused in the past 3 months?->No Has the patient been in the past 3 months?->No Result [facility] Marci Perez MD LAB BLOOD BANK TEST ORDERABLES F inal Result Performing Organization Address [facility] de Phone Number [address] [address] * aPTT (12/23/2024 1:24 PM SLUBBER HAND) aPTT 29 22 - 37 sec Comment: Interpretive data aPTT test has not been evaluated for monitoring heparin therapy. The anti-Xa is the preferred test. Current interpretive data was last revised on 2019. Blood 12/23/2024 1:24 PM SLUBBER HAND 12/23/2024 1:28 PM SLUBBER HAND Result [facility] Marci Perez MD LAB BLOOD ORDERABLES Final Resul t Performing Organization Address [facility] de Phone Number [address] [address] * Protime-INR (12/23/2024 1:24 PM SLUBBER HAND) PT 13.00 12.00 - 14.60 sec INR 0.97 0.90 - 1.[address] [facility] Comment: Interpretive data Oral anticoagulant therapeutic ranges: Venous thromboembolism prophylaxis or treatment: 2.0-3.0 CARDIOLOGY Standard range: 2.0-3.0 High-intensity range: 2.5-3.5 Refer to indication-specific guidelines for appropriate target ranges for prosthetic heart valve replacement. Current interpretive data was last revised on 2019. Blood 12/23/2024 1:24 PM SLUBBER HAND 12/23/2024 1:28 PM [facility] HAND Marci Perez MD LAB BLOOD ORDERABLES Final Resul t Performing Organization Address [facility] de Phone Number [address] [address] * Antibody screen (12/23/2024 1:24 PM SLUBBER HAND) [facility] [place], indirect, Gel Interpretation Negative ABSC Blood 12/23/2024 1:24 PM SLUBBER HAND 12/23/2024 1:28 PM SLUBBER HAND Narrative [facility] - 12/23/2024 2:06 PM SLUBBER HAND Is this test being ordered in advance for a procedure?->Yes Expected date of procedure:->12/17/24 Has the patient been transfused in the past 3 months?->No Has the patient been in the past 3 months?->No Marci Perez MD LAB BLOOD BANK TEST ORDERABLES F inal Result Performing Organization Address [facility] de Phone Number [address] [address] * Basic metabolic panel (12/23/2024 1:24 PM SLUBBER HAND) [facility] Sodium 137 135 - 145 mmol/L Potassium, pl 4.4 3.3 - 4.9 mmol/L [facility] Chloride 100 97 - 110 mmol/L [facility] CO2 29 22 - 32 mmol/L [facility] Anion gap 8 2 - 15 mmol/L [facility] BUN 16 6 - 25 mg/dL [facility] Creatinine 0.92 0.60 - 1.10 mg/dL [facility] Glucose 93 70 - 199 mg/dL [facility] Comment: Interpretive Data Fasting glucose >/= 126 [...] 10.3 mg/dL [facility] Blood 12/23/2024 1:24 PM SLUBBER HAND 12/23/2024 1:28 PM SLUBBER HAND Marci Perez MD LAB BLOOD ORDERABLES Final Resul t Performing Organization Address [facility] de Phone Number [facility] [address] [facility] Department [place] [address] * ECG 12 lead (12/23/2024 1:16 PM SLUBBER HAND) Ventricular Rate EKG/Min 60 BPM [facility] Atrial Rate 60 BPM [facility] MA-Interval (MSEC) 154 ms [facility] QRS-Interval (MSEC) 96 ms [facility] QT-Interval (MSEC) 448 ms [facility] QTc 448 ms [facility] R [place] 1 degrees [facility] T [place] 69 degrees [facility] Diagnosis Atrial-paced rhythm Septal infarct Old No previous ECGs available Confirmed by SULTAN HELTON M.D. ([id number]) on 12/23/2024 10:45:12 PM [facility] 12/23/2024 1:16 PM SLU[facility]ER HAND 12/23/2024 10:45 PM SLUBBER HAND Gladys San BUSINESS COORDINATOR ECG ORDERABLES Charmaine l Result Performing Organization Address [facility] de Phone Number [facility] * CTA Head Neck W WO Contrast [...] OTHER: No other significant abnormality. [facility] [place]: Occlusion of the left distal [...] by Cecy Taylor M.D. T: Report ID: [id number] Reading Location: [id number] Procedure Note Marine Taylor MD - 11/25/2024 EXAM DESCRIPTION: CTA HEAD NECK W WO CONTRAST REASON FOR STUDY: Atherosclerosis w/ claudication Atherosclerosis w/ claudication Dx: Bilateral carotid artery [id number] (ICD-10-CM) TECHNIQUE: Axial images were first obtained [...] OTHER: No other significant abnormality. [facility] [place]: Occlusion of the left distal [...] Cecy Taylor M.D. LC T: Report ID: [id number] Reading Location: [id number] Marci Perez MD IMG CT PROCEDURES Final Result * US Carotids Duplex Bilateral (11/11/2024 12:04 PM CDT) Anatomical Region Laterality Modality Vascular Bilateral Ultrasound 11/11/2024 11:1 8 AM CDT Narrative 11/11/2024 1:36 PM CDT Carotid Duplex Ultrasound Report Patient Name: YRIS SOTOMAYOR B : 1950 (74y ) Study Date: 11/11/2024 11:18:12 AM Sex: F Rabble Furnace Tender: Dina Ren RDMS,T Ref Provider: MARCI PEREZ [...] Study Date: 11/11/2024 11:18:12 AM Sex: F Rabble Furnace Tender: Dina Ren RDMS,RVT Ref Provider: MARCI PEREZ [...] Study Date: 11/11/2024 11:18:00 AM Sex: F Rabble Furnace Tender: Dina Ren RDMS,RVT Ref Provider: MARCI PEREZ Quality: Adequate Order Provider: MARCI PEREZ PROCEDURES: Arterial Report: Bilateral lower extremity arterial Doppler exam at rest. INDICATIONS: I70.213 Atherosclerosis of [place] arteries of extremities with intermittent claudication, bilateral legs. COMPARISONS: The previous exam was completed on 05/13/2024. Previous ANIYAH: RT PT .52, DP .52, 1st digit .42 and LT PT .76, DP .58, 1st digit .52. MEASUREMENTS: Right Value Left Value Rt Brachial Pressure 146 mmHg Lt Brachial Pressure 146 mmHg Rt ZIPPER IRONER Pressure 72 mmHg Lt ZIPPER IRONER Pressure 94 mmHg Rt DPA Pressure 54 [...] Study Date: 11/11/2024 11:18:00 AM Sex: F Rabble Furnace Tender: Dina Ren RDMS,RVT Ref Provider: MARCI PEREZ Quality: Adequate Order Provider: MARCI PEREZ PROCEDURES: Arterial Report: Bilateral lower extremity arterial Doppler exam at rest. INDICATIONS: I70.213 Atherosclerosis of [place] arteries of extremities withintermittent claudication, bilateral legs. COMPARISONS: The previous exam was completed on 05/13/2024. Previous ANIYAH: RT PT .52, DP.52, 1st digit .42 and LT PT .76, DP .58, 1st digit .52. MEASUREMENTS: Right Value Left Value Rt Brachial Pressure 146 mmHg Lt Brachial Pressure 146 mmHg Rt ZIPPER IRONER Pressure 72 mmHg Lt ZIPPER IRONER Pressure 94 mmHg Rt DPA Pressure 54 [...] Final Result from Last 3 Months Insurance [facility] Address: [place] [address] [facility] Address: [place] [id number] UHC MEDICARE ADVANTAGE [facility] Address: [facility] [address] [place] [address] [facility] MEDICARE ADVANTAGE [facility] Address: [facility] [address] [place] [address] Advance Directives For more information, please contact: [phone] * Full Code (Latest Code Status on File) Date Activated Date Inactivated Comments 12/31/2024 3:00 PM 01/01/2025 3:23 PM * Full Code Date Activated Date Inactivated Comments 09/05/2022 3:01 PM 09/15/2022 7:53 PM * Full Code Date Activated Date Inactivated Comments 08/27/2022 4:07 AM 09/05/2022 3:01 PM Care Teams Peg Driver Relationship Specialty Start Date End Date Nic Reyes MD [address] [place] [address] PCP - General 12/16/13 Regina Wood MD [address] [place] [address] Surgeon Cardiothoracic Surgery 09/15/22 Sosa Dorsey MD [facility] JESSICA ORTEGA [facility] [address] [place] [address] Consulting Physician Interventional Cardiology 09/15/22
--- OUTSIDE RECORDS SUMMARY | 2025-02-04 17:46 | XMS_ITS | Clinical Summary ---
Author Organization [facility] Address [address] [address] Care Team Providers Care Corrections Nurse Name Role Phone Unavailable Primary Care Provider Unavailabl e Source Comments [facility],non-owned Affiliates and Associated Physician Practices is amultiple site organization consisting of ambulatory clinics and hospital sitesin [place], [place], [place] and [place]. This disclosure is being madepursuant to the Care Everywhere program and may not contain all information available regarding this patient. 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
== END 2025-02-04 15:35 | disposition home or self-care (01) ==
LOC: ANHED 15:34
PROVIDERS: Emergency Provider Emergency Medicine; PCP Family Medicine
DX: S60.445A External constriction of left ring finger, initial encounter (principal); I70.0 Atherosclerosis of aorta; I11.0 Hypertensive heart disease with heart failure; I50.9 Heart failure, unspecified; E87.1 Hypo-osmolality and hyponatremia; E78.5 Hyperlipidemia, unspecified; R73.03 Prediabetes; F41.1 Generalized anxiety disorder; Z95.2 Presence of prosthetic heart valve; Z95.1 Presence of aortocoronary bypass graft; Z86.718 Personal history of other venous thrombosis and embolism; Z87.891 Personal history of nicotine dependence; Z96.1 Presence of intraocular lens; Z98.42 Cataract extraction status, left eye; W49.04XA Ring or other jewelry causing external constriction, initial encounter
CPT/HCPCS: 99282